=== PATIENT | male | born 1945 | race African-American/Black ===

== ENCOUNTER 2023-01-12 23:23 | Inpatient (IN) | payer MEDICARE, OTHER ==
[~2023-01-12] VITALS: Ht 170.2 cm; Wt 93.6 kg
[2023-01-13 01:31] LABS: Basophils # (auto) 0.1 10 ^3/uL (0-0.2); Basophils % (auto) 0.9 % (0.0-2.0); Eosinophils # (auto) 0.2 10 ^3/uL (0-0.8); Eosinophils % (auto) 2.3 % (0.0-7.0); Hematocrit 43.2 % (36.0-46.0); Hemoglobin 14.1 g/dL (12.2-16.2); Lymphocytes # (auto) 0.8 10 ^3/uL (0.4-5.4); Lymphocytes % (auto) 9.7 % (10.0-50.0); Mean Corpuscular Hemoglobin 27.8 pg (28.0-32.0); Mean Corpuscular Hgb Conc. 32.6 g/dL (32.0-36.0); Mean Corpuscular Volume 85.3 fL (80.0-100.0); Monocytes # (auto) 0.3 10 ^3/uL (0-1.3); Monocytes % (auto) 3.7 % (0.0-12.0); Neutrophils # (auto) 6.5 10 ^3/uL (1.6-8.6); Neutrophils % (auto) 83.4 % (37.0-80.0); Nucleated Red Blood Cells % 0.1 %; Red Blood Cells 5.07 10^6/uL (4.0-5.20); Red Cell Distribution Width 15.7 % (11.8-14.3); White Blood Cell 7.7 10^3/uL (4.4-10.8)
[2023-01-13 01:46] LABS: Albumin 3.3 g/dL (3.4-5.0); BUN/Creatinine Ratio 8.6 (10.0-20.0); Calcium 9.2 mg/dL (8.5-10.1); Potassium 5.4 mmol/L (3.5-5.1)
[2023-01-13 01:48] LABS: Bilirubin, Total 0.3 mg/dL (0.2-1.0); Total Protein 6.9 g/dL (6.4-8.2)
[2023-01-13] MEDS ORDERED: DOCUSATE SOD 100 MG CAP PO PRN (05:30)
[2023-01-13] MEDS ORDERED: SODIUM ZIRCONIUM CYCL 10 GM PAK PO ONE (05:30)
[2023-01-13] MEDS ORDERED: ACETAMINOPHEN 325 MG TAB PO PRN (05:30)
[2023-01-13] MEDS ORDERED: SODIUM CHLORIDE 0.9% 1,000 ML IV SCH (05:30)
[2023-01-13] MEDS ORDERED: ONDANSETRON HCL 4 MG/2 ML VIAL IV PRN (05:30)
[2023-01-13] MEDS: amLODIPine BESYLATE 5 MG TAB PO SCH ×2 (05:52→11:24)
[2023-01-13] MEDS: hydrALAZINE HCL 20 MG/ML VL IV PRN ×2 (05:52→12:49)
[2023-01-13] MEDS ORDERED: MORPHINE SULFATE INJ 2 MG/ml SYRG IV PRN (06:45)
[2023-01-13] MEDS ORDERED: NITROGLYCERIN 0.4 MG SL TAB SL PRN (06:45)
[2023-01-13 06:57] LABS: Basophils # (auto) 0.1 10 ^3/uL (0-0.2); Basophils % (auto) 1.1 % (0.0-2.0); Eosinophils # (auto) 0.2 10 ^3/uL (0-0.8); Eosinophils % (auto) 2.4 % (0.0-7.0); Hematocrit 42.4 % (41.0-53.0); Hemoglobin 13.9 g/dL (13.5-17.5); Lymphocytes # (auto) 1.3 10 ^3/uL (0.4-5.4); Lymphocytes % (auto) 18.6 % (10.0-50.0); Mean Corpuscular Hemoglobin 28.3 pg (28.0-32.0); Mean Corpuscular Hgb Conc. 32.8 g/dL (32.0-36.0); Mean Corpuscular Volume 86.2 fL (80.0-100.0); Monocytes # (auto) 0.3 10 ^3/uL (0-1.3); Monocytes % (auto) 4.9 % (0.0-12.0); Neutrophils # (auto) 5.2 10 ^3/uL (1.6-8.6); Nucleated Red Blood Cells % 0.1 %; Red Blood Cells 4.92 10^6/uL (4.5-5.90); Red Cell Distribution Width 16.1 % (11.8-14.3); White Blood Cell 7.1 10^3/uL (4.4-10.8)
[2023-01-13 07:20] LABS: Albumin 3.5 g/dL (3.4-5.0); Calcium 9.5 mg/dL (8.5-10.1); Potassium 4.7 mmol/L (3.5-5.1)
[2023-01-13 07:24] LABS: BUN/Creatinine Ratio 8.1 (10.0-20.0); Bilirubin, Total 0.4 mg/dL (0.2-1.0); Total Protein 7.5 g/dL (6.4-8.2)
[2023-01-13] MEDS: FAMOTIDINE (10MG/ML) 2ML VL IV SCH ×3 (11:25→22:21)
[2023-01-13] MEDS ORDERED: LIDOCAINE 2% JELLY 11ml (GLYDO) UR ONE (11:30)
[2023-01-13 13:11] LABS: Urine Bacteria NONE SEEN /hpf (None Seen); Urine Blood 2+ /uL (Negative); Urine Hyaline Cast FEW /lpf (0 - 2); Urine Specific Gravity 1.008 (1.001-1.035); Urine WBC 4 /hpf (0 - 3)
[2023-01-13] MEDS ORDERED: cefTRIAXone 1GM/50ML D5W 50 ML IV ONE (13:30)
[2023-01-13] MEDS: SODIUM CHLORIDE 0.9% 1,000 ML IV SCH ×2 (14:05→23:46)
[2023-01-13 15:46] LABS: Calcium 9.4 mg/dL (8.5-10.1)
[2023-01-13 15:49] LABS: BUN/Creatinine Ratio 9.5 (10.0-20.0); Bilirubin, Total 0.4 mg/dL (0.2-1.0); Total Protein 8.7 g/dL (6.4-8.2)
[2023-01-13 19:31] LABS: Basophils # (auto) 0.1 10 ^3/uL (0-0.2); Basophils % (auto) 1.2 % (0.0-2.0); Eosinophils # (auto) 0.1 10 ^3/uL (0-0.8); Eosinophils % (auto) 1.7 % (0.0-7.0); Hematocrit 43.9 % (41.0-53.0); Hemoglobin 14.4 g/dL (13.5-17.5); Lymphocytes % (auto) 12.7 % (10.0-50.0); Mean Corpuscular Hemoglobin 28.1 pg (28.0-32.0); Mean Corpuscular Hgb Conc. 32.8 g/dL (32.0-36.0); Mean Corpuscular Volume 85.6 fL (80.0-100.0); Monocytes # (auto) 0.5 10 ^3/uL (0-1.3); Monocytes % (auto) 6.2 % (0.0-12.0); Neutrophils # (auto) 6.3 10 ^3/uL (1.6-8.6); Neutrophils % (auto) 78.2 % (37.0-80.0); Nucleated Red Blood Cells % 0.1 %; Red Blood Cells 5.13 10^6/uL (4.5-5.90)
[2023-01-13] MEDS ORDERED: LORazepam 2MG/ML-1ML VIAL ONE (22:44)
[2023-01-13] MEDS ORDERED: LORazepam 2MG/ML-1ML VIAL IV ONE (23:00)
[2023-01-14] VITALS (7 sets, daily range): BP systolic 100–165; BP diastolic 62–88
[2023-01-14] MEDS ORDERED: TAMS-35 PO (04:50)
[2023-01-14] MEDS ORDERED: ATOR10TA PO (04:50)
[2023-01-14] MEDS ORDERED: METF-370 PO (04:50)
[2023-01-14] MEDS ORDERED: ATEN-60 PO (04:50)
[2023-01-14 09:06] LABS: Basophils # (auto) 0 10 ^3/uL (0-0.2); Basophils % (auto) 0.3 % (0.0-2.0); Eosinophils # (auto) 0 10 ^3/uL (0-0.8); Hematocrit 41.6 % (41.0-53.0); Hemoglobin 13.6 g/dL (13.5-17.5); Lymphocytes # (auto) 0.7 10 ^3/uL (0.4-5.4); Lymphocytes % (auto) 7.2 % (10.0-50.0); Mean Corpuscular Hemoglobin 27.8 pg (28.0-32.0); Mean Corpuscular Hgb Conc. 32.7 g/dL (32.0-36.0); Mean Corpuscular Volume 85.2 fL (80.0-100.0); Monocytes # (auto) 0.4 10 ^3/uL (0-1.3); Monocytes % (auto) 4.2 % (0.0-12.0); Neutrophils # (auto) 8.5 10 ^3/uL (1.6-8.6); Neutrophils % (auto) 88.3 % (37.0-80.0); Nucleated Red Blood Cells % 0.2 %; Red Blood Cells 4.89 10^6/uL (4.5-5.90); Red Cell Distribution Width 16.1 % (11.8-14.3); White Blood Cell 9.7 10^3/uL (4.4-10.8)
[2023-01-14 09:09] LABS: Calcium 9.3 mg/dL (8.5-10.1); Potassium 4.8 mmol/L (3.5-5.1)
[2023-01-14 09:15] LABS: Albumin 3.4 g/dL (3.4-5.0); BUN/Creatinine Ratio 14.7 (10.0-20.0); Bilirubin, Total 0.3 mg/dL (0.2-1.0); Total Protein 7.1 g/dL (6.4-8.2)
[2023-01-14] MEDS: cefTRIAXone 1GM/50ML D5W 50 ML IV SCH (10:27)
[2023-01-14] MEDS: amLODIPine BESYLATE 5 MG TAB PO SCH (10:27)
[2023-01-14] MEDS: SODIUM CHLORIDE 0.9% 1,000 ML IV SCH ×2 (10:31→19:45)
[2023-01-14] MEDS: FAMOTIDINE (10MG/ML) 2ML VL IV SCH ×2 (10:38→21:32)
[2023-01-14] MEDS: hydrALAZINE HCL 20 MG/ML VL IV PRN (21:31)
[2023-01-14] MEDS ORDERED: DOCUSATE SOD 100 MG CAP PO ONE (23:30)
[2023-01-14] MEDS ORDERED: hydrALAZINE HCL 20 MG/ML VL IV ONE (23:30)
[2023-01-14] MEDS: METOPROLOL TARTRATE 25 MG TAB PO SCH (23:53)
[2023-01-15] VITALS (7 sets, daily range): BP systolic 143–175; BP diastolic 79–91
[2023-01-15] MEDS: hydrALAZINE HCL 20 MG/ML VL IV PRN ×2 (05:11→13:04)
[2023-01-15] MEDS: SODIUM CHLORIDE 0.9% 1,000 ML IV SCH (05:45)
[2023-01-15] MEDS: METOPROLOL TARTRATE 25 MG TAB PO SCH (05:52)
[2023-01-15 05:57] LABS: Potassium 3.6 mmol/L (3.5-5.1)
[2023-01-15 06:00] LABS: Basophils # (auto) 0.1 10 ^3/uL (0-0.2); Basophils % (auto) 0.6 % (0.0-2.0); Eosinophils # (auto) 0.2 10 ^3/uL (0-0.8); Eosinophils % (auto) 2.6 % (0.0-7.0); Hematocrit 43.2 % (41.0-53.0); Hemoglobin 14.4 g/dL (13.5-17.5); Lymphocytes # (auto) 0.7 10 ^3/uL (0.4-5.4); Lymphocytes % (auto) 8.2 % (10.0-50.0); Mean Corpuscular Hemoglobin 28.3 pg (28.0-32.0); Mean Corpuscular Hgb Conc. 33.3 g/dL (32.0-36.0); Monocytes # (auto) 0.5 10 ^3/uL (0-1.3); Monocytes % (auto) 5.5 % (0.0-12.0); Neutrophils # (auto) 7.6 10 ^3/uL (1.6-8.6); Neutrophils % (auto) 83.1 % (37.0-80.0); Nucleated Red Blood Cells % 0.1 %; Red Blood Cells 5.08 10^6/uL (4.5-5.90); Red Cell Distribution Width 15.9 % (11.8-14.3); White Blood Cell 9.1 10^3/uL (4.4-10.8)
[2023-01-15 06:02] LABS: Calcium 9.6 mg/dL (8.5-10.1)
[2023-01-15] MEDS ORDERED: DOCUSATE SOD 100 MG CAP PO SCH (10:00)
[2023-01-15] MEDS: METOPROLOL TARTRATE 50 MG TAB PO SCH ×2 (10:16→21:07)
[2023-01-15] MEDS: SOD CHL 0.45% 1,000 ML IV SCH ×2 (10:17→22:05)
[2023-01-15] MEDS: amLODIPine BESYLATE 5 MG TAB PO SCH (10:17)
[2023-01-15] MEDS: cefTRIAXone 1GM/50ML D5W 50 ML IV SCH (10:17)
[2023-01-15] MEDS: FAMOTIDINE (10MG/ML) 2ML VL IV SCH ×2 (10:17→21:08)
[2023-01-16 05:00] VITALS: BP 145/79
[2023-01-16 06:43] LABS: Basophils # (auto) 0.1 10 ^3/uL (0-0.2); Basophils % (auto) 0.7 % (0.0-2.0); Eosinophils # (auto) 0.4 10 ^3/uL (0-0.8); Eosinophils % (auto) 3.7 % (0.0-7.0); Hematocrit 43.4 % (41.0-53.0); Hemoglobin 14.5 g/dL (13.5-17.5); Lymphocytes # (auto) 1.3 10 ^3/uL (0.4-5.4); Lymphocytes % (auto) 11.1 % (10.0-50.0); Mean Corpuscular Hemoglobin 28.2 pg (28.0-32.0); Mean Corpuscular Hgb Conc. 33.4 g/dL (32.0-36.0); Mean Corpuscular Volume 84.3 fL (80.0-100.0); Monocytes # (auto) 0.7 10 ^3/uL (0-1.3); Monocytes % (auto) 6.2 % (0.0-12.0); Neutrophils # (auto) 8.9 10 ^3/uL (1.6-8.6); Neutrophils % (auto) 78.3 % (37.0-80.0); Nucleated Red Blood Cells % 0.1 %; Red Blood Cells 5.15 10^6/uL (4.5-5.90); White Blood Cell 11.4 10^3/uL (4.4-10.8)
[2023-01-16] MEDS: FAMOTIDINE (10MG/ML) 2ML VL IV SCH (10:19)
[2023-01-16] MEDS: cefTRIAXone 1GM/50ML D5W 50 ML IV SCH (10:20)
[2023-01-16] MEDS: METOPROLOL TARTRATE 50 MG TAB PO SCH ×2 (10:20→22:19)
[2023-01-16] MEDS: amLODIPine BESYLATE 5 MG TAB PO SCH (10:21)
[2023-01-16] MEDS: SOD CHL 0.45% 1,000 ML IV SCH (13:12)
[2023-01-16 22:00] VITALS: BP 144/80
[2023-01-17 05:00] VITALS: BP 141/86
[2023-01-17 06:15] LABS: Basophils # (auto) 0.1 10 ^3/uL (0-0.2); Basophils % (auto) 0.7 % (0.0-2.0); Eosinophils # (auto) 0.6 10 ^3/uL (0-0.8); Eosinophils % (auto) 5.8 % (0.0-7.0); Hematocrit 41.5 % (41.0-53.0); Hemoglobin 13.7 g/dL (13.5-17.5); Lymphocytes # (auto) 1.3 10 ^3/uL (0.4-5.4); Lymphocytes % (auto) 12.5 % (10.0-50.0); Mean Corpuscular Hemoglobin 28.1 pg (28.0-32.0); Mean Corpuscular Volume 85.1 fL (80.0-100.0); Monocytes # (auto) 0.6 10 ^3/uL (0-1.3); Monocytes % (auto) 5.4 % (0.0-12.0); Neutrophils # (auto) 7.8 10 ^3/uL (1.6-8.6); Neutrophils % (auto) 75.6 % (37.0-80.0); Nucleated Red Blood Cells % 0.1 %; Red Blood Cells 4.88 10^6/uL (4.5-5.90); Red Cell Distribution Width 15.6 % (11.8-14.3); White Blood Cell 10.3 10^3/uL (4.4-10.8)
[2023-01-17] MEDS: SOD CHL 0.45% 1,000 ML IV SCH ×2 (06:52→17:50)
[2023-01-17] MEDS: cefTRIAXone 1GM/50ML D5W 50 ML IV SCH (09:26)
[2023-01-17] MEDS: METOPROLOL TARTRATE 50 MG TAB PO SCH ×2 (09:27→21:59)
[2023-01-17 22:00] VITALS: BP 155/82
[2023-01-18] MEDS: SOD CHL 0.45% 1,000 ML IV SCH ×2 (03:25→16:45)
[2023-01-18 05:00] VITALS: BP 151/80
[2023-01-18 05:56] LABS: Basophils # (auto) 0.1 10 ^3/uL (0-0.2); Basophils % (auto) 0.9 % (0.0-2.0); Eosinophils # (auto) 0.6 10 ^3/uL (0-0.8); Eosinophils % (auto) 7.3 % (0.0-7.0); Lymphocytes # (auto) 1.3 10 ^3/uL (0.4-5.4); Lymphocytes % (auto) 16.2 % (10.0-50.0); Mean Corpuscular Hemoglobin 28.2 pg (28.0-32.0); Mean Corpuscular Hgb Conc. 33.3 g/dL (32.0-36.0); Mean Corpuscular Volume 84.5 fL (80.0-100.0); Monocytes # (auto) 0.5 10 ^3/uL (0-1.3); Monocytes % (auto) 6.5 % (0.0-12.0); Neutrophils # (auto) 5.5 10 ^3/uL (1.6-8.6); Neutrophils % (auto) 69.1 % (37.0-80.0); Nucleated Red Blood Cells % 0.1 %; Red Blood Cells 4.62 10^6/uL (4.5-5.90); Red Cell Distribution Width 15.7 % (11.8-14.3); White Blood Cell 7.9 10^3/uL (4.4-10.8)
[2023-01-18 06:12] LABS: BUN/Creatinine Ratio 14.5 (10.0-20.0); Potassium 3.1 mmol/L (3.5-5.1)
[2023-01-18 08:00] VITALS: BP 139/86
[2023-01-18] MEDS: cefTRIAXone 1GM/50ML D5W 50 ML IV SCH (09:16)
[2023-01-18] MEDS: METOPROLOL TARTRATE 50 MG TAB PO SCH ×2 (09:17→21:43)
[2023-01-18] MEDS ORDERED: POTASSIUM CHL 20 Meq TABLET PO ONE (10:00)
[2023-01-18 12:00] VITALS: BP 142/88
[2023-01-18 16:00] VITALS: BP 137/77
[2023-01-18] MEDS: HYDROcodone-ACET 5/325MG TAB PO PRN (16:13)
[2023-01-18 22:00] VITALS: BP 156/90
[2023-01-18 23:07] VITALS: BP 140/68
[2023-01-19 05:07] VITALS: BP 170/95
[2023-01-19] MEDS: hydrALAZINE HCL 20 MG/ML VL IV PRN (05:09)
[2023-01-19 05:53] LABS: Basophils # (auto) 0.1 10 ^3/uL (0-0.2); Basophils % (auto) 1.3 % (0.0-2.0); Eosinophils # (auto) 0.5 10 ^3/uL (0-0.8); Eosinophils % (auto) 6.6 % (0.0-7.0); Hematocrit 40.3 % (41.0-53.0); Hemoglobin 13.2 g/dL (13.5-17.5); Lymphocytes # (auto) 1.4 10 ^3/uL (0.4-5.4); Mean Corpuscular Hemoglobin 28.1 pg (28.0-32.0); Mean Corpuscular Hgb Conc. 32.8 g/dL (32.0-36.0); Mean Corpuscular Volume 85.6 fL (80.0-100.0); Monocytes # (auto) 0.5 10 ^3/uL (0-1.3); Monocytes % (auto) 6.3 % (0.0-12.0); Neutrophils # (auto) 5.1 10 ^3/uL (1.6-8.6); Neutrophils % (auto) 66.8 % (37.0-80.0); Nucleated Red Blood Cells % 0.1 %; Red Cell Distribution Width 15.9 % (11.8-14.3); White Blood Cell 7.6 10^3/uL (4.4-10.8)
[2023-01-19 05:58] LABS: INR 1.06 (0.9-1.15); Partial Thromboplastin Time 26.8 SEC (24.5-34.5)
[2023-01-19 06:04] LABS: Calcium 9.2 mg/dL (8.5-10.1); Potassium 3.7 mmol/L (3.5-5.1)
[2023-01-19 06:11] LABS: BUN/Creatinine Ratio 11.2 (10.0-20.0); Bilirubin, Total 0.5 mg/dL (0.2-1.0); Total Protein 6.5 g/dL (6.4-8.2)
[2023-01-19 08:00] VITALS: BP 133/63
[2023-01-19 09:00] VITALS: BP 133/63
[2023-01-19] MEDS: cefTRIAXone 1GM/50ML D5W 50 ML IV SCH (09:19)
[2023-01-19] MEDS: METOPROLOL TARTRATE 50 MG TAB PO SCH ×2 (09:20→21:31)
[2023-01-19] MEDS: SOD CHL 0.45% 1,000 ML IV SCH ×2 (09:54→19:30)
[2023-01-19 11:20] VITALS: BP 140/77
[2023-01-19] MEDS ORDERED: fentaNYL CITRATE 100 MCG/2 ML VL ONE (12:43)
[2023-01-19] MEDS ORDERED: MIDAZOLAM HCL 2MG/2ML 2ml VIAL (1mg/ml) ONE (12:43)
[2023-01-19] MEDS ORDERED: ONDANSETRON HCL 4 MG/2 ML VIAL ONE (12:47)
[2023-01-19] MEDS ORDERED: LIDOCAINE 2% (LOCAL ANESTH.) PF 5ml SDV ONE (12:47)
[2023-01-19] MEDS ORDERED: HYDROmorphone HCL 2 MG/ML VL/or syr ONE (13:49)
[2023-01-19] MEDS ORDERED: LABETALOL HCL 5 MG/ML ML 20ML VIAL IV ONE (14:40)
[2023-01-19] MEDS ORDERED: ONDANSETRON HCL 4 MG/2 ML VIAL IV PRN (15:15)
[2023-01-19] MEDS ORDERED: LABETALOL HCL 5 MG/ML 4ML SYRINGE IV PRN (15:15)
[2023-01-19] MEDS ORDERED: HYDROmorphone HCL 2 MG/ML VL/or syr IV PRN (15:15)
[2023-01-19 16:59] VITALS: BP 143/76
[2023-01-19 22:00] VITALS: BP 167/77
[2023-01-20] MEDS: SOD CHL 0.45% 1,000 ML IV SCH ×2 (03:32→21:45)
[2023-01-20 05:00] VITALS: BP 167/84
[2023-01-20 09:00] VITALS: BP 151/94
[2023-01-20] MEDS: cefTRIAXone 1GM/50ML D5W 50 ML IV SCH (09:09)
[2023-01-20] MEDS: METOPROLOL TARTRATE 50 MG TAB PO SCH ×2 (10:07→21:43)
[2023-01-20 13:00] VITALS: BP 123/64
[2023-01-20 17:00] VITALS: BP 137/65
[2023-01-20 22:00] VITALS: BP 139/67
[2023-01-20] MEDS: HYDROcodone-ACET 5/325MG TAB PO PRN (22:45)
[2023-01-21 05:00] VITALS: BP 148/83
[2023-01-21 09:00] VITALS: BP 145/78
[2023-01-21] MEDS: cefTRIAXone 1GM/50ML D5W 50 ML IV SCH (09:06)
[2023-01-21] MEDS: SOD CHL 0.45% 1,000 ML IV SCH ×2 (09:06→23:27)
[2023-01-21] MEDS: METOPROLOL TARTRATE 50 MG TAB PO SCH ×2 (09:10→22:35)
[2023-01-21 13:18] VITALS: BP 161/86
[2023-01-21 22:00] VITALS: BP 157/80
[2023-01-22 04:00] VITALS: BP 158/79
[2023-01-22] MEDS: hydrALAZINE HCL 20 MG/ML VL IV PRN (05:09)
[2023-01-22 09:00] VITALS: BP 134/70
[2023-01-22] MEDS: METOPROLOL TARTRATE 50 MG TAB PO SCH ×2 (10:41→21:04)
[2023-01-22] MEDS: cefTRIAXone 1GM/50ML D5W 50 ML IV SCH (10:42)
[2023-01-22] MEDS: SOD CHL 0.45% 1,000 ML IV SCH ×2 (14:39→21:07)
[2023-01-22 16:03] VITALS: BP 112/73
[2023-01-23] MEDS: cefTRIAXone 1GM/50ML D5W 50 ML IV SCH (10:29)
[2023-01-23] MEDS: hydrALAZINE HCL 20 MG/ML VL IV PRN (10:30)
[2023-01-23 13:00] VITALS: BP 107/68
[2023-01-23 16:33] VITALS: BP 144/79
[2023-01-23] MEDS: SOD CHL 0.45% 1,000 ML IV SCH (16:45)
[2023-01-23 18:37] VITALS: BP 184/92
[2023-01-23] MEDS: METOPROLOL TARTRATE 50 MG TAB PO SCH (22:35)
[2023-01-24] MEDS: SOD CHL 0.45% 1,000 ML IV SCH (04:43)
[2023-01-24] MEDS: cefTRIAXone 1GM/50ML D5W 50 ML IV SCH (08:53)
[2023-01-24 09:00] VITALS: BP 142/74
== END 2023-01-24 11:30 | DRG 853 ==
LOC: ER 23:23 → EDSEX 23:23 → EDBD 23:23 → TELE 01-13 06:43 → TELE-EAST 01-14 03:35 → EAST 01-18 17:35
PROVIDERS: ADMIT Nurse Practitioner Family; ATTEND Family Medicine
PROC: BT101ZZ Fluoroscopy of Bladder using Low Osmolar Contrast (ICD-10-PCS; 2023-01-19)
PROC: 0TFB8ZZ Fragmentation in Bladder, Via Natural or Artificial Opening Endoscopic (ICD-10-PCS; 2023-01-19)
PROC: 0VB08ZZ Excision of Prostate, Via Natural or Artificial Opening Endoscopic (ICD-10-PCS; principal; 2023-01-19 12:38)
PROC: 05HD33Z Insertion of Infusion Device into Right Cephalic Vein, Percutaneous Approach (ICD-10-PCS; 2023-01-22)
PROC: B54MZZA Ultrasonography of Right Upper Extremity Veins, Guidance (ICD-10-PCS; 2023-01-22)
DX: A41.9 Sepsis, unspecified organism (principal); N18.6 End stage renal disease; E87.1 Hypo-osmolality and hyponatremia; N13.6 Pyonephrosis; N17.9 Acute kidney failure, unspecified; I12.0 Hypertensive chronic kidney disease with stage 5 chronic kidney disease or end stage renal disease; E78.00 Pure hypercholesterolemia, unspecified; E87.5 Hyperkalemia; I16.0 Hypertensive urgency; Z20.822 Contact with and (suspected) exposure to COVID-19; N21.0 Calculus in bladder; N40.1 Benign prostatic hyperplasia with lower urinary tract symptoms; R31.0 Gross hematuria; R33.8 Other retention of urine; R79.89 Other specified abnormal findings of blood chemistry; E11.22 Type 2 diabetes mellitus with diabetic chronic kidney disease
CPT/HCPCS: 36415; 70450; 71045; 72170; 74018; 74176; 76000; 76775; 80048; 80053; 81001; 82962; 83605; 83880; 84484; 85025; 85610; 85730; 87040; 87086; 87426; 93005; 97110; 97116; 97163; G0378; J0696; J2001; J2250; J2405; J3490

== ENCOUNTER 2024-06-21 13:45 | Inpatient (IN) | payer OTHER ==
[2024-06-21] VITALS (7 sets, daily range): BP systolic 101–104; BP diastolic 58–67; PULSE 82–89; RESP 16–20; TEMP 97.8–98.7; O2SAT 89–98
[~2024-06-21] VITALS: Ht 170.2 cm; Wt 98.7 kg
[~2024-06-21 13:45] MED LIST: ATEN-60 PO; ATOR10TA PO; METF-370 PO; TAMS-35 PO
--- NOTE | 2024-06-21 14:07 | ED.PDOC ---
History of Present Illness HPI Comments A 78 year old male brought in by EMS presents to the ED with a chief complaint of generalized weakness onset today. Per EMS, patient had an appointment today at the [facility], did not make it and family was called. Family members found patient on the ground, he denies LOC and states he felt tired. Neighbors state they saw the patient walking yesterday and seemed weak. No other symptoms or modifying factors present at this time. Time Seen by MD: 14:00 Reviewed Notes: Medications, Allergies Allergies: Coded Allergies: NO KNOWN ALLERGIES (Unverified , 01/12/23) Home Meds Reported Medications Atorvastatin Calcium (Lipitor) 10 Mg Tab, PO QPM, #90 TAB 1 Refill 01/14/23 Metformin Hydrochloride (Metformin Hcl) 500 Mg Tab, PO IBID for 30 Days, MG 01/14/23 Tamsulosin Hcl (Flomax) 0.4 Mg Cap, 1 CAP PO DAILY, #30 CAP 11 Refills 01/14/23 Atenolol (Atenolol) 25 Mg Tab, PO BID for 30 Days, MG 01/14/23 Information Source: Patient, Emergency Med Personnel Mode of Arrival: EMS Severity: Moderate Timing: Hours Duration: Since onset Prehospital treatment: None Past Medical History PAST MEDICAL HISTORY: DM, HTN Surgical History: Denies all surgeries Family History Family History: Unknown Social History Smoker: Non-Smoker Alcohol: Denies ETOH Use Drugs: Denies Drug Use Lives In: Home Constitutional: reports: weakness; denies: chills, diaphoresis, fatigue, fever, malaise, sweats, others EENTM: denies: blurred vision, double vision, ear bleeding, ear discharge, ear drainage, ear pain, ear ringing, eye pain, eye redness, hearing loss, mouth pain, mouth swelling, nasal discharge, nose bleeding, nose congestion, nose pain, photophobia, tearing, throat pain, throat swelling, voice changes, others Respiratory: denies: cough, hemoptysis, orthopnea, SOB at rest, shortness of breath, SOB with excertion, stridor, wheezing, others Cardiovascular: denies: chest pain, dizzy spells, diaphoresis, Dyspnea on exertion, edema, irregular heart beat, left arm pain, lightheadedness, palpitations, PND, syncope, others Gastrointestinal: reports: diarrhea; denies: abdomen distended, abdominal pain, blood streaked bowels, constipated, dysphagia, difficulty swallowing, hematemesis, melena, nausea, poor appetite, poor fluid intake, rectal bleeding, rectal pain, vomiting, others Genitourinary: denies: burning, dysuria, flank pain, frequency, hematuria, incontinence, penile discharge, penile sore, pain, testicle pain, testicle swelling, urgency, others Neurological: denies: dizziness, fainting, headache, left sided numbness, left sided weakness, numbness, paresthesia, pre-existing deficit, right sided numbness, right sided weakness, seizure, speech problems, tingling, tremors, weakness, others Musculoskeletal: denies: back pain, gout, joint pain, joint swelling, muscle pain, muscle stiffness, neck pain, others Integumetry: denies: bruises, change in color, change in hair/nails, dryness, laceration, lesions, lumps, rash, wounds, others Allergic/Immunocompromised: denies: Difficulty Healing, Frequent Infections, Hives, Itching, others Hematologic/Lymphatic: denies: anemia, blood clots, easy bleeding, easy bruising, swollen glands, others Endocrine: denies: excessive hunger, excessive sweating, excessive thirst, excessive urination, flushing, intolerance to cold, intolerance to heat, unexplained weight gain, unexplained weight loss, others Psychiatric: denies: anxiety, bipolar disorder, depression, hopeless, panic disorder, schizophrenia, sleepless, suicidal, others All Other Systems: Reviewed and Negative Physical Exam General Appearance: No Apparent Distress, Normal HEENT: Normal ENT Inspection, Pharynx Normal, TMs Normal Neck: Full Range of Motion, Non-Tender, Normal, Normal Inspection Respiratory: Chest Non-Tender, Lungs Clear, No Accessory Muscle Use, No Respiratory Distress, Normal Breath Sounds Cardiovascular: No Edema, No JVD, No Murmur, No Gallop, Normal Peripheral Pulses, Regular Rate/Rhythm Breast Exam: Deferred Gastrointestinal: No Organomegaly, Non Tender, No Pulsatile Mass, Normal Bowel Sounds, Soft Genitalia: Deferred Pelvic: Deferred Rectal: Deferred Extremities: No calf tenderness, Normal capillary refill, Normal inspection, Normal range of motion, Non-tender, No pedal edema Musculoskeletal : Apperance: Normal Neurologic: Alert, biological aide II-XII nml as 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 Was a procedure done?: No Differential Dx Considerations may include: ACS, CVA, electrolyte abnormality, infectious etiology X-Ray, Labs, Meds, VS Vital Signs Date Time Temp Pulse Resp B/P (MAP) Pulse Ox O2 Delivery O2 Flow Rate FiO2 06/21/24 15:47 86 06/21/24 15:00 82 18 88/55 (66) 99 06/21/24 14:10 87 18 85/52 (63) 89 06/21/24 14:10 82 18 89 Room Air* 0 21 06/21/24 14:05 98.7 88 18 75/50 (58) 95 06/21/24 13:56 85 Lab Test 06/21/24 16:53 06/21/24 16:08 06/21/24 14:53 Range/Units Lactic Acid Level Pending 8.2 *H 0.4-2.0 mmol/L Troponin I High Sensitivity 306 *H 307 *H </=54 ng/L White Blood Count 28.8 H 4.4-10.8 10^3/uL Red Blood Count 5.08 4.5-5.90 10^6/uL Hemoglobin 14.5 13.5-17.5 g/dL Hematocrit 45.0 41.0-53.0 % Mean Corpuscular Volume 88.4 80.0-100.0 fL Mean Corpuscular Hemoglobin 28.5 28.0-32.0 pg Mean Corpuscular Hemoglobin Concent 32.2 32.0-36.0 g/dL Red Cell Distribution Width 17.6 H 11.8-14.3 % Platelet Count 247 140-450 10^3/uL Mean Platelet Volume 7.8 6.9-10.8 fL Neutrophils (%) (Auto) 37.0-80.0 % Lymphocytes (%) (Auto) 10.0-50.0 % Monocytes (%) (Auto) 0.0-12.0 % Basophils (%) (Auto) 0.0-2.0 % Neutrophils # (Auto) 1.6-8.6 10 ^3/uL Lymphocytes # (Auto) 0.4-5.4 10 ^3/uL Monocytes # (Auto) 0-1.3 10 ^3/uL Differential Total Cells Counted 100.0 100 Neutrophils % (Manual) 83 H 37.0-80.0 Band Neutrophils % (Manual) 6 Lymphocytes % (Manual) 7 L 10.0-50.0 Monocytes % (Manual) 4 0-12 Eosinophils % (Manual) 0 0-7 Basophils % (Manual) 0 0.0-2.0 Metamyelocytes % (manual) 0 Myelocytes % (Manual) 0 Promyelocytes % (Manual) 0 Blast Cells % (Manual) 0 Reactive Lymphocytes 0 Platelet Estimate [place] Clumped Platelets Few Large Platelets Few Prothrombin Time 11.3 9.3-11.8 sec Prothrombin Time INR 1.07 0.9-1.15 Sodium Level 145 136-145 mmol/L Potassium Level 3.7 3.5-5.1 mmol/L Chloride Level 104 98-107 mmol/L Carbon Dioxide Level 21 20-31 mmol/L Anion Gap 20 H 5-15 Blood Urea Nitrogen 32 H 9-23 mg/dL Creatinine 3.91 H 0.700-1.30 mg/dL Glomerular Filtration Rate Calc 15 >90 mL/min BUN/Creatinine Ratio 8.2 L 10.0-20.0 Serum Glucose 138 H 74-106 mg/dL Calcium Level 10.7 H 8.7-10.4 mg/dL Total Bilirubin 0.4 0.2-1.0 mg/dL Aspartate Amino Transferase (AST) 208 H 13-40 U/L Alanine Aminotransferase (ALT) 55 H 7-40 U/L Alkaline Phosphatase 131 H 46-116 U/L B-Type Natriuretic Peptide 798.88 0-100 pg/mL Total Protein 7.7 5.7-8.2 g/dL Albumin 4.3 3.2-4.8 g/dL Current Medications Medications (Trade) Dose Ordered Sig/Jere Route Start Time Stop Time Status Last Admin Sodium Chloride 1,000 ml @ 1,000 mls/hr Q1H ONCE IV 06/21/24 14:30 06/21/24 15:29 DC 06/21/24 14:30 Sodium Chloride 1,000 ml @ 1,000 mls/hr Q1H ONCE IV 06/21/24 16:00 06/21/24 16:59 06/21/24 16:26 Cefepime HCl 50 ml @ 50 mls/hr ONCE ONCE IV 06/21/24 16:00 06/21/24 16:59 06/21/24 16:45 Sodium Chloride 1,000 ml @ 1,000 mls/hr Q1H ONCE IV 06/21/24 16:00 06/21/24 16:59 06/21/24 16:[address] [address] Ph: [phone] DIAGNOSTIC IMAGING Diagnostic Imaging Report : [id number] Signed PATIENT: COURTNEY BALDERRAMA ACCT: [id number] UNIT: [id number] : 1945 LOC: ER ROOM / BED: / AGE / SEX: 78 / M ADM STATUS: REG ER SERVICE 1417 ORDERING PHYSICIAN: LEIGHANN MA MD PROCEDURE(s): CXRP - CHEST PORTABLE REASON: syncope ORDER NUMBER(s): [id number], ACCESSION NUMBER(s): [id number] CLINICAL INFORMATION: 78 years old, Female; syncope. TECHNIQUE: Single AP portable chest radiograph was obtained. COMPARISON: XY CHEST PORTABLE on DOS: 01/13/23 FINDINGS: Lungs: Portions of the left costophrenic sulcus are excluded from the [id number]-dv-[id number] of the exam. Atelectasis in the lung bases. Can not exclude a small left pleural effusion. Cardiac: Heart size is within normal limits. Pulmonary vasculature: Unremarkable. Mediastinum/brendan: Unremarkable. Bones: No acute osseous abnormality identified. Other: No other significant findings. IMPRESSION: Atelectasis in the lung bases. Possible small left pleural effusion. ATED BY: ARI SMITH DO DICTATED DATE/TIME: 06/21/241446 SIGNED BY: ARI SMITH DO SIGNED DATE/TIME: 06/21/241446 CC: [address] [address] Ph: [phone] DIAGNOSTIC IMAGING Diagnostic Imaging Report : [id number] Signed PATIENT: COURTNEY BALDERRAMA ACCT: [id number] UNIT: [id number] : 1945 LOC: ER ROOM / BED: / AGE / SEX: 78 / M ADM STATUS: REG ER SERVICE 1417 ORDERING PHYSICIAN: LEIGHANN MA MD PROCEDURE(s): HWOCT - HEAD WITHOUT CONTRAST REASON: syncope ORDER NUMBER(s): [id number], ACCESSION NUMBER(s): [id number] EXAM: CT HEAD WITHOUT CONTRAST INDICATION: syncope TECHNIQUE: CT of the head without intravenous contrast. Radiation Dose Information: CT Dose: CTDI volume is 64.92 mGy. Dose-length product is 1040.13 mGy*cm The dose indicators for CT are the volume Computed Tomography (CT) Dose Index (CTDIvol) and the Dose Length Product (DLP), and are measured in units of mGy and mGy-cm, respectively. These indicators are not patient dose, but values generated from the CT scanner acquisition factors. The report includes radiation exposure data for exposures received during this examination. COMPARISON: CT HEAD WITHOUT CONTRAST on DOS: 01/13/23, CT HEAD WITHOUT CONTRAST on DOS: 01/12/23 FINDINGS: There is no evidence of acute intracranial hemorrhage, extra-axial collection, mass effect, midline shift, herniation or hydrocephalus. The ventricles, sulci and cisterns are age appropriate. The benton-white differentiation is intact. Patchy periventricular and subcortical white matter hypoattenuation is nonspecific but may be related to small vessel ischemic disease. The visualized paranasal sinuses and mastoid air cells are clear. The surrounding soft tissues and osseous structures are unremarkable. IMPRESSION: 1. No acute intracranial hemorrhage 2. No CT findings of territorial ischemia. ATED BY: LAKIA VICTOR Jr., DO DICTATED DATE/TIME: 06/21/241453 SIGNED BY: LAKIA VICTOR Jr., SIGNED DATE/TIME: 06/21/241453 CC: Time of 1ST Reevaluation: 14:30 Reevaluation 1ST: Unchanged Patient Education/Counseling: Diagnosis, Treatment, Prognosis Family Education/Counseling: No Family Present Additional Information HI DATA VOL/COMPLEXITY:>2 External Notes- Ordered Test- XY, LAB, PHA, EKG, CT Reviewed Results: BNP, CBC, UA, LA w/ reflex, TROP, TROP, TROP, CMP, type and screen Independent Hx- EMS Interpreted Results- XY/CT/EKG Discuss Tx/Results- medical personnel, patient Departure 1 Departure Time of Disposition: 16:58 (Patient presents critically ill. He has altered mental status, was found down, appears clinically dehydrated concern for sepsis. Evaluated the patient's CBC with an elevated white count. BNP with a an elevated creatinine. We will empirically cover patient with fluids and antibiotics and admit patient for further workup) Impression: Primary Impression: Metabolic encephalopathy Additional Impressions: Weakness Sepsis Qualified Codes: A41.9 - Sepsis, unspecified organism; R65.21 - Severe sepsis with septic shock; N17.9 - Acute kidney failure, unspecified Disposition: ADMITTED INPATIENT Admit to: [facility] Condition: Guarded Critical Care Note Critical Care Time?: Yes Critical care comment: Altered mental status, sepsis Authorized and Performed by: Leighann Ma MD Total critical care time: Approximately 38 minutes Due to a high probability of clinically significant, life threatening deterioration, the patient required my highest level of preparedness to intervene emergently and I personally spent this critical care time directly and personally managing the patient. This critical care time included obtaining a history; examining the patient; pulse oximetry; ordering and review of studies; arranging urgent treatment with development of a management plan; evaluation of patient's response to treatment; frequent reassessment; and, discussions with other providers. This critical care time was performed to assess and manage the high probability of imminent, life-threatening deterioration that could result in multi-organ failure. It was exclusive of separately billable procedures and treating other patients and teaching time. Please see my other sections and the rest of the note for further information on patient assessment and treatment. Stability Stability form required: No I personally scribed for LEIGHANN MA MD ([email or web address]) on 06/21/24 at 14:07. Electronically submitted by Amanda Valladares ([email or web address]). I personally scribed for LEIGHANN MA MD ([email or web address]) on 06/21/24 at 14:34. Electronically submitted by Amanda Valladares ([email or web address]). I personally scribed for LEIGHANN MA MD ([email or web address]) on 06/21/24 at 15:41. Electronically submitted by Amanda Valladares ([email or web address]). LEIGHANN MA MD Jun 21, 2024 14:07
[2024-06-21] MEDS: SODIUM CHLORIDE 0.9% 1,000 ML IV ONE ×3 (14:30→16:26)
[2024-06-21] MEDS: ONDANSETRON HCL 4 MG/2 ML VIAL IV ONE (14:30)
--- NOTE | 2024-06-21 14:49 | DVH ---
CLINICAL INFORMATION: 78 years old, Female; syncope. TECHNIQUE: Single AP portable chest radiograph was obtained. COMPARISON: XY CHEST PORTABLE on DOS: 01/13/23 FINDINGS: Lungs: Portions of the left costophrenic sulcus are excluded from the uvsbl-dw-neex of the exam. Atel ectasis in the lung bases. Can not exclude a small left pleural effusion. Cardiac: Heart size is within normal limits. Pulmonary vasculature: Unremarkable. Mediastinum/brendan: Unremarkable. Bones: No acute osseous abnormality identified. Other: No other significant findings. IMPRESSION: Atelectasis in the lung bases. Possible small left pleural effusion.
--- NOTE | 2024-06-21 14:57 | DVH ---
EXAM: CT HEAD WITHOUT CONTRAST INDICATION: syncope TECHNIQUE: CT of the head without intravenous contrast. Radiation Dose Information: CT Dose: CTDI volume is 64.92 mGy. Dose-length product is 1040.13 mGy*cm The dose indicators for CT are the volume Computed Tomography (CT) Dose Index (CTDIvol) and the Dose Length Product (DLP), and are measured in units of mGy and mGy-cm, respectively. These indicators are not patient dose, but values generated from the CT scanner acquisition factors. The report includes radiation exposure data for exposures received during this examination. COMPARISON: CT HEAD WITHOUT CONTRAST on DOS: 01/13/23, CT HEAD WITHOUT CONTRAST on DOS: 01/12/23 FINDINGS: There is no evidence of acute intracranial hemorrhage, extra-axial collection, mass effect, midline s hift, herniation or hydrocephalus. The ventricles, sulci and cisterns are age appropriate. The benton-white differentiation is intact. Patchy periventricular and subcortical white matter hypoattenuation is nonspecific but may be related to small vessel ischemic disease. The visualized paranasal sinuses and mastoid air cells are clear. The surrounding soft tissues and osseous structures are unremarkable. IMPRESSION: 1. No acute intracranial hemorrhage 2. No CT findings of territorial ischemia.
[2024-06-21 15:15] LABS: Hemoglobin 14.5 g/dL (13.5-17.5); Mean Corpuscular Hemoglobin 28.5 pg (28.0-32.0); Mean Corpuscular Hgb Conc. 32.2 g/dL (32.0-36.0)
[2024-06-21 15:23] LABS: Mean Corpuscular Volume 88.4 fL (80.0-100.0); Platelet Count (auto) 247 10^3/uL (140-450); Red Blood Cells 5.08 10^6/uL (4.5-5.90); Red Cell Distribution Width 17.6 % (11.8-14.3); White Blood Cell 28.8 10^3/uL (4.4-10.8)
[2024-06-21 15:28] LABS: Basophils % (manual) 0 (0.0-2.0); Blast Cells 0; Eosinophils % (manual) 0 (0-7); Metamyelocytes % 0; Myelocytes % 0; Promyelocytes % 0; Reactive Lymphocytes 0
[2024-06-21 15:29] LABS: INR 1.07 (0.9-1.15); Prothrombin Time 11.3 sec (9.3-11.8)
[2024-06-21 15:33] LABS: Albumin 4.3 g/dL (3.2-4.8); Anion Gap 20 (5-15); BUN/Creatinine Ratio 8.2 (10.0-20.0); Bilirubin, Total 0.4 mg/dL (0.2-1.0); Carbon Dioxide 21 mmol/L (20-31); Chloride 104 mmol/L (98-107); Potassium 3.7 mmol/L (3.5-5.1); Total Protein 7.7 g/dL (5.7-8.2)
[2024-06-21 15:39] LABS: Alanine Aminotransferase 55 U/L (7-40); Alkaline Phosphatase 131 U/L (46-116); Aspartate Aminotransferase 208 U/L (13-40); Blood Urea Nitrogen 32 mg/dL (9-23); Calcium 10.7 mg/dL (8.7-10.4); Glucose 138 mg/dL (74-106); Sodium 145 mmol/L (136-145)
[2024-06-21 15:41] LABS: Lactic Acid w/Reflex 8.2 mmol/L (0.4-2.0)
[2024-06-21 16:17] LABS: Band Neutrophils % (manual) 6; Large Platelets FEW; Lymphocytes % (manual) 7 (10.0-50.0); Monocytes % (manual) 4 (0-12); Platelet Estimate Adequa
[2024-06-21] MEDS: CEFEPIME 2GM/50ML NS 50 ML IV ONE (16:45)
[2024-06-21] MEDS: VANCOMYCIN 1GM/250ML KIT 200 ML IV ONE ×2 (17:11→23:00)
--- NOTE | 2024-06-21 17:55 | ECG ---
[facility] Test Date: 2024-06-21 Test Time: 15:47:10 Pat Name: COURTNEY BALDERRAMA Department: er Room: [address] [place] [address] Gender: M [employer] Machine: kar : 1945 Requested By: LEIGHANN MA Order Number: [id number] Reading MD: Benigno Manning Measurements Intervals [place] Rate: 86 P: 38 ND: 223 QRS: 40 QRSD: 98 T: 48 QT: 378 QTc: 452 Interpretive Statements Sinus rhythm Prolonged ND interval Borderline low voltage, extremity leads Electronically Signed On 06-26-2024 16:08:32 PST by Benigno Manning Please click the below link to view image of tracing.
--- NOTE | 2024-06-21 17:55 | ECG ---
[facility] Test Date: 2024-06-21 Test Time: 13:56:06 Pat Name: COURTNEY BALDERRAMA Department: er Room: [address] [place] [address] Gender: M [employer]: kar : 1945 Requested By: LEIGHANN MA Order Number: [id number] Reading MD: Benigno Manning Measurements Intervals [place] Rate: 85 P: 13 NC: 207 QRS: 43 QRSD: 90 T: 45 QT: 388 QTc: 462 Interpretive Statements Sinus rhythm Borderline ST elevation, lateral leads Baseline wander in lead(s) V5 Electronically Signed On 06-26-2024 16:08:25 PST by Benigno Manning Please click the below link to view image of tracing.
[2024-06-21] MEDS ORDERED: HYDROcodone-ACET 5/325MG TAB PO PRN (18:30)
[2024-06-21] MEDS ORDERED: MORPHINE SULFATE INJ 2 MG/ml SYRG IV PRN (18:30)
[2024-06-21] MEDS ORDERED: VANCOMYCIN PER PHARMACY 0 MG IV SCH (18:45)
--- NOTE | 2024-06-21 19:03 | DVHHP2 ---
History of Present Illness History of Present Illness A 78 year old male past medical history of renal stones (status post ESWL), BPH status post TURP, obstructive uropathy, hypertension brought in by EMS presents to the ED with a chief complaint of generalized weakness onset today. Per EMS, patient had an appointment today at the [place], did not make it and family was called. Family members found patient on the ground, he denies LOC and states he felt tired. Neighbors state they saw the patient walking yesterday and seemed weak. In endorses that he had some food that may have been bad in resulted in him having diarrhea, multiple episodes yesterday. When he was trying to go to sleep he was too weak and could not make it to the bed and sat down beside the bed. Denies nausea and vomiting, fevers chills, cough,. Does complain of some dysuria. Denies any trouble urinating. Denies any drugs, alcohol. Review of Systems Review of Systems As per HPI Allergies: Coded Allergies: NO KNOWN ALLERGIES (Unverified , 01/12/23) Medications Current Medications Medications Dose Ordered Sig/Jere Route Start Time Stop Time Status Last Admin Dose Admin Acetaminophen/ Hydrocodone Bitart 1 tab Q4HP PRN PO 06/21/24 18:30 UNV Enoxaparin Sodium 40 mg DAILY SC 06/22/24 10:00 UNV Morphine Sulfate 2 mg Q4HPRN PRN IV 06/21/24 18:30 UNV Vancomycin HCl 0 ml @ 0 mls/hr UD IV 06/21/24 18:45 UNV Cefepime HCl 50 ml @ 12.5 mls/hr Q12HR IV 06/21/24 22:00 UNV Exam Vital Signs Vital Signs Date Time Temp Pulse Resp B/P (MAP) Pulse Ox O2 Delivery O2 Flow Rate FiO2 06/21/24 18:00 88 14 104/67 (79) 98 06/21/24 14:10 Room Air* 0 21 06/21/24 14:05 98.7 Exam GEN: Healthy appearing, well-developed, mild to moderate distress, mild respiratory distress HEENT: dry mucous membranes CV: RRR, no m/r/g. LUNGS: Rales up to middle lobes bilaterally ABD: Soft, NT/ND, NBS, no masses or organomegaly. EXT: skin Warm, well perfused. no rashes. No clubbing, cyanosis, or edema. : Bowman inserted in urethra, Bowman and Bowman bag without any urine NEURO: Ambulating with no limitations. No focal deficits. Labs/Xrays Labs Test 06/21/24 17:51 06/21/24 16:53 06/21/24 14:53 Range/Units Troponin I High Sensitivity 293 *H </=54 ng/L Lactic Acid Level 6.6 *H 0.4-2.0 mmol/L White Blood Count 28.8 H 4.4-10.8 10^3/uL Red Blood Count 5.08 4.5-5.90 10^6/uL Hemoglobin 14.5 13.5-17.5 g/dL Hematocrit 45.0 41.0-53.0 % Mean Corpuscular Volume 88.4 80.0-100.0 fL Mean Corpuscular Hemoglobin 28.5 28.0-32.0 pg Mean Corpuscular Hemoglobin Concent 32.2 32.0-36.0 g/dL Red Cell Distribution Width 17.6 H 11.8-14.3 % Platelet Count 247 140-450 10^3/uL Mean Platelet Volume 7.8 6.9-10.8 fL Neutrophils (%) (Auto) 37.0-80.0 % Lymphocytes (%) (Auto) 10.0-50.0 % Monocytes (%) (Auto) 0.0-12.0 % Basophils (%) (Auto) 0.0-2.0 % Neutrophils # (Auto) 1.6-8.6 10 ^3/uL Lymphocytes # (Auto) 0.4-5.4 10 ^3/uL Monocytes # (Auto) 0-1.3 10 ^3/uL Differential Total Cells Counted 100.0 100 Neutrophils % (Manual) 83 H 37.0-80.0 Band Neutrophils % (Manual) 6 Lymphocytes % (Manual) 7 L 10.0-50.0 Monocytes % (Manual) 4 0-12 Eosinophils % (Manual) 0 0-7 Basophils % (Manual) 0 0.0-2.0 Metamyelocytes % (manual) 0 Myelocytes % (Manual) 0 Promyelocytes % (Manual) 0 Blast Cells % (Manual) 0 Reactive Lymphocytes 0 Platelet Estimate [place] Clumped Platelets Few Large Platelets Few Prothrombin Time 11.3 9.3-11.8 sec Prothrombin Time INR 1.07 0.9-1.15 Sodium Level 145 136-145 mmol/L Potassium Level 3.7 3.5-5.1 mmol/L Chloride Level 104 98-107 mmol/L Carbon Dioxide Level 21 20-31 mmol/L Anion Gap 20 H 5-15 Blood Urea Nitrogen 32 H 9-23 mg/dL Creatinine 3.91 H 0.700-1.30 mg/dL Glomerular Filtration Rate Calc 15 >90 mL/min BUN/Creatinine Ratio 8.2 L 10.0-20.0 Serum Glucose 138 H 74-106 mg/dL Calcium Level 10.7 H 8.7-10.4 mg/dL Total Bilirubin 0.4 0.2-1.0 mg/dL Aspartate Amino Transferase (AST) 208 H 13-40 U/L Alanine Aminotransferase (ALT) 55 H 7-40 U/L Alkaline Phosphatase 131 H 46-116 U/L B-Type Natriuretic Peptide 798.88 0-100 pg/mL Total Protein 7.7 5.7-8.2 g/dL Albumin 4.3 3.2-4.8 g/dL Assessment/Plan Assessment/Plan Septic shock Weakness Diarrhea Leukocytosis Neutrophilia Lactic acidosis AGMA gap metabolic acidosis --Patient found at home weak status post diarrhea episodes. -Labs concerning for septic shock (leukocytosis neutrophilia lactic acidosis) -CT head negative for acute process -patient has end-organ with lactic acid, ORTEGA, transaminitis, -in ed patient is hypotensive maps as low as 58. Responsive to fluids. Sign sources likely diarrhea from HPI. We will rule out urine, chest history not concerning for any acute infection and patient has no cough. -broad-spectrum antibiotics (vancomycin, cefepime) - s/p Generous IV fluids 30 cc/kg plain pending blood culture, pending UA and urine culture -trend lactic acid. Shortness of breath Acute hypoxic respiratory failure -patient requiring oxygen, has mild respiratory distress -physical exam with rales up to middle lobes, could be up to upper lobes as well patient using abdominal muscles to breathe -this could be secondary to 30 cc sepsis protocol fluids -BiPAP overnight and nightly until resolves -low threshold to trial Lasix push. LFTs/transaminitis ALP elevated -likely result of end-organ damage from sepsis We will monitor daily CMP ORTEGA Anuria -creatinine elevation from 0 point by 2.9 patient is not producing any urine CT pelvis to confirm Bowman placement -status post 30 cc/kg fluids, approximately 3 L -if no urine output made by a.m.-patient at risk of volume overload and will need a Nephrology consult and likely transient use of HD Diet NPO-concern for aspiration as patient was confused on presentation DVT prophylaxis Lovenox GI prophylaxis Protonix IV Med tele Plan discussed with: Patient My Orders Orders - DORIAN BATES MD Procedure Category Date Status Time Admit ADMIT 06/21/24 Transmitted 18:27 Code Status CODE 06/21/24 Transmitted 18:27 Hydrocodone-Acet PHA 06/21/24 Logged 5/325mg Tab ([place] 18:30 Enoxaparin Sodium PHA 06/22/24 Logged (Lovenox) 10:00 Complete Blood Count LAB 06/22/24 Verified 04:00 Comprehensive LAB 06/22/24 Verified Metabolic Panel 04:00 Maintain Bed Rest DAJA 06/21/24 In Process 18:27 Morphine Sulfate PHA 06/21/24 Logged Injection 18:[address] 06/21/24 Logged 18:27 BIPAP RT 06/21/24 Logged 18:27 Vancomycin Per DAJA 06/21/24 In Process Pharmacy Protoc 18:39 Vancomycin Per PHA 06/21/24 Logged Pharmacy 18:45 Cefepime 1gm/ 50ml PHA 06/21/24 Logged (Maxipime 1gm/50ml) 22:00 Urine Bacterial DANISHA 06/21/24 Logged Culture 18:42 Strict Aspiration DAJA 06/21/24 Transmitted Precautions 18:45 Npo Except For DAJA 06/21/24 Transmitted Medications 18:45 Date of Service: Jun 21, 2024 Billing Provider: DORIAN BATES MD Common Visit Codes: [id number] INP/OBS CARE (HIGH) DORIAN BATES MD Jun 21, 2024 19:03
--- NOTE | 2024-06-21 20:45 | DVH ---
Exam: CT PELVIS WO CONTRAST History: no urine. confirm crain placement. Comparison Study: None available at time of dictation. TECHNIQUE: Multidetector CT of the pelvis without contrast Axial, coronal and sagittal multiplanar re formats were obtained from the axial data set by the technologist. Radiation Dose Information: CT Dose: CTDI volume is 25.55 mGy. Dose-length product is 919.9 mGy*cm FINDINGS: Crain catheter is noted with the tip and bulb within the prosthetic urethra. The urinary bladder is d istended up to the level of L3-L4. Foci of air within the urinary bladder and within the wall of the urinary bladder with additional foci of air adjacent to the anterior urinary bladder and mild fat st randing adjacent to the urinary bladder. There is partially visualized mild bilateral hydro ureters. Prostate is enlarged measuring 5.5 x 6.4 x 6.9 cm with calcifications. Partially visualized moderate bilateral perinephric fat stranding. Partially visualized 6.3 cm left r enal cyst. Mild rectal wall thickening which is most likely from inadequate distension. Otherwise, the visualize d bowel loops unremarkable. Appendix is unremarkable. Moderate to heavy atherosclerotic calcification of the aorta and bilateral iliacs. 3.3 x 4.8 x 9.3 cm lipoma within the muscles of the right proximal thigh. Sclerotic focus over the left proximal femur which may represent a bone island. No destructive osseou s lesions noted. IMPRESSION: The Crain catheter tip and bulb are position within the prosthetic ureter. Recommend removal. Foci of air within the urinary bladder and within the wall of the urinary bladder with foci of air an terior to the urinary bladder and mild fat stranding adjacent to the urinary bladder. Correlate for emphysematous cystitis . No intrapelvic free fluid suggest urinary bladder perforation. Distended urinary bladder up to the level of L3-L4. Partially visualized mild bilateral hydro ureters . Partially visualized moderate bilateral perinephric fat stranding. Infectious process can not be excl uded. Partially visualized large left renal cyst. Enlarged prostate. Recommend correlation with PSA. Additional findings as above.
[2024-06-22] VITALS (12 sets, daily range): BP systolic 100–133; BP diastolic 60–84; PULSE 66–94; RESP 18–25; TEMP 97.8–99.2; O2SAT 94–99
[2024-06-22] MEDS: CEFEPIME 1GM/ 50ML 50 ML IV SCH (04:38)
[2024-06-22 05:23] LABS: Basophils # (auto) 0 10 ^3/uL (0-0.2); Basophils % (auto) 0.1 % (0.0-2.0); Eosinophils # (auto) 0.1 10 ^3/uL (0-0.8); Eosinophils % (auto) 0.3 % (0.0-7.0); Hematocrit 41.7 % (41.0-53.0); Hemoglobin 13.1 g/dL (13.5-17.5); Lymphocytes # (auto) 0.6 10 ^3/uL (0.4-5.4); Mean Corpuscular Hemoglobin 28.3 pg (28.0-32.0); Mean Corpuscular Hgb Conc. 31.4 g/dL (32.0-36.0); Mean Corpuscular Volume 90.2 fL (80.0-100.0); Monocytes # (auto) 0.8 10 ^3/uL (0-1.3); Monocytes % (auto) 3.7 % (0.0-12.0); Neutrophils # (auto) 19.9 10 ^3/uL (1.6-8.6); Neutrophils % (auto) 92.9 % (37.0-80.0); Platelet Count (auto) 182 10^3/uL (140-450); Red Blood Cells 4.62 10^6/uL (4.5-5.90); Red Cell Distribution Width 18.2 % (11.8-14.3); White Blood Cell 21.4 10^3/uL (4.4-10.8)
[2024-06-22 05:48] LABS: Alkaline Phosphatase 110 U/L (46-116); Anion Gap 18 (5-15); Potassium 5.1 mmol/L (3.5-5.1); Sodium 144 mmol/L (136-145)
[2024-06-22 05:49] LABS: Bilirubin, Total 0.4 mg/dL (0.2-1.0); Total Protein 6.7 g/dL (5.7-8.2)
[2024-06-22 05:57] LABS: Alanine Aminotransferase 75 U/L (7-40); Aspartate Aminotransferase 424 U/L (13-40); Blood Urea Nitrogen 41 mg/dL (9-23); Carbon Dioxide 17 mmol/L (20-31); Chloride 109 mmol/L (98-107); Glucose 115 mg/dL (74-106)
[2024-06-22] MEDS: TAMSULOSIN HYDROCHLORIDE 0.4 MG CAP PO SCH (11:12)
[2024-06-22] MEDS: ENOXAPARIN SOD 30 MG/0.3 ML SYRINGE SC SCH (11:13)
--- NOTE | 2024-06-22 14:32 | DVHPN2 ---
Reviewed: Care Plan, H&P, Labs, Medications, Previous Orders, Radiology Changes from previous H/P or p: No Changes Objective Vitals Vital Signs Date Time Temp Pulse Resp B/P (MAP) Pulse Ox O2 Delivery O2 Flow Rate FiO2 06/22/24 09:00 98.6 94 22 112/84 (93) 98 98.6 06/22/24 08:05 Nasal Cannula* 2 28 Intake/Output Intake and Output 06/22/24 07:00 Intake Total 200 ml Balance 200 ml Intake Oral 0 ml IV Total 200 ml Medications Current Medications Medications Dose Ordered Sig/Jere Route Start Time Stop Time Status Last Admin Dose Admin Acetaminophen/ Hydrocodone Bitart 1 tab Q4HP PRN PO 06/21/24 18:30 Enoxaparin Sodium 30 mg DAILY SC 06/22/24 10:00 06/22/24 11:13 30 MG Morphine Sulfate 2 mg Q4HPRN PRN IV 06/21/24 18:30 Vancomycin HCl 0 ml @ 0 mls/hr UD IV 06/21/24 18:45 Cefepime HCl 50 ml @ 12.5 mls/hr Q12H IV 06/22/24 05:00 06/22/24 04:38 12.5 MLS/HR Tamsulosin HCl 0.4 mg DAILY PO 06/22/24 10:00 06/22/24 11:12 0.4 MG Laboratory Results Laboratory Tests 06/22/24 04:17 Chemistry Test 06/21/24 14:53 06/22/24 04:17 Albumin 4.3 g/dL (3.2-4.8) 4.0 g/dL (3.2-4.8) Calcium Level 10.7 mg/dL (8.7-10.4) H 9.0 mg/dL (8.7-10.4) Total Protein 7.7 g/dL (5.7-8.2) 6.7 g/dL (5.7-8.2) Coagulation Test 06/21/24 14:53 Prothrombin Time 11.3 sec (9.3-11.8) Prothrombin Time INR 1.07 (0.9-1.15) Cardiac Markers Test 06/21/24 14:53 B-Type Natriuretic Peptide 798.88 pg/mL (0-100) LFT Test 06/21/24 14:53 06/22/24 04:17 Alanine Aminotransferase (ALT) 55 U/L (7-40) H 75 U/L (7-40) H Alkaline Phosphatase 131 U/L (46-116) H 110 U/L (46-116) Aspartate Amino Transferase (AST) 208 U/L (13-40) H 424 U/L (13-40) H Total Bilirubin 0.4 mg/dL (0.2-1.0) 0.4 mg/dL (0.2-1.0) Labs and/or images reviewed: Labs reviewed by me, Image(s) reviewed by me Assessment/Plan Assessment/Plan Septic shock with a WBC [id number] unknown etiology: Blood cultures urine cultures continue cefepime and vancomycin Acute generalized Weakness Acute Diarrhea Acute lactic acidosis lactic acid 8.2 Acute kidney injury BUN creatinine 32 and 3.91 possibly secondary to dehydration: IV fluids, Nephrology consult BPH history of TURP Obstructive Uropathy consult for the urologist Dr Zavala History of kidney stones status post ESWL Hypertension Acute metabolic acidosis Non ST-elevation [place] with a troponin of [address] Cee Acute hypoxic respiratory failure LFTs/transaminitis secondary to possible sepsis: Consult by GI Dr. Betty samaniego Chest x-ray negative CT head negative Time Spent 70 minutes Patient is full code Advanced care planning time 20 minutes Plan discussed with: Patient Date of Service: Jun 22, 2024 Billing Provider: TYLER GONZALEZ MD Common Visit Codes: [id number] CARE 30-74 MIN TYLER GONZALEZ MD Jun 22, 2024 14:32
--- NOTE | 2024-06-22 15:21 | DVHINCON2 ---
Date Seen: Jun 22, 2024 Referring Physician MD Walker Reason for Consultation NSTEMI History of Present Illness This is a 78-year-old male who presented to the emergency room via EMS with a chief complaint of generalized weakness. Per records, the patient was found on the floor by family members who called 911. Patient complains of progressive generalized weakness and increased fatigue. Denies chest pain, palpitations, diaphoresis, shortness of breath, or syncopal events. Upon arrival to the emergency room he was found with a systolic blood pressure in the 70s mmHg. He underwent multiple 12 lead electrocardiogram revealing a sinus rhythm with an associated first-degree AV block and without discernible ischemia. Troponin levels peaked at 3:07 ng/L prompting cardiology evaluation. Significant medical history includes hto-tbkkwrw-cxpxmzyux diabetes mellitus, hypertension, dyslipidemia, and benign prostatic hyperplasia with a history of urinary retention and left distal ureteral calculus status post laser cystolitholapaxy and TURP on 12/2023. Past Medical History Past medical history reviewed. No other significant than mentioned above. Past Surgical History Status post laser cystolitholapaxy and TURP on 12/2023 Family History: Patient reports no known family medical history. Family History Family history reviewed. Social History Denies the use of illicit drugs, alcohol, or tobacco use. Allergies: Coded Allergies: NO KNOWN ALLERGIES (Unverified , 01/12/23) Home Meds Reported Medications Atorvastatin Calcium (Lipitor) 10 Mg Tab, PO QPM, #90 TAB 1 Refill 01/14/23 Metformin Hydrochloride (Metformin Hcl) 500 Mg Tab, PO IBID for 30 Days, MG 01/14/23 Tamsulosin Hcl (Flomax) 0.4 Mg Cap, 1 CAP PO DAILY, #30 CAP 11 Refills 01/14/23 Atenolol (Atenolol) 25 Mg Tab, PO BID for 30 Days, MG 01/14/23 Home Meds Home medications reviewed. Current Medications Current Medications Medications (Trade) Dose Ordered Sig/Jere Route PRN Reason Start Time Stop Time Status Last Admin Acetaminophen/ Hydrocodone Bitart ([place] 5/325MG Tab) 1 tab Q4HP PRN PO MODERATE PAIN (4-6 PAIN SCALE) 06/21/24 18:30 Enoxaparin Sodium (Lovenox) 30 mg DAILY SC 06/22/24 10:00 06/22/24 11:13 Morphine Sulfate 2 mg Q4HPRN PRN IV SEVERE PAIN (7-10 PAIN SCALE) 06/21/24 18:30 Vancomycin HCl 0 ml @ 0 mls/hr UD IV 06/21/24 18:45 Cefepime HCl 50 ml @ 12.5 mls/hr Q12H IV 06/22/24 05:00 06/22/24 04:38 Tamsulosin HCl (Flomax) 0.4 mg DAILY PO 06/22/24 10:00 06/22/24 11:12 Review of Systems Constitutional: Generalized weakness Ears, Nose, & Throat: No symptom reported Eyes: No symptom reported Neurological: No symptoms reported Pulmonary/Respiratory: No symptom reported Cardiovascular: No symptom reported Gastrointestinal: No symptom reported Genitourinary: No symptom reported Musculoskeletal: No symptom reported Skin: No symptom reported Psychiatric: No symptom reported Endocrine: No symptom reported Hemotologic/Lymphatic: No symptom reported Vital Signs Vital Signs Date Time Temp Pulse Resp B/P (MAP) Pulse Ox O2 Delivery O2 Flow Rate FiO2 06/22/24 09:00 98.6 94 22 112/84 (93) 98 98.6 06/22/24 08:05 Nasal Cannula* 2 28 Physical Exam General Appearance: Cooperative. Lethargic. Obese. In no acute distress Head Exam: Normal inspection Neck Exam: Normal inspection. Non-tender. Normal alignment Pulmonary/Respiratory: Chest non-tender. Diminished bilateral breath sounds Cardiovascular/Chest: Regular rate and rhythm. S1, S2. Sinus rhythm with fir st-degree AV block. No murmurs. No JVD. Peripheral Pulses: 2+ Radial (R). 2+ Radial (L). 2+ Pedal (R). 2+ Pedal (L) Abdominal Exam: Normal bowel sounds. Soft. Nontender. No hepatospenomegaly. No masses Ankle Exam: Negative ankle edema Lower extremities: Negative lower extremity edema Neuro/Mental Status: A&O x3. Coherent Thoughts/Psych: Normal thought pattern. Appropriate mood and affect. Good judgement and insight Appearance: In no acute distress Skin Exam: Brushed abrasion to left facial cheek Labs/Diagnostic Data Labs Test 06/22/24 04:17 06/21/24 17:51 06/21/24 16:53 06/21/24 14:53 Range/Units White Blood Count 21.4 #H 4.4-10.8 10^3/uL Red Blood Count 4.62 4.5-5.90 10^6/uL Hemoglobin 13.1 L 13.5-17.5 g/dL Hematocrit 41.7 41.0-53.0 % Mean Corpuscular Volume 90.2 80.0-100.0 fL Mean Corpuscular Hemoglobin 28.3 28.0-32.0 pg Mean Corpuscular Hemoglobin Concent 31.4 L 32.0-36.0 g/dL Red Cell Distribution Width 18.2 H 11.8-14.3 % Platelet Count 182 140-450 10^3/uL Mean Platelet Volume 8.1 6.9-10.8 fL Neutrophils (%) (Auto) 92.9 H 37.0-80.0 % Lymphocytes (%) (Auto) 3.0 L 10.0-50.0 % Monocytes (%) (Auto) 3.7 0.0-12.0 % Eosinophils (%) (Auto) 0.3 0.0-7.0 % Basophils (%) (Auto) 0.1 0.0-2.0 % Neutrophils # (Auto) 19.9 H 1.6-8.6 10 ^3/uL Lymphocytes # (Auto) 0.6 0.4-5.4 10 ^3/uL Monocytes # (Auto) 0.8 0-1.3 10 ^3/uL Eosinophils # (Auto) 0.1 0-0.8 10 ^3/uL Basophils # (Auto) 0 0-0.2 10 ^3/uL Nucleated Red Blood Cells 0.0 % Sodium Level 144 136-145 mmol/L Potassium Level 5.1 3.5-5.1 mmol/L Chloride Level 109 H 98-107 mmol/L Carbon Dioxide Level 17 L 20-31 mmol/L Anion Gap 18 H 5-15 Blood Urea Nitrogen 41 H 9-23 mg/dL Creatinine 4.55 H 0.700-1.30 mg/dL Glomerular Filtration Rate Calc 12 >90 mL/min BUN/Creatinine Ratio 9.0 L 10.0-20.0 Serum Glucose 115 H 74-106 mg/dL Calcium Level 9.0 8.7-10.4 mg/dL Total Bilirubin 0.4 0.2-1.0 mg/dL Aspartate Amino Transferase (AST) 424 H 13-40 U/L Alanine Aminotransferase (ALT) 75 H 7-40 U/L Alkaline Phosphatase 110 46-116 U/L Total Protein 6.7 5.7-8.2 g/dL Albumin 4.0 3.2-4.8 g/dL Troponin I High Sensitivity 293 *H </=54 ng/L Lactic Acid Level 6.6 *H 0.4-2.0 mmol/L Differential Total Cells Counted 100.0 100 Neutrophils % (Manual) 83 H 37.0-80.0 Band Neutrophils % (Manual) 6 Lymphocytes % (Manual) 7 L 10.0-50.0 Monocytes % (Manual) 4 0-12 Eosinophils % (Manual) 0 0-7 Basophils % (Manual) 0 0.0-2.0 Metamyelocytes % (manual) 0 Myelocytes % (Manual) 0 Promyelocytes % (Manual) 0 Blast Cells % (Manual) 0 Reactive Lymphocytes 0 Platelet Estimate [place] Clumped Platelets Few Large Platelets Few Prothrombin Time 11.3 9.3-11.8 sec Prothrombin Time INR 1.07 0.9-1.15 B-Type Natriuretic Peptide 798.88 0-100 pg/mL Assessment Septic Shock rule out UTI Acute kidney injury with urinary retention NSTEMI likely secondary to above Benign prostatic hyperplasia HX of hypertension Dyslipidemia Zvy-qsncnhf-nbxtzaunr diabetes mellitus Obesity Plan/Recommendation (Dr. Sinha) NSTEMI type 2 secondary to septic shock secondary to possible UTI and acute kidney injury. The patient denies any cardiac symptoms. Continue Nephrology/Urology recommendations. There is no further cardiac workup indica katherine at this time. Thank you for allowing us to participate in this patient's care. Please call if you have any questions or concerns. This medical document was created using an electronic medical record system with voice recognition software and computerized dictation system. Although this document has been carefully reviewed, there might still be some phonetic and typographical errors. Occasional wrong-word or ``sound-alike substitutions may have occurred due to the inherent limitations of voice recognition software. These areas are purely typographical due to imperfections of the software programs and do not reflect any compromise in the patient's medical care. Please read the chart carefully and recognize, using context, where these substitutions have occurred. Plan discussed with: Patient, Other Date of Service: Jun 22, 2024 Billing Provider: LAKHANI,AFSHAN BRAZER CRAWLER TORCH Cardiology Common Codes: [id number] INP/OBS CARE (High) AFSHAN LAKHANI BRAZER CRAWLER TORCH Jun 22, 2024 15:21
--- NOTE | 2024-06-22 18:09 | DVHINCON2 ---
Date of service: Jun 22, [address] Cardoso Reason for Consultation Transaminitis History of Present Illness Patient is a 78-year-old morbidly obese male with a history of obstructive uropathy status post TURP history of kidney stones, history of hypertension, admitted with weakness fatigue, shortness of breath, found to have NSTEMI, leukocytosis likely sepsis, found to have elevation of liver enzymes. Patient denies prior history of liver disease, denie of ETOH abuse, denies history of hepatitis. Patient denies any abdominal pain. GI consultation was obtained for evaluation for his transaminitis. Past Medical History As above Past Surgical History As above Family History: Patient reports no known family medical history. Family History No family history of liver disease Social History No tobacco alcohol or recreational drug use Allergies: Coded Allergies: NO KNOWN ALLERGIES (Unverified , 01/12/23) Home Meds Reported Medications Atorvastatin Calcium (Lipitor) 10 Mg Tab, PO QPM, #90 TAB 1 Refill 01/14/23 Metformin Hydrochloride (Metformin Hcl) 500 Mg Tab, PO IBID for 30 Days, MG 01/14/23 Tamsulosin Hcl (Flomax) 0.4 Mg Cap, 1 CAP PO DAILY, #30 CAP 11 Refills 01/14/23 Atenolol (Atenolol) 25 Mg Tab, PO BID for 30 Days, MG 01/14/23 Current Medications Current Medications Medications (Trade) Dose Ordered Sig/Jere Route PRN Reason Start Time Stop Time Status Last Admin Acetaminophen/ Hydrocodone Bitart ([place] 5/325MG Tab) 1 tab Q4HP PRN PO MODERATE PAIN (4-6 PAIN SCALE) 06/21/24 18:30 Enoxaparin Sodium (Lovenox) 30 mg DAILY SC 06/22/24 10:00 06/22/24 11:13 Morphine Sulfate 2 mg Q4HPRN PRN IV SEVERE PAIN (7-10 PAIN SCALE) 06/21/24 18:30 Vancomycin HCl 0 ml @ 0 mls/hr UD IV 06/21/24 18:45 Cefepime HCl 50 ml @ 12.5 mls/hr Q12H IV 06/22/24 05:00 06/22/24 17:29 Tamsulosin HCl (Flomax) 0.4 mg DAILY PO 06/22/24 10:00 06/22/24 11:12 Review of Systems Constitutional: No recent weight changes, no history of night sweats fevers or chills Head and neck: No neck pain, no headaches or dizziness Cardiac: No history of chest pain, or palpitations Pulmonary: Shortness of breath, no cough or wheeze Endocrine: No history of diabetes or hypothyroidism : History of TURP, BPH, history of kidney stones GI see HPI: Psych: No depression anxiety or psychosis Skin: No rashes bruises or pruritus Heme: No anemia or history of malignancy Neuro: No stroke or seizure Vital Signs Vital Signs Date Time Temp Pulse Resp B/P (MAP) Pulse Ox O2 Delivery O2 Flow Rate FiO2 06/22/24 16:44 98.7 66 20 98.7 06/22/24 13:00 133/67 (89) 94 06/22/24 08:05 Nasal Cannula* 2 28 Physical Exam General: Alert and oriented x4 no distress HEENT: Poor dentition: Normocephalic atraumatic extraocular movements are intact, pupils equal round Reglan accommodating Heart: Regular rate and rhythm Abdomen: Soft nontender nondistended Extremity: No clubbing cyanosis edema Neuro: No asterixis, cranial nerves grossly intact moves all four extremity Labs/Diagnostic Data Labs Test 06/22/24 04:17 06/21/24 17:51 06/21/24 16:53 06/21/24 14:53 Range/Units White Blood Count 21.4 #H 4.4-10.8 10^3/uL Red Blood Count 4.62 4.5-5.90 10^6/uL Hemoglobin 13.1 L 13.5-17.5 g/dL Hematocrit 41.7 41.0-53.0 % Mean Corpuscular Volume 90.2 80.0-100.0 fL Mean Corpuscular Hemoglobin 28.3 28.0-32.0 pg Mean Corpuscular Hemoglobin Concent 31.4 L 32.0-36.0 g/dL Red Cell Distribution Width 18.2 H 11.8-14.3 % Platelet Count 182 140-450 10^3/uL Mean Platelet Volume 8.1 6.9-10.8 fL Neutrophils (%) (Auto) 92.9 H 37.0-80.0 % Lymphocytes (%) (Auto) 3.0 L 10.0-50.0 % Monocytes (%) (Auto) 3.7 0.0-12.0 % Eosinophils (%) (Auto) 0.3 0.0-7.0 % Basophils (%) (Auto) 0.1 0.0-2.0 % Neutrophils # (Auto) 19.9 H 1.6-8.6 10 ^3/uL Lymphocytes # (Auto) 0.6 0.4-5.4 10 ^3/uL Monocytes # (Auto) 0.8 0-1.3 10 ^3/uL Eosinophils # (Auto) 0.1 0-0.8 10 ^3/uL Basophils # (Auto) 0 0-0.2 10 ^3/uL Nucleated Red Blood Cells 0.0 % Sodium Level 144 136-145 mmol/L Potassium Level 5.1 3.5-5.1 mmol/L Chloride Level 109 H 98-107 mmol/L Carbon Dioxide Level 17 L 20-31 mmol/L Anion Gap 18 H 5-15 Blood Urea Nitrogen 41 H 9-23 mg/dL Creatinine 4.55 H 0.700-1.30 mg/dL Glomerular Filtration Rate Calc 12 >90 mL/min BUN/Creatinine Ratio 9.0 L 10.0-20.0 Serum Glucose 115 H 74-106 mg/dL Calcium Level 9.0 8.7-10.4 mg/dL Total Bilirubin 0.4 0.2-1.0 mg/dL Aspartate Amino Transferase (AST) 424 H 13-40 U/L Alanine Aminotransferase (ALT) 75 H 7-40 U/L Alkaline Phosphatase 110 46-116 U/L Total Protein 6.7 5.7-8.2 g/dL Albumin 4.0 3.2-4.8 g/dL Troponin I High Sensitivity 293 *H </=54 ng/L Lactic Acid Level 6.6 *H 0.4-2.0 mmol/L Differential Total Cells Counted 100.0 100 Neutrophils % (Manual) 83 H 37.0-80.0 Band Neutrophils % (Manual) 6 Lymphocytes % (Manual) 7 L 10.0-50.0 Monocytes % (Manual) 4 0-12 Eosinophils % (Manual) 0 0-7 Basophils % (Manual) 0 0.0-2.0 Metamyelocytes % (manual) 0 Myelocytes % (Manual) 0 Promyelocytes % (Manual) 0 Blast Cells % (Manual) 0 Reactive Lymphocytes 0 Platelet Estimate [place] Clumped Platelets Few Large Platelets Few Prothrombin Time 11.3 9.3-11.8 sec Prothrombin Time INR 1.07 0.9-1.15 B-Type Natriuretic Peptide 798.88 0-100 pg/mL Assessment NSTEMI Sepsis Leukocytosis ORTEGA Hypertension Transaminitis Transaminitis likely secondary to sepsis versus obstruction versus other. No history of underlying liver disease Problems(with codes): (1) Metabolic encephalopathy (2) Sepsis (3) Weakness (4) Hypertensive urgency (5) Generalized weakness (6) Acute renal failure (7) Hydroureteronephrosis (8) Hyperkalemia Plan/Recommendation 1. Follow-up with labs 2. Imaging of the abdomen with ultrasound 3. Continue antibiotics 4. Follow up with cardiac recommendations 5. Follow electrolytes and replace as needed 6. We will follow Plan discussed with: Patient VIJAYA COHEN MD Jun 22, 2024 18:09
[2024-06-22 18:29] LABS: Urine Bacteria MOD /hpf (None Seen); Urine Blood 3+ /uL (Negative); Urine Clarity Ex.Turbid (Clear); Urine Color Dark-Brown (Yellow); Urine Protein, UAD 2+ (Negative); Urine Specific Gravity 1.011 (1.001-1.035); Urine Squamous Epithelial Cell FEW /hpf (<5); Urine Urobilinogen Normal (Negative); Urine WBC 2731 /hpf (0 - 3); Urine WBC Clumps PRESENT /hpf (None Seen)
--- NOTE | 2024-06-22 18:36 | DVHOP2 ---
Operative Report - 2 Report Details Date: 06/22/24 Preop Diagnosis: urinary retention Postop Diagnosis: same Surgeon: Fantasma Zavala Anesthesiologist: no Anesthesia: Local Consent: The patient was informed of the risks and benefits of the procedure. These include but are not limited to complications of anesthesia, postoperative infection, incomplete relief of symptoms, recurrence of symptoms, damage to blood vessels, nerves and tendons, deep venous thrombosis, pulmonary embolism and possible need for repeat surgery in the future. Complications: no Estimated Blood Loss: none Fluids: no Findings: 16 ind[place]ian coude passed with difficulties Indications for Surgery: misplaced crain catheter Name of Procedure Performed complex cath Procedure Details Procedure Details: glans cleaned with betadine, 16 fr coude passed without problem ,clear urine obtained,balloon inflated Specimen: no Condition Good Disposition Still a Patient FANTASMA ZAVALA MD Jun 22, 2024 18:36
--- NOTE | 2024-06-22 21:33 | DVH ---
INDICATION: transaminitis TECHNIQUE: Multiple real-time sonographic images of the abdomen were obtained. COMPARISON: None FINDINGS: Liver is homogenous in echogenicity. The liver measures 13.4 cm. No intrahepatic biliary ductal dilatation is noted. The gallbladder wall measures 0.35 cm and is unremarkable. No gallstones or gallbladder sludge. N o pericholecystic fluid or edema. The common duct measures 0.3 cm and is unremarkable. The right kidney measures 11.9 cm. No hydronephrosis. The left kidney measures 13.1 cm. No hydronephr osis. Bilateral simple renal cysts are noted. The spleen measures 7.4 cm, within normal limits. The echogenicity is within normal limits. Aorta was not clearly visualized in this examination. The pancreas is not well visualized due to obscuration from bowel gas. The visualized portions of the IVC and aorta are grossly unremarkable. IMPRESSION: 1. Normal exam of the abdomen.
[2024-06-23] VITALS (60 sets, daily range): BP systolic 85–158; BP diastolic 50–80; PULSE 78–102; RESP 15–28; TEMP 97.7–98.6; O2SAT 88–100
[2024-06-23 06:06] LABS: Hematocrit 38.3 % (41.0-53.0); Hemoglobin 12.3 g/dL (13.5-17.5); Mean Corpuscular Hemoglobin 28.6 pg (28.0-32.0); Mean Corpuscular Volume 89.3 fL (80.0-100.0); Platelet Count (auto) 149 10^3/uL (140-450); Red Blood Cells 4.29 10^6/uL (4.5-5.90); Red Cell Distribution Width 18.7 % (11.8-14.3)
[2024-06-23 06:12] LABS: Basophils % (manual) 0 (0.0-2.0); Blast Cells 0; Eosinophils % (manual) 0 (0-7); Metamyelocytes % 0; Myelocytes % 0; Promyelocytes % 0; Reactive Lymphocytes 0
[2024-06-23 07:09] LABS: Base Excess -10.7 mmol/L (-2.0-3.0)
[2024-06-23] MEDS: IPRATROPIUM BROM 0.5 MG/2.5ML INH SOL ONE (07:14)
[2024-06-23] MEDS ORDERED: IPRATROPIUM BROM 0.5 MG/2.5ML INH SOL NEB PRN (07:15)
[2024-06-23] MEDS: ALBUTEROL SULF 2.5 MG/0.5ML(0.5%) NEB SOLN ONE (07:15)
[2024-06-23] MEDS ORDERED: ALBUTEROL SULF 2.5 MG/0.5ML(0.5%) NEB SOLN NEB PRN (07:15)
[2024-06-23 07:29] LABS: Albumin 3.7 g/dL (3.2-4.8); Anion Gap 17 (5-15); BUN/Creatinine Ratio 11.1 (10.0-20.0); Calcium 8.8 mg/dL (8.7-10.4); Glucose 100 mg/dL (74-106)
[2024-06-23 07:30] LABS: Bilirubin, Total 0.3 mg/dL (0.2-1.0); Total Protein 6.8 g/dL (5.7-8.2)
--- NOTE | 2024-06-23 07:42 | RESUS ---
CODE ASSIST ASSESSSMENT Initial Information Code Assist Date: Jun 23, 2024 Code Assist Time: 06:55 [facility] of Arrest: [facility] Provider Name ISREAL STEVENSON Time Notified: 06:55 Time PMD returned call: 06:55 Crash Cart Opened and Supplies: No Situation Staff concerned/worried, speci: Change LOC Situation comment: PT FOUND ALTERED ORIENTED X1 Background Background: PT WAS ADMITTED ON 06/21 FOR ALTERED MS, DEHYDRATION AND SEPSIS, PER PRIMARY RN PT WAS AAOX4 FOUND THIS MORNING ALTERED. Assessment Temperature (Fahrenheit): 97.7 Blood Pressure Systolic: 107 Blood Pressure Diastolic: 59 Respiratory Rate: 20 O2 Sat by Pulse Oximetry: 96 Assessment comment: PT AAOX1, VS BP 107/54, 90, 99%,20 criticaL care time 37 mins Recommendations/Interventions Procedures: Accu check (94) Outcome Outcome: Problem Resolved Follow up Report Follow up Report PT TO CT Team Members Team Members ISREAL STEVENSON, FAIZAN RN HS, STACEY RN, JUANCARLOS RN, TYLER RN PRIMARY. Date of Service: Jun 23, 2024 Billing Provider: RADHAMES DEAN Common Visit Codes: [id number] CARE 30-74 MIN FAIZAN POP Jun 23, 2024 07:42 JOSAFAT DEAN MD Jun 23, 2024 21:29
[2024-06-23 07:43] LABS: Sodium 143 mmol/L (136-145)
[2024-06-23 07:45] LABS: Alanine Aminotransferase 108 U/L (7-40); Alkaline Phosphatase 130 U/L (46-116); Aspartate Aminotransferase 599 U/L (13-40); Blood Urea Nitrogen 68 mg/dL (9-23); Carbon Dioxide 17 mmol/L (20-31); Chloride 109 mmol/L (98-107); Potassium 5.6 mmol/L (3.5-5.1)
[2024-06-23] MEDS: methylPREDNISolone SOD SUCC 40 MG/ML VL IV ONE (07:58)
[2024-06-23] MEDS: SODIUM BICARB 8.4% 50Meq/50ml SYR INJ IV ONE (08:12)
[2024-06-23] MEDS: SODIUM BICARB 8.4% 50Meq/50ml SYR INJ ONE (08:13)
[2024-06-23] MEDS: FUROSEMIDE 40 MG/4 ML VIAL IV ONE (08:16)
--- NOTE | 2024-06-23 08:19 | DVH ---
XY CHEST XRAY 1 VIEW, HISTORY: ALOC COMPARISON: XY CHEST PORTABLE on DOS: 06/21/24, XY CHEST PORTABLE on DOS: 01/13/23 XY CHEST PORTABLE on DOS: 06/21/24, XY CHEST PORTABLE on DOS: 01/13/23 TECHNICAL DATA: 1 view of the chest was obtained. FINDINGS: Lines and tubes: None Cardiomediastinal silhouette: normal Pulmonary vasculature: normal Lung expansion: low Lung airspace: normal Lung interstitium: normal Pleura: normal Pneumothorax: no Bones: Unremarkable Other: no IMPRESSION: No acute intrathoracic abnormality. Hypoexpanded lungs.
[2024-06-23] MEDS: DEXTROSE (50%) 50ML SYRG IV ONE (08:28)
[2024-06-23] MEDS: DEXTROSE 50% SYRINGE 50 ML IV ONE (08:28)
[2024-06-23] MEDS: InsuLIN REG 1unit/0.01ml Soln (100units/ml) IV ONE (08:31)
--- NOTE | 2024-06-23 08:33 | DVH ---
CLINICAL INFORMATION: 78 years old, Male; acute loss of consciousness. TECHNIQUE: Axial imaging was obtained through the brain without contrast. Coronal and sagittal refor matted images were obtained, reviewed, and stored. Images were reviewed in brain and bone windows. A ll CT scans at this medical facility are performed using dose modulation techniques as appropriate to a performed exam including the following: Automated exposure control was utilized; adjustment of the MA and/or KV according to patient size; and use of iterative reconstruction technique. CTDIvol = 70.49 mGy DLP = 1246.49 mGy-cm COMPARISON: CT PELVIS WO CONTRAST on DOS: 06/21/24, CT HEAD WITHOUT CONTRAST on DOS: 06/21/24, CT HEA D WITHOUT CONTRAST on DOS: 01/13/23 FINDINGS: There is no acute intracranial hemorrhage or extraaxial fluid collection. No mass effect o r midline shift. Scattered areas of hypoattenuation are seen in the periventricular and subcortical w rey matter, which are nonspecific but most likely sequelae of small vessel ischemic disease.The vent ricles and sulci are within normal limits in size for age. Basal cisterns are patent. The calvari um is unremarkable. Paranasal sinuses and mastoid air cells are clear. IMPRESSION: 1. No CT evidence of acute intracranial abnormality. 2. Nonacute findings as described above.
[2024-06-23] MEDS: CALCIUM GLUC 1,000mg/50ml-NS 50 ML IV ONE (08:34)
[2024-06-23] MEDS: InsuLIN REG 1unit/0.01ml Soln (100units/ml) ONE (08:35)
[2024-06-23 08:43] LABS: Band Neutrophils % (manual) 19; Lymphocytes % (manual) 3 (10.0-50.0); Monocytes % (manual) 4 (0-12)
[2024-06-23 08:45] LABS: Anisocytosis Slight; Ovalocytes FEW; Platelet Estimate Adequate
[2024-06-23] MEDS: ALBUTEROL SULF 2.5 MG/0.5ML(0.5%) NEB SOLN NEB ONE (08:45)
[2024-06-23 09:05] LABS: Base Excess -9.9 mmol/L (-2.0-3.0)
--- NOTE | 2024-06-23 10:58 | DVHPN2 ---
Reviewed: Care Plan, H&P, Labs, Medications, Previous Orders, Radiology Changes from previous H/P or p: No Changes Objective Vitals Vital Signs Date Time Temp Pulse Resp B/P (MAP) Pulse Ox O2 Delivery O2 Flow Rate FiO2 06/23/24 09:22 88 99 Facial BiPAP Mask 28 06/23/24 09:11 98.2 28 111/55 (73) 98.2 06/23/24 07:15 4.0 Intake/Output Intake and Output 06/23/24 07:00 Intake Total 50 ml Output Total 1025 ml Balance -975 ml Intake Oral 0 ml IV Total 50 ml Output Urine Total 1025 ml Medications Current Medications Medications Dose Ordered Sig/Jere Route Start Time Stop Time Status Last Admin Dose Admin Acetaminophen/ Hydrocodone Bitart 1 tab Q4HP PRN PO 06/21/24 18:30 Enoxaparin Sodium 30 mg DAILY SC 06/22/24 10:00 06/22/24 11:13 30 MG Morphine Sulfate 2 mg Q4HPRN PRN IV 06/21/24 18:30 Vancomycin HCl 0 ml @ 0 mls/hr UD IV 06/21/24 18:45 Cefepime HCl 50 ml @ 12.5 mls/hr Q12H IV 06/22/24 05:00 06/23/24 07:59 12.5 MLS/HR Tamsulosin HCl 0.4 mg DAILY PO 06/22/24 10:00 06/22/24 11:12 0.4 MG Albuterol 2.5 mg Q4HPRN PRN NEB 06/23/24 07:15 Ipratropium Allison 0.5 mg Q4HPRN PRN NEB 06/23/24 07:15 Laboratory Results Laboratory Tests 06/23/24 04:43 Chemistry Test 06/23/24 04:43 06/23/24 07:15 Albumin 3.7 g/dL (3.2-4.8) Calcium Level 8.8 mg/dL (8.7-10.4) Total Protein 6.8 g/dL (5.7-8.2) Magnesium Level 2.3 mg/dL (1.6-2.6) LFT Test 06/23/24 04:43 Alanine Aminotransferase (ALT) 108 U/L (7-40) H Alkaline Phosphatase 130 U/L (46-116) H Aspartate Amino Transferase (AST) 599 U/L (13-40) H Total Bilirubin 0.3 mg/dL (0.2-1.0) Urinalysis Test 06/22/24 17:12 Urine Color Dark-brown (Yellow) Urine Clarity Ex.turbid (Clear) Urine pH 6.0 (5.0-9.0) Urine Specific [place] 1.011 (1.001-1.035) Urine Protein 2+ (Negative) H Urine Ketones Negative (Negative) Urine Blood 3+ /uL (Negative) H Urine Nitrite Negative (Negative) Urine Bilirubin Negative (Negative) Urine Urobilinogen Normal mg/dL (Negative) Urine Leukocyte Esterase 3+ /uL (Negative) Urine RBC 561 /hpf (0 - 3) Urine WBC 2731 /hpf (0 - 3) Urine WBC Clumps Present /hpf (None Seen) Urine Squamous Epithelial Cells Few /hpf (<5) Urine Bacteria Mod /hpf (None Seen) H Urine Glucose 3+ mg/dL (Normal) H Blood Gas Results Test 06/23/24 07:04 06/23/24 08:57 Arterial Blood pH 7.215 (7.350-7.450) 7.223 (7.350-7.450) FiO2 % 36.0 35.0 Microbiology Microbiology Date/Time Source Procedure Growth Status 06/22/24 17:12 Urine - [place] Urine Culture - Preliminary Resulted 06/21/24 18:05 Blood Blood Culture - Preliminary NO GROWTH AFTER 24 HOURS OF INCUBATION. Resulted Labs and/or images reviewed: Labs reviewed by me, Image(s) reviewed by me Assessment/Plan Assessment/Plan Septic shock with WBC 56581 unknown etiology: Blood cultures negative urine cultures pending continue cefepime and vancomycin Acute Hypoxic respiratory failure: Patient on BiPAP stat ABG, transfer to [facility], pulmonary consult for Dr. Regalado Acute generalized Weakness Acute Diarrhea Acute hyperkalemia potassium 5.6 treatment per protocol Acute lactic acidosis lactic acid 8.2 Acute kidney injury BUN creatinine 32 and 3.91 possibly secondary to dehydration: IV fluids, Nephrology consult pending BPH history of TURP Obstructive Uropathy consult for the urologist Dr Lucas Bowman History of kidney stones status post ESWL Hypertension Acute metabolic acidosis Non ST-elevation LA with a troponin of [address] Cee LFTs/transaminitis secondary to possible sepsis: Consult by GI Dr. Betty samaniego Chest x-ray negative CT head negative Time Spent 90 minutes Patient is full code Advanced care planning time 20 minutes Condition serious, Patient had code assist this morning for acute hyperkalemia Patient transferred to [facility] Plan discussed with: Patient My Orders Orders - TYLER GONZALEZ MD Procedure Category Date Status Time Psa Total+% Free LAB 06/22/24 In Process 14:21 *Dr. [facility] CONS 06/22/24 Transmitted -[place] 14:22 * [facility] CONS 06/22/24 Transmitted 14:32 * Cardiology Consult CONS 06/22/24 Transmitted 14:32 * Urology Consult CONS 06/22/24 Transmitted 14:45 Date of Service: Jun 23, 2024 Billing Provider: TYLER GONZALEZ MD Common Visit Codes: [id number] CARE 30-74 MIN TYLER GONZALEZ MD Jun 23, 2024 10:58
[2024-06-23 11:13] LABS: Basophils # (auto) 0 10 ^3/uL (0-0.2); Basophils % (auto) 0.1 % (0.0-2.0); Eosinophils # (auto) 0.3 10 ^3/uL (0-0.8); Hematocrit 38.7 % (41.0-53.0); Hemoglobin 12.2 g/dL (13.5-17.5); Lymphocytes # (auto) 0.5 10 ^3/uL (0.4-5.4); Lymphocytes % (auto) 2.8 % (10.0-50.0); Mean Corpuscular Hemoglobin 28.2 pg (28.0-32.0); Mean Corpuscular Hgb Conc. 31.5 g/dL (32.0-36.0); Mean Corpuscular Volume 89.4 fL (80.0-100.0); Monocytes # (auto) 0.5 10 ^3/uL (0-1.3); Monocytes % (auto) 2.7 % (0.0-12.0); Neutrophils # (auto) 16.1 10 ^3/uL (1.6-8.6); Neutrophils % (auto) 92.4 % (37.0-80.0); Nucleated Red Blood Cells % 0.1 %; Platelet Count (auto) 163 10^3/uL (140-450); Red Blood Cells 4.34 10^6/uL (4.5-5.90); Red Cell Distribution Width 19.1 % (11.8-14.3); White Blood Cell 17.4 10^3/uL (4.4-10.8)
[2024-06-23 11:23] LABS: Base Excess -11.1 mmol/L (-2.0-3.0)
[2024-06-23] MEDS: ROCURONIUM 10MG/ML 10ML VIAL IV ONE ×2 (11:46→11:52)
[2024-06-23] MEDS: ETOMIDATE (2MG/ML) 20ML VIAL IV ONE ×3 (11:46→11:50)
[2024-06-23] MEDS: SUCCINYLCHOLINE CHLORIDE 20 MG/ML 10ML VIAL IV ONE (11:47)
[2024-06-23] MEDS: PROPOFOL 100 ML IV ONE (11:49)
[2024-06-23] MEDS: fentaNYL Drip 2500mCg/250mlNS 250 ML IV ONE (11:49)
[2024-06-23] MEDS: MIDAZOLAM DRIP 50 mg/50mL 50 ML IV ONE (11:50)
[2024-06-23] MEDS: NOREPINEPHRINE 8 MG/250ML KIT 250 ML IV ONE (12:00)
--- NOTE | 2024-06-23 12:10 | DVHINCON2 ---
Date of service: Jun 23, 2024 Referring Physician Reason for Consultation ORTEGA History of Present Illness 78 years old male with past medical history of diabetes, hypertension, dyslipidemia, BPH, history of urinary retention and nephrolithiasis, history of laser cystolitholapaxy , TURP, presented with chief complaints of generalized weakness after being found on the floor he was found to be hypotensive on arrival, on June [address] Zavala placed 16 [place] urinary catheter with difficulty, nephrology consulted for acute kidney injury On my evaluation today patient is currently being intubated for altered mental status patient has Bowman catheter, nonoliguric Past Medical History As per HPI Past Surgical History As per HPI Allergies: Coded Allergies: NO KNOWN ALLERGIES (Unverified , 01/12/23) Home Meds Reported Medications Atorvastatin Calcium (Lipitor) 10 Mg Tab, PO QPM, #90 TAB 1 Refill 01/14/23 Metformin Hydrochloride (Metformin Hcl) 500 Mg Tab, PO IBID for 30 Days, MG 01/14/23 Tamsulosin Hcl (Flomax) 0.4 Mg Cap, 1 CAP PO DAILY, #30 CAP 11 Refills 01/14/23 Atenolol (Atenolol) 25 Mg Tab, PO BID for 30 Days, MG 01/14/23 Current Medications Current Medications Medications (Trade) Dose Ordered Sig/Jere Route PRN Reason Start Time Stop Time Status Last Admin Albuterol (Ventolin Medneb) 2.5 mg Q4HPRN PRN NEB SHORTNESS OF BREATH 06/23/24 07:15 Ipratropium [place] (Atrovent Medneb) 0.5 mg Q4HPRN PRN NEB SHORTNESS OF BREATH 06/23/24 07:15 06/23/24 07:13 DC Albuterol (Ventolin Medneb) 2.5 mg Q4HPRN PRN NEB SHORTNESS OF BREATH 06/23/24 07:15 06/23/24 07:13 DC Ipratropium [place] (Atrovent Medneb) 0.5 mg Q4HPRN PRN NEB SHORTNESS OF BREATH 06/23/24 07:15 Propofol 100 ml @ 3.129 mls/ hr Q24H IV 06/23/24 14:15 06/23/24 12:17 Fentanyl Citrate 250 ml @ 2.5 mls/hr Q24H IV 06/23/24 14:15 06/23/24 16:22 Family History: Patient reports no known family medical history. Review of Systems Unable to obtain H&P Exam Vital Signs/I&O Vital Sign Date Time Temp Pulse Resp B/P (MAP) Pulse Ox O2 Delivery O2 Flow Rate FiO2 06/23/24 17:30 82 18 114/61 (78) 100 06/23/24 16:00 97.7 97.7 06/23/24 16:00 Mechanical Ventilator+ 40 40 06/23/24 07:45 2 Intake and Output 06/22/24 06/23/24 19:00 07:00 Intake Total 50 ml Output Total 700 ml 325 ml Balance -700 ml -275 ml Intake Oral 0 ml IV Total 50 ml Output Urine Total 700 ml 325 ml Physical Exam General-appears altered HEENT-normocephalic, Respiratory-fair air entry bilateral, no rhonchi, no wheeze [id number] heard, no murmurs appreciated Abdominal-soft, nontender, nondistended Musculoskeletal-no pedal edema, no calf tenderness Genitourinary-deferred Neuro-altered Labs/Diagnostic Data Labs/Diagnostic Data Laboratory Tests Test 06/23/24 13:45 06/23/24 11:16 06/23/24 08:57 06/23/24 08:53 Range/Units Blood Gas Specimen Type Arterial Arterial Arterial Blood Gas Sample Site Right radial Right radial Right radial Blood Gas Patient Temperature 37.0 37.0 37.0 Arterial Blood Date Drawn [id number] Arterial Blood pH 7.216 *L 7.228 *L 7.223 *L 7.350-7.450 Arterial Blood Partial Pressure CO2 39.2 38.6 43.0 35.0-48.0 mmHg Arterial Blood Partial Pressure O2 340.4 *H 81.6 L 141.2 H 83.0-108.0 mmHg Arterial Blood HCO3 15.5 L 15.7 L 17.3 L 21.0-28.0 mmol/L Arterial Blood Oxygen Saturation 99.4 H 95.1 98.4 H 94.0-98.0 % Arterial Blood Base Excess -11.5 L -11.1 L -9.9 L -2.0-3.0 mmol/L Arterial Blood Oxyhemoglobin 98.7 H 94.3 97.3 94.0-98.0 % Arterial Blood Carboxyhemoglobin 0.2 L 0.3 L 0.5 0.5-1.5 % Arterial Blood Methemoglobin 0.5 0.5 0.6 0.0-1.5 % Osvaldo Test Modified Yes Yes Blood Gas Total Hemoglobin 12.70 L 12.40 L 13.10 L 13.5-17.5 g/dL Blood Gas Set Respiration Rate 18.0 Blood Gas Modality Vent - ac Mask - bipap Mask - bipap Blood Gas Spontaneous Rate 18 FiO2 % 100.0 28.0 35.0 Blood Gas Tidal Volume 500.0 Blood Gas PEEP or CPAP 5.0 Blood Gas Critical Value Read Back Yes yes Yes Blood Gas Notified Whom Dr. corby pabon md Blood Gas Notified Time [id number] 0350 Blood Gas Notified By paresh doherty rrt Sodium Level 144 136-145 mmol/L Potassium Level 4.9 3.5-5.1 mmol/L Chloride Level 110 H 98-107 mmol/L Carbon Dioxide Level 18 L 20-31 mmol/L Anion Gap 16 H 5-15 Blood Urea Nitrogen 81 #*H 9-23 mg/dL Creatinine 6.65 H 0.700-1.30 mg/dL Glomerular Filtration Rate Calc 8 >90 mL/min BUN/Creatinine Ratio 12.2 10.0-20.0 Serum Glucose 171 H 74-106 mg/dL Calcium Level 8.5 L 8.7-10.4 mg/dL Total Bilirubin 0.4 0.2-1.0 mg/dL Aspartate Amino Transferase (AST) 523 H 13-40 U/L Alanine Aminotransferase (ALT) 102 H 7-40 U/L Alkaline Phosphatase 104 46-116 U/L Total Protein 6.4 5.7-8.2 g/dL Albumin 3.5 3.2-4.8 g/dL Blood Gas EPAP 5 6 Blood Gas IPAP 14 14 Lactic Acid Level 1.4 0.4-2.0 mmol/L Test 06/23/24 07:15 06/23/24 07:04 06/23/24 06:58 06/23/24 04:43 Range/Units White Blood Count 17.4 H 18.0 H 4.4-10.8 10^3/uL Red Blood Count 4.34 L 4.29 L 4.5-5.90 10^6/uL Hemoglobin 12.2 L 12.3 L 13.5-17.5 g/dL Hematocrit 38.7 L 38.3 L 41.0-53.0 % Mean Corpuscular Volume 89.4 89.3 80.0-100.0 fL Mean Corpuscular Hemoglobin 28.2 28.6 28.0-32.0 pg Mean Corpuscular Hemoglobin Concent 31.5 L 32.0 32.0-36.0 g/dL Red Cell Distribution Width 19.1 H 18.7 H 11.8-14.3 % Platelet Count 163 149 140-450 10^3/uL Mean Platelet Volume 8.6 8.4 6.9-10.8 fL Neutrophils (%) (Auto) 92.4 H 37.0-80.0 % Lymphocytes (%) (Auto) 2.8 L 10.0-50.0 % Monocytes (%) (Auto) 2.7 0.0-12.0 % Eosinophils (%) (Auto) 2.0 0.0-7.0 % Basophils (%) (Auto) 0.1 0.0-2.0 % Neutrophils # (Auto) 16.1 H 1.6-8.6 10 ^3/uL Lymphocytes # (Auto) 0.5 0.4-5.4 10 ^3/uL Monocytes # (Auto) 0.5 0-1.3 10 ^3/uL Eosinophils # (Auto) 0.3 0-0.8 10 ^3/uL Basophils # (Auto) 0 0-0.2 10 ^3/uL Nucleated Red Blood Cells 0.1 % Magnesium Level 2.3 1.6-2.6 mg/dL Ammonia < 10 L 11-32 umol/L Blood Gas Specimen Type Arterial Blood Gas Sample Site Right radial Blood Gas Patient Temperature 37.0 Arterial Blood Date Drawn Arterial Blood pH 7.215 *L 7.350-7.450 Arterial Blood Partial Pressure CO2 42.1 35.0-48.0 mmHg Arterial Blood Partial Pressure O2 107.4 83.0-108.0 mmHg Arterial Blood HCO3 16.7 L 21.0-28.0 mmol/L Arterial Blood Oxygen Saturation 97.5 94.0-98.0 % Arterial Blood Base Excess -10.7 L -2.0-3.0 mmol/L Arterial Blood Oxyhemoglobin 96.1 94.0-98.0 % Arterial Blood Carboxyhemoglobin 0.8 0.5-1.5 % Arterial Blood Methemoglobin 0.6 0.0-1.5 % Osvaldo Test Yes Blood Gas Total Hemoglobin 13.30 L 13.5-17.5 g/dL Blood Gas Liter Flow 4.00 Blood Gas Modality Nasal cannula FiO2 % 36.0 Blood Gas Critical Value Read Back Yes Blood Gas Notified Whom Dr indira pabon Blood Gas Notified Time [id number] Blood Gas Notified By Survey Associate david biggs POC Glucose 94 70-106 mg/dl Differential Total Cells Counted 100.0 100 Neutrophils % (Manual) 74 37.0-80.0 Band Neutrophils % (Manual) 19 Lymphocytes % (Manual) 3 L 10.0-50.0 Monocytes % (Manual) 4 0-12 Eosinophils % (Manual) 0 0-7 Basophils % (Manual) 0 0.0-2.0 Metamyelocytes % (manual) 0 Myelocytes % (Manual) 0 Promyelocytes % (Manual) 0 Blast Cells % (Manual) 0 Reactive Lymphocytes 0 Platelet Estimate Adequate Anisocytosis (manual) Slight Ovalocytes Few [place] Cells Few Sodium Level 143 136-145 mmol/L Potassium Level 5.6 *H 3.5-5.1 mmol/L Chloride Level 109 H 98-107 mmol/L Carbon Dioxide Level 17 L 20-31 mmol/L Anion Gap 17 H 5-15 Blood Urea Nitrogen 68 #H 9-23 mg/dL Creatinine 6.15 H 0.700-1.30 mg/dL Glomerular Filtration Rate Calc 9 >90 mL/min BUN/Creatinine Ratio 11.1 10.0-20.0 Serum Glucose 100 74-106 mg/dL Calcium Level 8.8 8.7-10.4 mg/dL Total Bilirubin 0.3 0.2-1.0 mg/dL Aspartate Amino Transferase (AST) 599 H 13-40 U/L Alanine Aminotransferase (ALT) 108 H 7-40 U/L Alkaline Phosphatase 130 H 46-116 U/L Total Protein 6.8 5.7-8.2 g/dL Albumin 3.7 3.2-4.8 g/dL Random Vancomycin Level 22.4 H 5-10 ug/mL Test 06/22/24 17:12 06/22/24 04:17 06/21/24 17:51 06/21/24 16:53 Range/Units Urine Color Dark-brown Yellow Urine Clarity Ex.turbid Clear Urine pH 6.0 5.0-9.0 Urine Specific [place] 1.011 1.001-1.035 Urine Protein 2+ H Negative Urine Ketones Negative Negative Urine Blood 3+ H Negative /uL Urine Nitrite Negative Negative Urine Bilirubin Negative Negative Urine Urobilinogen Normal Negative mg/dL Urine Leukocyte Esterase 3+ Negative /uL Urine RBC 561 0 - 3 /hpf Urine WBC 2731 0 - 3 /hpf Urine WBC Clumps Present None Seen /hpf Urine Squamous Epithelial Cells Few <5 /hpf Urine Bacteria Mod H None Seen /hpf Urine Glucose 3+ H Normal mg/dL White Blood Count 21.4 #H 4.4-10.8 10^3/uL Red Blood Count 4.62 4.5-5.90 10^6/uL Hemoglobin 13.1 L 13.5-17.5 g/dL Hematocrit 41.7 41.0-53.0 % Mean Corpuscular Volume 90.2 80.0-100.0 fL Mean Corpuscular Hemoglobin 28.3 28.0-32.0 pg Mean Corpuscular Hemoglobin Concent 31.4 L 32.0-36.0 g/dL Red Cell Distribution Width 18.2 H 11.8-14.3 % Platelet Count 182 140-450 10^3/uL Mean Platelet Volume 8.1 6.9-10.8 fL Neutrophils (%) (Auto) 92.9 H 37.0-80.0 % Lymphocytes (%) (Auto) 3.0 L 10.0-50.0 % Monocytes (%) (Auto) 3.7 0.0-12.0 % Eosinophils (%) (Auto) 0.3 0.0-7.0 % Basophils (%) (Auto) 0.1 0.0-2.0 % Neutrophils # (Auto) 19.9 H 1.6-8.6 10 ^3/uL Lymphocytes # (Auto) 0.6 0.4-5.4 10 ^3/uL Monocytes # (Auto) 0.8 0-1.3 10 ^3/uL Eosinophils # (Auto) 0.1 0-0.8 10 ^3/uL Basophils # (Auto) 0 0-0.2 10 ^3/uL Nucleated Red Blood Cells 0.0 % Sodium Level 144 136-145 mmol/L Potassium Level 5.1 3.5-5.1 mmol/L Chloride Level 109 H 98-107 mmol/L Carbon Dioxide Level 17 L 20-31 mmol/L Anion Gap 18 H 5-15 Blood Urea Nitrogen 41 H 9-23 mg/dL Creatinine 4.55 H 0.700-1.30 mg/dL Glomerular Filtration Rate Calc 12 >90 mL/min BUN/Creatinine Ratio 9.0 L 10.0-20.0 Serum Glucose 115 H 74-106 mg/dL Calcium Level 9.0 8.7-10.4 mg/dL Total Bilirubin 0.4 0.2-1.0 mg/dL Aspartate Amino Transferase (AST) 424 H 13-40 U/L Alanine Aminotransferase (ALT) 75 H 7-40 U/L Alkaline Phosphatase 110 46-116 U/L Total Protein 6.7 5.7-8.2 g/dL Albumin 4.0 3.2-4.8 g/dL Troponin I High Sensitivity 293 *H </=54 ng/L Lactic Acid Level 6.6 *H 0.4-2.0 mmol/L Test 06/21/24 16:08 06/21/24 14:53 Range/Units Troponin I High Sensitivity 306 *H 307 *H </=54 ng/L White Blood Count 28.8 H 4.4-10.8 10^3/uL Red Blood Count 5.08 4.5-5.90 10^6/uL Hemoglobin 14.5 13.5-17.5 g/dL Hematocrit 45.0 41.0-53.0 % Mean Corpuscular Volume 88.4 80.0-100.0 fL Mean Corpuscular Hemoglobin 28.5 28.0-32.0 pg Mean Corpuscular Hemoglobin Concent 32.2 32.0-36.0 g/dL Red Cell Distribution Width 17.6 H 11.8-14.3 % Platelet Count 247 140-450 10^3/uL Mean Platelet Volume 7.8 6.9-10.8 fL Neutrophils (%) (Auto) 37.0-80.0 % Lymphocytes (%) (Auto) 10.0-50.0 % Monocytes (%) (Auto) 0.0-12.0 % Basophils (%) (Auto) 0.0-2.0 % Neutrophils # (Auto) 1.6-8.6 10 ^3/uL Lymphocytes # (Auto) 0.4-5.4 10 ^3/uL Monocytes # (Auto) 0-1.3 10 ^3/uL Differential Total Cells Counted 100.0 100 Neutrophils % (Manual) 83 H 37.0-80.0 Band Neutrophils % (Manual) 6 Lymphocytes % (Manual) 7 L 10.0-50.0 Monocytes % (Manual) 4 0-12 Eosinophils % (Manual) 0 0-7 Basophils % (Manual) 0 0.0-2.0 Metamyelocytes % (manual) 0 Myelocytes % (Manual) 0 Promyelocytes % (Manual) 0 Blast Cells % (Manual) 0 Reactive Lymphocytes 0 Platelet Estimate [place] Clumped Platelets Few Large Platelets Few Prothrombin Time 11.3 9.3-11.8 sec Prothrombin Time INR 1.07 0.9-1.15 Sodium Level 145 136-145 mmol/L Potassium Level 3.7 3.5-5.1 mmol/L Chloride Level 104 98-107 mmol/L Carbon Dioxide Level 21 20-31 mmol/L Anion Gap 20 H 5-15 Blood Urea Nitrogen 32 H 9-23 mg/dL Creatinine 3.91 H 0.700-1.30 mg/dL Glomerular Filtration Rate Calc 15 >90 mL/min BUN/Creatinine Ratio 8.2 L 10.0-20.0 Serum Glucose 138 H 74-106 mg/dL Lactic Acid Level 8.2 *H 0.4-2.0 mmol/L Calcium Level 10.7 H 8.7-10.4 mg/dL Total Bilirubin 0.4 0.2-1.0 mg/dL Aspartate Amino Transferase (AST) 208 H 13-40 U/L Alanine Aminotransferase (ALT) 55 H 7-40 U/L Alkaline Phosphatase 131 H 46-116 U/L B-Type Natriuretic Peptide 798.88 0-100 pg/mL Total Protein 7.7 5.7-8.2 g/dL Albumin 4.3 3.2-4.8 g/dL Assessment Acute kidney injury likely acute tubular necrosis sec to hypotension + obstructive etiology Encephalopathy Ventilator-dependent hypoxic respiratory failure Distended bladder distended hydroureter on CT scan Enlarged prostate Hyperkalemia secondary to Acute kidney injury Recommendations NS ivf bolus *2 liters bicarb drip after that as ordered Strict Is&Os charting Currently being intubated bedside by ER attending 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 Thank you for allowing me to participate in the care of your patient. Plan discussed with: Other ZACKERY DAS MD Jun 23, 2024 12:10
[2024-06-23] MEDS: PROPOFOL 100 ML IV SCH (12:17)
--- NOTE | 2024-06-23 12:43 | ED.PDOC ---
Was a procedure done? 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) Indication: Hypotension, Volume resuscitation Room prepared for procedure: Yes [place] Inspector performed hand hygien: Yes Maximal sterile barrier precau: Mask/Eye shield, Sterlie gloves, Large sterlie drape Skin Preparation: Chlorhexidine gluconate Skin preparation completely dr: Yes Insertion site: Right, Femoral, Line secured Central line catheter type: [id number] dialysis Number of lumens: 3 Central line exchanged over a: Yes Antiseptic ointment applied to: Yes Post Assessment: Proper placement Informed consent obtained: No Risks/benefits/alt described: No Intubation Indication: Altered Mental Status, Airway Protection Pretreated with: Other (Etomidate) Medicated with: Other (Rocuronium) Intubation Approach: Orotracheal Intubation size: cm (8) Informed consent obtained: No Risks/benefits/alt described: No Notes I was emergently called to the floor for an altered patient who was not protecting his airway. Patient was intubated emergently and central line placed for multiple medications and volume resuscitation. Patient tolerated procedure well without issue. LEIGHANN ERICKSON MD Jun 23, 2024 12:43
[2024-06-23 13:52] LABS: Base Excess -11.5 mmol/L (-2.0-3.0)
--- NOTE | 2024-06-23 14:05 | DVH ---
CLINICAL INFORMATION: 78 years old, Male; INTUBATION. TECHNIQUE: Single AP portable chest radiograph was obtained. COMPARISON: XY CHEST XRAY 1 VIEW on DOS: 06/23/24, XY CHEST PORTABLE on DOS: 06/21/24, XY CHEST PORTAB LE on DOS: 01/13/23 FINDINGS: Distal tip of the endotracheal tube is approximately 5 cm above the level of the dominique. Enteric tub e reaches the stomach and descends below the [id number]-lk-omdp of the exam. Bibasilar atelectasis. No foc al consolidation visualized. Oohd-sd-pxepbfjj elevation of the right hemidiaphragm. No pneumothorax. No other significant findings are seen. IMPRESSION: 1. Satisfactory positioning of the endotracheal tube and enteric tube. 2. Bibasilar atelectasis. No focal consolidation, pneumothorax, or pleural effusion visualized.
[2024-06-23] MEDS: SODIUM BICARB 8.4% 50Meq/50ml SYR Vial IV ONE (14:11)
[2024-06-23] MEDS: SODIUM CHLORIDE 0.9% 2,000 ML IV ONE (14:11)
[2024-06-23 14:15] LABS: Alkaline Phosphatase 104 U/L (46-116); Anion Gap 16 (5-15); BUN/Creatinine Ratio 12.2 (10.0-20.0); Potassium 4.9 mmol/L (3.5-5.1); Sodium 144 mmol/L (136-145)
[2024-06-23 14:16] LABS: Albumin 3.5 g/dL (3.2-4.8); Bilirubin, Total 0.4 mg/dL (0.2-1.0); Total Protein 6.4 g/dL (5.7-8.2)
[2024-06-23] MEDS: BUMETANIDE 2.5mg/10ml (0.25 mg/ml) INJ IV ONE (14:16)
[2024-06-23 14:23] LABS: Carbon Dioxide 18 mmol/L (20-31); Chloride 110 mmol/L (98-107); Glucose 171 mg/dL (74-106)
[2024-06-23 14:32] LABS: Blood Urea Nitrogen 81 mg/dL (9-23)
[2024-06-23 14:33] LABS: Alanine Aminotransferase 102 U/L (7-40); Aspartate Aminotransferase 523 U/L (13-40); Calcium 8.5 mg/dL (8.7-10.4)
--- NOTE | 2024-06-23 14:38 | ECG ---
[facility] Test Date: 2024-06-23 Test Time: 08:04:57 Pat Name: COURTNEY BALDERRAMA Department: Room: Cath ICU 9 Gender: M Supervisor Nut Processing: SUDHIR : 1945 Requested By: DIONTE BACH Order Number: [id number] Reading MD: Regina López Measurements Intervals [place] Rate: 88 P: 38 CA: 150 QRS: 22 QRSD: 89 T: 48 QT: 379 QTc: 459 Interpretive Statements Sinus rhythm Borderline low voltage, extremity leads Baseline wander in lead(s) V3 Electronically Signed On 06-24-2024 9:08:55 PST by Regina López Please click the below link to view image of tracing.
[2024-06-23] MEDS: SODIUM BICARB 50mEq/50ml Vial 150 ML in D5W 5% 1,000 ML IV ONE (16:13)
[2024-06-23] MEDS: fentaNYL Drip 2500mCg/250mlNS 250 ML IV SCH (16:22)
[2024-06-23] MEDS: IPRATROPIUM BROM 0.5 MG/2.5ML INH SOL NEB PRN (18:09)
[2024-06-23] MEDS: ALBUTEROL SULF 2.5 MG/0.5ML(0.5%) NEB SOLN NEB PRN (18:09)
[2024-06-23 18:56] LABS: Protein, Urine 71.4 mg/dL (1-14)
[2024-06-23 18:59] LABS: Creatinine, Urine 21.25 mg/dL (30.0-125.0)
[2024-06-23] MEDS: NOREPINEPHRINE 8 MG/250ML KIT 250 ML IV SCH (19:05)
[2024-06-23] MEDS: SODIUM BICARB 50mEq/50ml Vial 150 ML in D5W 5% 1,000 ML IV SCH (19:10)
[2024-06-23 22:02] LABS: Base Excess -5.9 mmol/L (-2.0-3.0)
--- NOTE | 2024-06-23 23:07 | DVHPN2 ---
Progress Note - Dictate Date Seen: Jun 23, 2024 Medical Necessity Reason Pt with a Central, PICC or Fol: No Subjective Pt coded and transferred to ICU vital signs Vital Sign Date Time Temp Pulse Resp B/P (MAP) Pulse Ox O2 Delivery O2 Flow Rate FiO2 06/23/24 21:48 85 18 95/60 (72) 100 30 06/23/24 20:00 Mechanical Ventilator+ 06/23/24 20:00 97.8 97.8 06/23/24 07:45 2 Total Intake and Output 06/22/24 06/22/24 06/23/24 15:00 23:00 07:00 Intake Total 50 ml 0 ml Output Total 700 ml 325 ml Balance -650 ml -325 ml medications Current Medications Medications Dose Ordered Sig/Jere Route Start Time Stop Time Status Last Admin Dose Admin Acetaminophen/ Hydrocodone Bitart 1 tab Q4HP PRN PO 06/21/24 18:30 Enoxaparin Sodium 30 mg DAILY SC 06/22/24 10:00 06/22/24 11:13 30 MG Morphine Sulfate 2 mg Q4HPRN PRN IV 06/21/24 18:30 Vancomycin HCl 0 ml @ 0 mls/hr UD IV 06/21/24 18:45 Cefepime HCl 50 ml @ 12.5 mls/hr Q12H IV 06/22/24 05:00 06/23/24 16:47 12.5 MLS/HR Tamsulosin HCl 0.4 mg DAILY PO 06/22/24 10:00 06/22/24 11:12 0.4 MG Albuterol 2.5 mg Q4HPRN PRN NEB 06/23/24 07:15 06/23/24 18:09 2.5 MG Ipratropium [place] 0.5 mg Q4HPRN PRN NEB 06/23/24 07:15 06/23/24 18:09 0.5 MG Propofol 100 ml @ 3.129 mls/ hr Q24H IV 06/23/24 14:15 06/23/24 18:25 21.903 MLS/HR Fentanyl Citrate 250 ml @ 2.5 mls/hr Q24H IV 06/23/24 14:15 06/23/24 16:22 2.5 MLS/HR Sodium Bicarbonate 150 ml/Dextrose 1,150 ml @ 100 mls/hr [id number] IV 06/23/24 18:15 Norepinephrine Bitartrate 250 ml @ 3.75 mls/hr Q24H IV 06/23/24 19:45 objective Intubated and sedated CVS: S1S2+ Lungs clear Abdomen; soft, distended, BS+ laboratory and microbiology Laboratory Tests 06/23/24 13:45 06/23/24 07:15 Test 06/23/24 13:45 Range/Units Serum Glucose 171 H 74-106 mg/dL Assessment/Plan #Elevated liver enzymes #Acute resp failure #Shock Monitor liver enzymes. Check acute hep panel Avoid hypotension Reviewed imaging studies, normal liver and GB Further mgmt plan per ICU team Thank you for allowing me to participate in the care of this patient Plan discussed with: Other DAYANARA KAISER MD Jun 23, 2024 23:07
--- NOTE | 2024-06-23 23:12 | DVHINCON2 ---
Date of service: Jun 23, 2024 Referring Physician Gisele Deal MD Reason for Consultation Acute respiratory distress requiring mechanical ventilator. History of Present Illness A 78-year-old man with past medical history of renal stones (status post ESWL), BPH status post TURP, obstructive uropathy, and hypertension brought in by EMS to ED on 06/21/24 with c/o generalized weakness, onset day of presentation. Per EMS, patient had an appointment [facility] on [facility] , did not make it and family was called. Family members found patient on the ground. Pt denied LOC and stated he felt tired. Pt had multiple episodes of diarrhea on , apparently d/t consuming some bad food. States when he was trying to go to sleep he was too weak and could not make it to the bed and sat down beside the bed. P t also reported dysuria, no trouble urinating. Denied other associated sx including nausea, vomiting, fevers, chills or cough. Patient was admitted for further care and pulmonary consultation is requested for evaluation and management d/t acute respiratory distress requiring mechanical ventilator. Review of Systems: 14-point review of systems negative unless otherwise noted above. Past Medical History: Renal stones (status post ESWL), BPH status post TURP, obstructive uropathy, hypertension Past Surgical History: Laser cystolitholapaxy and TURP in 12/2023. Medications: Reviewed. Allergies: No known drug allergies. Family History: No family history of premature CAD. No family history of lung disorders. Social History: Nonsmoker. No alcohol or illicit drug use. Family History: Patient reports no known family medical history. Allergies: Coded Allergies: NO KNOWN ALLERGIES (Unverified , 01/12/23) Home Meds Reported Medications Atorvastatin Calcium (Lipitor) 10 Mg Tab, PO QPM, #90 TAB 1 Refill 01/14/23 Metformin Hydrochloride (Metformin Hcl) 500 Mg Tab, PO IBID for 30 Days, MG 01/14/23 Tamsulosin Hcl (Flomax) 0.4 Mg Cap, 1 CAP PO DAILY, #30 CAP 11 Refills 01/14/23 Atenolol (Atenolol) 25 Mg Tab, PO BID for 30 Days, MG 01/14/23 Current Medications Current Medications Medications (Trade) Dose Ordered Sig/Jere Route PRN Reason Start Time Stop Time Status Last Admin Albuterol (Ventolin Medneb) 2.5 mg Q4HPRN PRN NEB SHORTNESS OF BREATH 06/23/24 07:15 06/23/24 18:09 Ipratropium [place] (Atrovent Medneb) 0.5 mg Q4HPRN PRN NEB SHORTNESS OF BREATH 06/23/24 07:15 06/23/24 07:13 DC Albuterol (Ventolin Medneb) 2.5 mg Q4HPRN PRN NEB SHORTNESS OF BREATH 06/23/24 07:15 06/23/24 07:13 DC Ipratropium [place] (Atrovent Medneb) 0.5 mg Q4HPRN PRN NEB SHORTNESS OF BREATH 06/23/24 07:15 06/23/24 18:09 Propofol 100 ml @ 3.129 mls/ hr Q24H IV 06/23/24 14:15 06/23/24 18:25 Fentanyl Citrate 250 ml @ 2.5 mls/hr Q24H IV 06/23/24 14:15 06/23/24 16:22 Sodium Bicarbonate 150 ml/Dextrose 1,150 ml @ 100 mls/hr [id number] IV 06/23/24 18:15 Norepinephrine Bitartrate 250 ml @ 3.75 mls/hr Q24H IV 06/23/24 19:45 Vital Signs Vital Signs Date Time Temp Pulse Resp B/P (MAP) Pulse Ox O2 Delivery O2 Flow Rate FiO2 06/23/24 21:48 85 18 95/60 (72) 100 30 06/23/24 20:00 Mechanical Ventilator+ 06/23/24 20:00 97.8 97.8 06/23/24 07:45 2 Physical Exam Gen.: Patient lying in bed in medical ICU. Sedated, intubated on mechanical ventilator. Head: Normocephalic, atraumatic. Eyes: PERRLA. Ears: Normal external anatomy. Throat: Endotracheal tube and orogastric tube in place. Neck: Supple, trachea midline. Chest: Transmitted breath sounds bilaterally. Decreased air entry bilaterally. No wheezing. Bibasilar crackles. Cardiovascular: Positive S1, positive S2. Regular rate and rhythm. Abdomen: Positive bowel sounds in all 4 quadrants. Soft, nontender, non distended. : Bowman in place. Normal external genitalia. Rectal: Deferred. Skin: Warm, dry. Intact. Extremities: 2+ radial pulses bilaterally. No lower extremity edema. Neuro: Sedated. Labs/Diagnostic Data Labs Test 06/23/24 21:57 06/23/24 18:27 06/23/24 13:45 06/23/24 11:16 Range/Units Blood Gas Specimen Type Arterial Blood Gas Sample Site Left radial Blood Gas Patient Temperature 37.0 Arterial Blood Date Drawn [id number] Arterial Blood pH 7.336 L 7.350-7.450 Arterial Blood Partial Pressure CO2 36.9 35.0-48.0 mmHg Arterial Blood Partial Pressure O2 95.9 83.0-108.0 mmHg Arterial Blood HCO3 19.3 L 21.0-28.0 mmol/L Arterial Blood Oxygen Saturation 97.1 94.0-98.0 % Arterial Blood Base Excess -5.9 L -2.0-3.0 mmol/L Arterial Blood Oxyhemoglobin 96.6 94.0-98.0 % Arterial Blood Carboxyhemoglobin 0.3 L 0.5-1.5 % Arterial Blood Methemoglobin 0.2 0.0-1.5 % Osvaldo Test Modified Blood Gas Total Hemoglobin 11.10 L 13.5-17.5 g/dL Blood Gas Set Respiration Rate 18.0 Blood Gas Modality Vent - ac FiO2 % 30.0 Blood Gas Tidal Volume 500.0 Blood Gas PEEP or CPAP 5.0 Urine Creatinine 21.25 L 30.0-125.0 mg/dL Urine Sodium 135 40-220 mmol/L Urine Total Protein 71.4 H 1-14 mg/dL Blood Gas Spontaneous Rate 18 Blood Gas Critical Value Read Back Yes Blood Gas Notified Whom Dr. tavarez Blood Gas Notified Time [id number] Blood Gas Notified By Sodium Level 144 136-145 mmol/L Potassium Level 4.9 3.5-5.1 mmol/L Chloride Level 110 H 98-107 mmol/L Carbon Dioxide Level 18 L 20-31 mmol/L Anion Gap 16 H 5-15 Blood Urea Nitrogen 81 #*H 9-23 mg/dL Creatinine 6.65 H 0.700-1.30 mg/dL Glomerular Filtration Rate Calc 8 >90 mL/min BUN/Creatinine Ratio 12.2 10.0-20.0 Serum Glucose 171 H 74-106 mg/dL Calcium Level 8.5 L 8.7-10.4 mg/dL Total Bilirubin 0.4 0.2-1.0 mg/dL Aspartate Amino Transferase (AST) 523 H 13-40 U/L Alanine Aminotransferase (ALT) 102 H 7-40 U/L Alkaline Phosphatase 104 46-116 U/L Total Protein 6.4 5.7-8.2 g/dL Albumin 3.5 3.2-4.8 g/dL Blood Gas EPAP 5 Blood Gas IPAP 14 Test 06/23/24 08:53 06/23/24 07:15 06/23/24 07:04 06/23/24 06:58 Range/Units Lactic Acid Level 1.4 0.4-2.0 mmol/L White Blood Count 17.4 H 4.4-10.8 10^3/uL Red Blood Count 4.34 L 4.5-5.90 10^6/uL Hemoglobin 12.2 L 13.5-17.5 g/dL Hematocrit 38.7 L 41.0-53.0 % Mean Corpuscular Volume 89.4 80.0-100.0 fL Mean Corpuscular Hemoglobin 28.2 28.0-32.0 pg Mean Corpuscular Hemoglobin Concent 31.5 L 32.0-36.0 g/dL Red Cell Distribution Width 19.1 H 11.8-14.3 % Platelet Count 163 140-450 10^3/uL Mean Platelet Volume 8.6 6.9-10.8 fL Neutrophils (%) (Auto) 92.4 H 37.0-80.0 % Lymphocytes (%) (Auto) 2.8 L 10.0-50.0 % Monocytes (%) (Auto) 2.7 0.0-12.0 % Eosinophils (%) (Auto) 2.0 0.0-7.0 % Basophils (%) (Auto) 0.1 0.0-2.0 % Neutrophils # (Auto) 16.1 H 1.6-8.6 10 ^3/uL Lymphocytes # (Auto) 0.5 0.4-5.4 10 ^3/uL Monocytes # (Auto) 0.5 0-1.3 10 ^3/uL Eosinophils # (Auto) 0.3 0-0.8 10 ^3/uL Basophils # (Auto) 0 0-0.2 10 ^3/uL Nucleated Red Blood Cells 0.1 % Magnesium Level 2.3 1.6-2.6 mg/dL Ammonia < 10 L 11-32 umol/L Blood Gas Liter Flow 4.00 POC Glucose 94 70-106 mg/dl Test 06/23/24 04:43 06/22/24 17:12 06/22/24 04:17 06/21/24 17:51 Range/Units Differential Total Cells Counted 100.0 100 Neutrophils % (Manual) 74 37.0-80.0 Band Neutrophils % (Manual) 19 Lymphocytes % (Manual) 3 L 10.0-50.0 Monocytes % (Manual) 4 0-12 Eosinophils % (Manual) 0 0-7 Basophils % (Manual) 0 0.0-2.0 Metamyelocytes % (manual) 0 Myelocytes % (Manual) 0 Promyelocytes % (Manual) 0 Blast Cells % (Manual) 0 Reactive Lymphocytes 0 Platelet Estimate Adequate Anisocytosis (manual) Slight Ovalocytes Few Yanet Cells Few Random Vancomycin Level 22.4 H 5-10 ug/mL Urine Color Dark-brown Yellow Urine Clarity Ex.turbid Clear Urine pH 6.0 5.0-9.0 Urine Specific [place] 1.011 1.001-1.035 Urine Protein 2+ H Negative Urine Ketones Negative Negative Urine Blood 3+ H Negative /uL Urine Nitrite Negative Negative Urine Bilirubin Negative Negative Urine Urobilinogen Normal Negative mg/dL Urine Leukocyte Esterase 3+ Negative /uL Urine RBC 561 0 - 3 /hpf Urine WBC 2731 0 - 3 /hpf Urine WBC Clumps Present None Seen /hpf Urine Squamous Epithelial Cells Few <5 /hpf Urine Bacteria Mod H None Seen /hpf Urine Glucose 3+ H Normal mg/dL Troponin I High Sensitivity 293 *H </=54 ng/L Test 06/21/24 14:53 Range/Units Clumped Platelets Few Large Platelets Few Prothrombin Time 11.3 9.3-11.8 sec Prothrombin Time INR 1.07 0.9-1.15 B-Type Natriuretic Peptide 798.88 0-100 pg/mL Microbiology Date/Time Source Procedure Growth Status 06/22/24 17:12 Urine - [place] Urine Culture - Preliminary Resulted 06/21/24 18:05 Blood Blood Culture - Preliminary NO GROWTH AFTER 48 HOURS OF INCUBATION. Resulted Assessment Impression: Acute respiratory distress. On mechanical ventilator Acute metabolic encephalopathy Metabolic acidosis Lactic acidosis Septic shock Hyperkalemia Acute kidney injury Plan: s/p intubation on mechanical ventilator. CXR image and report reviewed. Devices in place. Bibasilar atelectasis. No fo lisa consolidation, pneumothorax, or pleural effusion. ABG reviewed, notable for acidemia On AC mode; RR 18, VT 500, PEEP 5, FiO2 30% Titrate FIO2 to keep O2 saturation above 90%. VAP bundle. Daily ABG and CXR while intubated Sedate for ventilator synchrony - On Propofol, Fentanyl CT head showed no evidence of ICH or stroke. Obtain ABG now for interval changes. D5W + 3 amps bicarb drip at 100 ml/hr. Broad spectrum antibiotics. Follow up cultures. Continue bronchodilators. Steroids On pressors for hemodynamic support Levophed 2 mcg/min Titrate to keep mean arterial pressure greater than 65 mmHg. Monitor renal function Monitor electrolytes. Supplement as necessary. Monitor ins and outs. Maintain euvolemia. GI prophylaxis. DVT prophylaxis. Prognosis: Poor given patient's multiple co-morbidities. Condition: Critical Rest of plan per hospitalist and other consultants. A total of 36 minutes of critical care time was spent reviewing the patient record, examining the patient, making a diagnostic and therapeutic plan, discussing this plan with the medical personnel, following up on diagnostic studies and following the patient for clinical stability excluding any and all procedures. At least 50% of this time was spent in direct, [id number] contact. Thank you Dr. Carlos Cardoso MD, for allowing me to participate in this patient's care. Further recommendations will depend on the patient's clinical course. Please do not hesitate to contact me if you have any questions or concerns. This medical document was created using an electronic medical record system with [employer] dictation system. Although these documentations are being carefully reviewed, there may still be some phonetic and typographical changes. The errors are purely typographical, due to imperfection on the software program, and do not reflect any compromise in the patient's medical care. Plan discussed with: Other (SHAQUILEL Larry, MD Deal) JASS HERNANDEZ MD Jun 23, 2024 23:12
[2024-06-24] VITALS (102 sets, daily range): BP systolic 87–159; BP diastolic 53–95; PULSE 70–108; RESP 14–26; TEMP 98.8–99; O2SAT 94–100
[2024-06-24 03:31] LABS: Basophils # (auto) 0 10 ^3/uL (0-0.2); Basophils % (auto) 0.2 % (0.0-2.0); Eosinophils # (auto) 0 10 ^3/uL (0-0.8); Eosinophils % (auto) 0.2 % (0.0-7.0); Hematocrit 31.9 % (41.0-53.0); Hemoglobin 10.5 g/dL (13.5-17.5); Lymphocytes # (auto) 0.4 10 ^3/uL (0.4-5.4); Mean Corpuscular Hemoglobin 28.3 pg (28.0-32.0); Mean Corpuscular Volume 85.9 fL (80.0-100.0); Monocytes # (auto) 0.6 10 ^3/uL (0-1.3); Neutrophils # (auto) 18.3 10 ^3/uL (1.6-8.6); Neutrophils % (auto) 94.6 % (37.0-80.0); Nucleated Red Blood Cells % 0.2 %; Platelet Count (auto) 145 10^3/uL (140-450); Red Blood Cells 3.72 10^6/uL (4.5-5.90); Red Cell Distribution Width 18.3 % (11.8-14.3); White Blood Cell 19.3 10^3/uL (4.4-10.8)
[2024-06-24 03:49] LABS: Albumin 3.3 g/dL (3.2-4.8); Alkaline Phosphatase 92 U/L (46-116); Anion Gap 16 (5-15); BUN/Creatinine Ratio 12.9 (10.0-20.0); Carbon Dioxide 22 mmol/L (20-31); Chloride 107 mmol/L (98-107); Potassium 4.5 mmol/L (3.5-5.1); Sodium 145 mmol/L (136-145)
[2024-06-24 03:50] LABS: Total Protein 5.9 g/dL (5.7-8.2)
[2024-06-24 04:34] LABS: Alanine Aminotransferase 84 U/L (7-40); Aspartate Aminotransferase 416 U/L (13-40); Bilirubin, Total 0.2 mg/dL (0.2-1.0); Blood Urea Nitrogen 83 mg/dL (9-23); Calcium 8.2 mg/dL (8.7-10.4); Glucose 205 mg/dL (74-106)
[2024-06-24 07:33] LABS: Base Excess -1.8 mmol/L (-2.0-3.0)
--- NOTE | 2024-06-24 08:00 | DVHSR ---
APPROVED REPORT EXAM: Two-dimensional and M-mode echocardiogram with Doppler and color Doppler. Blood Pressure: 111/55 mmHg INDICATION SOB RISK FACTORS Obesity: Height: 5'7", Weight: 229 DIMENSIONS LVDd4.1 (3.8-5.7cm)LA (2D)3.8 (1.9-4.0cm)Aortic Root4.3 (2.0-3.7cm) LVDs2.7 (2.5-4.0cm)LA (MM) (1.9-4.0cm)Aortic Cusp Exc1.2 (1.5-2.0cm) EF (%) 65.0 (55-70%)Rt. Atrium3.8 (1.9-4.0cm)Asc. Aorta cm IVSd1.3 (0.7-1.1cm)RV (D) (1.8-2.4cm) PWd1.1 (0.7-1.1cm) Mitral Valve MitralMitral Stenosis E wave1.23m/sMV Mean GR.mmHg A wave1.49m/sMV Peak GR.mmHg E/A ratio0.82D MVAcm2 DECEL [id number] 1/2 [place] Aortic Valve Aortic ValveAortic Stenosis V11.07m/Andrew Mean GR.8mmHg V21.87m/Andrew Peak GR.14mmHg LVOT Diameter2.0 (1.8-2.4cm)Doppler AVA1.80cm2 Pulmonic Valve V20.81m/s Other Information Technically limited study due to body habitus, patient position and on vent. Conclusion lvef 70% by visual estimate moderate to sever LVH normal rv function trivial pericaridal effusion noted thickened aortic valve, no sig stenosis however
[2024-06-24] MEDS: BUMETANIDE 2.5mg/10ml (0.25 mg/ml) INJ IV ONE (10:55)
[2024-06-24] MEDS: LABETALOL HCL 20 MG/4 ML VL IV PRN (12:06)
[2024-06-24] MEDS: VANCOMYCIN 1GM/250ML KIT 200 ML IV ONE (13:30)
--- NOTE | 2024-06-24 13:47 | DVHPN2 ---
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 ICU patient Intubated Sedation removed for attempt on weaning Not following instructions vital signs Vital Sign Date Time Temp Pulse Resp B/P (MAP) Pulse Ox O2 Delivery O2 Flow Rate FiO2 06/24/24 13:06 78 135/76 06/24/24 12:30 18 98 06/24/24 12:00 98.8 98.8 06/24/24 12:00 Mechanical Ventilator+ 30 30 06/23/24 07:45 2 Total Intake and Output 06/23/24 06/23/24 06/24/24 15:00 23:00 07:00 Intake Total 1025.032 ml 1986.309 ml 799.874 ml Output Total 550 ml 700 ml Balance 1025.032 ml 1436.309 ml 99.874 ml medications Current Medications Medications Dose Ordered Sig/Jere Route Start Time Stop Time Status Last Admin Dose Admin Acetaminophen/ Hydrocodone Bitart 1 tab Q4HP PRN PO 06/21/24 18:30 Enoxaparin Sodium 30 mg DAILY SC 06/22/24 10:00 06/24/24 10:50 30 MG Morphine Sulfate 2 mg Q4HPRN PRN IV 06/21/24 18:30 Vancomycin HCl 0 ml @ 0 mls/hr UD IV 06/21/24 18:45 Cefepime HCl 50 ml @ 12.5 mls/hr Q12H IV 06/22/24 05:00 06/24/24 05:42 12.5 MLS/HR Tamsulosin HCl 0.4 mg DAILY PO 06/22/24 10:00 06/22/24 11:12 0.4 MG Albuterol 2.5 mg Q4HPRN PRN NEB 06/23/24 07:15 06/24/24 06:32 2.5 MG Ipratropium [place] 0.5 mg Q4HPRN PRN NEB 06/23/24 07:15 06/24/24 06:32 0.5 MG Propofol 100 ml @ 3.129 mls/ hr Q24H IV 06/23/24 14:15 06/24/24 06:16 21.903 MLS/HR Fentanyl Citrate 250 ml @ 2.5 mls/hr Q24H IV 06/23/24 14:15 06/23/24 16:22 2.5 MLS/HR Sodium Bicarbonate 150 ml/Dextrose 1,150 ml @ 100 mls/hr [id number] IV 06/23/24 18:15 06/24/24 04:09 100 MLS/HR Norepinephrine Bitartrate 250 ml @ 3.75 mls/hr Q24H IV 06/23/24 19:45 06/23/24 19:05 3.75 MLS/HR Labetalol HCl 10 mg Q4HPRN PRN IV 06/24/24 11:45 06/24/24 12:06 10 MG objective Morbidly obese male Intubated Opens eyes but is not responsive Large abdomen Trace edema Bowman catheter laboratory and microbiology Laboratory Tests 06/24/24 03:00 Test 06/24/24 03:00 Range/Units Serum Glucose 205 H 74-106 mg/dL Assessment/Plan Acute kidney injury likely acute tubular necrosis sec to hypotension + obstructive etiology Encephalopathy Ventilator-dependent hypoxic respiratory failure Distended bladder distended hydroureter on CT scan Enlarged prostate Hyperkalemia secondary to Acute kidney injury bicarb drip IV diuretic today Urine output responded Previous CT scan showed possible bladder perforation urology consult ordered recommend follow-up. Currently patient is urinating but I advised continued monitoring of patient's abdomen Strict Is&Os charting Low threshold to initiate dialysis Plan discussed with: Other KAREN MARTINEZ MD Jun 24, 2024 13:47
--- NOTE | 2024-06-24 16:01 | DVHPN2 ---
Progress Note Date Seen: Jun 24, 2024 Has the PT tested + for MRSA If YES, has PT been informed?: No Medical Necessity Reason Pt with a Central, PICC or Fol: Yes The following are medically ne: Central Line, Bowman Catheter Subjective Patient reports: No new complaints Review of Systems: HEENT:Normal, CVS:Normal, RESPIRATORY:Normal, GI:Normal, :Normal, MSK:Normal, NEURO:Normal Objective vital signs Vital Sign Date Time Temp Pulse Resp B/P (MAP) Pulse Ox O2 Delivery O2 Flow Rate FiO2 06/24/24 14:30 84 16 151/84 (106) 98 06/24/24 14:00 30 06/24/24 14:00 Mechanical Ventilator+ 06/24/24 12:00 98.8 98.8 06/23/24 07:45 2 Total Intake and Output 06/23/24 06/23/24 06/24/24 15:00 23:00 07:00 Intake Total 1025.032 ml 1986.309 ml 799.874 ml Output Total 550 ml 700 ml Balance 1025.032 ml 1436.309 ml 99.874 ml medications Current Medications Medications Dose Ordered Sig/Jere Route Start Time Stop Time Status Last Admin Dose Admin Acetaminophen/ Hydrocodone Bitart 1 tab Q4HP PRN PO 06/21/24 18:30 Enoxaparin Sodium 30 mg DAILY SC 06/22/24 10:00 06/24/24 10:50 30 MG Morphine Sulfate 2 mg Q4HPRN PRN IV 06/21/24 18:30 Vancomycin HCl 0 ml @ 0 mls/hr UD IV 06/21/24 18:45 Cefepime HCl 50 ml @ 12.5 mls/hr Q12H IV 06/22/24 05:00 06/24/24 05:42 12.5 MLS/HR Tamsulosin HCl 0.4 mg DAILY PO 06/22/24 10:00 06/22/24 11:12 0.4 MG Albuterol 2.5 mg Q4HPRN PRN NEB 06/23/24 07:15 06/24/24 06:32 2.5 MG Ipratropium [place] 0.5 mg Q4HPRN PRN NEB 06/23/24 07:15 06/24/24 06:32 0.5 MG Propofol 100 ml @ 3.129 mls/ hr Q24H IV 06/23/24 14:15 06/24/24 06:16 21.903 MLS/HR Fentanyl Citrate 250 ml @ 2.5 mls/hr Q24H IV 06/23/24 14:15 06/23/24 16:22 2.5 MLS/HR Sodium Bicarbonate 150 ml/Dextrose 1,150 ml @ 100 mls/hr [id number] IV 06/23/24 18:15 06/24/24 15:45 100 MLS/HR Norepinephrine Bitartrate 250 ml @ 3.75 mls/hr Q24H IV 06/23/24 19:45 06/23/24 19:05 3.75 MLS/HR Labetalol HCl 10 mg Q4HPRN PRN IV 06/24/24 11:45 06/24/24 12:06 10 MG Examination: GENERAL:Normal, HEENT:Normal, NECK:Normal, LUNGS:Normal, LUNGS:Abnormal (intubtated), CVS:Normal, ABDOMEN:Normal, MSK:Normal, SKIN:Normal, NEURO:Normal, NEURO:Abnormal (sedated), :Normal laboratory and microbiology Laboratory Tests 06/24/24 03:00 Test 06/24/24 03:00 Range/Units Serum Glucose 205 H 74-106 mg/dL Microbiology Date/Time Source Procedure Growth Status 06/23/24 16:43 Nose MRSA Screen - Final Complete 06/23/24 13:32 Sputum Endotracheal Wash Gram Stain Pending Resulted 06/23/24 13:32 Sputum Endotracheal Wash Respiratory Culture - Preliminary Resulted 06/22/24 17:12 Urine - [place] Urine Culture - Final Complete 06/21/24 18:05 Blood Blood Culture - Preliminary NO GROWTH AFTER 48 HOURS OF INCUBATION. Resulted Problem List/Assessment/Plan Problem List/Assessment/Plan #1 acute resp failure: cont acv #2 sepsis with uti ?esbl: iv meropenem, vanc #3 acute renal failure/atn: ivf #4 obesity #5 bph #6 h/o renal stones #7 transaminitis #8 acute diastolic heart failure #9 hyperkalemia: improved Plan discussed with: Other (rn) My Orders My Orders Orders - ALONA BEAN MD Procedure Category Date Status Time Labetalol Hcl PHA 06/24/24 In Process (Labetalol Hcl) 11:45 Critical Care Time (mins): 81 (critical care time 81 mins) Date of Service: Jun 24, 2024 Billing Provider: ALONA BEAN MD Common Visit Codes: [id number] CARE 30-74 MIN, [id number] CARE-EACH +30MIN ALONA BEAN MD Jun 24, 2024 16:01
[2024-06-24] MEDS ORDERED: MEROPENEM 500MG IVPB 50 ML IV ONE (16:30)
[2024-06-24] MEDS: MEROPENEM 500MG PREMIX 50 ML IV ONE (17:38)
[2024-06-24] MEDS: MEROPENEM 500MG PREMIX 50 ML IV SCH (21:31)
[2024-06-25] VITALS (105 sets, daily range): BP systolic 96–163; BP diastolic 57–89; PULSE 66–91; RESP 14–22; TEMP 97.8–99; O2SAT 30–100
[2024-06-25] MEDS: NOREPINEPHRINE 8 MG/250ML KIT 250 ML IV SCH (00:30)
--- NOTE | 2024-06-25 04:34 | DVH ---
CHEST RADIOGRAPH Indication: RESP FAILURE Technique: Single frontal view of the chest was obtained COMPARISON: XY CHEST XRAY 1 VIEW on DOS: 06/23/24, XY CHEST XRAY 1 VIEW on DOS: 06/23/24, XY CHEST PORT ABLE on DOS: 06/21/24 FINDINGS: Lines and Tubes: Endotracheal tube and enteric catheter in satisfactory position. Lungs: Patchy bilateral airspace disease. Pleura: No effusion. No pneumothorax. Cardiomediastinal contours: Unremarkable Bones: Unremarkable IMPRESSION: Lines and tubes in satisfactory position. No significant interval change.
[2024-06-25 06:31] LABS: Basophils # (auto) 0 10 ^3/uL (0-0.2); Basophils % (auto) 0.2 % (0.0-2.0); Eosinophils # (auto) 0 10 ^3/uL (0-0.8); Eosinophils % (auto) 0.4 % (0.0-7.0); Hematocrit 32.7 % (41.0-53.0); Hemoglobin 10.7 g/dL (13.5-17.5); Lymphocytes # (auto) 0.4 10 ^3/uL (0.4-5.4); Lymphocytes % (auto) 3.2 % (10.0-50.0); Mean Corpuscular Hemoglobin 28.2 pg (28.0-32.0); Mean Corpuscular Hgb Conc. 32.7 g/dL (32.0-36.0); Mean Corpuscular Volume 86.4 fL (80.0-100.0); Monocytes # (auto) 0.5 10 ^3/uL (0-1.3); Monocytes % (auto) 3.5 % (0.0-12.0); Neutrophils # (auto) 12.6 10 ^3/uL (1.6-8.6); Neutrophils % (auto) 92.7 % (37.0-80.0); Nucleated Red Blood Cells % 0.3 %; Platelet Count (auto) 142 10^3/uL (140-450); Red Blood Cells 3.78 10^6/uL (4.5-5.90); White Blood Cell 13.6 10^3/uL (4.4-10.8)
[2024-06-25 06:33] LABS: Alanine Aminotransferase 76 U/L (7-40); Albumin 3.2 g/dL (3.2-4.8); Alkaline Phosphatase 89 U/L (46-116); Anion Gap 14 (5-15); Aspartate Aminotransferase 331 U/L (13-40); BUN/Creatinine Ratio 13.4 (10.0-20.0); Calcium 8.3 mg/dL (8.7-10.4); Carbon Dioxide 30 mmol/L (20-31); Chloride 101 mmol/L (98-107); Glucose 165 mg/dL (74-106); Potassium 3.7 mmol/L (3.5-5.1); Sodium 145 mmol/L (136-145)
[2024-06-25 06:34] LABS: Bilirubin, Total 0.3 mg/dL (0.2-1.0); Total Protein 5.8 g/dL (5.7-8.2)
[2024-06-25 06:38] LABS: Blood Urea Nitrogen 91 mg/dL (9-23)
[2024-06-25 07:30] LABS: Base Excess 4.2 mmol/L (-2.0-3.0)
--- NOTE | 2024-06-25 10:50 | DVHPN2 ---
Progress Note Date Seen: Jun 25, 2024 Has the PT tested + for MRSA If YES, has PT been informed?: No Medical Necessity Reason Pt with a Central, PICC or Fol: Yes The following are medically ne: Central Line, Bowman Catheter Subjective Patient reports: No new complaints Review of Systems: HEENT:Normal, CVS:Normal, RESPIRATORY:Normal, GI:Normal, :Normal, MSK:Normal, NEURO:Normal Objective vital signs Vital Sign Date Time Temp Pulse Resp B/P (MAP) Pulse Ox O2 Delivery O2 Flow Rate FiO2 06/25/24 09:31 73 18 134/69 (90) 96 30 06/25/24 08:00 Mechanical Ventilator+ 06/25/24 05:00 98.1 98.1 06/23/24 07:45 2 Total Intake and Output 06/24/24 06/24/24 06/25/24 15:00 23:00 07:00 Intake Total 1056.274 ml 963.997 ml 1149.471 ml Output Total 850 ml 350 ml 850 ml Balance 206.274 ml 613.997 ml 299.471 ml medications Current Medications Medications Dose Ordered Sig/Jere Route Start Time Stop Time Status Last Admin Dose Admin Acetaminophen/ Hydrocodone Bitart 1 tab Q4HP PRN PO 06/21/24 18:30 Enoxaparin Sodium 30 mg DAILY SC 06/22/24 10:00 06/24/24 10:50 30 MG Morphine Sulfate 2 mg Q4HPRN PRN IV 06/21/24 18:30 Vancomycin HCl 0 ml @ 0 mls/hr UD IV 06/21/24 18:45 Tamsulosin HCl 0.4 mg DAILY PO 06/22/24 10:00 06/22/24 11:12 0.4 MG Albuterol 2.5 mg Q4HPRN PRN NEB 06/23/24 07:15 06/24/24 06:32 2.5 MG Ipratropium [place] 0.5 mg Q4HPRN PRN NEB 06/23/24 07:15 06/24/24 06:32 0.5 MG Propofol 100 ml @ 3.129 mls/ hr Q24H IV 06/23/24 14:15 06/25/24 03:25 9.387 MLS/HR Fentanyl Citrate 250 ml @ 2.5 mls/hr Q24H IV 06/23/24 14:15 06/23/24 16:22 2.5 MLS/HR Sodium Bicarbonate 150 ml/Dextrose 1,150 ml @ 100 mls/hr [id number] IV 06/23/24 18:15 06/25/24 02:49 100 MLS/HR Labetalol HCl 10 mg Q4HPRN PRN IV 06/24/24 11:45 06/24/24 12:06 10 MG Meropenem 50 ml @ 17 mls/hr Q12HR IV 06/24/24 22:00 UNV 06/24/24 21:31 17 MLS/HR Enteral Nutritional Formula 1,000 ml 30ML/HR GT 06/24/24 16:00 Norepinephrine Bitartrate 250 ml @ 1.875 mls/ hr Q24H IV 06/25/24 00:30 Examination: GENERAL:Normal, HEENT:Normal, NECK:Normal, LUNGS:Normal, LUNGS:Abnormal (intubated), CVS:Normal, ABDOMEN:Normal, MSK:Normal, SKIN:Normal, NEURO:Normal, :Normal laboratory and microbiology Laboratory Tests 06/25/24 05:30 Test 06/25/24 05:30 Range/Units Serum Glucose 165 H 74-106 mg/dL Microbiology Date/Time Source Procedure Growth Status 06/23/24 16:43 Nose MRSA Screen - Final Complete 06/23/24 13:32 Sputum Endotracheal Wash Gram Stain - Final Resulted 06/23/24 13:32 Sputum Endotracheal Wash Respiratory Culture - Preliminary Resulted 06/22/24 17:12 Urine - [place] Urine Culture - Final Complete 06/21/24 18:05 Blood Blood Culture - Preliminary NO GROWTH AFTER 72 HOURS OF INCUBATION. Resulted Problem List/Assessment/Plan Problem List/Assessment/Plan #1 acute resp failure: cont acv #2 septic shock with uti ?esbl: iv meropenem, vanc #3 acute renal failure/atn: ivf #4 obesity #5 bph #6 h/o renal stones #7 transaminitis #8 acute diastolic heart failure #9 hyperkalemia: improved Plan discussed with: Other (rn) My Orders My Orders Orders - ALONA BEAN MD Procedure Category Date Status Time Labetalol Hcl PHA 06/24/24 In Process (Labetalol Hcl) 11:45 Meropenem 500mg PHA 06/24/24 In Process Premix (Merrem 22:00 Nutritional PHA 06/24/24 In Process Supplements (Nepro 16:00 Chest Portable XY 06/25/24 Resulted 06:00 Abg W/ Co-Ox RT 06/25/24 Logged 06:00 Pantoprazole PHA 06/25/24 Verified (Protonix) 11:00 Pantoprazole PHA 06/26/24 Verified (Protonix) 10:00 Basic Metabolic Panel LAB 06/26/24 Verified 06:00 Complete Blood Count LAB 06/26/24 Verified 06:00 Chest Portable XY 06/26/24 Verified 06:00 Abg W/ Co-Ox RT 06/26/24 Verified 06:00 Critical Care Time (mins): 41 (critical care time 41 mins) Date of Service: Jun 25, 2024 Billing Provider: ALONA BEAN MD Common Visit Codes: [id number] CARE 30-74 MIN ALONA BEAN MD Jun 25, 2024 10:50
[2024-06-25] MEDS: PANTOPRAZOLE 40 MG/10 ML VIAL INJ IV ONE (11:05)
[2024-06-25] MEDS: SODIUM CHLORIDE 0.9% 1,000 ML IV SCH (12:30)
[2024-06-25] MEDS: POTASSIUM CHL 20MEQ/100ML 100 ML IV ONE (13:35)
[2024-06-25] MEDS: FUROSEMIDE 100 MG/10ML VIAL IV SCH (13:36)
--- NOTE | 2024-06-25 13:41 | DVHPN2 ---
Progress Note - Dictate Date Seen: Jun 25, 2024 Has the PT tested + for MRSA If YES, has PT been informed?: No Medical Necessity Reason Pt with a Central, PICC or Fol: Yes The following are medically ne: Central Line, Crain Catheter Subjective remains intubated in ICU opens eyes labs and ABG reviewed with nurse vital signs Vital Sign Date Time Temp Pulse Resp B/P (MAP) Pulse Ox O2 Delivery O2 Flow Rate FiO2 06/25/24 13:36 124/63 06/25/24 13:15 76 18 95 06/25/24 12:00 99.0 99.0 06/25/24 12:00 Mechanical Ventilator+ 30 30 06/23/24 07:45 2 Total Intake and Output 06/24/24 06/24/24 06/25/24 15:00 23:00 07:00 Intake Total 1056.274 ml 963.997 ml 1149.471 ml Output Total 850 ml 350 ml 850 ml Balance 206.274 ml 613.997 ml 299.471 ml medications Current Medications Medications Dose Ordered Sig/Jere Route Start Time Stop Time Status Last Admin Dose Admin Enoxaparin Sodium 30 mg DAILY SC 06/22/24 10:00 06/25/24 11:05 30 MG Morphine Sulfate 2 mg Q4HPRN PRN IV 06/21/24 18:30 Vancomycin HCl 0 ml @ 0 mls/hr UD IV 06/21/24 18:45 Albuterol 2.5 mg Q4HPRN PRN NEB 06/23/24 07:15 06/24/24 06:32 2.5 MG Ipratropium [place] 0.5 mg Q4HPRN PRN NEB 06/23/24 07:15 06/24/24 06:32 0.5 MG Propofol 100 ml @ 3.129 mls/ hr Q24H IV 06/23/24 14:15 06/25/24 13:12 9.387 MLS/HR Fentanyl Citrate 250 ml @ 2.5 mls/hr Q24H IV 06/23/24 14:15 06/23/24 16:22 2.5 MLS/HR Labetalol HCl 10 mg Q4HPRN PRN IV 06/24/24 11:45 06/24/24 12:06 10 MG Meropenem 50 ml @ 17 mls/hr Q12HR IV 06/24/24 22:00 UNV 06/25/24 11:04 17 MLS/HR Enteral Nutritional Formula 1,000 ml 30ML/HR GT 06/24/24 16:00 Norepinephrine Bitartrate 250 ml @ 1.875 mls/ hr Q24H IV 06/25/24 00:30 Pantoprazole Sodium 40 mg DAILY IV 06/26/24 10:00 Furosemide 80 mg DAILY IV 06/25/24 12:30 06/25/24 13:36 80 MG Sodium Chloride 1,000 ml @ 60 mls/hr [id number] IV 06/25/24 12:30 06/25/24 12:30 60 MLS/HR objective Morbidly obese male Intubated Opens eyes but is not responsive Large abdomen Trace edema Crain catheter laboratory and microbiology Laboratory Tests 06/25/24 05:30 Test 06/25/24 05:30 Range/Units Serum Glucose 165 H 74-106 mg/dL Assessment/Plan Acute kidney injury likely acute tubular necrosis sec to hypotension + obstructive etiology Encephalopathy Ventilator-dependent hypoxic respiratory failure Distended bladder distended hydroureter on CT scan s/p new crain placed by Urology Enlarged prostate Hyperkalemia secondary to Acute kidney injury resolved now potassium is low bicarb drip Dc IV diuretic today Urine output responded Strict Is&Os charting Low threshold to initiate dialysis but emergently does not require. Will eval daily for clinical improvement Dietary Evaluation Review Comments: Cautious and follow up with Pt 's kidney function, monitor nutrition support to meet at [place] 75% of his needs Expected Outcomes/Goals: Advance to PO diet when medically feasible: CCHO-60 g alone with renal [id number] if pt's uremic syndrome continues. Plan discussed with: Other Critical Care Time(min): 34 AKREN MARTINEZ MD Jun 25, 2024 13:41
--- NOTE | 2024-06-25 17:23 | DVHPN2 ---
Progress Note - Dictate Date Seen: Jun 25, 2024 Has the PT tested + for MRSA If YES, has PT been informed?: No Medical Necessity Reason Pt with a Central, PICC or Fol: No The following are medically ne: Central Line, Bowman Catheter Subjective On vent and pressors vital signs Vital Sign Date Time Temp Pulse Resp B/P (MAP) Pulse Ox O2 Delivery O2 Flow Rate FiO2 06/25/24 16:45 76 18 125/62 (83) 96 06/25/24 16:00 30 06/25/24 16:00 98.2 98.2 06/25/24 16:00 Mechanical Ventilator+ 06/23/24 07:45 2 Total Intake and Output 06/24/24 06/24/24 06/25/24 15:00 23:00 07:00 Intake Total 1056.274 ml 963.997 ml 1149.471 ml Output Total 850 ml 350 ml 850 ml Balance 206.274 ml 613.997 ml 299.471 ml medications Current Medications Medications Dose Ordered Sig/Jere Route Start Time Stop Time Status Last Admin Dose Admin Enoxaparin Sodium 30 mg DAILY SC 06/22/24 10:00 06/25/24 11:05 30 MG Morphine Sulfate 2 mg Q4HPRN PRN IV 06/21/24 18:30 Vancomycin HCl 0 ml @ 0 mls/hr UD IV 06/21/24 18:45 Albuterol 2.5 mg Q4HPRN PRN NEB 06/23/24 07:15 06/24/24 06:32 2.5 MG Ipratropium [place] 0.5 mg Q4HPRN PRN NEB 06/23/24 07:15 06/24/24 06:32 0.5 MG Propofol 100 ml @ 3.129 mls/ hr Q24H IV 06/23/24 14:15 06/25/24 13:12 9.387 MLS/HR Fentanyl Citrate 250 ml @ 2.5 mls/hr Q24H IV 06/23/24 14:15 06/23/24 16:22 2.5 MLS/HR Labetalol HCl 10 mg Q4HPRN PRN IV 06/24/24 11:45 06/24/24 12:06 10 MG Meropenem 50 ml @ 17 mls/hr Q12HR IV 06/24/24 22:00 UNV 12/3/24 11:04 17 MLS/HR Enteral Nutritional Formula 1,000 ml 30ML/HR GT 06/24/24 16:00 Norepinephrine Bitartrate 250 ml @ 1.875 mls/ hr Q24H IV 06/25/24 00:30 Pantoprazole Sodium 40 mg DAILY IV 06/26/24 10:00 Furosemide 80 mg DAILY IV 06/25/24 12:30 06/25/24 13:36 80 MG Sodium Chloride 1,000 ml @ 60 mls/hr [id number] IV 06/25/24 12:30 06/25/24 12:30 60 MLS/HR objective Intubated and sedated CVS: S1S2+ Lungs clear Abdomen; soft, distended, BS+ laboratory and microbiology Laboratory Tests 06/25/24 05:30 Test 06/25/24 05:30 Range/Units Serum Glucose 165 H 74-106 mg/dL Assessment/Plan #Elevated liver enzymes #Acute resp failure #Septic shock Monitor liver enzymes. Check acute hep panel Avoid hypotension Reviewed imaging studies, normal liver and GB Further mgmt plan per ICU team Thank you for allowing me to participate in the care of this patient Dietary Evaluation Review Comments: Cautious and follow up with Pt 's kidney function, monitor nutrition support to meet at [place] 75% of his needs Expected Outcomes/Goals: Advance to PO diet when medically feasible: CCHO-60 g alone with renal [id number] if pt's uremic syndrome continues. Plan discussed with: Other DAYANARA KAISER MD Jun 25, 2024 17:23
[2024-06-25] MEDS: Nepro With Carb Steady 1 Liter Bottle GT SCH (22:35)
[2024-06-26] VITALS (104 sets, daily range): BP systolic 90–167; BP diastolic 46–81; PULSE 65–90; RESP 13–19; TEMP 97.9–99.4; O2SAT 92–100
[2024-06-26 03:58] LABS: Hematocrit 33.8 % (41.0-53.0); Hemoglobin 11.1 g/dL (13.5-17.5); Mean Corpuscular Hemoglobin 28.1 pg (28.0-32.0); Mean Corpuscular Hgb Conc. 32.9 g/dL (32.0-36.0); Mean Corpuscular Volume 85.5 fL (80.0-100.0); Platelet Count (auto) 145 10^3/uL (140-450); Red Blood Cells 3.96 10^6/uL (4.5-5.90); Red Cell Distribution Width 17.7 % (11.8-14.3); White Blood Cell 9.9 10^3/uL (4.4-10.8)
[2024-06-26 04:02] LABS: Albumin 3.4 g/dL (3.2-4.8); Alkaline Phosphatase 92 U/L (46-116); Anion Gap 14 (5-15); BUN/Creatinine Ratio 14.9 (10.0-20.0); Bilirubin, Total 0.4 mg/dL (0.2-1.0); Chloride 102 mmol/L (98-107); Total Protein 5.9 g/dL (5.7-8.2)
[2024-06-26 04:05] LABS: Basophils % (manual) 0 (0.0-2.0); Blast Cells 0; Metamyelocytes % 0; Myelocytes % 0; Promyelocytes % 0; Reactive Lymphocytes 0
[2024-06-26 04:10] LABS: Alanine Aminotransferase 79 U/L (7-40); Aspartate Aminotransferase 299 U/L (13-40); Blood Urea Nitrogen 92 mg/dL (9-23); Calcium 8.5 mg/dL (8.7-10.4); Carbon Dioxide 31 mmol/L (20-31); Glucose 129 mg/dL (74-106); Potassium 3.3 mmol/L (3.5-5.1); Sodium 147 mmol/L (136-145)
--- NOTE | 2024-06-26 04:27 | DVH ---
CHEST RADIOGRAPH Indication: RESP FAILURE Technique: Single frontal view of the chest was obtained COMPARISON: XY CHEST PORTABLE on DOS: 06/25/24, XY CHEST XRAY 1 VIEW on DOS: 06/23/24, XY CHEST XRAY 1 VIEW on DOS: 06/23/24, XY CHEST PORTABLE on DOS: 06/25/24 FINDINGS: Lines and Tubes: Endotracheal tube and enteric catheter in satisfactory position. Lungs: Patchy bilateral airspace disease. Pleura: No effusion. No pneumothorax. Cardiomediastinal contours: Unremarkable Bones: Unremarkable IMPRESSION: Lines and tubes in satisfactory position. No significant interval change.
[2024-06-26 05:48] LABS: Band Neutrophils % (manual) 2; Eosinophils % (manual) 3 (0-7); Lymphocytes % (manual) 13 (10.0-50.0)
[2024-06-26 05:49] LABS: Anisocytosis Slight; Large Platelets FEW; Monocytes % (manual) 5 (0-12); Platelet Estimate Adequate
[2024-06-26 07:06] LABS: Base Excess 6.1 mmol/L (-2.0-3.0)
[2024-06-26] MEDS: PANTOPRAZOLE 40 MG/10 ML VIAL INJ IV SCH (09:23)
[2024-06-26] MEDS: POTASSIUM CHL 20MEQ/100ML 100 ML IV SCH (10:24)
[2024-06-26 13:07] LABS: PSA Free >50.00 ng/mL
--- NOTE | 2024-06-26 15:03 | DVHPN2 ---
Progress Note - Dictate Date Seen: Jun 26, 2024 Has the PT tested + for MRSA If YES, has PT been informed?: No Medical Necessity Reason Pt with a Central, PICC or Fol: No The following are medically ne: Central Line, Crain Catheter Subjective remains intubated in ICU UOP noted and reviewed with ICU nurse vital signs Vital Sign Date Time Temp Pulse Resp B/P (MAP) Pulse Ox O2 Delivery O2 Flow Rate FiO2 06/26/24 13:32 72 18 103/54 (70 95 30 06/26/24 08:00 Mechanical Ventilator+ 06/26/24 04:00 99.4 99.4 Total Intake and Output 06/25/24 06/25/24 06/26/24 15:00 23:00 07:00 Intake Total 789.096 ml 1186.096 ml 833.322 ml Output Total 1700 ml Balance 789.096 ml 1186.096 ml -866.678 ml medications Current Medications Medications Dose Ordered Sig/Jere Route Start Time Stop Time Status Last Admin Dose Admin Enoxaparin Sodium 30 mg DAILY SC 06/22/24 10:00 06/26/24 09:24 30 MG Morphine Sulfate 2 mg Q4HPRN PRN IV 06/21/24 18:30 Vancomycin HCl 0 ml @ 0 mls/hr UD IV 06/21/24 18:45 Albuterol 2.5 mg Q4HPRN PRN NEB 06/23/24 07:15 06/26/24 02:38 2.5 MG Ipratropium [place] 0.5 mg Q4HPRN PRN NEB 06/23/24 07:15 06/26/24 02:38 0.5 MG Propofol 100 ml @ 3.129 mls/ hr Q24H IV 06/23/24 14:15 06/26/24 13:04 21.903 MLS/HR Fentanyl Citrate 250 ml @ 2.5 mls/hr Q24H IV 06/23/24 14:15 06/26/24 03:23 2.5 MLS/HR Labetalol HCl 10 mg Q4HPRN PRN IV 06/24/24 11:45 06/24/24 12:06 10 MG Meropenem 50 ml @ 17 mls/hr Q12HR IV 06/24/24 22:00 UNV 06/26/24 09:30 17 MLS/HR Enteral Nutritional Formula 1,000 ml 30ML/HR GT 06/24/24 16:00 06/25/24 22:35 1,000 ML Norepinephrine Bitartrate 250 ml @ 1.875 mls/ hr Q24H IV 06/25/24 00:30 Pantoprazole Sodium 40 mg DAILY IV 06/26/24 10:00 06/26/24 09:23 40 MG Furosemide 80 mg DAILY IV 06/25/24 12:30 06/26/24 13:05 80 MG Sodium Chloride 1,000 ml @ 60 mls/hr [id number] IV 06/25/24 12:30 06/26/24 05:12 60 MLS/HR objective Morbidly obese male Intubated Opens eyes but is not responsive Large abdomen Trace edema Crain catheter laboratory and microbiology Laboratory Tests 06/26/24 03:30 Test 06/26/24 03:30 Range/Units Serum Glucose 129 H 74-106 mg/dL Assessment/Plan Acute kidney injury likely acute tubular necrosis sec to hypotension + obstructive etiology Encephalopathy Ventilator-dependent hypoxic respiratory failure Distended bladder distended hydroureter on CT scan s/p new crain placed by Urology Enlarged prostate Hyperkalemia secondary to Acute kidney injury resolved now potassium is low BUN and creatinine trended appears to have reached a plateau indicating the possibility of renal improvement We will hold off on dialysis treatments at this time unless concerning complication arises. Therefore for now we will use IV fluid and diuretic to increase urinary excretion and monitor for renal recovery. Although patient does not require dialysis today he will still require daily assessment for possibility given that his renal function is tenuous. Avoid contrast studies at this time and ensure that medications are renally dose to prevent nephrotoxicity IV diuretic daily Urine output responded Strict Is&Os charting Dietary Evaluation Review Comments: Cautious and follow up with Pt 's kidney function, monitor nutrition support to meet at [place] 75% of his needs Expected Outcomes/Goals: Advance to PO diet when medically feasible: CCHO-60 g alone with renal [id number] if pt's uremic syndrome continues. Plan discussed with: Other Critical Care Time(min): 35 KAREN MARTINEZ MD Jun 26, 2024 15:03
[2024-06-26] MEDS ORDERED: DEXTROSE (50%) 50ML SYRG IV PRN (15:15)
--- NOTE | 2024-06-26 16:31 | DVHPN2 ---
Progress Note Date Seen: Jun 26, 2024 Has the PT tested + for MRSA If YES, has PT been informed?: No Medical Necessity Reason Pt with a Central, PICC or Fol: No The following are medically ne: Central Line, Bowman Catheter Subjective Patient reports: No new complaints Review of Systems: HEENT:Normal, CVS:Normal, RESPIRATORY:Normal, GI:Normal, :Normal, MSK:Normal, NEURO:Normal Objective vital signs Vital Sign Date Time Temp Pulse Resp B/P (MAP) Pulse Ox O2 Delivery O2 Flow Rate FiO2 06/26/24 16:18 69 18 103/54 (70) 94 30 06/26/24 08:00 Mechanical Ventilator+ 06/26/24 04:00 99.4 99.4 Total Intake and Output 06/25/24 06/25/24 06/26/24 15:00 23:00 07:00 Intake Total 789.096 ml 1186.096 ml 833.322 ml Output Total 1700 ml Balance 789.096 ml 1186.096 ml -866.678 ml medications Current Medications Medications Dose Ordered Sig/Jere Route Start Time Stop Time Status Last Admin Dose Admin Enoxaparin Sodium 30 mg DAILY SC 06/22/24 10:00 06/26/24 09:24 30 MG Morphine Sulfate 2 mg Q4HPRN PRN IV 06/21/24 18:30 Vancomycin HCl 0 ml @ 0 mls/hr UD IV 06/21/24 18:45 Albuterol 2.5 mg Q4HPRN PRN NEB 06/23/24 07:15 06/26/24 02:38 2.5 MG Ipratropium [place] 0.5 mg Q4HPRN PRN NEB 06/23/24 07:15 06/26/24 02:38 0.5 MG Propofol 100 ml @ 3.129 mls/ hr Q24H IV 06/23/24 14:15 06/26/24 16:03 21.903 MLS/HR Fentanyl Citrate 250 ml @ 2.5 mls/hr Q24H IV 06/23/24 14:15 06/26/24 03:23 2.5 MLS/HR Labetalol HCl 10 mg Q4HPRN PRN IV 06/24/24 11:45 06/24/24 12:06 10 MG Meropenem 50 ml @ 17 mls/hr Q12HR IV 06/24/24 22:00 UNV 06/26/24 09:30 17 MLS/HR Enteral Nutritional Formula 1,000 ml 30ML/HR GT 06/24/24 16:00 06/25/24 22:35 1,000 ML Norepinephrine Bitartrate 250 ml @ 1.875 mls/ hr Q24H IV 06/25/24 00:30 Pantoprazole Sodium 40 mg DAILY IV 06/26/24 10:00 06/26/24 09:23 40 MG Furosemide 80 mg DAILY IV 06/25/24 12:30 06/26/24 13:05 80 MG Sodium Chloride 1,000 ml @ 60 mls/hr [id number] IV 06/25/24 12:30 06/26/24 05:12 60 MLS/HR Diagnostic Test (Pha) 1 strip Q6HR 06/26/24 18:00 Insulin Human Regular Q6HR SC 06/26/24 18:00 Dextrose 50 ml UD PRN IV 06/26/24 15:15 Examination: GENERAL:Normal, HEENT:Normal, NECK:Normal, LUNGS:Normal, LUNGS:Abnormal (intubated), CVS:Normal, ABDOMEN:Normal, MSK:Normal, SKIN:Normal, NEURO:Normal, :Normal laboratory and microbiology Laboratory Tests 06/26/24 03:30 Test 06/26/24 03:30 Range/Units Serum Glucose 129 H 74-106 mg/dL Microbiology Date/Time Source Procedure Growth Status 06/23/24 16:43 Nose MRSA Screen - Final Complete 06/23/24 13:32 Sputum Endotracheal Wash Gram Stain - Final Complete 06/23/24 13:32 Sputum Endotracheal Wash Respiratory Culture - Final Complete 06/22/24 17:12 Urine - [place] Urine Culture - Final Complete 06/21/24 18:05 Blood Blood Culture - Preliminary NO GROWTH AFTER 72 HOURS OF INCUBATION. Resulted Problem List/Assessment/Plan Problem List/Assessment/Plan #1 acute resp failure: cont acv #2 septic shock with uti ?esbl: iv meropenem, vanc #3 acute renal failure/atn: dc ivf #4 obesity #5 bph #6 h/o renal stones #7 transaminitis #8 acute diastolic heart failure: lasix iv #9 hyperkalemia: improved Plan discussed with: Other (rn) My Orders My Orders Orders - ALONA BEAN MD Procedure Category Date Status Time Glucose Blood PHA 06/26/24 In Process (Accu-Chek Comfort 18:00 Insulin R (Human) PHA 06/26/24 In Process (Insulin R) 18:00 Dextrose 50% Syringe PHA 06/26/24 In Process 15:15 Free Water PHA 06/26/24 Verified 18:00 Complete Blood Count LAB 06/27/24 Verified 06:00 Comprehensive LAB 06/27/24 Verified Metabolic Panel 06:00 Chest Portable XY 06/27/24 Verified 06:00 Abg W/ Co-Ox RT 06/27/24 Verified 06:00 Dietary Evaluation Review Comments: Cautious and follow up with Pt 's kidney function, monitor nutrition support to meet at [place] 75% of his needs Expected Outcomes/Goals: Advance to PO diet when medically feasible: CCHO-60 g alone with renal [id number] if pt's uremic syndrome continues. Critical Care Time (mins): 41 (critical care time 41 mins) Date of Service: Jun 26, 2024 Billing Provider: ALONA BEAN MD Common Visit Codes: [id number] CARE 30-74 MIN ALONA BEAN MD Jun 26, 2024 16:31
[2024-06-26] MEDS: InsuLIN REG 1unit/0.01ml Soln (100units/ml) SC SCH (18:00)
[2024-06-26] MEDS: FREE WATER GT SCH (18:22)
[2024-06-26] MEDS: ACCU-CHEK COMFORT CURVE STRIP VI SCH (18:22)
[2024-06-27] VITALS (108 sets, daily range): BP systolic 101–157; BP diastolic 51–81; PULSE 66–84; RESP 16–17; TEMP 97.9–99.7; O2SAT 90–100
[2024-06-27 03:54] LABS: Hematocrit 32.5 % (41.0-53.0); Mean Corpuscular Hemoglobin 29.1 pg (28.0-32.0); Mean Corpuscular Hgb Conc. 33.8 g/dL (32.0-36.0); Mean Corpuscular Volume 86.2 fL (80.0-100.0); Platelet Count (auto) 179 10^3/uL (140-450); Red Blood Cells 3.77 10^6/uL (4.5-5.90); Red Cell Distribution Width 18.2 % (11.8-14.3); White Blood Cell 9.4 10^3/uL (4.4-10.8)
[2024-06-27 03:58] LABS: Basophils % (manual) 0 (0.0-2.0); Blast Cells 0; Metamyelocytes % 0; Promyelocytes % 0; Reactive Lymphocytes 0
[2024-06-27 04:10] LABS: Albumin 3.2 g/dL (3.2-4.8); Alkaline Phosphatase 93 U/L (46-116); Anion Gap 13 (5-15); BUN/Creatinine Ratio 15.6 (10.0-20.0); Calcium 8.8 mg/dL (8.7-10.4); Chloride 102 mmol/L (98-107); Potassium 3.7 mmol/L (3.5-5.1); Total Protein 5.9 g/dL (5.7-8.2)
--- NOTE | 2024-06-27 04:10 | DVH ---
CHEST RADIOGRAPH Indication: RESP FAILURE Technique: Single frontal view of the chest was obtained Comparison: XY CHEST PORTABLE on DOS: 06/26/24, XY CHEST PORTABLE on DOS: 06/25/24, XY CHEST XRAY 1 VIE W on DOS: 06/23/24, XY CHEST XRAY 1 VIEW on DOS: 06/23/24, XY CHEST PORTABLE on DOS: 06/21/24, XY CHEST PORTABLE on DOS: 06/26/24 FINDINGS: Lines and Tubes: Endotracheal tube and enteric catheter in satisfactory position. Lungs: Patchy bilateral airspace disease. Pleura: No effusion. No pneumothorax. Cardiomediastinal contours: Unremarkable Bones: Unremarkable IMPRESSION: 1. Lines and tubes in satisfactory position. No significant interval change.
[2024-06-27 04:11] LABS: Bilirubin, Total 0.2 mg/dL (0.2-1.0)
[2024-06-27 04:15] LABS: Alanine Aminotransferase 82 U/L (7-40); Aspartate Aminotransferase 285 U/L (13-40); Blood Urea Nitrogen 98 mg/dL (9-23); Carbon Dioxide 31 mmol/L (20-31); Glucose 142 mg/dL (74-106); Sodium 146 mmol/L (136-145)
[2024-06-27 06:49] LABS: Anisocytosis Slight; Band Neutrophils % (manual) 5; Eosinophils % (manual) 3 (0-7); Large Platelets FEW; Lymphocytes % (manual) 18 (10.0-50.0); Monocytes % (manual) 6 (0-12); Myelocytes % 1; Platelet Estimate Adequate
[2024-06-27 08:19] LABS: Base Excess 3.9 mmol/L (-2.0-3.0)
--- NOTE | 2024-06-27 09:58 | MEDREC ---
FORMERLY [facility] ASP Intervention Section I FORMERLY [facility] ASP Intervention: Deescalate AB based on CS (PATIENT IS BEING TREATED FOR SEPTIC SHOCK WITH UTI, CURRENTLY ON MEROPENEM (06/24 - ) AND VANCOMYCN (06/21 - ). MRSA SCREEN, SPUTUM, AND BLOOD CULTURES ARE NEGATIVE. THE URINE CULTURE MAY BE CONTAMINATED. PLEASE CONSIDERING D/C VANCOMYCIN (DAY 7) IF CLINICALLY APPROPRIATE) STEPHANIE APODACA [facility] Jun 27, 2024 09:58
[2024-06-27] MEDS ORDERED: FUROSEMIDE 20 MG/2 ML VIAL IV ONE (11:30)
--- NOTE | 2024-06-27 15:43 | DVHPN2 ---
Progress Note - Dictate Date Seen: Jun 27, 2024 Has the PT tested + for MRSA If YES, has PT been informed?: No Medical Necessity Reason Pt with a Central, PICC or Fol: No The following are medically ne: Central Line, Crain Catheter Subjective remains intubated in ICU UOP noted and reviewed with ICU nurse vital signs Vital Sign Date Time Temp Pulse Resp B/P (MAP) Pulse Ox O2 Delivery O2 Flow Rate FiO2 06/27/24 15:00 71 16 115/57 (76) 96 06/27/24 14:11 30 06/27/24 14:00 Mechanical Ventilator+ 06/27/24 12:15 98.0 98.0 Total Intake and Output 06/26/24 06/26/24 06/27/24 15:00 23:00 07:00 Intake Total 939.6 ml 743.3 ml 858.115 ml Output Total 1300 ml 950 ml Balance 939.6 ml -556.7 ml -91.885 ml medications Current Medications Medications Dose Ordered Sig/Jere Route Start Time Stop Time Status Last Admin Dose Admin Enoxaparin Sodium 30 mg DAILY SC 06/22/24 10:00 06/27/24 09:26 30 MG Vancomycin HCl 0 ml @ 0 mls/hr UD IV 06/21/24 18:45 Albuterol 2.5 mg Q4HPRN PRN NEB 06/23/24 07:15 06/26/24 02:38 2.5 MG Ipratropium [place] 0.5 mg Q4HPRN PRN NEB 06/23/24 07:15 06/26/24 02:38 0.5 MG Propofol 100 ml @ 3.129 mls/ hr Q24H IV 06/23/24 14:15 06/27/24 13:45 21.903 MLS/HR Fentanyl Citrate 250 ml @ 2.5 mls/hr Q24H IV 06/23/24 14:15 06/27/24 04:36 7.5 MLS/HR Labetalol HCl 10 mg Q4HPRN PRN IV 06/24/24 11:45 06/24/24 12:06 10 MG Meropenem 50 ml @ 17 mls/hr Q12HR IV 06/24/24 22:00 UNV 06/27/24 09:33 17 MLS/HR Enteral Nutritional Formula 1,000 ml 30ML/HR GT 06/24/24 16:00 06/27/24 03:09 1,000 ML Norepinephrine Bitartrate 250 ml @ 1.875 mls/ hr Q24H IV 06/25/24 00:30 Pantoprazole Sodium 40 mg DAILY IV 06/26/24 10:00 06/27/24 09:28 40 MG Furosemide 80 mg DAILY IV 06/25/24 12:30 06/27/24 09:47 80 MG Diagnostic Test (Pha) 1 strip Q6HR 06/26/24 18:00 06/27/24 12:23 1 STRIP Insulin Human Regular Q6HR SC 06/26/24 18:00 Dextrose 50 ml UD PRN IV 06/26/24 15:15 Purified Water 150 ml Q6HR GT 06/26/24 18:00 06/27/24 12:36 150 ML objective Morbidly obese male Intubated Opens eyes but is not responsive Large abdomen Trace edema Crain catheter laboratory and microbiology Laboratory Tests 06/27/24 03:20 Test 06/27/24 03:20 Range/Units Serum Glucose 142 H 74-106 mg/dL Assessment/Plan Acute kidney injury likely acute tubular necrosis sec to hypotension + obstructive etiology Encephalopathy Ventilator-dependent hypoxic respiratory failure Distended bladder distended hydroureter on CT scan s/p new crain placed by Urology Enlarged prostate Hyperkalemia secondary to Acute kidney injury resolved now potassium is low BUN and creatinine trended appears to have reached a plateau indicating the possibility of renal improvement We will hold off on dialysis treatments at this time unless concerning complication arises. Therefore for now we will use IV fluid and diuretic to increase urinary excretion and monitor for renal recovery. Although patient does not require dialysis today he will still require daily assessment for possibility given that his renal function is tenuous. Avoid contrast studies at this time and ensure that medications are renally dose to prevent nephrotoxicity IV diuretic daily Urine output responded Strict Is&Os charting 06/27/24 addition IV lasix given today IVF stopped monitor Na level Dietary Evaluation Review Comments: Cautious and follow up with Pt 's kidney function, monitor nutrition support to meet at [place] 75% of his needs Expected Outcomes/Goals: Advance to PO diet when medically feasible: CCHO-60 g alone with renal [id number] if pt's uremic syndrome continues. Plan discussed with: Other Critical Care Time(min): 33 KAREN MARTINEZ MD Jun 27, 2024 15:43
--- NOTE | 2024-06-27 16:20 | DVHPN2 ---
Progress Note Date Seen: Jun 27, 2024 Has the PT tested + for MRSA If YES, has PT been informed?: No Medical Necessity Reason Pt with a Central, PICC or Fol: No The following are medically ne: Central Line, Bowman Catheter Subjective Patient reports: No new complaints Review of Systems: HEENT:Normal, CVS:Normal, RESPIRATORY:Normal, GI:Normal, :Normal, MSK:Normal, NEURO:Normal Objective vital signs Vital Sign Date Time Temp Pulse Resp B/P (MAP) Pulse Ox O2 Delivery O2 Flow Rate FiO2 06/27/24 15:58 72 16 115/62 (79) 96 30 06/27/24 14:00 Mechanical Ventilator+ 06/27/24 12:15 98.0 98.0 Total Intake and Output 06/26/24 06/26/24 06/27/24 15:00 23:00 07:00 Intake Total 939.6 ml 743.3 ml 858.115 ml Output Total 1300 ml 950 ml Balance 939.6 ml -556.7 ml -91.885 ml medications Current Medications Medications Dose Ordered Sig/Jere Route Start Time Stop Time Status Last Admin Dose Admin Enoxaparin Sodium 30 mg DAILY SC 06/22/24 10:00 06/27/24 09:26 30 MG Vancomycin HCl 0 ml @ 0 mls/hr UD IV 06/21/24 18:45 Albuterol 2.5 mg Q4HPRN PRN NEB 06/23/24 07:15 06/26/24 02:38 2.5 MG Ipratropium [place] 0.5 mg Q4HPRN PRN NEB 06/23/24 07:15 06/26/24 02:38 0.5 MG Propofol 100 ml @ 3.129 mls/ hr Q24H IV 06/23/24 14:15 06/27/24 13:45 21.903 MLS/HR Fentanyl Citrate 250 ml @ 2.5 mls/hr Q24H IV 06/23/24 14:15 06/27/24 04:36 7.5 MLS/HR Labetalol HCl 10 mg Q4HPRN PRN IV 06/24/24 11:45 06/24/24 12:06 10 MG Meropenem 50 ml @ 17 mls/hr Q12HR IV 06/24/24 22:00 UNV 06/27/24 09:33 17 MLS/HR Enteral Nutritional Formula 1,000 ml 30ML/HR GT 06/24/24 16:00 06/27/24 03:09 1,000 ML Norepinephrine Bitartrate 250 ml @ 1.875 mls/ hr Q24H IV 06/25/24 00:30 Pantoprazole Sodium 40 mg DAILY IV 06/26/24 10:00 06/27/24 09:28 40 MG Furosemide 80 mg DAILY IV 06/25/24 12:30 06/27/24 09:47 80 MG Diagnostic Test (Pha) 1 strip Q6HR 06/26/24 18:00 06/27/24 12:23 1 STRIP Insulin Human Regular Q6HR SC 06/26/24 18:00 Dextrose 50 ml UD PRN IV 06/26/24 15:15 Purified Water 150 ml Q6HR GT 06/26/24 18:00 06/27/24 12:36 150 ML Examination: GENERAL:Normal, HEENT:Normal, NECK:Normal, LUNGS:Normal, LUNGS:Abnormal (intubated), CVS:Normal, ABDOMEN:Normal, MSK:Normal, SKIN:Normal, NEURO:Normal, :Normal laboratory and microbiology Laboratory Tests 06/27/24 03:20 Test 06/27/24 03:20 Range/Units Serum Glucose 142 H 74-106 mg/dL Microbiology Date/Time Source Procedure Growth Status 06/23/24 16:43 Nose MRSA Screen - Final Complete 06/23/24 13:32 Sputum Endotracheal Wash Gram Stain - Final Complete 06/23/24 13:32 Sputum Endotracheal Wash Respiratory Culture - Final Complete 06/22/24 17:12 Urine - [place] Urine Culture - Final Complete 06/21/24 18:05 Blood Blood Culture - Final NO GROWTH AFTER 5 DAYS OF INCUBATION. Complete Problem List/Assessment/Plan Problem List/Assessment/Plan #1 acute resp failure: cont acv #2 septic shock with uti ?esbl: iv meropenem, vanc #3 acute renal failure/atn: dc ivf #4 obesity #5 bph #6 h/o renal stones #7 transaminitis #8 acute diastolic heart failure: lasix iv #9 hyperkalemia: improved long discussion with jose luis Greenberg- updated regards plan of care Plan discussed with: Son, Other (rn) My Orders My Orders Orders - ALONA BEAN MD Procedure Category Date Status Time Free Water PHA 06/26/24 In Process 18:00 Chest Portable XY 06/27/24 Resulted 06:00 Abg W/ Co-Ox RT 06/27/24 Logged 06:00 Ventilator Orders RT 06/26/24 Transmitted 16:41 Urine Bacterial DANISHA 06/27/24 Verified Culture 16:10 Complete Blood Count LAB 06/28/24 Verified 06:00 Comprehensive LAB 06/28/24 Verified Metabolic Panel 06:00 Chest Portable XY 06/28/24 Verified 06:00 Abg W/ Co-Ox RT 06/28/24 Verified 06:00 Dietary Evaluation Review Comments: Cautious and follow up with Pt 's kidney function, monitor nutrition support to meet at [place] 75% of his needs Expected Outcomes/Goals: Advance to PO diet when medically feasible: CCHO-60 g alone with renal [id number] if pt's uremic syndrome continues. Critical Care Time (mins): 51 (critical care time 51 mins) Date of Service: Jun 27, 2024 Billing Provider: ALONA BEAN MD Common Visit Codes: [id number] CARE 30-74 MIN ALONA BEAN MD Jun 27, 2024 16:20
[2024-06-27 17:57] LABS: INR 1.03 (0.9-1.15); Partial Thromboplastin Time 23.4 SEC (24.5-34.5); Prothrombin Time 10.9 sec (9.3-11.8)
[2024-06-27] MEDS: BUMETANIDE 2.5mg/10ml (0.25 mg/ml) INJ IV ONE (19:34)
[2024-06-28] VITALS (107 sets, daily range): BP systolic 87–181; BP diastolic 44–86; PULSE 64–95; RESP 16–18; TEMP 97.5–98.5; O2SAT 93–100
[2024-06-28 04:05] LABS: Hematocrit 32.2 % (41.0-53.0); Hemoglobin 11.1 g/dL (13.5-17.5); Mean Corpuscular Hemoglobin 29.6 pg (28.0-32.0); Mean Corpuscular Hgb Conc. 34.6 g/dL (32.0-36.0); Mean Corpuscular Volume 85.5 fL (80.0-100.0); Platelet Count (auto) 195 10^3/uL (140-450); Red Blood Cells 3.77 10^6/uL (4.5-5.90); Red Cell Distribution Width 17.7 % (11.8-14.3); White Blood Cell 10.1 10^3/uL (4.4-10.8)
[2024-06-28 04:11] LABS: Albumin 3.4 g/dL (3.2-4.8); Alkaline Phosphatase 102 U/L (46-116); Anion Gap 15 (5-15); Calcium 9.1 mg/dL (8.7-10.4); Carbon Dioxide 29 mmol/L (20-31); Chloride 101 mmol/L (98-107); Sodium 145 mmol/L (136-145)
[2024-06-28 04:15] LABS: Basophils % (manual) 0 (0.0-2.0); Blast Cells 0; Metamyelocytes % 0; Myelocytes % 0; Promyelocytes % 0; Reactive Lymphocytes 0
[2024-06-28 04:45] LABS: Glucose 109 mg/dL (74-106); Potassium 3.3 mmol/L (3.5-5.1)
[2024-06-28 04:46] LABS: Alanine Aminotransferase 74 U/L (7-40); Aspartate Aminotransferase 259 U/L (13-40); Bilirubin, Total 0.3 mg/dL (0.2-1.0); Blood Urea Nitrogen 89 mg/dL (9-23)
--- NOTE | 2024-06-28 05:45 | DVH ---
CHEST RADIOGRAPH Indication: resp failure Technique: Single frontal view of the chest was obtained COMPARISON: XY CHEST PORTABLE on DOS: 06/27/24, XY CHEST PORTABLE on DOS: 06/26/24, XY CHEST PORTABLE o n DOS: 06/25/24, XY CHEST PORTABLE on DOS: 06/27/24 FINDINGS: Lines and Tubes: Endotracheal tube and enteric catheter in satisfactory position. Lungs: Patchy bilateral airspace disease. Pleura: No effusion. No pneumothorax. Cardiomediastinal contours: Unremarkable Bones: Unremarkable IMPRESSION: 1. Lines and tubes in satisfactory position. No significant interval change.
[2024-06-28 06:44] LABS: Band Neutrophils % (manual) 1; Eosinophils % (manual) 6 (0-7); Lymphocytes % (manual) 12 (10.0-50.0); Monocytes % (manual) 4 (0-12)
[2024-06-28 06:45] LABS: Large Platelets FEW; Platelet Estimate Adequa
[2024-06-28] MEDS: LIDOCAINE 1% (LOCAL ANESTH.) PF 5ml SDV ID ONE (08:15)
[2024-06-28] MEDS: SODIUM CHLOR 0.9% PF (SALINE LOCK) 10ML VIAL/SYR IV SCH (08:21)
[2024-06-28] MEDS: POTASSIUM CHL 20MEQ/100ML 100 ML IV ONE (12:28)
--- NOTE | 2024-06-28 15:21 | DVHPN2 ---
Progress Note Date Seen: Jun 28, 2024 Has the PT tested + for MRSA If YES, has PT been informed?: No Medical Necessity Reason Pt with a Central, PICC or Fol: Yes The following are medically ne: Central Line, PICC Line, Bowman Catheter Subjective Patient reports: Other (Patient intubated) Review of Systems: HEENT:Abnormal (cannot be obtained) Objective vital signs Vital Sign Date Time Temp Pulse Resp B/P (MAP) Pulse Ox O2 Delivery O2 Flow Rate FiO2 06/28/24 14:30 70 16 98/57 (71) 96 06/28/24 14:17 30 06/28/24 14:00 Mechanical Ventilator+ 06/28/24 12:00 97.6 97.6 Total Intake and Output 06/27/24 06/27/24 06/28/24 15:00 23:00 07:00 Intake Total 258.0 ml 869.2 ml 895.399 ml Output Total 350 ml 1400 ml 1650 ml Balance -92.0 ml -530.8 ml -754.601 ml medications Current Medications Medications Dose Ordered Sig/Jere Route Start Time Stop Time Status Last Admin Dose Admin Enoxaparin Sodium 30 mg DAILY SC 06/22/24 10:00 06/28/24 08:20 30 MG Vancomycin HCl 0 ml @ 0 mls/hr UD IV 06/21/24 18:45 Albuterol 2.5 mg Q4HPRN PRN NEB 06/23/24 07:15 06/26/24 02:38 2.5 MG Ipratropium [place] 0.5 mg Q4HPRN PRN NEB 06/23/24 07:15 06/26/24 02:38 0.5 MG Propofol 100 ml @ 3.129 mls/ hr Q24H IV 06/23/24 14:15 06/28/24 11:55 15.645 MLS/HR Fentanyl Citrate 250 ml @ 2.5 mls/hr Q24H IV 06/23/24 14:15 06/28/24 07:36 15 MLS/HR Labetalol HCl 10 mg Q4HPRN PRN IV 06/24/24 11:45 06/24/24 12:06 10 MG Meropenem 50 ml @ 17 mls/hr Q12HR IV 06/24/24 22:00 UNV 06/28/24 08:21 17 MLS/HR Enteral Nutritional Formula 1,000 ml 30ML/HR GT 06/24/24 16:00 06/28/24 04:07 1,000 ML Norepinephrine Bitartrate 250 ml @ 1.875 mls/ hr Q24H IV 06/25/24 00:30 06/28/24 09:26 1.875 MLS/HR Pantoprazole Sodium 40 mg DAILY IV 06/26/24 10:00 06/28/24 08:20 40 MG Furosemide 80 mg DAILY IV 06/25/24 12:30 06/28/24 08:21 80 MG Diagnostic Test (Pha) 1 strip Q6HR 06/26/24 18:00 06/28/24 10:41 1 STRIP Insulin Human Regular Q6HR SC 06/26/24 18:00 Dextrose 50 ml UD PRN IV 06/26/24 15:15 Purified Water 150 ml Q6HR GT 06/26/24 18:00 06/28/24 10:47 150 ML Sodium Chloride 10 ml QSHIFT@10,22 IV 06/28/24 10:00 06/28/24 08:21 10 ML Examination: GENERAL:Abnormal, LUNGS:Abnormal, CVS:Normal, SKIN:Normal, NEURO:Abnormal laboratory and microbiology Laboratory Tests 06/28/24 03:18 Test 06/28/24 03:18 Range/Units Serum Glucose 109 H 74-106 mg/dL Microbiology Date/Time Source Procedure Growth Status 06/23/24 16:43 Nose MRSA Screen - Final Complete 06/23/24 13:32 Sputum Endotracheal Wash Gram Stain - Final Complete 06/23/24 13:32 Sputum Endotracheal Wash Respiratory Culture - Final Complete 06/22/24 17:12 Urine - [place] Urine Culture - Final Complete 06/21/24 18:05 Blood Blood Culture - Final NO GROWTH AFTER 5 DAYS OF INCUBATION. Complete Problem List/Assessment/Plan Problem List/Assessment/Plan 1 acute resp failure: Xray reviewed. ABG reviewed. CPAP trial #2 septic shock with uti ?esbl: iv meropenem, DC vancomycin. #3 acute renal failure/atn: dc ivf. Nephrology consult. Improving #4 obesity #5 bph #6 h/o renal stones #7 transaminitis #8 acute diastolic heart failure: lasix iv #9 hyperkalemia: improved long discussion with jose luis Greenberg- updated regards plan of care CPAP when awake Critical care time > 42 min excluding procedures. Plan discussed with: Other My Orders My Orders Orders - BUCK LEE MD Procedure Category Date Status Time Respiratory Misc. RT 06/28/24 Transmitted Order 12:08 Dietary Evaluation Review Comments: Cautious and follow up with Pt 's kidney function, monitor nutrition support to meet at [place] 75% of his needs Expected Outcomes/Goals: Advance to PO diet when medically feasible: CCHO-60 g alone with renal [id number] if pt's uremic syndrome continues. Date of Service: Jun 28, 2024 Billing Provider: BUCK LEE MD Common Visit Codes: [id number] CARE 30-74 MIN BUCK LEE MD Jun 28, 2024 15:21
--- NOTE | 2024-06-28 16:19 | DVHPN2 ---
Progress Note - Dictate Date Seen: Jun 28, 2024 Has the PT tested + for MRSA If YES, has PT been informed?: No Medical Necessity Reason Pt with a Central, PICC or Fol: Yes The following are medically ne: Central Line, PICC Line, Crain Catheter Subjective Adequate urine volumes vital signs Vital Sign Date Time Temp Pulse Resp B/P (MAP) Pulse Ox O2 Delivery O2 Flow Rate FiO2 06/28/24 16:13 71 16 109/60 (76) 98 30 06/28/24 16:00 Mechanical Ventilator+ 06/28/24 16:00 97.7 97.7 Total Intake and Output 06/27/24 06/27/24 06/28/24 15:00 23:00 07:00 Intake Total 258.0 ml 869.2 ml 895.399 ml Output Total 350 ml 1400 ml 1650 ml Balance -92.0 ml -530.8 ml -754.601 ml medications Current Medications Medications Dose Ordered Sig/Jere Route Start Time Stop Time Status Last Admin Dose Admin Enoxaparin Sodium 30 mg DAILY SC 06/22/24 10:00 06/28/24 08:20 30 MG Albuterol 2.5 mg Q4HPRN PRN NEB 06/23/24 07:15 06/26/24 02:38 2.5 MG Ipratropium [place] 0.5 mg Q4HPRN PRN NEB 06/23/24 07:15 06/26/24 02:38 0.5 MG Propofol 100 ml @ 3.129 mls/ hr Q24H IV 06/23/24 14:15 06/28/24 15:39 15.645 MLS/HR Fentanyl Citrate 250 ml @ 2.5 mls/hr Q24H IV 06/23/24 14:15 06/28/24 07:36 15 MLS/HR Labetalol HCl 10 mg Q4HPRN PRN IV 06/24/24 11:45 06/24/24 12:06 10 MG Meropenem 50 ml @ 17 mls/hr Q12HR IV 06/24/24 22:00 UNV 06/28/24 08:21 17 MLS/HR Enteral Nutritional Formula 1,000 ml 30ML/HR GT 06/24/24 16:00 06/28/24 04:07 1,000 ML Norepinephrine Bitartrate 250 ml @ 1.875 mls/ hr Q24H IV 06/25/24 00:30 06/28/24 09:26 1.875 MLS/HR Pantoprazole Sodium 40 mg DAILY IV 06/26/24 10:00 06/28/24 08:20 40 MG Furosemide 80 mg DAILY IV 06/25/24 12:30 06/28/24 08:21 80 MG Diagnostic Test (Pha) 1 strip Q6HR 06/26/24 18:00 06/28/24 10:41 1 STRIP Insulin Human Regular Q6HR SC 06/26/24 18:00 Dextrose 50 ml UD PRN IV 06/26/24 15:15 Purified Water 150 ml Q6HR GT 06/26/24 18:00 06/28/24 10:47 150 ML Sodium Chloride 10 ml QSHIFT@10,22 IV 06/28/24 10:00 06/28/24 08:21 10 ML objective Gen: nad, elderly male heent: nc/at, mmm lungs: cta anteriorly cvs: no rub abd: soft, bowel sounds audible ext: no edema laboratory and microbiology Laboratory Tests 06/28/24 03:18 Test 06/28/24 03:18 Range/Units Serum Glucose 109 H 74-106 mg/dL Assessment/Plan Acute kidney injury likely acute tubular necrosis sec to hypotension + obstructive etiology Encephalopathy Ventilator-dependent hypoxic respiratory failure Distended bladder distended hydroureter on CT scan s/p new crain placed by Urology Enlarged prostate Hyperkalemia secondary to Acute kidney injury resolved now potassium is low - we will continue to monitor during ORTEGA recovery - even fluid balance Dietary Evaluation Review Comments: Cautious and follow up with Pt 's kidney function, monitor nutrition support to meet at [place] 75% of his needs Expected Outcomes/Goals: Advance to PO diet when medically feasible: CCHO-60 g alone with renal [id number] if pt's uremic syndrome continues. Plan discussed with: DK Escalona MD Jun 28, 2024 16:19
[2024-06-29] VITALS (96 sets, daily range): BP systolic 122–190; BP diastolic 60–96; PULSE 77–108; RESP 10–24; TEMP 98–98.5; O2SAT 88–100
[2024-06-29 03:54] LABS: Mean Corpuscular Hemoglobin 28.6 pg (28.0-32.0); Mean Corpuscular Hgb Conc. 33.2 g/dL (32.0-36.0); Mean Corpuscular Volume 86.2 fL (80.0-100.0); Platelet Count (auto) 236 10^3/uL (140-450); Red Blood Cells 3.83 10^6/uL (4.5-5.90); Red Cell Distribution Width 17.5 % (11.8-14.3); White Blood Cell 11.9 10^3/uL (4.4-10.8)
[2024-06-29 04:02] LABS: Albumin 3.5 g/dL (3.2-4.8); Alkaline Phosphatase 116 U/L (46-116); Anion Gap 13 (5-15); BUN/Creatinine Ratio 18.5 (10.0-20.0); Bilirubin, Total 0.4 mg/dL (0.2-1.0); Calcium 9.4 mg/dL (8.7-10.4); Chloride 101 mmol/L (98-107); Potassium 3.5 mmol/L (3.5-5.1)
[2024-06-29 04:03] LABS: Total Protein 6.6 g/dL (5.7-8.2)
--- NOTE | 2024-06-29 04:11 | DVH ---
CHEST RADIOGRAPH Indication: Vented patient Technique: Single frontal view of the chest was obtained Comparison: XY CHEST PORTABLE on DOS: 06/28/24, XY CHEST PORTABLE on DOS: 06/27/24, XY CHEST PORTABLE o n DOS: 06/26/24 IMPRESSION: There are low lung volumes with small bilateral pleural effusions, left greater than right. The heart is prominent size. Support lines and tubes appear unchanged in satisfactory position. No discrete p neumothorax. No significant interval change.
[2024-06-29 04:13] LABS: Band Neutrophils % (manual) 0; Basophils % (manual) 0 (0.0-2.0); Blast Cells 0; Metamyelocytes % 0; Myelocytes % 0; Promyelocytes % 0; Reactive Lymphocytes 0
[2024-06-29 04:47] LABS: Alanine Aminotransferase 75 U/L (7-40); Aspartate Aminotransferase 244 U/L (13-40); Carbon Dioxide 32 mmol/L (20-31); Glucose 113 mg/dL (74-106); Sodium 146 mmol/L (136-145)
[2024-06-29 04:48] LABS: Blood Urea Nitrogen 104 mg/dL (9-23)
[2024-06-29 05:21] LABS: Eosinophils % (manual) 7 (0-7); Lymphocytes % (manual) 12 (10.0-50.0); Monocytes % (manual) 7 (0-12)
[2024-06-29 05:22] LABS: Large Platelets FEW; Platelet Estimate Adequa; Stomatocytes Few
[2024-06-29 08:28] LABS: Base Excess 6.4 mmol/L (-2.0-3.0)
--- NOTE | 2024-06-29 13:10 | DVHPN2 ---
Progress Note - Dictate Date Seen: Jun 29, 2024 Has the PT tested + for MRSA If YES, has PT been informed?: No Medical Necessity Reason Pt with a Central, PICC or Fol: Yes The following are medically ne: Central Line, PICC Line, Crain Catheter Subjective proximally 2.9 L of urine output yesterday vital signs Vital Sign Date Time Temp Pulse Resp B/P (MAP) Pulse Ox O2 Delivery O2 Flow Rate FiO2 06/29/24 12:47 95 06/29/24 12:45 14 06/29/24 12:43 10.0 06/29/24 12:00 Mechanical Ventilator+ 30 30 06/29/24 12:00 93 06/29/24 11:43 154/75 (101) 06/29/24 08:00 98.4 98.4 Total Intake and Output 06/28/24 06/28/24 06/29/24 15:00 23:00 07:00 Intake Total 412.660 ml 1039.112 ml 568.5 ml Output Total 1950 ml 970 ml Balance 412.660 ml -910.888 ml -401.5 ml medications Current Medications Medications Dose Ordered Sig/Jere Route Start Time Stop Time Status Last Admin Dose Admin Enoxaparin Sodium 30 mg DAILY SC 06/22/24 10:00 06/29/24 08:09 30 MG Albuterol 2.5 mg Q4HPRN PRN NEB 06/23/24 07:15 06/29/24 09:32 2.5 MG Ipratropium [place] 0.5 mg Q4HPRN PRN NEB 06/23/24 07:15 06/29/24 09:32 0.5 MG Propofol 100 ml @ 3.129 mls/ hr Q24H IV 06/23/24 14:15 06/28/24 15:39 15.645 MLS/HR Fentanyl Citrate 250 ml @ 2.5 mls/hr Q24H IV 06/23/24 14:15 06/28/24 20:58 17.5 MLS/HR Labetalol HCl 10 mg Q4HPRN PRN IV 06/24/24 11:45 06/24/24 12:06 10 MG Meropenem 50 ml @ 17 mls/hr Q12HR IV 06/24/24 22:00 UNV 06/29/24 08:35 17 MLS/HR Enteral Nutritional Formula 1,000 ml 30ML/HR GT 06/24/24 16:00 06/28/24 04:07 1,000 ML Norepinephrine Bitartrate 250 ml @ 1.875 mls/ hr Q24H IV 06/25/24 00:30 06/28/24 09:26 1.875 MLS/HR Pantoprazole Sodium 40 mg DAILY IV 06/26/24 10:00 06/29/24 08:06 40 MG Furosemide 80 mg DAILY IV 06/25/24 12:30 06/29/24 08:36 80 MG Diagnostic Test (Pha) 1 strip Q6HR 06/26/24 18:00 06/29/24 11:15 1 STRIP Insulin Human Regular Q6HR SC 06/26/24 18:00 Dextrose 50 ml UD PRN IV 06/26/24 15:15 Purified Water 150 ml Q6HR GT 06/26/24 18:00 06/29/24 11:15 150 ML Sodium Chloride 10 ml QSHIFT@10,22 IV 06/28/24 10:00 06/29/24 08:07 10 ML objective Gen: nad, elderly male heent: nc/at, mmm lungs: cta anteriorly cvs: no rub abd: soft, bowel sounds audible ext: no edema laboratory and microbiology Laboratory Tests 06/29/24 03:31 Test 06/29/24 03:31 Range/Units Serum Glucose 113 H 74-106 mg/dL Assessment/Plan Acute kidney injury likely acute tubular necrosis sec to hypotension + obstructive etiology Encephalopathy Ventilator-dependent hypoxic respiratory failure Distended bladder distended hydroureter on CT scan s/p new crain placed by Urology Enlarged prostate Hyperkalemia secondary to Acute kidney injury resolved now potassium is low - serum creatinine downtrending, anticipate continued improvement in kidney function. - Recommendation to continue efforts to extubate if weaning trial data encouraging - Daily evaluation for kidney replacement therapy Dietary Evaluation Review Comments: Cautious and follow up with Pt 's kidney function, monitor nutrition support to meet at [place] 75% of his needs Expected Outcomes/Goals: Advance to PO diet when medically feasible: CCHO-60 g alone with renal [id number] if pt's uremic syndrome continues. Plan discussed with: Other DK GAMBOA MD Jun 29, 2024 13:10
--- NOTE | 2024-06-29 16:26 | DVHPN2 ---
Subjective intubated Reviewed: Care Plan, H&P, Labs, Medications, Previous Orders, Radiology Changes from previous H/P or p: No Changes Objective Vitals Vital Signs Date Time Temp Pulse Resp B/P (MAP) Pulse Ox O2 Delivery O2 Flow Rate FiO2 06/29/24 16:00 12 95 Simple Mask* 10 99 06/29/24 16:00 97 06/29/24 14:30 156/80 (105) 06/29/24 12:00 98.5 98.5 Intake/Output Intake and Output 06/29/24 05:00 Intake Total 2223.562 ml Output Total 3600 ml Balance -1376.438 ml Intake Oral 600 ml IV Total 961.562 ml Tube Feeding 662 ml Output Urine Total 3600 ml Medications Current Medications Medications Dose Ordered Sig/Jere Route Start Time Stop Time Status Last Admin Dose Admin Enoxaparin Sodium 30 mg DAILY SC 06/22/24 10:00 06/29/24 08:09 30 MG Albuterol 2.5 mg Q4HPRN PRN NEB 06/23/24 07:15 06/29/24 14:23 2.5 MG Ipratropium [place] 0.5 mg Q4HPRN PRN NEB 06/23/24 07:15 06/29/24 14:23 0.5 MG Propofol 100 ml @ 3.129 mls/ hr Q24H IV 06/23/24 14:15 06/28/24 15:39 15.645 MLS/HR Fentanyl Citrate 250 ml @ 2.5 mls/hr Q24H IV 06/23/24 14:15 06/28/24 20:58 17.5 MLS/HR Labetalol HCl 10 mg Q4HPRN PRN IV 06/24/24 11:45 06/29/24 13:29 10 MG Meropenem 50 ml @ 17 mls/hr Q12HR IV 06/24/24 22:00 UNV 06/29/24 08:35 17 MLS/HR Enteral Nutritional Formula 1,000 ml 30ML/HR GT 06/24/24 16:00 06/28/24 04:07 1,000 ML Norepinephrine Bitartrate 250 ml @ 1.875 mls/ hr Q24H IV 06/25/24 00:30 06/28/24 09:26 1.875 MLS/HR Pantoprazole Sodium 40 mg DAILY IV 06/26/24 10:00 06/29/24 08:06 40 MG Furosemide 80 mg DAILY IV 06/25/24 12:30 06/29/24 08:36 80 MG Diagnostic Test (Pha) 1 strip Q6HR 06/26/24 18:00 06/29/24 11:15 1 STRIP Insulin Human Regular Q6HR SC 06/26/24 18:00 Dextrose 50 ml UD PRN IV 06/26/24 15:15 Purified Water 150 ml Q6HR GT 06/26/24 18:00 06/29/24 11:15 150 ML Sodium Chloride 10 ml QSHIFT@10,22 IV 06/28/24 10:00 06/29/24 08:07 10 ML Laboratory Results Laboratory Tests 06/29/24 03:31 Chemistry Test 06/29/24 03:31 Albumin 3.5 g/dL (3.2-4.8) Calcium Level 9.4 mg/dL (8.7-10.4) Total Protein 6.6 g/dL (5.7-8.2) LFT Test 06/29/24 03:31 Alanine Aminotransferase (ALT) 75 U/L (7-40) H Alkaline Phosphatase 116 U/L (46-116) Aspartate Amino Transferase (AST) 244 U/L (13-40) H Total Bilirubin 0.4 mg/dL (0.2-1.0) Urinalysis Test 06/22/24 17:12 06/23/24 18:27 Urine Color Dark-brown (Yellow) Urine Clarity Ex.turbid (Clear) Urine pH 6.0 (5.0-9.0) Urine Specific [place] 1.011 (1.001-1.035) Urine Protein 2+ (Negative) H Urine Ketones Negative (Negative) Urine Blood 3+ /uL (Negative) H Urine Nitrite Negative (Negative) Urine Bilirubin Negative (Negative) Urine Urobilinogen Normal mg/dL (Negative) Urine Leukocyte Esterase 3+ /uL (Negative) Urine RBC 561 /hpf (0 - 3) Urine WBC 2731 /hpf (0 - 3) Urine WBC Clumps Present /hpf (None Seen) Urine Squamous Epithelial Cells Few /hpf (<5) Urine Bacteria Mod /hpf (None Seen) H Urine Glucose 3+ mg/dL (Normal) H Urine Creatinine 21.25 mg/dL (30.0-125.0) L Urine Sodium 135 mmol/L (40-220) Urine Total Protein 71.4 mg/dL (1-14) H Blood Gas Results Test 06/29/24 11:37 Arterial Blood pH 7.401 (7.350-7.450) FiO2 % 30.0 Microbiology Microbiology Date/Time Source Procedure Growth Status 06/28/24 04:00 Urine - [place] Urine Culture - Preliminary Resulted 06/23/24 16:43 Nose MRSA Screen - Final Complete 06/23/24 13:32 Sputum Endotracheal Wash Gram Stain - Final Complete 06/23/24 13:32 Sputum Endotracheal Wash Respiratory Culture - Final Complete 06/21/24 18:05 Blood Blood Culture - Final NO GROWTH AFTER 5 DAYS OF INCUBATION. Complete Assessment/Plan Assessment/Plan 1 acute resp failure: Xray reviewed. ABG reviewed. CPAP trial #2 septic shock with uti ?esbl: iv meropenem, DC vancomycin. #3 acute renal failure/atn: dc ivf. Nephrology consult. Improving #4 obesity #5 bph #6 h/o renal stones #7 transaminitis #8 acute diastolic heart failure: lasix iv #9 hyperkalemia: improved long discussion with jose luis Greenberg- updated regards plan of care CPAP when awake Critical care time > 42 min excluding procedures. Plan discussed with: Other (nurse) Date of Service: Jun 29, 2024 Billing Provider: SARAH OSMAN MD Common Visit Codes: [id number] CARE 30-74 MIN SARAH OSMAN MD Jun 29, 2024 16:26
--- NOTE | 2024-06-29 22:42 | DVHPN2 ---
Progress Note - Dictate Date Seen: Jun 29, 2024 Has the PT tested + for MRSA If YES, has PT been informed?: No Medical Necessity Reason Pt with a Central, PICC or Fol: Yes The following are medically ne: Central Line, PICC Line, Crain Catheter Reason for crain catheter: Strict I&O Subjective Patient seen and examined at bedside. Intubated on mechanical ventilator. Overnight events reviewed. vital signs Vital Sign Date Time Temp Pulse Resp B/P (MAP) Pulse Ox O2 Delivery O2 Flow Rate FiO2 06/29/24 20:30 97 14 144/84 (104) 96 06/29/24 20:00 98.4 98.4 06/29/24 20:00 Nasal Cannula* 2 28 Total Intake and Output 06/28/24 06/28/24 06/29/24 15:00 23:00 07:00 Intake Total 412.660 ml 1039.112 ml 568.5 ml Output Total 1950 ml 970 ml Balance 412.660 ml -910.888 ml -401.5 ml medications Current Medications Medications Dose Ordered Sig/Jere Route Start Time Stop Time Status Last Admin Dose Admin Enoxaparin Sodium 30 mg DAILY SC 06/22/24 10:00 06/29/24 08:09 30 MG Albuterol 2.5 mg Q4HPRN PRN NEB 06/23/24 07:15 06/29/24 14:23 2.5 MG Ipratropium [place] 0.5 mg Q4HPRN PRN NEB 06/23/24 07:15 06/29/24 14:23 0.5 MG Labetalol HCl 10 mg Q4HPRN PRN IV 06/24/24 11:45 06/29/24 13:29 10 MG Meropenem 50 ml @ 17 mls/hr Q12HR IV 06/24/24 22:00 UNV 06/29/24 22:36 17 MLS/HR Enteral Nutritional Formula 1,000 ml 30ML/HR GT 06/24/24 16:00 06/28/24 04:07 1,000 ML Pantoprazole Sodium 40 mg DAILY IV 06/26/24 10:00 06/29/24 08:06 40 MG Furosemide 80 mg DAILY IV 06/25/24 12:30 06/29/24 08:36 80 MG Diagnostic Test (Pha) 1 strip Q6HR 06/26/24 18:00 06/29/24 17:09 1 STRIP Insulin Human Regular Q6HR SC 06/26/24 18:00 Dextrose 50 ml UD PRN IV 06/26/24 15:15 Purified Water 150 ml Q6HR GT 06/26/24 18:00 06/29/24 17:10 150 ML Sodium Chloride 10 ml QSHIFT@10,22 IV 06/28/24 10:00 06/29/24 22:00 10 ML objective Gen.: Patient lying in bed in medical ICU. Intubated on mechanical ventilator. Head: Normocephalic, atraumatic. Eyes: PERRLA. Ears: Normal external anatomy. Throat: Endotracheal tube and orogastric tube in place. Neck: Supple, trachea midline. Chest: Transmitted breath sounds bilaterally. Decreased air entry bilaterally. No wheezing. Bibasilar crackles. Cardiovascular: Positive S1, positive S2. Regular rate and rhythm. Abdomen: Positive bowel sounds in all 4 quadrants. Soft, nontender, nondistended. : Crain in place. Normal external genitalia. Rectal: Deferred. Skin: Warm, dry. Intact. Extremities: 2+ radial pulses bilaterally. No lower extremity edema. Neuro: Off sedation laboratory and microbiology Laboratory Tests 06/29/24 03:31 Test 06/29/24 03:31 Range/Units Serum Glucose 113 H 74-106 mg/dL Assessment/Plan Impression: Acute respiratory distress. On mechanical ventilator Acute metabolic encephalopathy Metabolic acidosis Lactic acidosis Septic shock Hyperkalemia Acute kidney injury Events: On CPAP trial ABG reviewed, shows alkalemia. CXR demonstrates hypoinflation. Small bilateral pleural effusions, left greater than right. Devices in place. No pneumothorax. Vent settings; AC mode with RR 16, VT 500, PEEP 5, FiO2 30% Off sedation Off pressors, hemodynamically stable. Continue antibiotics WBC of 11.9 K. Diurese w/ IV Lasix 80 mg QD Monitor electrolytes. Supplement as necessary. Monitor ins and outs. Potassium supplementation Awaiting CPAP ABG + weaning parameters to consider extubation Labs and imaging reviewed. Rest of plan as noted below. Plan: s/p intubation on mechanical ventilator. CXR image and report reviewed. Devices in place. Bibasilar atelectasis. No focal consolidation, pneumothorax, or pleural effusion. ABG reviewed, notable for acidemia Vent settings; AC mode with RR 16, VT 500, PEEP 5, FiO2 30% Titrate FIO2 to keep O2 saturation above 90%. VAP bundle. Daily ABG and CXR while intubated Off sedation CT head showed no evidence of ICH or stroke. Obtain ABG now for interval changes. D5W + 3 amps bicarb drip at 100 ml/hr. Broad spectrum antibiotics. Follow up cultures. Continue bronchodilators. Steroids Off pressors, hemodynamically stable. Monitor renal function Monitor electrolytes. Supplement as necessary. Monitor ins and outs. Maintain euvolemia. GI prophylaxis. DVT prophylaxis. Prognosis: Poor given patient's multiple co-morbidities. Condition: Critical Rest of plan per hospitalist and other consultants. A total of 35 minutes of critical care time was spent reviewing the patient record, examining the patient, making a diagnostic and therapeutic plan, discussing this plan with the medical personnel, following up on diagnostic studies and following the patient for clinical stability excluding any and all procedures. At least 50% of this time was spent in direct, [id number] contact. Thank you Dr. Carlos Cardoso MD, for allowing me to participate in this patient's care. Further recommendations will depend on the patient's clinical course. Please do not hesitate to contact me if you have any questions or concerns. This medical document was created using an electronic medical record system with [employer] dictation system. Although these documentations are being carefully reviewed, there may still be some phonetic and typographical changes. The errors are purely typographical, due to imperfection on the software program, and do not reflect any compromise in the patient's medical care. Dietary Evaluation Review Comments: Cautious and follow up with Pt 's kidney function, monitor nutrition support to meet at [place] 75% of his needs Expected Outcomes/Goals: Advance to PO diet when medically feasible: CCHO-60 g alone with renal [id number] if pt's uremic syndrome continues. Plan discussed with: Other (SHAQUILLE Briscoe) Critical Care Time(min): 35 JASS HERNANDEZ MD Jun 29, 2024 22:42
[2024-06-30] VITALS (15 sets, daily range): BP systolic 121–154; BP diastolic 73–84; PULSE 90–112; RESP 17–18; TEMP 97.4–99; O2SAT 94–98
[2024-06-30 11:07] LABS: Albumin 3.9 g/dL (3.2-4.8); Anion Gap 16 (5-15); BUN/Creatinine Ratio 17.9 (10.0-20.0); Bilirubin, Total 0.6 mg/dL (0.2-1.0); Calcium 9.5 mg/dL (8.7-10.4); Carbon Dioxide 30 mmol/L (20-31); Chloride 103 mmol/L (98-107); Glucose 102 mg/dL (74-106); Potassium 3.9 mmol/L (3.5-5.1); Total Protein 7.6 g/dL (5.7-8.2)
[2024-06-30 11:12] LABS: Alanine Aminotransferase 69 U/L (7-40); Alkaline Phosphatase 127 U/L (46-116); Aspartate Aminotransferase 232 U/L (13-40); Sodium 149 mmol/L (136-145)
[2024-06-30 11:14] LABS: Blood Urea Nitrogen 98 mg/dL (9-23)
[2024-06-30] MEDS: SODIUM CHL 0.9% 1000 ML BAG XX ONE (12:15)
--- NOTE | 2024-06-30 17:11 | DVHPN2 ---
Progress Note - Dictate Date Seen: Jun 30, 2024 Has the PT tested + for MRSA If YES, has PT been informed?: No Medical Necessity Reason Pt with a Central, PICC or Fol: Yes The following are medically ne: Central Line, PICC Line, Crain Catheter Reason for crain catheter: Strict I&O Subjective Urine output remains nonoliguric. Patient's family seen at bedside. vital signs Vital Sign Date Time Temp Pulse Resp B/P (MAP) Pulse Ox O2 Delivery O2 Flow Rate FiO2 06/30/24 15:31 95 Nasal Cannula 2.0 06/30/24 15:31 28 06/30/24 13:00 98.0 104 17 121/73 (89) 98.0 Total Intake and Output 06/29/24 06/29/24 06/30/24 15:00 23:00 07:00 Intake Total 65.0 ml 350 ml Output Total 2400 ml Balance 65.0 ml -2050 ml medications Current Medications Medications Dose Ordered Sig/Jere Route Start Time Stop Time Status Last Admin Dose Admin Enoxaparin Sodium 30 mg DAILY SC 06/22/24 10:00 06/30/24 09:37 30 MG Albuterol 2.5 mg Q4HPRN PRN NEB 06/23/24 07:15 06/29/24 14:23 2.5 MG Ipratropium [place] 0.5 mg Q4HPRN PRN NEB 06/23/24 07:15 06/29/24 14:23 0.5 MG Labetalol HCl 10 mg Q4HPRN PRN IV 06/24/24 11:45 06/29/24 13:29 10 MG Meropenem 50 ml @ 17 mls/hr Q12HR IV 06/24/24 22:00 UNV 06/30/24 10:18 17 MLS/HR Enteral Nutritional Formula 1,000 ml 30ML/HR GT 06/24/24 16:00 06/28/24 04:07 1,000 ML Pantoprazole Sodium 40 mg DAILY IV 06/26/24 10:00 06/30/24 09:36 40 MG Furosemide 80 mg DAILY IV 06/25/24 12:30 06/30/24 09:36 80 MG Diagnostic Test (Pha) 1 strip Q6HR 06/26/24 18:00 06/30/24 11:19 1 STRIP Insulin Human Regular Q6HR SC 06/26/24 18:00 Dextrose 50 ml UD PRN IV 06/26/24 15:15 Purified Water 150 ml Q6HR GT 06/26/24 18:00 06/30/24 11:19 150 ML Sodium Chloride 10 ml QSHIFT@10,22 IV 06/28/24 10:00 06/30/24 09:36 10 ML objective Gen: nad, elderly male heent: nc/at, mmm lungs: cta anteriorly cvs: no rub abd: soft, bowel sounds audible ext: no edema laboratory and microbiology Laboratory Tests 06/30/24 10:00 06/29/24 03:31 Test 06/30/24 10:00 Range/Units Serum Glucose 102 74-106 mg/dL Assessment/Plan Acute kidney injury likely acute tubular necrosis sec to hypotension + obstructive etiology Encephalopathy Ventilator-dependent hypoxic respiratory failure Distended bladder distended hydroureter on CT scan s/p new crain placed by Urology Enlarged prostate Hyperkalemia secondary to Acute kidney injury resolved now potassium is low - we will increase enteral free water flushes - D5W X 1 Liter - repeat bmp in AM - Noted serum creatinine continues to downtrend will hold off on initiation of dialysis Dietary Evaluation Review Comments: Cautious and follow up with Pt 's kidney function, monitor nutrition support to meet at [place] 75% of his needs Expected Outcomes/Goals: Advance to PO diet when medically feasible: CCHO-60 g alone with renal [id number] if pt's uremic syndrome continues. Plan discussed with: Other DK GAMBOA MD Jun 30, 2024 17:11
[2024-06-30] MEDS: FREE WATER GT SCH (18:00)
[2024-06-30] MEDS: D5W 5% 1,000 ML IV ONE (18:13)
--- NOTE | 2024-06-30 20:34 | DVHPN2 ---
Progress Note - Dictate Date Seen: Jun 30, 2024 Has the PT tested + for MRSA If YES, has PT been informed?: No Medical Necessity Reason Pt with a Central, PICC or Fol: Yes The following are medically ne: Central Line, PICC Line, Crain Catheter Reason for crain catheter: Strict I&O Subjective Patient seen and examined at bedside. S/p extubation, on supplemental oxygen Overnight events reviewed vital signs Vital Sign Date Time Temp Pulse Resp B/P (MAP) Pulse Ox O2 Delivery O2 Flow Rate FiO2 06/30/24 19:59 96 Nasal Cannula 2.0 06/30/24 19:59 28 06/30/24 17:00 98.0 110 18 136/79 (98) 98.0 Total Intake and Output 06/29/24 06/29/24 06/30/24 15:00 23:00 07:00 Intake Total 65.0 ml 350 ml Output Total 2400 ml Balance 65.0 ml -2050 ml medications Current Medications Medications Dose Ordered Sig/Jere Route Start Time Stop Time Status Last Admin Dose Admin Enoxaparin Sodium 30 mg DAILY SC 06/22/24 10:00 06/30/24 09:37 30 MG Albuterol 2.5 mg Q4HPRN PRN NEB 06/23/24 07:15 06/29/24 14:23 2.5 MG Ipratropium [place] 0.5 mg Q4HPRN PRN NEB 06/23/24 07:15 06/29/24 14:23 0.5 MG Labetalol HCl 10 mg Q4HPRN PRN IV 06/24/24 11:45 06/29/24 13:29 10 MG Meropenem 50 ml @ 17 mls/hr Q12HR IV 06/24/24 22:00 UNV 06/30/24 10:18 17 MLS/HR Enteral Nutritional Formula 1,000 ml 30ML/HR GT 06/24/24 16:00 06/28/24 04:07 1,000 ML Pantoprazole Sodium 40 mg DAILY IV 06/26/24 10:00 06/30/24 09:36 40 MG Furosemide 80 mg DAILY IV 06/25/24 12:30 06/30/24 09:36 80 MG Diagnostic Test (Pha) 1 strip Q6HR 06/26/24 18:00 06/30/24 17:13 1 STRIP Insulin Human Regular Q6HR SC 06/26/24 18:00 06/30/24 17:57 2 UNITS Dextrose 50 ml UD PRN IV 06/26/24 15:15 Sodium Chloride 10 ml QSHIFT@10,22 IV 06/28/24 10:00 06/30/24 09:36 10 ML Purified Water 300 ml Q6HR GT 06/30/24 17:15 06/30/24 18:13 300 ML objective Gen.: Patient lying in bed in no apparent distress. On supplemental oxygen. Head: Normocephalic, atraumatic. Eyes: EOMI/PERRLA. Ears: Normal hearing. Normal anatomy. Neck/trachea: Trachea midline, supple. Nose: Normal external anatomy. Mouth: Moist mucous membranes. Chest: Decreased air entry bilaterally. No wheezing or rhonchi. Cardiovascular: Positive S1, positive S2. Regular rate and rhythm. Abdomen: Positive bowel sounds in all 4 quadrants. Soft, non-tender, non- distended. : Deferred. Rectal: Deferred. Skin: Warm, dry. Intact. Extremities: 2+ radial pulses bilaterally. No lower extremity edema. Neuro: Awake, alert, oriented x3. No gross motor or sensory deficits. Cranial nerves II through XII intact. Gait not assessed. laboratory and microbiology Laboratory Tests 06/30/24 10:00 06/29/24 03:31 Test 06/30/24 10:00 Range/Units Serum Glucose 102 74-106 mg/dL Assessment/Plan Impression: Acute respiratory distress. On mechanical ventilator Acute metabolic encephalopathy Metabolic acidosis Lactic acidosis Septic shock Hyperkalemia Acute kidney injury Events: S/p extubation On supplemental oxygen, 2 LPM NC Taper O2 as tolerated Head of bed elevation Aspiration precautions Continue antibiotics Hemodialysis per Nephrology Monitor renal function Monitor electrolytes. Supplement as necessary. Labs and imaging reviewed. Rest of plan as noted below. Plan: S/p extubation on 06/29/24 On supplemental oxygen, 2 LPM NC Titrate to keep O2 sats above 92%. Off sedation Off pressors, hemodynamically stable. CT head showed no evidence of ICH or stroke. Obtain ABG now for interval changes. D5W + 3 amps bicarb drip at 100 ml/hr. Broad spectrum antibiotics. Follow up cultures. Continue bronchodilators. Steroids Off pressors, hemodynamically stable. Monitor renal function Monitor electrolytes. Supplement as necessary. Monitor ins and outs. Maintain euvolemia. GI prophylaxis. DVT prophylaxis. Prognosis: Poor given patient's multiple co-morbidities. Rest of plan per hospitalist and other consultants. Thank you Dr. Carlos Cardoso MD, for allowing me to participate in this patient's care. Further recommendations will depend on the patient's clinical course. Please do not hesitate to contact me if you have any questions or concerns. This medical document was created using an electronic medical record system with [employer] dictation system. Although these documentations are being carefully reviewed, there may still be some phonetic and typographical changes. The errors are purely typographical, due to imperfection on the software program, and do not reflect any compromise in the patient's medical care. Dietary Evaluation Review Comments: Cautious and follow up with Pt 's kidney function, monitor nutrition support to meet at [place] 75% of his needs Expected Outcomes/Goals: Advance to PO diet when medically feasible: CCHO-60 g alone with renal [id number] if pt's uremic syndrome continues. Plan discussed with: Patient, Other (RN) JASS HERNANDEZ MD Jun 30, 2024 20:34
--- NOTE | 2024-06-30 21:02 | DVHPN2 ---
Subjective intubated Reviewed: Care Plan, H&P, Labs, Medications, Previous Orders, Radiology Changes from previous H/P or p: No Changes Objective Vitals Vital Signs Date Time Temp Pulse Resp B/P (MAP) Pulse Ox O2 Delivery O2 Flow Rate FiO2 06/30/24 19:59 96 Nasal Cannula 2.0 06/30/24 19:59 28 06/30/24 17:00 98.0 110 18 136/79 (98) 98.0 Intake/Output Intake and Output 06/30/24 05:00 Intake Total 907.5 ml Output Total 3370 ml Balance -2462.5 ml Intake Oral 650 ml IV Total 77.5 ml Tube Feeding 180 ml Output Urine Total 3370 ml Medications Current Medications Medications Dose Ordered Sig/Jere Route Start Time Stop Time Status Last Admin Dose Admin Enoxaparin Sodium 30 mg DAILY SC 06/22/24 10:00 06/30/24 09:37 30 MG Albuterol 2.5 mg Q4HPRN PRN NEB 06/23/24 07:15 06/29/24 14:23 2.5 MG Ipratropium [place] 0.5 mg Q4HPRN PRN NEB 06/23/24 07:15 06/29/24 14:23 0.5 MG Labetalol HCl 10 mg Q4HPRN PRN IV 06/24/24 11:45 06/29/24 13:29 10 MG Meropenem 50 ml @ 17 mls/hr Q12HR IV 06/24/24 22:00 UNV 06/30/24 10:18 17 MLS/HR Enteral Nutritional Formula 1,000 ml 30ML/HR GT 06/24/24 16:00 06/28/24 04:07 1,000 ML Pantoprazole Sodium 40 mg DAILY IV 06/26/24 10:00 06/30/24 09:36 40 MG Furosemide 80 mg DAILY IV 06/25/24 12:30 06/30/24 09:36 80 MG Diagnostic Test (Pha) 1 strip Q6HR 06/26/24 18:00 06/30/24 17:13 1 STRIP Insulin Human Regular Q6HR SC 06/26/24 18:00 06/30/24 17:57 2 UNITS Dextrose 50 ml UD PRN IV 06/26/24 15:15 Sodium Chloride 10 ml QSHIFT@10,22 IV 06/28/24 10:00 06/30/24 09:36 10 ML Purified Water 300 ml Q6HR GT 06/30/24 17:15 06/30/24 18:13 300 ML Laboratory Results Laboratory Tests 06/29/24 03:31 06/30/24 10:00 Chemistry Test 06/30/24 10:00 Albumin 3.9 g/dL (3.2-4.8) Calcium Level 9.5 mg/dL (8.7-10.4) Total Protein 7.6 g/dL (5.7-8.2) LFT Test 06/30/24 10:00 Alanine Aminotransferase (ALT) 69 U/L (7-40) H Alkaline Phosphatase 127 U/L (46-116) H Aspartate Amino Transferase (AST) 232 U/L (13-40) H Total Bilirubin 0.6 mg/dL (0.2-1.0) Urinalysis Test 06/22/24 17:12 06/23/24 18:27 Urine Color Dark-brown (Yellow) Urine Clarity Ex.turbid (Clear) Urine pH 6.0 (5.0-9.0) Urine Specific [place] 1.011 (1.001-1.035) Urine Protein 2+ (Negative) H Urine Ketones Negative (Negative) Urine Blood 3+ /uL (Negative) H Urine Nitrite Negative (Negative) Urine Bilirubin Negative (Negative) Urine Urobilinogen Normal mg/dL (Negative) Urine Leukocyte Esterase 3+ /uL (Negative) Urine RBC 561 /hpf (0 - 3) Urine WBC 2731 /hpf (0 - 3) Urine WBC Clumps Present /hpf (None Seen) Urine Squamous Epithelial Cells Few /hpf (<5) Urine Bacteria Mod /hpf (None Seen) H Urine Glucose 3+ mg/dL (Normal) H Urine Creatinine 21.25 mg/dL (30.0-125.0) L Urine Sodium 135 mmol/L (40-220) Urine Total Protein 71.4 mg/dL (1-14) H Microbiology Microbiology Date/Time Source Procedure Growth Status 06/28/24 04:00 Urine - [place] Urine Culture - Final Complete 06/23/24 16:43 Nose MRSA Screen - Final Complete 06/23/24 13:32 Sputum Endotracheal Wash Gram Stain - Final Complete 06/23/24 13:32 Sputum Endotracheal Wash Respiratory Culture - Final Complete 06/21/24 18:05 Blood Blood Culture - Final NO GROWTH AFTER 5 DAYS OF INCUBATION. Complete Assessment/Plan Assessment/Plan 1 acute resp failure: Xray reviewed. ABG reviewed. CPAP trial #2 septic shock with uti ?esbl: iv meropenem, DC vancomycin. #3 acute renal failure/atn: dc ivf. Nephrology consult. Improving #4 obesity #5 bph #6 h/o renal stones #7 transaminitis #8 acute diastolic heart failure: lasix iv #9 hyperkalemia: improved long discussion with son Dionicio- updated regards plan of care CPAP when awake Critical care time > 42 min excluding procedures. Plan discussed with: Other (nurse) Date of Service: Jun 30, 2024 Billing Provider: SARAH OSMAN MD Common Visit Codes: [id number] INP/OBS CARE(HIGH), [id number] CARE 30-74 MIN SARAH OSMAN MD Jun 30, 2024 21:02
[2024-07-01] VITALS (11 sets, daily range): BP systolic 132–154; BP diastolic 65–88; PULSE 88–117; RESP 16–20; TEMP 98.1–98.6; O2SAT 95–98
[2024-07-01 07:34] LABS: Albumin 3.9 g/dL (3.2-4.8); Anion Gap 11 (5-15); BUN/Creatinine Ratio 19.2 (10.0-20.0); Calcium 9.5 mg/dL (8.7-10.4); Chloride 104 mmol/L (98-107)
[2024-07-01 07:35] LABS: Bilirubin, Total 0.4 mg/dL (0.2-1.0); Total Protein 7.6 g/dL (5.7-8.2)
[2024-07-01 07:49] LABS: Alanine Aminotransferase 75 U/L (7-40); Alkaline Phosphatase 132 U/L (46-116); Aspartate Aminotransferase 230 U/L (13-40); Carbon Dioxide 35 mmol/L (20-31); Glucose 148 mg/dL (74-106); Potassium 3.4 mmol/L (3.5-5.1); Sodium 150 mmol/L (136-145)
[2024-07-01 07:52] LABS: Blood Urea Nitrogen 106 mg/dL (9-23)
--- NOTE | 2024-07-01 10:14 | DVHPN2 ---
Progress Note Date Seen: Jul 01, 2024 Has the PT tested + for MRSA If YES, has PT been informed?: No Medical Necessity Reason Pt with a Central, PICC or Fol: Yes The following are medically ne: PICC Line, Crain Catheter Reason for crain catheter: Strict I&O Subjective Patient reports: No new complaints Review of Systems: HEENT:Normal, CVS:Normal, RESPIRATORY:Normal, GI:Normal, :Normal, MSK:Normal, NEURO:Normal Objective vital signs Vital Sign Date Time Temp Pulse Resp B/P (MAP) Pulse Ox O2 Delivery O2 Flow Rate FiO2 07/01/24 09:20 98.6 100 20 154/79 (104) 98 98.6 07/01/24 08:20 Nasal Cannula 2.0 07/01/24 08:20 28 medications Current Medications Medications Dose Ordered Sig/Jere Route Start Time Stop Time Status Last Admin Dose Admin Enoxaparin Sodium 30 mg DAILY SC 06/22/24 10:00 06/30/24 09:37 30 MG Albuterol 2.5 mg Q4HPRN PRN NEB 06/23/24 07:15 06/29/24 14:23 2.5 MG Ipratropium [place] 0.5 mg Q4HPRN PRN NEB 06/23/24 07:15 06/29/24 14:23 0.5 MG Labetalol HCl 10 mg Q4HPRN PRN IV 06/24/24 11:45 06/29/24 13:29 10 MG Meropenem 50 ml @ 17 mls/hr Q12HR IV 06/24/24 22:00 UNV 06/30/24 21:40 17 MLS/HR Enteral Nutritional Formula 1,000 ml 30ML/HR GT 06/24/24 16:00 06/28/24 04:07 1,000 ML Pantoprazole Sodium 40 mg DAILY IV 06/26/24 10:00 06/30/24 09:36 40 MG Furosemide 80 mg DAILY IV 06/25/24 12:30 06/30/24 09:36 80 MG Diagnostic Test (Pha) 1 strip Q6HR 06/26/24 18:00 07/01/24 06:19 1 STRIP Insulin Human Regular Q6HR SC 06/26/24 18:00 07/01/24 06:28 2 UNITS Dextrose 50 ml UD PRN IV 06/26/24 15:15 Sodium Chloride 10 ml QSHIFT@10,22 IV 06/28/24 10:00 06/30/24 21:43 10 ML Purified Water 300 ml Q6HR GT 06/30/24 17:15 07/01/24 06:29 300 ML Examination: GENERAL:Normal, HEENT:Normal, NECK:Normal, LUNGS:Normal, LUNGS:Abnormal (ON OXYGEN), CVS:Normal, ABDOMEN:Normal, ABDOMEN:Abnormal (ng tube), MSK:Normal, SKIN:Normal, NEURO:Normal, :Normal laboratory and microbiology Laboratory Tests 07/01/24 06:13 06/29/24 03:31 Test 07/01/24 06:13 Range/Units Serum Glucose 148 H 74-106 mg/dL Microbiology Date/Time Source Procedure Growth Status 06/28/24 04:00 Urine - [place] Port Urine Culture - Final Complete 06/23/24 16:43 Nose MRSA Screen - Final Complete 06/23/24 13:32 Sputum Endotracheal Wash Gram Stain - Final Complete 06/23/24 13:32 Sputum Endotracheal Wash Respiratory Culture - Final Complete 06/21/24 18:05 Blood Blood Culture - Final NO GROWTH AFTER 5 DAYS OF INCUBATION. Complete Problem List/Assessment/Plan Problem List/Assessment/Plan #1 acute resp failure: cont acv, extubated #2 septic shock with uti ?esbl: iv meropenem #3 acute renal failure/atn: free water #4 obesity #5 bph #6 h/o renal stones #7 transaminitis #8 acute diastolic heart failure:dc lasix #9 hyperkalemia: improved #10 hypernatremia: free water #11 tube feedings long discussion with jose luis Dionicio- updated regards plan of care advance care planning- full code- time spent 19 mins Plan discussed with: Patient Dietary Evaluation Review Comments: Cautious and follow up with Pt 's kidney function, monitor nutrition support to meet at [place] 75% of his needs Expected Outcomes/Goals: Advance to PO diet when medically feasible: CCHO-60 g alone with renal [id number]-11-65 if pt's uremic syndrome continues. Date of Service: Jul 01, 2024 Billing Provider: ALONA BEAN MD Common Visit Codes: [id number] INP/OBS CARE(HIGH) Secondary Visit Codes: [id number] CARE PLAN 30 MINUTES ALONA BEAN MD Jul 01, 2024 10:14
[2024-07-01] MEDS: ATENOLOL 25 MG TAB PO ONE (10:15)
--- NOTE | 2024-07-01 21:20 | DVHPN2 ---
Progress Note Date Seen: Jul 01, 2024 Has the PT tested + for MRSA If YES, has PT been informed?: No Medical Necessity Reason Pt with a Central, PICC or Fol: Yes The following are medically ne: PICC Line, Crain Catheter Reason for crain catheter: Strict I&O Subjective Patient reports: No new complaints Review of Systems: Deferred Objective vital signs Vital Sign Date Time Temp Pulse Resp B/P (MAP) Pulse Ox O2 Delivery O2 Flow Rate FiO2 07/01/24 17:04 98.4 101 20 133/65 (87) 96 98.4 07/01/24 10:00 Nasal Cannula* 2 28 medications Current Medications Medications Dose Ordered Sig/Jere Route Start Time Stop Time Status Last Admin Dose Admin Enoxaparin Sodium 30 mg DAILY SC 06/22/24 10:00 07/01/24 10:27 30 MG Labetalol HCl 10 mg Q4HPRN PRN IV 06/24/24 11:45 06/29/24 13:29 10 MG Meropenem 50 ml @ 17 mls/hr Q12HR IV 06/24/24 22:00 UNV 07/01/24 10:27 17 MLS/HR Enteral Nutritional Formula 1,000 ml 30ML/HR GT 06/24/24 16:00 06/28/24 04:07 1,000 ML Pantoprazole Sodium 40 mg DAILY IV 06/26/24 10:00 07/01/24 10:26 40 MG Diagnostic Test (Pha) 1 strip Q6HR 06/26/24 18:00 07/01/24 16:38 1 STRIP Insulin Human Regular Q6HR SC 06/26/24 18:00 07/01/24 18:23 3 UNITS Dextrose 50 ml UD PRN IV 06/26/24 15:15 Sodium Chloride 10 ml QSHIFT@10,22 IV 06/28/24 10:00 07/01/24 10:27 10 ML Purified Water 300 ml Q6HR GT 06/30/24 17:15 07/01/24 16:41 300 ML Atenolol 25 mg BID GT 07/01/24 22:00 Dextrose 1,000 ml @ 100 mls/hr Q10H IV 07/01/24 21:15 UNV Examination: GENERAL:Abnormal, MSK:Normal, NEURO:Normal laboratory and microbiology Laboratory Tests 07/01/24 06:13 06/29/24 03:31 Test 07/01/24 06:13 Range/Units Serum Glucose 148 H 74-106 mg/dL Microbiology Date/Time Source Procedure Growth Status 06/28/24 04:00 Urine - [place] Port Urine Culture - Final Complete 06/23/24 16:43 Nose MRSA Screen - Final Complete 06/23/24 13:32 Sputum Endotracheal Wash Gram Stain - Final Complete 06/23/24 13:32 Sputum Endotracheal Wash Respiratory Culture - Final Complete 06/21/24 18:05 Blood Blood Culture - Final NO GROWTH AFTER 5 DAYS OF INCUBATION. Complete Problem List/Assessment/Plan Problem List/Assessment/Plan Acute kidney injury likely acute tubular necrosis sec to hypotension + obstructive etiology Encephalopathy--improving Ventilator-dependent hypoxic respiratory failure--extubated Distended bladder distended hydroureter on CT scan s/p new crain placed by Urology Enlarged prostate Hypernatremia Hypokalemia Recommendations D5W IV Remains nonoliguric urine output Greater than 2 L Lasix on hold Plan discussed with: Patient, Other My Orders My Orders Orders - ZACKERY DAS MD Procedure Category Date Status Time D5w 5% (Dextrose 5%) PHA 07/01/24 Logged 21:15 Dietary Evaluation Review Comments: Cautious and follow up with Pt 's kidney function, monitor nutrition support to meet at [place] 75% of his needs Expected Outcomes/Goals: Advance to PO diet when medically feasible: CCHO-60 g alone with renal [id number] if pt's uremic syndrome continues. ZACKERY DAS MD Jul 01, 2024 21:20
[2024-07-01] MEDS: ATENOLOL 25 MG TAB GT SCH (22:06)
[2024-07-01] MEDS: D5W 5% 1,000 ML IV SCH (23:36)
[2024-07-02] VITALS (9 sets, daily range): BP systolic 145–165; BP diastolic 74–87; PULSE 72–98; RESP 16–23; TEMP 98.1–98.8; O2SAT 95–98
--- NOTE | 2024-07-02 06:36 | DVH ---
CHEST RADIOGRAPH Indication: RESP FAILURE Technique: Single frontal view of the chest was obtained Comparison: XY CHEST PORTABLE on DOS: 06/29/24, XY CHEST PORTABLE on DOS: 06/28/24, XY CHEST PORTABLE o n DOS: 06/27/24, XY CHEST PORTABLE on DOS: 06/26/24, XY CHEST PORTABLE on DOS: 06/25/24, XY CHEST PORTAB LE on DOS: 06/29/24 FINDINGS: There are low lung volumes with small bilateral pleural effusions, left greater than right. The heart is prominent size. Support lines and tubes appear unchanged in satisfactory position. No discrete p neumothorax. No significant interval change. IMPRESSION: No significant interval change.
[2024-07-02 07:21] LABS: Basophils # (auto) 0 10 ^3/uL (0-0.2); Basophils % (auto) 0.3 % (0.0-2.0); Eosinophils # (auto) 0.1 10 ^3/uL (0-0.8); Eosinophils % (auto) 0.5 % (0.0-7.0); Hematocrit 35.8 % (41.0-53.0); Lymphocytes # (auto) 1.1 10 ^3/uL (0.4-5.4); Lymphocytes % (auto) 7.7 % (10.0-50.0); Mean Corpuscular Hemoglobin 29.2 pg (28.0-32.0); Mean Corpuscular Hgb Conc. 33.4 g/dL (32.0-36.0); Mean Corpuscular Volume 87.3 fL (80.0-100.0); Monocytes # (auto) 0.8 10 ^3/uL (0-1.3); Monocytes % (auto) 5.5 % (0.0-12.0); Neutrophils # (auto) 12.8 10 ^3/uL (1.6-8.6); Nucleated Red Blood Cells % 0.1 %; Platelet Count (auto) 358 10^3/uL (140-450); Red Cell Distribution Width 17.1 % (11.8-14.3); White Blood Cell 14.8 10^3/uL (4.4-10.8)
[2024-07-02 07:39] LABS: Albumin 3.6 g/dL (3.2-4.8); Anion Gap 13 (5-15); BUN/Creatinine Ratio 23.5 (10.0-20.0); Calcium 9.5 mg/dL (8.7-10.4); Chloride 105 mmol/L (98-107); Potassium 3.5 mmol/L (3.5-5.1)
[2024-07-02 07:40] LABS: Bilirubin, Total 0.5 mg/dL (0.2-1.0)
[2024-07-02 07:47] LABS: Alanine Aminotransferase 79 U/L (7-40); Alkaline Phosphatase 133 U/L (46-116); Aspartate Aminotransferase 231 U/L (13-40); Carbon Dioxide 34 mmol/L (20-31); Glucose 201 mg/dL (74-106); Sodium 152 mmol/L (136-145)
[2024-07-02 07:48] LABS: Blood Urea Nitrogen 121 mg/dL (9-23)
--- NOTE | 2024-07-02 10:12 | DVHDS2 ---
Discharge Summary Date of Admission Jun 21, 2024 at 18:27 Date of Discharge: Jul 02, 2024 Labs/Diagnostic Data: Laboratory Results Test 07/02/24 06:26 07/02/24 05:12 06/30/24 10:00 06/29/24 11:37 White Blood Count 14.8 10^3/uL (4.4-10.8) Red Blood Count 4.10 10^6/uL (4.5-5.90) Hemoglobin 12.0 g/dL (13.5-17.5) Hematocrit 35.8 % (41.0-53.0) Mean Corpuscular Volume 87.3 fL (80.0-100.0) Mean Corpuscular Hemoglobin 29.2 pg (28.0-32.0) Mean Corpuscular Hemoglobin Concent 33.4 g/dL (32.0-36.0) Red Cell Distribution Width 17.1 % (11.8-14.3) Platelet Count 358 10^3/uL (140-450) Mean Platelet Volume 7.4 fL (6.9-10.8) Neutrophils (%) (Auto) 86.0 % (37.0-80.0) Lymphocytes (%) (Auto) 7.7 % (10.0-50.0) Monocytes (%) (Auto) 5.5 % (0.0-12.0) Eosinophils (%) (Auto) 0.5 % (0.0-7.0) Basophils (%) (Auto) 0.3 % (0.0-2.0) Neutrophils # (Auto) 12.8 10 ^3/uL (1.6-8.6) Lymphocytes # (Auto) 1.1 10 ^3/uL (0.4-5.4) Monocytes # (Auto) 0.8 10 ^3/uL (0-1.3) Eosinophils # (Auto) 0.1 10 ^3/uL (0-0.8) Basophils # (Auto) 0 10 ^3/uL (0-0.2) Nucleated Red Blood Cells 0.1 % Sodium Level 152 mmol/L (136-145) Potassium Level 3.5 mmol/L (3.5-5.1) Chloride Level 105 mmol/L (98-107) Carbon Dioxide Level 34 mmol/L (20-31) Anion Gap 13 (5-15) Blood Urea Nitrogen 121 mg/dL (9-23) Creatinine 5.14 mg/dL (0.700-1.30) Glomerular Filtration Rate Calc 11 mL/min (>90) BUN/Creatinine Ratio 23.5 (10.0-20.0) Serum Glucose 201 mg/dL (74-106) Calcium Level 9.5 mg/dL (8.7-10.4) Total Bilirubin 0.5 mg/dL (0.2-1.0) Aspartate Amino Transferase (AST) 231 U/L (13-40) Alanine Aminotransferase (ALT) 79 U/L (7-40) Alkaline Phosphatase 133 U/L (46-116) Total Protein 7.0 g/dL (5.7-8.2) Albumin 3.6 g/dL (3.2-4.8) POC Glucose 206 mg/dl (70-106) Hepatitis B Surface Antigen Negative (Negative) Blood Gas Specimen Type Arterial Blood Gas Sample Site Right radial Blood Gas Patient Temperature 37.0 Arterial Blood Date Drawn [id number] Arterial Blood pH 7.401 (7.350-7.450) Arterial Blood Partial Pressure CO2 51.0 mmHg (35.0-48.0) Arterial Blood Partial Pressure O2 73.0 mmHg (83.0-108.0) Arterial Blood HCO3 31.0 mmol/L (21.0-28.0) Arterial Blood Oxygen Saturation 94.1 % (94.0-98.0) Arterial Blood Base Excess 5.0 mmol/L (-2.0-3.0) Arterial Blood Oxyhemoglobin 93.1 % (94.0-98.0) Arterial Blood Carboxyhemoglobin 0.9 % (0.5-1.5) Arterial Blood Methemoglobin 0.2 % (0.0-1.5) Osvaldo Test Modified Blood Gas Total Hemoglobin 13.30 g/dL (13.5-17.5) Blood Gas Modality Vent - cpap Blood Gas Spontaneous Rate 14 FiO2 % 30.0 Blood Gas Inspiratory Pressure 15.0 Blood Gas PEEP or CPAP 5.0 Bl Gas Inspiratory/Expiratory Ratio 1:1.6 Specimen Drawn By edison rt Test 06/29/24 03:31 06/28/24 07:00 06/28/24 03:18 06/27/24 17:20 Differential Total Cells Counted 100.0 (100) Neutrophils % (Manual) 74 (37.0-80.0) Band Neutrophils % (Manual) 0 Lymphocytes % (Manual) 12 (10.0-50.0) Monocytes % (Manual) 7 (0-12) Eosinophils % (Manual) 7 (0-7) Basophils % (Manual) 0 (0.0-2.0) Metamyelocytes % (manual) 0 Myelocytes % (Manual) 0 Promyelocytes % (Manual) 0 Blast Cells % (Manual) 0 Reactive Lymphocytes 0 Platelet Estimate [place] Large Platelets Few Stomatocytes Few Blood Gas Set Respiration Rate 16.0 Blood Gas Tidal Volume 500.0 Random Vancomycin Level 19.4 ug/mL (5-10) Prothrombin Time 10.9 sec (9.3-11.8) Prothrombin Time INR 1.03 (0.9-1.15) Activated Partial Thromboplast Time 23.4 SEC (24.5-34.5) Test 06/27/24 03:20 06/23/24 18:27 06/23/24 13:45 06/23/24 11:16 Anisocytosis (manual) Slight Magnesium Level 2.3 mg/dL (1.6-2.6) Urine Creatinine 21.25 mg/dL (30.0-125.0) Urine Sodium 135 mmol/L (40-220) Urine Total Protein 71.4 mg/dL (1-14) Blood Gas Critical Value Read Back Yes Blood Gas Notified Whom Dr. tavarez Blood Gas Notified Time [id number] Blood Gas Notified By Blood Gas EPAP 5 Blood Gas IPAP 14 Test 06/23/24 08:53 06/23/24 07:15 06/23/24 07:04 06/23/24 04:43 Lactic Acid Level 1.4 mmol/L (0.4-2.0) Ammonia < 10 umol/L (11-32) Blood Gas Liter Flow 4.00 Ovalocytes Few [place] Cells Few Test 06/22/24 17:12 06/22/24 04:17 06/21/24 17:51 06/21/24 14:53 Urine Color Dark-brown (Yellow) Urine Clarity Ex.turbid (Clear) Urine pH 6.0 (5.0-9.0) Urine Specific [place] 1.011 (1.001-1.035) Urine Protein 2+ (Negative) Urine Ketones Negative (Negative) Urine Blood 3+ /uL (Negative) Urine Nitrite Negative (Negative) Urine Bilirubin Negative (Negative) Urine Urobilinogen Normal mg/dL (Negative) Urine Leukocyte Esterase 3+ /uL (Negative) Urine RBC 561 /hpf (0 - 3) Urine WBC 2731 /hpf (0 - 3) Urine WBC Clumps Present /hpf (None Seen) Urine Squamous Epithelial Cells Few /hpf (<5) Urine Bacteria Mod /hpf (None Seen) Urine Glucose 3+ mg/dL (Normal) Free Prostate Specific Antigen >50.00 ng/mL (N/A) Percent Free Prostate Specific Ag >20.5 % (.) Prostate Specific Antigen Total 244.0 ng/mL (0.0-4.0) Troponin I High Sensitivity 293 ng/L (</=54) Clumped Platelets Few B-Type Natriuretic Peptide 798.88 pg/mL (0-100) Other Laboratory Tests 07/02/24 06:26 Brief Hx & Hospital Course: see dictated note Condition at Discharge: Fair Final Diagnosis/Problems List sepsis Discharge Disposition: Acute Care Facility Discharge Instruct/Medications Diet: See Comment Diet comment: tube feedings Activity: No Restrictions, As Tolerated Follow Up/Referral: fu with pcp Medications: per sep Discharge Statement: "Patient was advised to return to the ER or call 911 if any headaches, dizziness, shortness of breath, chest pain, abdominal pain, bleeding, fevers, or worsening of medical condition. Patient was counseled about treatment plan, medications, possible side effects, patientverbalized understanding. All questions were answered to the best of my ability. This discharge took greater then 30 minutes in planning, reviewing documentation, counseling the patient, and discussing with other team members." ASSESSMENT ASSESSMENT Assessment sepsis Date of Service: Jul 02, 2024 Billing Provider: ALONA BEAN MD Common Visit Codes: [id number] DISCH DAY >30min ALONA BEAN MD Jul 02, 2024 10:12
--- NOTE | 2024-07-02 11:26 | DVHDS ---
DATE OF DISCHARGE: 07/02/2024 DATE OF TRANSFER: 07/02/2024 HISTORY OF PRESENT ILLNESS: The patient is a 78-year-old gentleman who was admitted after he was found down on the ground with altered level of consciousness. The patient has history of TURP, BPH, renal stones, and hypertension. HOSPITAL COURSE: The patient was intubated and mechanically ventilated. The patient was noted to be in septic shock. The patient had evidence of urinary tract infection. He was placed on broad-spectrum antibiotics. The patient was noted to be in kidney failure and was seen in Nephrology consult by Dr. Arias. The patient was also hyponatremic. He had a CT of the head that showed no acute intracranial abnormalities. The patient had a pelvic CT that showed evidence of foci of air within the urinary bladder, suggestive of emphysematous cystitis. The patient has since been successfully extubated. The patient remains hyponatremic and on tube feedings along with kidney failure. He will be transferred to the NH as per his insurance. FINAL DIAGNOSES: Therefore: * Acute respiratory failure, status post mechanical ventilation. * Urinary tract infection with septic shock, questionable ESBL. * Acute renal failure/acute tubular necrosis. * Obesity. * Benign prostatic hypertrophy. * History of renal stones. * Transaminitis. * Acute diastolic heart failure. * Hyponatremia. * Hyperkalemia that improved. Time spent in discharge planning and review of plan with the patient and nursing and paperwork and social media content manager was 41 minutes. Also, state that the patient had an echocardiogram that showed ejection fraction of 70%. He was seen in Urology consult by Dr. Zavala for urinary retention and placement of Bowman catheter. MD LYNN Zuniga/BART/KYLER TID: [id number] RECEIPT: [id number]
--- NOTE | 2024-07-02 17:16 | DVHPN2 ---
Progress Note Date Seen: Jul 02, 2024 Has the PT tested + for MRSA If YES, has PT been informed?: No Medical Necessity Reason Pt with a Central, PICC or Fol: Yes The following are medically ne: Crain Catheter Reason for crain catheter: Strict I&O Subjective Patient reports: Other (very weak ) Review of Systems: Deferred Objective vital signs Vital Sign Date Time Temp Pulse Resp B/P (MAP) Pulse Ox O2 Delivery O2 Flow Rate FiO2 07/02/24 12:51 98.4 81 18 145/74 (97) 95 98.4 07/02/24 09:30 Nasal Cannula* 2 28 medications Current Medications Medications Dose Ordered Sig/Jeer Route Start Time Stop Time Status Last Admin Dose Admin Enoxaparin Sodium 30 mg DAILY SC 06/22/24 10:00 07/02/24 09:35 30 MG Labetalol HCl 10 mg Q4HPRN PRN IV 06/24/24 11:45 07/02/24 01:16 10 MG Meropenem 50 ml @ 17 mls/hr Q12HR IV 06/24/24 22:00 UNV 07/02/24 09:35 17 MLS/HR Enteral Nutritional Formula 1,000 ml 30ML/HR GT 06/24/24 16:00 06/28/24 04:07 1,000 ML Pantoprazole Sodium 40 mg DAILY IV 06/26/24 10:00 07/02/24 09:35 40 MG Diagnostic Test (Pha) 1 strip Q6HR 06/26/24 18:00 07/02/24 12:28 1 STRIP Insulin Human Regular Q6HR SC 06/26/24 18:00 07/02/24 12:30 3 UNITS Dextrose 50 ml UD PRN IV 06/26/24 15:15 Sodium Chloride 10 ml QSHIFT@10,22 IV 06/28/24 10:00 07/02/24 09:35 10 ML Purified Water 300 ml Q6HR GT 06/30/24 17:15 07/02/24 12:28 300 ML Atenolol 25 mg BID GT 07/01/24 22:00 07/02/24 09:35 25 MG Dextrose 1,000 ml @ 125 mls/hr Q8H IV 07/02/24 14:00 Examination: GENERAL:Abnormal, HEENT:Abnormal, MSK:Abnormal, NEURO:Normal laboratory and microbiology Laboratory Tests 07/02/24 06:26 Test 07/02/24 06:26 Range/Units Serum Glucose 201 H 74-106 mg/dL Microbiology Date/Time Source Procedure Growth Status 06/28/24 04:00 Urine - Crain Port Urine Culture - Final Complete 06/23/24 16:43 Nose MRSA Screen - Final Complete 06/23/24 13:32 Sputum Endotracheal Wash Gram Stain - Final Complete 06/23/24 13:32 Sputum Endotracheal Wash Respiratory Culture - Final Complete 06/21/24 18:05 Blood Blood Culture - Final NO GROWTH AFTER 5 DAYS OF INCUBATION. Complete Problem List/Assessment/Plan Problem List/Assessment/Plan Acute kidney injury likely acute tubular necrosis sec to hypotension + obstructive etiology Encephalopathy--improving Ventilator-dependent hypoxic respiratory failure--extubated Distended bladder distended hydroureter on CT scan s/p new crain placed by Urology Enlarged prostate Hypernatremia Hypokalemia Recommendations D5W IV--increase rate,on freewater Remains nonoliguric Lasix hold Plan discussed with: Patient My Orders My Orders Orders - ZACKERY DAS MD Procedure Category Date Status Time D5w 5% (Dextrose 5%) PHA 07/02/24 In Process 14:00 Dietary Evaluation Review Comments: Cautious and follow up with Pt 's kidney function, monitor nutrition support to meet at [place] 75% of his needs Expected Outcomes/Goals: Advance to PO diet when medically feasible: CCHO-60 g alone with renal [id number] if pt's uremic syndrome continues. ZACKERY DAS MD Jul 02, 2024 17:16
[2024-07-02] MEDS: D5W 5% 1,000 ML IV SCH (17:30)
[2024-07-03] VITALS (9 sets, daily range): BP systolic 128–152; BP diastolic 72–85; PULSE 70–75; RESP 16–23; TEMP 97.3–98.2; O2SAT 95–100
[2024-07-03 07:00] LABS: Basophils # (auto) 0.1 10 ^3/uL (0-0.2); Basophils % (auto) 0.6 % (0.0-2.0); Eosinophils # (auto) 0.4 10 ^3/uL (0-0.8); Eosinophils % (auto) 3.3 % (0.0-7.0); Hematocrit 34.9 % (41.0-53.0); Hemoglobin 11.3 g/dL (13.5-17.5); Lymphocytes # (auto) 1.2 10 ^3/uL (0.4-5.4); Lymphocytes % (auto) 9.5 % (10.0-50.0); Mean Corpuscular Hemoglobin 28.1 pg (28.0-32.0); Mean Corpuscular Hgb Conc. 32.3 g/dL (32.0-36.0); Mean Corpuscular Volume 87.2 fL (80.0-100.0); Monocytes # (auto) 0.6 10 ^3/uL (0-1.3); Monocytes % (auto) 4.4 % (0.0-12.0); Neutrophils # (auto) 10.3 10 ^3/uL (1.6-8.6); Neutrophils % (auto) 82.2 % (37.0-80.0); Nucleated Red Blood Cells % 0.1 %; Platelet Count (auto) 319 10^3/uL (140-450); Red Cell Distribution Width 16.5 % (11.8-14.3); White Blood Cell 12.6 10^3/uL (4.4-10.8)
[2024-07-03 07:33] LABS: Albumin 3.7 g/dL (3.2-4.8); Alkaline Phosphatase 113 U/L (46-116); Anion Gap 8 (5-15); BUN/Creatinine Ratio 25.2 (10.0-20.0); Bilirubin, Total 0.5 mg/dL (0.2-1.0); Calcium 9.7 mg/dL (8.7-10.4); Chloride 100 mmol/L (98-107); Sodium 143 mmol/L (136-145); Total Protein 7.4 g/dL (5.7-8.2)
[2024-07-03 07:38] LABS: Alanine Aminotransferase 93 U/L (7-40); Aspartate Aminotransferase 227 U/L (13-40); Carbon Dioxide 35 mmol/L (20-31); Glucose 165 mg/dL (74-106); Potassium 3.1 mmol/L (3.5-5.1)
[2024-07-03 07:41] LABS: Blood Urea Nitrogen 102 mg/dL (9-23)
--- NOTE | 2024-07-03 09:48 | DVHPN2 ---
Progress Note Date Seen: Jul 03, 2024 Has the PT tested + for MRSA If YES, has PT been informed?: No Medical Necessity Reason Pt with a Central, PICC or Fol: Yes The following are medically ne: Crain Catheter Reason for crain catheter: Strict I&O Subjective Patient reports: No new complaints Review of Systems: HEENT:Normal, CVS:Normal, RESPIRATORY:Normal, GI:Normal, :Normal, MSK:Normal, NEURO:Normal Objective vital signs Vital Sign Date Time Temp Pulse Resp B/P (MAP) Pulse Ox O2 Delivery O2 Flow Rate FiO2 07/03/24 09:00 97.6 71 20 138/72 (94) 100 97.6 07/02/24 20:00 Nasal Cannula* 2 28 Total Intake and Output 07/02/24 07/02/24 07/03/24 15:00 23:00 07:00 Intake Total 50 ml 1250 ml 1000 ml Output Total 1700 ml Balance 50 ml 1250 ml -700 ml medications Current Medications Medications Dose Ordered Sig/Jere Route Start Time Stop Time Status Last Admin Dose Admin Enoxaparin Sodium 30 mg DAILY SC 06/22/24 10:00 07/02/24 09:35 30 MG Labetalol HCl 10 mg Q4HPRN PRN IV 06/24/24 11:45 07/03/24 05:59 10 MG Meropenem 50 ml @ 17 mls/hr Q12HR IV 06/24/24 22:00 UNV 07/02/24 21:12 17 MLS/HR Enteral Nutritional Formula 1,000 ml 30ML/HR GT 06/24/24 16:00 06/28/24 04:07 1,000 ML Pantoprazole Sodium 40 mg DAILY IV 06/26/24 10:00 07/02/24 09:35 40 MG Diagnostic Test (Pha) 1 strip Q6HR 06/26/24 18:00 07/03/24 05:53 1 STRIP Insulin Human Regular Q6HR SC 06/26/24 18:00 07/03/24 05:54 3 UNITS Dextrose 50 ml UD PRN IV 06/26/24 15:15 Sodium Chloride 10 ml QSHIFT@10,22 IV 06/28/24 10:00 07/03/24 00:08 10 ML Purified Water 300 ml Q6HR GT 06/30/24 17:15 07/03/24 06:07 300 ML Atenolol 25 mg BID GT 07/01/24 22:00 07/02/24 21:09 25 MG Dextrose 1,000 ml @ 125 mls/hr Q8H IV 07/02/24 14:00 07/03/24 01:11 125 MLS/HR Potassium Chloride 100 ml @ 50 mls/hr Q2H IV 07/03/24 08:45 07/03/24 12:44 Examination: GENERAL:Normal, HEENT:Normal, NECK:Normal, LUNGS:Normal, LUNGS:Abnormal (ng tube), CVS:Normal, ABDOMEN:Normal, MSK:Normal, SKIN:Normal, NEURO:Normal, :Normal laboratory and microbiology Laboratory Tests 07/03/24 06:07 Test 07/03/24 06:07 Range/Units Serum Glucose 165 H 74-106 mg/dL Microbiology Date/Time Source Procedure Growth Status 06/28/24 04:00 Urine - Crain Port Urine Culture - Final Complete 06/23/24 16:43 Nose MRSA Screen - Final Complete 06/23/24 13:32 Sputum Endotracheal Wash Gram Stain - Final Complete 06/23/24 13:32 Sputum Endotracheal Wash Respiratory Culture - Final Complete 06/21/24 18:05 Blood Blood Culture - Final NO GROWTH AFTER 5 DAYS OF INCUBATION. Complete Problem List/Assessment/Plan Problem List/Assessment/Plan #1 acute resp failure: cont acv, extubated #2 septic shock with uti ?esbl: iv meropenem #3 acute renal failure/atn: free water #4 obesity #5 bph #6 h/o renal stones #7 transaminitis #8 acute diastolic heart failure:dc lasix #9 hyperkalemia: improved #10 hypernatremia: free water #11 tube feedings long discussion with jose luis Greenberg- updated regards plan of care advance care planning- full code- time spent 19 mins Plan discussed with: Patient, Son My Orders My Orders Orders - ALONA BEAN MD Procedure Category Date Status Time Discharge DISCHARGE 07/02/24 Transmitted 10:06 * Down Filler CONS 07/02/24 Transmitted Consult 10:15 Dietary Evaluation Review Comments: Cautious and follow up with Pt 's kidney function, monitor nutrition support to meet at [place] 75% of his needs Expected Outcomes/Goals: Advance to PO diet when medically feasible: CCHO-60 g alone with renal [id number] if pt's uremic syndrome continues. Date of Service: Jul 03, 2024 Billing Provider: ALONA BEAN MD Common Visit Codes: [id number] INP/OBS CARE(HIGH) ALONA BEAN MD Jul 03, 2024 09:48
[2024-07-03] MEDS: POTASSIUM CHL 20MEQ/100ML 100 ML IV SCH (10:00)
[2024-07-03] MEDS: D5W 5% 1,000 ML IV SCH (11:30)
[2024-07-03] MEDS: FREE WATER GT SCH (12:00)
--- NOTE | 2024-07-03 13:22 | DVH ---
CHEST RADIOGRAPH Indication: Assess NG Tube Technique: Single frontal view of the chest was obtained Comparison: XY CHEST PORTABLE on DOS: 07/02/24, XY CHEST PORTABLE on DOS: 06/29/24, XY CHEST PORTABLE on DOS: 06/28/24 FINDINGS: Lines and Tubes: Right upper extremity PICC terminating over the mid SVC. Enteric tube is noted with the side port above the GE junction. Lungs: No focal consolidation. Elevated right hemidiaphragm. Linear density of the right lower lung zone. Pleura: No effusion. No pneumothorax. Cardiomediastinal contours: Unremarkable Bones: No acute osseous abnormality. IMPRESSION: Enteric tube is noted with the side port above the GE junction. Recommend advancing about 10 cm for more optimal positioning. Right upper extremity PICC terminating over the mid SVC. Elevated right hemidiaphragm with right lower lung zone linear atelectasis.
--- NOTE | 2024-07-03 14:59 | DVH ---
CHEST RADIOGRAPH Indication: NG Tube insertion Technique: Single frontal view of the chest was obtained COMPARISON: XY CHEST PORTABLE on DOS: 07/03/24, XY CHEST PORTABLE on DOS: 07/02/24, XY CHEST PORTABLE on DOS: 06/29/24 FINDINGS: Lines and Tubes: Right PICC in satisfactory position. Enteric catheter side port at the GE junction. Patchy bilateral airspace disease. Lungs: Clear Pleura: No effusion. No pneumothorax. Cardiomediastinal contours: Unremarkable Bones: Unremarkable IMPRESSION: Recommend advancement of enteric catheter by 3 cm.
--- NOTE | 2024-07-03 15:55 | DVH ---
EXAMINATION: AP portable chest radiograph CLINICAL HISTORY: NG Tube evaluation COMPARISON: XY CHEST PORTABLE on DOS: 07/03/24, XY CHEST PORTABLE on DOS: 07/03/24, XY CHEST PORTABLE on DOS: 07/02/24 TECHNIQUE: SINGLE VIEW OF THE CHEST AP PORTABLE FINDINGS: PICC line from right arm in place in the superior vena cava above the right atrium. Enteric tube below the left diaphragm in the stomach. Bibasilar areas of linear atelectasis. IMPRESSION: 1. Enteric tube below the left diaphragm in the stomach 2. PICC line from right arm in place in the superior vena cava above the right atrium. 3. Findings suggest linear atelectasis both bases
--- NOTE | 2024-07-03 17:05 | DVHPN2 ---
Progress Note Date Seen: Jul 03, 2024 Has the PT tested + for MRSA If YES, has PT been informed?: No Medical Necessity Reason Pt with a Central, PICC or Fol: Yes The following are medically ne: Crain Catheter Reason for crain catheter: Strict I&O Subjective Patient reports: No new complaints Review of Systems: HEENT:Normal, CVS:Normal, RESPIRATORY:Normal, GI:Normal, :Normal, MSK:Normal, NEURO:Normal Objective vital signs Vital Sign Date Time Temp Pulse Resp B/P (MAP) Pulse Ox O2 Delivery O2 Flow Rate FiO2 07/03/24 13:00 97.3 74 19 143/74 (97) 97 97.3 07/03/24 10:00 Nasal Cannula* 2 28 Total Intake and Output 07/02/24 07/02/24 07/03/24 15:00 23:00 07:00 Intake Total 50 ml 1250 ml 1000 ml Output Total 1700 ml Balance 50 ml 1250 ml -700 ml medications Current Medications Medications Dose Ordered Sig/Jere Route Start Time Stop Time Status Last Admin Dose Admin Labetalol HCl 10 mg Q4HPRN PRN IV 06/24/24 11:45 07/03/24 05:59 10 MG Meropenem 50 ml @ 17 mls/hr Q12HR IV 06/24/24 22:00 UNV 07/03/24 10:06 17 MLS/HR Enteral Nutritional Formula 1,000 ml 30ML/HR GT 06/24/24 16:00 06/28/24 04:07 1,000 ML Pantoprazole Sodium 40 mg DAILY IV 06/26/24 10:00 07/03/24 10:06 40 MG Diagnostic Test (Pha) 1 strip Q6HR 06/26/24 18:00 07/03/24 12:15 1 STRIP Insulin Human Regular Q6HR SC 06/26/24 18:00 07/03/24 12:17 2 UNITS Dextrose 50 ml UD PRN IV 06/26/24 15:15 Sodium Chloride 10 ml QSHIFT@,22 IV 06/28/24 10:00 07/03/24 10:06 10 ML Atenolol 25 mg BID GT 07/01/24 22:00 07/03/24 10:06 25 MG Dextrose 1,000 ml @ 75 mls/hr [id number] IV 07/03/24 09:45 07/03/24 11:30 75 MLS/HR Purified Water 200 ml Q6HR GT 07/03/24 12:00 Examination: GENERAL:Abnormal, HEENT:Abnormal, MSK:Abnormal, NEURO:Normal laboratory and microbiology Laboratory Tests 07/03/24 06:07 Test 07/03/24 06:07 Range/Units Serum Glucose 165 H 74-106 mg/dL Microbiology Date/Time Source Procedure Growth Status 06/28/24 04:00 Urine - Crain Port Urine Culture - Final Complete 06/23/24 16:43 Nose MRSA Screen - Final Complete 06/23/24 13:32 Sputum Endotracheal Wash Gram Stain - Final Complete 06/23/24 13:32 Sputum Endotracheal Wash Respiratory Culture - Final Complete 06/21/24 18:05 Blood Blood Culture - Final NO GROWTH AFTER 5 DAYS OF INCUBATION. Complete Problem List/Assessment/Plan Problem List/Assessment/Plan Acute kidney injury likely acute tubular necrosis sec to hypotension + obstructive etiology Encephalopathy--improving Ventilator-dependent hypoxic respiratory failure--extubated Distended bladder distended hydroureter on CT scan s/p new crain placed by Urology Enlarged prostate Hypernatremia Hypokalemia Recommendations D5W IV--,on freewater Remains nonoliguric Lasix hold better renal function and uop Plan discussed with: Patient, Other My Orders My Orders Orders - ZACKERY DAS MD Procedure Category Date Status Time Strict I & O DAJA 07/02/24 In Process 20:01 Dietary Evaluation Review Comments: Cautious and follow up with Pt 's kidney function, monitor nutrition support to meet at [place] 75% of his needs Expected Outcomes/Goals: Advance to PO diet when medically feasible: CCHO-60 g alone with renal [id number] if pt's uremic syndrome continues. ZACKERY DAS MD Jul 03, 2024 17:05
[2024-07-04] VITALS (8 sets, daily range): BP systolic 139–160; BP diastolic 66–87; PULSE 74–80; RESP 16–20; TEMP 97.8–98.5; O2SAT 96–98
[2024-07-04 04:59] LABS: Basophils # (auto) 0 10 ^3/uL (0-0.2); Basophils % (auto) 0.3 % (0.0-2.0); Eosinophils # (auto) 0.5 10 ^3/uL (0-0.8); Eosinophils % (auto) 4.2 % (0.0-7.0); Hematocrit 34.8 % (41.0-53.0); Hemoglobin 11.2 g/dL (13.5-17.5); Lymphocytes # (auto) 1.5 10 ^3/uL (0.4-5.4); Lymphocytes % (auto) 12.6 % (10.0-50.0); Mean Corpuscular Hgb Conc. 32.2 g/dL (32.0-36.0); Mean Corpuscular Volume 87.1 fL (80.0-100.0); Monocytes # (auto) 0.6 10 ^3/uL (0-1.3); Monocytes % (auto) 5.3 % (0.0-12.0); Neutrophils # (auto) 9.3 10 ^3/uL (1.6-8.6); Neutrophils % (auto) 77.6 % (37.0-80.0); Platelet Count (auto) 338 10^3/uL (140-450); Red Cell Distribution Width 16.1 % (11.8-14.3)
[2024-07-04 05:12] LABS: Chloride 99 mmol/L (98-107); Sodium 141 mmol/L (136-145)
[2024-07-04 05:13] LABS: Anion Gap 8 (5-15); Calcium 9.7 mg/dL (8.7-10.4)
[2024-07-04 05:18] LABS: BUN/Creatinine Ratio 25.8 (10.0-20.0)
[2024-07-04 06:37] LABS: Potassium 3.1 mmol/L (3.5-5.1)
[2024-07-04 06:38] LABS: Carbon Dioxide 34 mmol/L (20-31); Glucose 158 mg/dL (74-106)
[2024-07-04 06:39] LABS: Blood Urea Nitrogen 89 mg/dL (9-23)
--- NOTE | 2024-07-04 09:46 | DVHPN2 ---
Progress Note Date Seen: Jul 04, 2024 Has the PT tested + for MRSA If YES, has PT been informed?: No Medical Necessity Reason Pt with a Central, PICC or Fol: Yes The following are medically ne: Crain Catheter Reason for crain catheter: Strict I&O Subjective Patient reports: No new complaints Review of Systems: HEENT:Normal, CVS:Normal, RESPIRATORY:Normal, GI:Normal, :Normal, MSK:Normal, NEURO:Normal Objective vital signs Vital Sign Date Time Temp Pulse Resp B/P (MAP) Pulse Ox O2 Delivery O2 Flow Rate FiO2 07/04/24 09:04 74 142/81 07/04/24 08:00 16 96 Nasal Cannula* 2 28 07/04/24 05:00 98.3 98.3 Total Intake and Output 07/03/24 07/03/24 07/04/24 14:59 22:59 06:59 Intake Total 1250 ml 1525 ml Output Total 850 ml Balance 1250 ml 675 ml medications Current Medications Medications Dose Ordered Sig/Jere Route Start Time Stop Time Status Last Admin Dose Admin Labetalol HCl 10 mg Q4HPRN PRN IV 06/24/24 11:45 07/03/24 05:59 10 MG Meropenem 50 ml @ 17 mls/hr Q12HR IV 06/24/24 22:00 UNV 07/04/24 09:03 17 MLS/HR Enteral Nutritional Formula 1,000 ml 30ML/HR GT 06/24/24 16:00 06/28/24 04:07 1,000 ML Pantoprazole Sodium 40 mg DAILY IV 06/26/24 10:00 07/04/24 09:03 40 MG Diagnostic Test (Pha) 1 strip Q6HR 06/26/24 18:00 07/04/24 05:15 1 STRIP Insulin Human Regular Q6HR SC 06/26/24 18:00 07/04/24 05:16 3 UNITS Dextrose 50 ml UD PRN IV 06/26/24 15:15 Sodium Chloride 10 ml QSHIFT@,22 IV 06/28/24 10:00 07/04/24 09:03 10 ML Atenolol 25 mg BID GT 07/01/24 22:00 07/04/24 09:04 25 MG Dextrose 1,000 ml @ 75 mls/hr [id number] IV 07/03/24 09:45 07/03/24 21:41 75 MLS/HR Purified Water 200 ml Q6HR GT 07/03/24 12:00 07/04/24 05:43 200 ML Examination: GENERAL:Normal, HEENT:Normal, NECK:Normal, LUNGS:Normal, CVS:Normal, ABDOMEN:Normal, ABDOMEN:Abnormal (NG TUBE), MSK:Normal, SKIN:Normal, NEURO:Normal, :Normal laboratory and microbiology Laboratory Tests 07/04/24 04:35 Test 07/04/24 04:35 Range/Units Serum Glucose 158 H 74-106 mg/dL Microbiology Date/Time Source Procedure Growth Status 06/28/24 04:00 Urine - Crain Port Urine Culture - Final Complete 06/23/24 16:43 Nose MRSA Screen - Final Complete 06/23/24 13:32 Sputum Endotracheal Wash Gram Stain - Final Complete 06/23/24 13:32 Sputum Endotracheal Wash Respiratory Culture - Final Complete 06/21/24 18:05 Blood Blood Culture - Final NO GROWTH AFTER 5 DAYS OF INCUBATION. Complete Problem List/Assessment/Plan Problem List/Assessment/Plan #1 acute resp failure: cont acv, extubated #2 septic shock with uti ?esbl: iv meropenem #3 acute renal failure/atn: free water #4 obesity #5 bph #6 h/o renal stones #7 transaminitis #8 acute diastolic heart failure:dc lasix #9 hyperkalemia: improved #10 hypernatremia: free water #11 tube feedings long discussion with jose luis Greenberg- updated regards plan of care advance care planning- full code- time spent 19 mins Plan discussed with: Patient, Son My Orders My Orders Orders - ALONA BEAN MD Procedure Category Date Status Time D5w 5% (Dextrose 5%) PHA 07/03/24 In Process 09:45 Free Water PHA 07/03/24 In Process 12:00 Chest Portable XY 07/03/24 Resulted 11:37 Chest Portable XY 07/03/24 Resulted 14:22 Chest Portable XY 07/03/24 Resulted 15:13 Potassium Effervesent PHA 07/04/24 Verified Tab (Klor-Con/Ef) 09:45 Basic Metabolic Panel LAB 07/05/24 Verified 06:00 Complete Blood Count LAB 07/05/24 Verified 06:00 Dietary Evaluation Review Comments: Cautious and follow up with Pt 's kidney function, monitor nutrition support to meet at [place] 75% of his needs Expected Outcomes/Goals: Advance to PO diet when medically feasible: CCHO-60 g alone with renal [id number] if pt's uremic syndrome continues. Date of Service: Jul 04, 2024 Billing Provider: ALONA BEAN MD Common Visit Codes: [id number] INP/OBS CARE(HIGH) ALONA BEAN MD Jul 04, 2024 09:46
[2024-07-04] MEDS: POTASSIUM EFFERVESENT TAB 25 MEQ GT ONE (12:39)
--- NOTE | 2024-07-04 16:20 | DVHPN2 ---
Progress Note Date Seen: Jul 04, 2024 Has the PT tested + for MRSA If YES, has PT been informed?: No Medical Necessity Reason Pt with a Central, PICC or Fol: Yes The following are medically ne: Crain Catheter Reason for crain catheter: Strict I&O Subjective Patient reports: No new complaints (Patient's son is bedside,, I have explained in detail about patient's current renal function) Review of Systems: Deferred Objective vital signs Vital Sign Date Time Temp Pulse Resp B/P (MAP) Pulse Ox O2 Delivery O2 Flow Rate FiO2 07/04/24 13:00 98.5 78 18 139/66 (90) 98 98.5 07/04/24 10:00 Nasal Cannula 2.0 07/04/24 10:00 28 Total Intake and Output 07/03/24 07/03/24 07/04/24 15:00 23:00 07:00 Intake Total 1250 ml 1525 ml Output Total 850 ml Balance 1250 ml 675 ml medications Current Medications Medications Dose Ordered Sig/Jere Route Start Time Stop Time Status Last Admin Dose Admin Labetalol HCl 10 mg Q4HPRN PRN IV 06/24/24 11:45 07/03/24 05:59 10 MG Meropenem 50 ml @ 17 mls/hr Q12HR IV 06/24/24 22:00 UNV 07/04/24 09:03 17 MLS/HR Enteral Nutritional Formula 1,000 ml 30ML/HR GT 06/24/24 16:00 06/28/24 04:07 1,000 ML Pantoprazole Sodium 40 mg DAILY IV 06/26/24 10:00 07/04/24 09:03 40 MG Diagnostic Test (Pha) 1 strip Q6HR 06/26/24 18:00 07/04/24 12:38 1 STRIP Insulin Human Regular Q6HR SC 06/26/24 18:00 07/04/24 12:39 2 UNITS Dextrose 50 ml UD PRN IV 06/26/24 15:15 Sodium Chloride 10 ml QSHIFT@10,22 IV 06/28/24 10:00 07/04/24 09:03 10 ML Atenolol 25 mg BID GT 07/01/24 22:00 07/04/24 09:04 25 MG Dextrose 1,000 ml @ 75 mls/hr [id number] IV 07/03/24 09:45 07/04/24 12:39 75 MLS/HR Purified Water 200 ml Q6HR GT 07/03/24 12:00 07/04/24 12:08 200 ML Examination: GENERAL:Abnormal, HEENT:Abnormal, NECK:Normal, LUNGS:Normal, CVS:Normal, ABDOMEN:Normal, MSK:Normal, SKIN:Normal, NEURO:Normal, :Normal laboratory and microbiology Laboratory Tests 07/04/24 04:35 Test 07/04/24 04:35 Range/Units Serum Glucose 158 H 74-106 mg/dL Microbiology Date/Time Source Procedure Growth Status 06/28/24 04:00 Urine - Crain Port Urine Culture - Final Complete 06/23/24 16:43 Nose MRSA Screen - Final Complete 06/23/24 13:32 Sputum Endotracheal Wash Gram Stain - Final Complete 06/23/24 13:32 Sputum Endotracheal Wash Respiratory Culture - Final Complete 06/21/24 18:05 Blood Blood Culture - Final NO GROWTH AFTER 5 DAYS OF INCUBATION. Complete Problem List/Assessment/Plan Problem List/Assessment/Plan Acute kidney injury likely acute tubular necrosis sec to hypotension + obstructive etiology Encephalopathy--improving Ventilator-dependent hypoxic respiratory failure--extubated Distended bladder distended hydroureter on CT scan s/p new crain placed by Urology Enlarged prostate Hypernatremia Hypokalemia Recommendations D5W IV--,on freewater Remains nonoliguric Lasix hold better renal function and uop Plan discussed with: Patient, Son Dietary Evaluation Review Comments: Cautious and follow up with Pt 's kidney function, monitor nutrition support to meet at [place] 75% of his needs Expected Outcomes/Goals: Advance to PO diet when medically feasible: CCHO-60 g alone with renal [id number] if pt's uremic syndrome continues. ZACKERY DAS MD Jul 04, 2024 16:20
[2024-07-04 17:42] LABS: COVID19 ANTIGEN SOFIA FIA NEGATIVE (NEGATIVE)
[2024-07-05] VITALS (9 sets, daily range): BP systolic 100–178; BP diastolic 60–106; PULSE 70–76; RESP 15–19; TEMP 97.4–98.2; O2SAT 93–100
[2024-07-05 06:17] LABS: Basophils # (auto) 0.1 10 ^3/uL (0-0.2); Basophils % (auto) 0.5 % (0.0-2.0); Eosinophils # (auto) 0.4 10 ^3/uL (0-0.8); Eosinophils % (auto) 4.1 % (0.0-7.0); Hematocrit 34.1 % (41.0-53.0); Hemoglobin 11.3 g/dL (13.5-17.5); Lymphocytes # (auto) 1.4 10 ^3/uL (0.4-5.4); Mean Corpuscular Hgb Conc. 33.3 g/dL (32.0-36.0); Mean Corpuscular Volume 87.2 fL (80.0-100.0); Monocytes # (auto) 0.4 10 ^3/uL (0-1.3); Monocytes % (auto) 4.2 % (0.0-12.0); Neutrophils # (auto) 8.3 10 ^3/uL (1.6-8.6); Neutrophils % (auto) 78.2 % (37.0-80.0); Nucleated Red Blood Cells % 0.1 %; Platelet Count (auto) 358 10^3/uL (140-450); Red Blood Cells 3.91 10^6/uL (4.5-5.90); Red Cell Distribution Width 16.2 % (11.8-14.3); White Blood Cell 10.6 10^3/uL (4.4-10.8)
[2024-07-05 06:28] LABS: Chloride 103 mmol/L (98-107)
[2024-07-05 06:29] LABS: Anion Gap 9 (5-15)
[2024-07-05 06:34] LABS: BUN/Creatinine Ratio 28.7 (10.0-20.0)
[2024-07-05 06:36] LABS: Blood Urea Nitrogen 77 mg/dL (9-23); Carbon Dioxide 34 mmol/L (20-31); Glucose 133 mg/dL (74-106); Potassium 3.4 mmol/L (3.5-5.1); Sodium 146 mmol/L (136-145)
[2024-07-05] MEDS: POTASSIUM EFFERVESENT TAB 25 MEQ GT ONE (09:45)
[2024-07-05] MEDS: amLODIPine BESYLATE 5 MG TAB PO SCH (09:47)
--- NOTE | 2024-07-05 11:04 | DVHPN2 ---
Progress Note - Dictate Date Seen: Jul 05, 2024 Has the PT tested + for MRSA If YES, has PT been informed?: No Medical Necessity Reason Pt with a Central, PICC or Fol: Yes The following are medically ne: Crain Catheter Reason for crain catheter: Strict I&O Subjective nad vital signs Vital Sign Date Time Temp Pulse Resp B/P (MAP) Pulse Ox O2 Delivery O2 Flow Rate FiO2 07/05/24 10:00 97 Nasal Cannula* 2 28 07/05/24 09:47 178/73 07/05/24 09:45 74 07/05/24 09:11 98.2 19 98.2 Total Intake and Output 07/04/24 07/04/24 07/05/24 15:00 23:00 07:00 Intake Total 50 ml 1780 ml 600 ml Output Total 1100 ml 1050 ml Balance 50 ml 680 ml -450 ml medications Current Medications Medications Dose Ordered Sig/Jere Route Start Time Stop Time Status Last Admin Dose Admin Labetalol HCl 10 mg Q4HPRN PRN IV 06/24/24 11:45 07/03/24 05:59 10 MG Meropenem 50 ml @ 17 mls/hr Q12HR IV 06/24/24 22:00 UNV 07/05/24 09:46 17 MLS/HR Enteral Nutritional Formula 1,000 ml 30ML/HR GT 06/24/24 16:00 06/28/24 04:07 1,000 ML Pantoprazole Sodium 40 mg DAILY IV 06/26/24 10:00 07/05/24 09:45 40 MG Diagnostic Test (Pha) 1 strip Q6HR 06/26/24 18:00 07/05/24 05:46 1 STRIP Insulin Human Regular Q6HR SC 06/26/24 18:00 07/05/24 05:46 2 UNITS Dextrose 50 ml UD PRN IV 06/26/24 15:15 Sodium Chloride 10 ml QSHIFT@, IV 06/28/24 10:00 07/05/24 09:46 10 ML Atenolol 25 mg BID GT 07/01/24 22:00 07/05/24 09:45 25 MG Dextrose 1,000 ml @ 75 mls/hr [id number] IV 07/03/24 09:45 07/05/24 03:17 75 MLS/HR Purified Water 200 ml Q6HR GT 07/03/24 12:00 07/05/24 05:38 200 ML Amlodipine Besylate 2.5 mg DAILY PO 07/05/24 10:00 07/05/24 09:47 2.5 MG objective Morbidly obese male nad CTAB Large abdomen Crain catheter laboratory and microbiology Laboratory Tests 07/05/24 04:53 Test 07/05/24 04:53 Range/Units Serum Glucose 133 H 74-106 mg/dL Assessment/Plan Acute kidney injury likely acute tubular necrosis sec to hypotension + obstructive etiology Encephalopathy Ventilator-dependent hypoxic respiratory failure resolved Distended bladder distended hydroureter on CT scan s/p new crain placed by Urology Enlarged prostate potassium imbalances renal function continues to improve potassium replacement today check phos level continue free water avoid hypotension replace electrolytes Dietary Evaluation Review Comments: Cautious and follow up with Pt 's kidney function, monitor nutrition support to meet at [place] 75% of his needs Expected Outcomes/Goals: Advance to PO diet when medically feasible: CCHO-60 g alone with renal [id number] if pt's uremic syndrome continues. Plan discussed with: Patient KAREN MARTINEZ MD Jul 05, 2024 11:04
--- NOTE | 2024-07-05 11:09 | DVHPN2 ---
Subjective The patient is seen and examined at bedside. Lethargic Reviewed: Care Plan, H&P, Labs, Medications, Previous Orders, Radiology Changes from previous H/P or p: No Changes Objective Vitals Vital Signs Date Time Temp Pulse Resp B/P (MAP) Pulse Ox O2 Delivery O2 Flow Rate FiO2 07/05/24 10:00 97 Nasal Cannula* 2 28 07/05/24 09:47 178/73 07/05/24 09:45 74 07/05/24 09:11 98.2 19 98.2 Intake/Output Intake and Output 07/05/24 07:00 Intake Total 2430 ml Output Total 2150 ml Balance 280 ml Intake Oral 400 ml IV Total 1150 ml Tube Feeding 880 ml Output Urine Total 2150 ml # Bowel Movements 1 General Appearance: Other (Lethargic) HEENT: Atraumatic Neck: Supple Cardiovascular: Regular rate, Normal S1, Normal S2, No murmurs, Gallops, Rubs Abdomen: Normal bowel sounds, Soft, No tenderness Neuro: Cranial nerves 3-12 NL Psych/Mental Status: Mental status NL Medications Current Medications Medications Dose Ordered Sig/Jere Route Start Time Stop Time Status Last Admin Dose Admin Labetalol HCl 10 mg Q4HPRN PRN IV 06/24/24 11:45 07/03/24 05:59 10 MG Meropenem 50 ml @ 17 mls/hr Q12HR IV 06/24/24 22:00 UNV 07/05/24 09:46 17 MLS/HR Enteral Nutritional Formula 1,000 ml 30ML/HR GT 06/24/24 16:00 06/28/24 04:07 1,000 ML Pantoprazole Sodium 40 mg DAILY IV 06/26/24 10:00 07/05/24 09:45 40 MG Diagnostic Test (Pha) 1 strip Q6HR 06/26/24 18:00 07/05/24 05:46 1 STRIP Insulin Human Regular Q6HR SC 06/26/24 18:00 07/05/24 05:46 2 UNITS Dextrose 50 ml UD PRN IV 06/26/24 15:15 Sodium Chloride 10 ml QSHIFT@10,22 IV 06/28/24 10:00 07/05/24 09:46 10 ML Atenolol 25 mg BID GT 07/01/24 22:00 07/05/24 09:45 25 MG Dextrose 1,000 ml @ 75 mls/hr [id number] IV 07/03/24 09:45 07/05/24 03:17 75 MLS/HR Purified Water 200 ml Q6HR GT 07/03/24 12:00 07/05/24 05:38 200 ML Amlodipine Besylate 2.5 mg DAILY PO 07/05/24 10:00 07/05/24 09:47 2.5 MG Laboratory Results Laboratory Tests 07/05/24 04:53 Chemistry Test 07/05/24 04:53 Calcium Level 10.0 mg/dL (8.7-10.4) Urinalysis Test 06/22/24 17:12 06/23/24 18:27 Urine Color Dark-brown (Yellow) Urine Clarity Ex.turbid (Clear) Urine pH 6.0 (5.0-9.0) Urine Specific [place] 1.011 (1.001-1.035) Urine Protein 2+ (Negative) H Urine Ketones Negative (Negative) Urine Blood 3+ /uL (Negative) H Urine Nitrite Negative (Negative) Urine Bilirubin Negative (Negative) Urine Urobilinogen Normal mg/dL (Negative) Urine Leukocyte Esterase 3+ /uL (Negative) Urine RBC 561 /hpf (0 - 3) Urine WBC 2731 /hpf (0 - 3) Urine WBC Clumps Present /hpf (None Seen) Urine Squamous Epithelial Cells Few /hpf (<5) Urine Bacteria Mod /hpf (None Seen) H Urine Glucose 3+ mg/dL (Normal) H Urine Creatinine 21.25 mg/dL (30.0-125.0) L Urine Sodium 135 mmol/L (40-220) Urine Total Protein 71.4 mg/dL (1-14) H Microbiology Microbiology Date/Time Source Procedure Growth Status 06/28/24 04:00 Urine - [place] Urine Culture - Final Complete 06/23/24 16:43 Nose MRSA Screen - Final Complete 06/23/24 13:32 Sputum Endotracheal Wash Gram Stain - Final Complete 06/23/24 13:32 Sputum Endotracheal Wash Respiratory Culture - Final Complete 06/21/24 18:05 Blood Blood Culture - Final NO GROWTH AFTER 5 DAYS OF INCUBATION. Complete Labs and/or images reviewed: Labs reviewed by me Assessment/Plan Assessment/Plan #1 acute resp failure: extubated status post #2 septic shock with uti ?esbl: Continuing IV antibiotic meropenem #3 acute renal failure/atn: free water #4 obesity #5 bph continuing #6 h/o renal stones #7 transaminitis #8 acute diastolic heart failure:dc lasix #9 hyperkalemia: improved #10 hypernatremia: free water #11 Continuing tube feedings Continuing current management. [facility] We will discuss with family. This medical document was created using an electronic medical record system with [employer] direct computerized dictation system. Although this document has been carefully reviewed, there may still be some phonetic and typographical errors. These areas are purely typographical due to imperfections of the software programs, and do not reflect any compromise in the patient's medical care. Plan discussed with: Other (RN) Date of Service: Jul 05, 2024 Billing Provider: ARIES NAVARRO MD Common Visit Codes: [id number] INP/OBS CARE(HIGH) ARIES NAVARRO MD Jul 05, 2024 11:09
--- NOTE | 2024-07-05 16:15 | DVHPN2 ---
Progress Note - Dictate Date Seen: Jul 05, 2024 Has the PT tested + for MRSA If YES, has PT been informed?: No Medical Necessity Reason Pt with a Central, PICC or Fol: Yes The following are medically ne: Crain Catheter Reason for crain catheter: Strict I&O Subjective Patient seen and examined at bedside. Remains on supplemental oxygen Overnight events reviewed vital signs Vital Sign Date Time Temp Pulse Resp B/P (MAP) Pulse Ox O2 Delivery O2 Flow Rate FiO2 07/05/24 13:00 97.5 70 15 154/106 (122) 100 97.5 07/05/24 10:00 Nasal Cannula* 2 28 Total Intake and Output 07/04/24 07/04/24 07/05/24 15:00 23:00 07:00 Intake Total 50 ml 1780 ml 600 ml Output Total 1100 ml 1050 ml Balance 50 ml 680 ml -450 ml medications Current Medications Medications Dose Ordered Sig/Jere Route Start Time Stop Time Status Last Admin Dose Admin Labetalol HCl 10 mg Q4HPRN PRN IV 06/24/24 11:45 07/05/24 12:42 10 MG Meropenem 50 ml @ 17 mls/hr Q12HR IV 06/24/24 22:00 UNV 07/05/24 09:46 17 MLS/HR Enteral Nutritional Formula 1,000 ml 30ML/HR GT 06/24/24 16:00 06/28/24 04:07 1,000 ML Pantoprazole Sodium 40 mg DAILY IV 06/26/24 10:00 07/05/24 09:45 40 MG Diagnostic Test (Pha) 1 strip Q6HR 06/26/24 18:00 07/05/24 12:21 1 STRIP Insulin Human Regular Q6HR SC 06/26/24 18:00 07/05/24 12:22 2 UNITS Dextrose 50 ml UD PRN IV 06/26/24 15:15 Sodium Chloride 10 ml QSHIFT@,22 IV 06/28/24 10:00 07/05/24 09:46 10 ML Atenolol 25 mg BID GT 07/01/24 22:00 07/05/24 09:45 25 MG Dextrose 1,000 ml @ 75 mls/hr [id number] IV 07/03/24 09:45 07/05/24 03:17 75 MLS/HR Purified Water 200 ml Q6HR GT 07/03/24 12:00 07/05/24 12:22 200 ML Amlodipine Besylate 2.5 mg DAILY PO 07/05/24 10:00 07/05/24 09:47 2.5 MG objective Gen.: Patient lying in bed in no apparent distress. On supplemental oxygen. Head: Normocephalic, atraumatic. Eyes: EOMI/PERRLA. Ears: Normal hearing. Normal anatomy. Neck/trachea: Trachea midline, supple. Nose: Normal external anatomy. Mouth: Moist mucous membranes. Chest: Decreased air entry bilaterally. No wheezing or rhonchi. Cardiovascular: Positive S1, positive S2. Regular rate and rhythm. Abdomen: Positive bowel sounds in all 4 quadrants. Soft, non-tender, non- distended. : Deferred. Rectal: Deferred. Skin: Warm, dry. Intact. Extremities: 2+ radial pulses bilaterally. No lower extremity edema. Neuro: Awake, alert, oriented x3. No gross motor or sensory deficits. Cranial nerves II through XII intact. Gait not assessed. laboratory and microbiology Laboratory Tests 07/05/24 04:53 Test 07/05/24 04:53 Range/Units Serum Glucose 133 H 74-106 mg/dL Assessment/Plan Impression: Acute respiratory distress. Acute metabolic encephalopathy Metabolic acidosis Lactic acidosis Septic shock Hyperkalemia Acute kidney injury Events: Remains on supplemental oxygen, 2 LPM NC Taper O2 as tolerated Head of bed elevation Aspiration precautions Continue antibiotics Incentive spirometry Tube feeds for nutritional support Hemodialysis per Nephrology Monitor renal function Monitor electrolytes. Supplement as necessary. Labs and imaging reviewed. Rest of plan as noted below. Plan: S/p extubation on 06/29/24 On supplemental oxygen, 2 LPM NC Titrate to keep O2 sats above 92%. Off sedation Off pressors, hemodynamically stable. CT head showed no evidence of ICH or stroke. D5W + 3 amps bicarb drip at 100 ml/hr. Broad spectrum antibiotics. Follow up cultures. Continue bronchodilators. Steroids Off pressors, hemodynamically stable. Monitor renal function Monitor electrolytes. Supplement as necessary. Monitor ins and outs. Maintain euvolemia. GI prophylaxis. DVT prophylaxis. Prognosis: Poor given patient's multiple co-morbidities. Rest of plan per hospitalist and other consultants. Thank you Dr. Carlos Cardoso MD, for allowing me to participate in this patient's care. Further recommendations will depend on the patient's clinical course. Please do not hesitate to contact me if you have any questions or concerns. This medical document was created using an electronic medical record system with [employer] dictation system. Although these documentations are being carefully reviewed, there may still be some phonetic and typographical changes. The errors are purely typographical, due to imperfection on the software program, and do not reflect any compromise in the patient's medical care. Dietary Evaluation Review Comments: Cautious and follow up with Pt 's kidney function, monitor nutrition support to meet at leaset 75% of his needs Expected Outcomes/Goals: Advance to PO diet when medically feasible: CCHO-60 g alone with renal [id number] if pt's uremic syndrome continues. Plan discussed with: Patient, Other (SHAQUILLE Medina) JASS HERNANDEZ MD Jul 05, 2024 16:15
[2024-07-06] VITALS (10 sets, daily range): BP systolic 139–169; BP diastolic 72–91; PULSE 72–75; RESP 16–20; TEMP 97.6–98.6; O2SAT 98–100
[2024-07-06 07:35] LABS: Alkaline Phosphatase 98 U/L (46-116); Anion Gap 9 (5-15); Calcium 9.8 mg/dL (8.7-10.4); Chloride 103 mmol/L (98-107); Potassium 3.7 mmol/L (3.5-5.1)
[2024-07-06 07:36] LABS: BUN/Creatinine Ratio 29.2 (10.0-20.0)
[2024-07-06 07:38] LABS: Albumin 3.5 g/dL (3.2-4.8); Total Protein 7.1 g/dL (5.7-8.2)
[2024-07-06 07:43] LABS: Alanine Aminotransferase 59 U/L (7-40); Aspartate Aminotransferase 132 U/L (13-40); Bilirubin, Total 0.3 mg/dL (0.2-1.0); Blood Urea Nitrogen 71 mg/dL (9-23); Carbon Dioxide 34 mmol/L (20-31); Glucose 150 mg/dL (74-106); Sodium 146 mmol/L (136-145)
--- NOTE | 2024-07-06 08:19 | DVHPN2 ---
Subjective The patient is seen and examined at bedside. Lethargic Reviewed: Care Plan, H&P, Labs, Medications, Previous Orders, Radiology Changes from previous H/P or p: No Changes Objective Vitals Vital Signs Date Time Temp Pulse Resp B/P (MAP) Pulse Ox O2 Delivery O2 Flow Rate FiO2 07/06/24 06:44 75 162/72 07/06/24 05:00 98.0 19 99 98.0 07/05/24 20:00 Nasal Cannula* 2 28 Intake/Output Intake and Output 07/06/24 07:00 Intake Total 2880 ml Balance 2880 ml IV Total 2000 ml Tube Feeding 880 ml General Appearance: Other (Lethargic) HEENT: Atraumatic Neck: Supple Cardiovascular: Regular rate, Normal S1, Normal S2, No murmurs, Gallops, Rubs Abdomen: Normal bowel sounds, Soft, No tenderness Neuro: Cranial nerves 3-12 NL Psych/Mental Status: Mental status NL Medications Current Medications Medications Dose Ordered Sig/Jere Route Start Time Stop Time Status Last Admin Dose Admin Labetalol HCl 10 mg Q4HPRN PRN IV 06/24/24 11:45 07/06/24 06:44 10 MG Meropenem 50 ml @ 17 mls/hr Q12HR IV 06/24/24 22:00 UNV 07/05/24 21:57 17 MLS/HR Enteral Nutritional Formula 1,000 ml 30ML/HR GT 06/24/24 16:00 06/28/24 04:07 1,000 ML Pantoprazole Sodium 40 mg DAILY IV 06/26/24 10:00 07/05/24 09:45 40 MG Diagnostic Test (Pha) 1 strip Q6HR 06/26/24 18:00 07/06/24 05:20 1 STRIP Insulin Human Regular Q6HR SC 06/26/24 18:00 07/06/24 05:20 3 UNITS Dextrose 50 ml UD PRN IV 06/26/24 15:15 Sodium Chloride 10 ml QSHIFT@10,22 IV 06/28/24 10:00 07/05/24 22:15 10 ML Atenolol 25 mg BID GT 07/01/24 22:00 07/05/24 21:57 25 MG Dextrose 1,000 ml @ 75 mls/hr [id number] IV 07/03/24 09:45 07/06/24 06:47 75 MLS/HR Purified Water 200 ml Q6HR GT 07/03/24 12:00 07/06/24 06:00 200 ML Amlodipine Besylate 2.5 mg DAILY PO 07/05/24 10:00 07/05/24 09:47 2.5 MG Laboratory Results Laboratory Tests 07/05/24 04:53 07/06/24 06:05 Chemistry Test 07/06/24 06:05 Albumin 3.5 g/dL (3.2-4.8) Calcium Level 9.8 mg/dL (8.7-10.4) Total Protein 7.1 g/dL (5.7-8.2) LFT Test 07/06/24 06:05 Alanine Aminotransferase (ALT) 59 U/L (7-40) H Alkaline Phosphatase 98 U/L (46-116) Aspartate Amino Transferase (AST) 132 U/L (13-40) H Total Bilirubin 0.3 mg/dL (0.2-1.0) Urinalysis Test 06/22/24 17:12 06/23/24 18:27 Urine Color Dark-brown (Yellow) Urine Clarity Ex.turbid (Clear) Urine pH 6.0 (5.0-9.0) Urine Specific [place] 1.011 (1.001-1.035) Urine Protein 2+ (Negative) H Urine Ketones Negative (Negative) Urine Blood 3+ /uL (Negative) H Urine Nitrite Negative (Negative) Urine Bilirubin Negative (Negative) Urine Urobilinogen Normal mg/dL (Negative) Urine Leukocyte Esterase 3+ /uL (Negative) Urine RBC 561 /hpf (0 - 3) Urine WBC 2731 /hpf (0 - 3) Urine WBC Clumps Present /hpf (None Seen) Urine Squamous Epithelial Cells Few /hpf (<5) Urine Bacteria Mod /hpf (None Seen) H Urine Glucose 3+ mg/dL (Normal) H Urine Creatinine 21.25 mg/dL (30.0-125.0) L Urine Sodium 135 mmol/L (40-220) Urine Total Protein 71.4 mg/dL (1-14) H Microbiology Microbiology Date/Time Source Procedure Growth Status 06/28/24 04:00 Urine - [place] Urine Culture - Final Complete 06/23/24 16:43 Nose MRSA Screen - Final Complete 06/23/24 13:32 Sputum Endotracheal Wash Gram Stain - Final Complete 06/23/24 13:32 Sputum Endotracheal Wash Respiratory Culture - Final Complete 06/21/24 18:05 Blood Blood Culture - Final NO GROWTH AFTER 5 DAYS OF INCUBATION. Complete Labs and/or images reviewed: Labs reviewed by me Assessment/Plan Assessment/Plan #1 acute resp failure: extubated status post #2 septic shock with uti ?esbl: Continuing IV antibiotic meropenem #3 acute renal failure/atn: free water #4 obesity #5 bph continuing #6 h/o renal stones #7 transaminitis #8 acute diastolic heart failure:dc lasix #9 hyperkalemia: improved #10 hypernatremia: free water #11 Continuing tube feedings Continuing current management. [facility] We will discuss with family. This medical document was created using an electronic medical record system with [employer] direct computerized dictation system. Although this document has been carefully reviewed, there may still be some phonetic and typographical errors. These areas are purely typographical due to imperfections of the software programs, and do not reflect any compromise in the patient's medical care. Plan discussed with: Patient Date of Service: Jul 06, 2024 Billing Provider: ARIES NAVARRO MD Common Visit Codes: [id number] INP/OBS CARE(HIGH) ARIES NAVARRO MD Jul 06, 2024 08:19
--- NOTE | 2024-07-06 15:51 | DVHPN2 ---
Progress Note Date Seen: Jul 06, 2024 Has the PT tested + for MRSA If YES, has PT been informed?: No Medical Necessity Reason Pt with a Central, PICC or Fol: Yes The following are medically ne: Crain Catheter Reason for crain catheter: Strict I&O Subjective Patient reports: Feels better Review of Systems: CVS:Normal Objective vital signs Vital Sign Date Time Temp Pulse Resp B/P (MAP) Pulse Ox O2 Delivery O2 Flow Rate FiO2 07/06/24 14:50 74 149/80 (103) 07/06/24 13:03 97.9 16 100 97.9 07/06/24 10:00 Nasal Cannula 2.0 07/06/24 10:00 28 Total Intake and Output 07/05/24 07/05/24 07/06/24 15:00 23:00 07:00 Intake Total 50 ml 1780 ml 1050 ml Balance 50 ml 1780 ml 1050 ml medications Current Medications Medications Dose Ordered Sig/Jere Route Start Time Stop Time Status Last Admin Dose Admin Labetalol HCl 10 mg Q4HPRN PRN IV 06/24/24 11:45 07/06/24 06:44 10 MG Meropenem 50 ml @ 17 mls/hr Q12HR IV 06/24/24 22:00 UNV 07/06/24 09:57 17 MLS/HR Enteral Nutritional Formula 1,000 ml 30ML/HR GT 06/24/24 16:00 06/28/24 04:07 1,000 ML Pantoprazole Sodium 40 mg DAILY IV 06/26/24 10:00 07/06/24 09:58 40 MG Diagnostic Test (Pha) 1 strip Q6HR 06/26/24 18:00 07/06/24 12:15 1 STRIP Insulin Human Regular Q6HR SC 06/26/24 18:00 07/06/24 12:16 3 UNITS Dextrose 50 ml UD PRN IV 06/26/24 15:15 Sodium Chloride 10 ml QSHIFT@ IV 06/28/24 10:00 07/06/24 09:58 10 ML Atenolol 25 mg BID GT 07/01/24 22:00 07/06/24 09:57 25 MG Dextrose 1,000 ml @ 75 mls/hr [id number] IV 07/03/24 09:45 07/06/24 06:47 75 MLS/HR Purified Water 200 ml Q6HR GT 07/03/24 12:00 07/06/24 12:15 200 ML Amlodipine Besylate 2.5 mg DAILY PO 07/05/24 10:00 07/06/24 09:58 2.5 MG Examination: GENERAL:Normal, CVS:Normal laboratory and microbiology Laboratory Tests 07/06/24 06:05 07/05/24 04:53 Test 07/06/24 06:05 Range/Units Serum Glucose 150 H 74-106 mg/dL Microbiology Date/Time Source Procedure Growth Status 06/28/24 04:00 Urine - [place] Urine Culture - Final Complete 06/23/24 16:43 Nose MRSA Screen - Final Complete 06/23/24 13:32 Sputum Endotracheal Wash Gram Stain - Final Complete 06/23/24 13:32 Sputum Endotracheal Wash Respiratory Culture - Final Complete 06/21/24 18:05 Blood Blood Culture - Final NO GROWTH AFTER 5 DAYS OF INCUBATION. Complete Problem List/Assessment/Plan Problem List/Assessment/Plan Acute kidney injury likely acute tubular necrosis sec to hypotension + obstructive etiology Encephalopathy Ventilator-dependent hypoxic respiratory failure resolved Distended bladder distended hydroureter on CT scan s/p new crain placed by Urology Enlarged prostate potassium imbalances renal function continues to improve continue free water avoid hypotension replace electrolytes check phos level Plan discussed with: Patient Dietary Evaluation Review Comments: Cautious and follow up with Pt 's kidney function, monitor nutrition support to meet at [place] 75% of his needs Expected Outcomes/Goals: Advance to PO diet when medically feasible: CCHO-60 g alone with renal [id number] if pt's uremic syndrome continues. KAREN MARTINEZ MD Jul 06, 2024 15:51
[2024-07-07] VITALS (11 sets, daily range): BP systolic 138–184; BP diastolic 86–91; PULSE 72–91; RESP 18; TEMP 97.7–98.9; O2SAT 92–100
[2024-07-07 06:51] LABS: Anion Gap 8 (5-15); Chloride 102 mmol/L (98-107); Potassium 3.6 mmol/L (3.5-5.1); Sodium 143 mmol/L (136-145)
[2024-07-07 06:52] LABS: Calcium 9.7 mg/dL (8.7-10.4); Carbon Dioxide 33 mmol/L (20-31)
[2024-07-07 06:57] LABS: BUN/Creatinine Ratio 28.9 (10.0-20.0)
[2024-07-07 06:59] LABS: Phosphorus 3.9 mg/dL (2.4-5.1)
[2024-07-07 07:14] LABS: Blood Urea Nitrogen 61 mg/dL (9-23); Glucose 131 mg/dL (74-106)
[2024-07-07] MEDS: FREE WATER NG SCH (11:38)
[2024-07-07] MEDS: hydrALAZINE HCL 20 MG/ML VL IV PRN (12:14)
--- NOTE | 2024-07-07 12:56 | DVHPN2 ---
Subjective The patient is seen and examined at bedside. More alert awake today. Reviewed: Care Plan, H&P, Labs, Medications, Previous Orders, Radiology Changes from previous H/P or p: No Changes Objective Vitals Vital Signs Date Time Temp Pulse Resp B/P (MAP) Pulse Ox O2 Delivery O2 Flow Rate FiO2 07/07/24 12:14 164/92 07/07/24 09:51 77 07/07/24 07:42 Nasal Cannula* 2 28 07/07/24 05:00 98.8 18 92 98.8 Intake/Output Intake and Output 07/07/24 07:00 Intake Total 1538 ml Output Total 1450 ml Balance 88 ml Intake Oral 700 ml IV Total 638 ml Tube Feeding 200 ml Output Urine Total 1450 ml # Bowel Movements 1 General Appearance: Alert, Other HEENT: Atraumatic Neck: Supple Cardiovascular: Regular rate, Normal S1, Normal S2, No murmurs, Gallops, Rubs Abdomen: Normal bowel sounds, Soft, No tenderness Neuro: Cranial nerves 3-12 NL Psych/Mental Status: Mental status NL Medications Current Medications Medications Dose Ordered Sig/Jere Route Start Time Stop Time Status Last Admin Dose Admin Labetalol HCl 10 mg Q4HPRN PRN IV 06/24/24 11:45 07/07/24 08:17 10 MG Enteral Nutritional Formula 1,000 ml 30ML/HR GT 06/24/24 16:00 07/07/24 05:40 1,000 ML Pantoprazole Sodium 40 mg DAILY IV 06/26/24 10:00 07/07/24 09:52 40 MG Diagnostic Test (Pha) 1 strip Q6HR 06/26/24 18:00 07/07/24 05:40 1 STRIP Insulin Human Regular Q6HR SC 06/26/24 18:00 07/07/24 05:40 2 UNITS Dextrose 50 ml UD PRN IV 06/26/24 15:15 Sodium Chloride 10 ml QSHIFT@10, IV 06/28/24 10:00 07/07/24 09:52 10 ML Amlodipine Besylate 2.5 mg DAILY NG 07/08/24 10:00 Atenolol 25 mg BID NG 07/07/24 22:00 Purified Water 200 ml Q6HR NG 07/07/24 12:00 07/07/24 11:38 200 ML Meropenem 50 ml @ 17 mls/hr Q12HR IV 07/07/24 22:00 Hydralazine HCl 10 mg Q6HP PRN IV 07/07/24 11:30 07/07/24 12:14 10 MG Laboratory Results Laboratory Tests 07/05/24 04:53 07/07/24 05:57 Chemistry Test 07/07/24 05:57 Calcium Level 9.7 mg/dL (8.7-10.4) Phosphorus Level 3.9 mg/dL (2.4-5.1) Urinalysis Test 06/22/24 17:12 06/23/24 18:27 Urine Color Dark-brown (Yellow) Urine Clarity Ex.turbid (Clear) Urine pH 6.0 (5.0-9.0) Urine Specific [place] 1.011 (1.001-1.035) Urine Protein 2+ (Negative) H Urine Ketones Negative (Negative) Urine Blood 3+ /uL (Negative) H Urine Nitrite Negative (Negative) Urine Bilirubin Negative (Negative) Urine Urobilinogen Normal mg/dL (Negative) Urine Leukocyte Esterase 3+ /uL (Negative) Urine RBC 561 /hpf (0 - 3) Urine WBC 2731 /hpf (0 - 3) Urine WBC Clumps Present /hpf (None Seen) Urine Squamous Epithelial Cells Few /hpf (<5) Urine Bacteria Mod /hpf (None Seen) H Urine Glucose 3+ mg/dL (Normal) H Urine Creatinine 21.25 mg/dL (30.0-125.0) L Urine Sodium 135 mmol/L (40-220) Urine Total Protein 71.4 mg/dL (1-14) H Microbiology Microbiology Date/Time Source Procedure Growth Status 06/28/24 04:00 Urine - [place] Urine Culture - Final Complete 06/23/24 16:43 Nose MRSA Screen - Final Complete 06/23/24 13:32 Sputum Endotracheal Wash Gram Stain - Final Complete 06/23/24 13:32 Sputum Endotracheal Wash Respiratory Culture - Final Complete 06/21/24 18:05 Blood Blood Culture - Final NO GROWTH AFTER 5 DAYS OF INCUBATION. Complete Labs and/or images reviewed: Labs reviewed by me Assessment/Plan Assessment/Plan #1 acute resp failure: Status post extubated #2 septic shock with uti ?esbl: Continuing IV antibiotic meropenem #3 acute renal failure/atn: free water #4 obesity #5 bph continuing #6 h/o renal stones #7 transaminitis #8 acute diastolic heart failure:dc lasix #9 hyperkalemia: improved #10 hypernatremia: Continuing free water #11 Continuing tube feedings #12 Hypertension: I will add Norvasc 2.5 mg p.o. daily, atenolol 25 mg bid, hydralazine 10 mg IV q.6 hours p.r.n. for systolic greater than 160 Continuing current management. [facility] This medical document was created using an electronic medical record system with [employer] computerized dictation system. Although this document has been carefully reviewed, there may still be some phonetic and typographical errors. These areas are purely typographical due to imperfections of the software programs, and do not reflect any compromise in the patient's medical care. Plan discussed with: Other (RN) My Orders Orders - ARIES NAVARRO MD Procedure Category Date Status Time Amlodipine Tablet PHA 07/08/24 In Process (Norvasc Tablet) 10:00 Atenolol Tablet PHA 07/07/24 In Process (Tenormin Tablet) 22:00 Free Water PHA 07/07/24 In Process 12:00 Hydralazine Injection PHA 07/07/24 In Process (Apresoline Inject 11:30 Date of Service: Jul 07, 2024 Billing Provider: ARIES NAVARRO MD Common Visit Codes: [id number] INP/OBS CARE(HIGH) ARIES NAVARRO MD Jul 07, 2024 12:56
--- NOTE | 2024-07-07 14:03 | DVHPN2 ---
Progress Note Date Seen: Jul 07, 2024 Has the PT tested + for MRSA If YES, has PT been informed?: No Medical Necessity Reason Pt with a Central, PICC or Fol: Yes The following are medically ne: Crain Catheter Reason for crain catheter: Strict I&O Subjective Patient reports: Feels better Review of Systems: GI:Normal, :Abnormal Objective vital signs Vital Sign Date Time Temp Pulse Resp B/P (MAP) Pulse Ox O2 Delivery O2 Flow Rate FiO2 07/07/24 13:12 83 138/87 (104) 07/07/24 10:30 98 Room Air* 0 21 07/07/24 05:00 98.8 18 98.8 Total Intake and Output 07/06/24 07/06/24 07/07/24 15:00 23:00 07:00 Intake Total 1538 ml Output Total 1450 ml Balance 88 ml medications Current Medications Medications Dose Ordered Sig/Jere Route Start Time Stop Time Status Last Admin Dose Admin Labetalol HCl 10 mg Q4HPRN PRN IV 06/24/24 11:45 07/07/24 08:17 10 MG Enteral Nutritional Formula 1,000 ml 30ML/HR GT 06/24/24 16:00 07/07/24 05:40 1,000 ML Pantoprazole Sodium 40 mg DAILY IV 06/26/24 10:00 07/07/24 09:52 40 MG Diagnostic Test (Pha) 1 strip Q6HR 06/26/24 18:00 07/07/24 05:40 1 STRIP Insulin Human Regular Q6HR SC 06/26/24 18:00 07/07/24 05:40 2 UNITS Dextrose 50 ml UD PRN IV 06/26/24 15:15 Sodium Chloride 10 ml QSHIFT@10,22 IV 06/28/24 10:00 07/07/24 09:52 10 ML Amlodipine Besylate 2.5 mg DAILY NG 07/08/24 10:00 Atenolol 25 mg BID NG 07/07/24 22:00 Purified Water 200 ml Q6HR NG 07/07/24 12:00 07/07/24 11:38 200 ML Meropenem 50 ml @ 17 mls/hr Q12HR IV 07/07/24 22:00 Hydralazine HCl 10 mg Q6HP PRN IV 07/07/24 11:30 07/07/24 12:14 10 MG Examination: LUNGS:Normal, CVS:Normal, SKIN:Normal laboratory and microbiology Laboratory Tests 07/07/24 05:57 07/05/24 04:53 Test 07/07/24 05:57 Range/Units Serum Glucose 131 H 74-106 mg/dL Microbiology Date/Time Source Procedure Growth Status 06/28/24 04:00 Urine - Crain Port Urine Culture - Final Complete 06/23/24 16:43 Nose MRSA Screen - Final Complete 06/23/24 13:32 Sputum Endotracheal Wash Gram Stain - Final Complete 06/23/24 13:32 Sputum Endotracheal Wash Respiratory Culture - Final Complete 06/21/24 18:05 Blood Blood Culture - Final NO GROWTH AFTER 5 DAYS OF INCUBATION. Complete Problem List/Assessment/Plan Problem List/Assessment/Plan Acute kidney injury likely acute tubular necrosis sec to hypotension + obstructive etiology Encephalopathy Ventilator-dependent hypoxic respiratory failure resolved Distended bladder distended hydroureter on CT scan s/p new crain placed by Urology Enlarged prostate potassium imbalances renal function continues to improve continue free water avoid hypotension replace electrolytes phos level wnl, current on tube feeds Plan discussed with: Patient Dietary Evaluation Review Comments: Cautious and follow up with Pt 's kidney function, monitor nutrition support to meet at [place] 75% of his needs Expected Outcomes/Goals: Advance to PO diet when medically feasible: CCHO-60 g alone with renal [id number] if pt's uremic syndrome continues. KAREN MARTINEZ MD Jul 07, 2024 14:03
[2024-07-07] MEDS: MEROPENEM 1GM IVPB 50 ML IV SCH (22:33)
[2024-07-07] MEDS: ATENOLOL 25 MG TAB NG SCH (22:33)
[2024-07-08] VITALS (10 sets, daily range): BP systolic 91–179; BP diastolic 61–99; PULSE 74–96; RESP 14–19; TEMP 98–99.3; O2SAT 95–99
[2024-07-08 06:01] LABS: Chloride 106 mmol/L (98-107); Sodium 144 mmol/L (136-145)
[2024-07-08 06:02] LABS: Calcium 10.3 mg/dL (8.7-10.4)
[2024-07-08 06:07] LABS: BUN/Creatinine Ratio 24.1 (10.0-20.0)
[2024-07-08 06:34] LABS: Blood Urea Nitrogen 45 mg/dL (9-23); Glucose 143 mg/dL (74-106)
[2024-07-08 06:38] LABS: Potassium 3.3 mmol/L (3.5-5.1)
[2024-07-08 07:08] LABS: Anion Gap 9 (5-15); Carbon Dioxide 29 mmol/L (20-31)
[2024-07-08] MEDS: amLODIPine BESYLATE 5 MG TAB NG SCH (09:43)
--- NOTE | 2024-07-08 10:13 | DVHPN2 ---
Progress Note Date Seen: Jul 08, 2024 Has the PT tested + for MRSA If YES, has PT been informed?: No Medical Necessity Reason Pt with a Central, PICC or Fol: Yes The following are medically ne: Crain Catheter Reason for crain catheter: Strict I&O Subjective Patient reports: No new complaints Review of Systems: HEENT:Normal, CVS:Normal, RESPIRATORY:Normal, GI:Normal, :Normal, MSK:Normal, NEURO:Normal Objective vital signs Vital Sign Date Time Temp Pulse Resp B/P (MAP) Pulse Ox O2 Delivery O2 Flow Rate FiO2 07/08/24 09:43 145/70 07/08/24 09:40 85 07/08/24 09:19 98.4 14 99 98.4 07/08/24 08:00 Room Air* 0 21 Total Intake and Output 07/07/24 07/07/24 07/08/24 15:00 23:00 07:00 Intake Total 350 ml 1424 ml 850 ml Output Total 1125 ml 1000 ml Balance 350 ml 299 ml -150 ml medications Current Medications Medications Dose Ordered Sig/Jere Route Start Time Stop Time Status Last Admin Dose Admin Labetalol HCl 10 mg Q4HPRN PRN IV 06/24/24 11:45 07/08/24 05:34 10 MG Enteral Nutritional Formula 1,000 ml 30ML/HR GT 06/24/24 16:00 07/07/24 21:02 1,000 ML Pantoprazole Sodium 40 mg DAILY IV 06/26/24 10:00 07/08/24 09:44 40 MG Diagnostic Test (Pha) 1 strip Q6HR 06/26/24 18:00 07/08/24 05:25 1 STRIP Insulin Human Regular Q6HR SC 06/26/24 18:00 07/08/24 05:34 2 UNITS Dextrose 50 ml UD PRN IV 06/26/24 15:15 Sodium Chloride 10 ml QSHIFT@10,22 IV 06/28/24 10:00 07/08/24 09:39 10 ML Amlodipine Besylate 2.5 mg DAILY NG 07/08/24 10:00 07/08/24 09:43 2.5 MG Atenolol 25 mg BID NG 07/07/24 22:00 07/08/24 09:40 25 MG Purified Water 200 ml Q6HR NG 07/07/24 12:00 07/08/24 05:35 200 ML Meropenem 50 ml @ 17 mls/hr Q12HR IV 07/07/24 22:00 07/08/24 09:39 17 MLS/HR Hydralazine HCl 10 mg Q6HP PRN IV 07/07/24 11:30 07/08/24 02:00 10 MG Examination: GENERAL:Normal, HEENT:Normal, NECK:Normal, LUNGS:Normal, CVS:Normal, ABDOMEN:Abnormal (ng tube), SKIN:Normal, NEURO:Normal, :Normal laboratory and microbiology Laboratory Tests 07/08/24 05:00 07/05/24 04:53 Test 07/08/24 05:00 Range/Units Serum Glucose 143 H 74-106 mg/dL Microbiology Date/Time Source Procedure Growth Status 06/28/24 04:00 Urine - Crain Port Urine Culture - Final Complete 06/23/24 16:43 Nose MRSA Screen - Final Complete 06/23/24 13:32 Sputum Endotracheal Wash Gram Stain - Final Complete 06/23/24 13:32 Sputum Endotracheal Wash Respiratory Culture - Final Complete 06/21/24 18:05 Blood Blood Culture - Final NO GROWTH AFTER 5 DAYS OF INCUBATION. Complete Problem List/Assessment/Plan Problem List/Assessment/Plan #1 acute resp failure: cont acv, extubated #2 septic shock with uti ?esbl: dc iv meropenem #3 acute renal failure/atn: free water #4 obesity #5 bph #6 h/o renal stones #7 transaminitis #8 acute diastolic heart failure:dc lasix #9 hyperkalemia: improved #10 hypernatremia: free water #11 tube feedings: swallow eval long discussion with jose luis Greenberg- updated regards plan of care advance care planning- full code- time spent 19 mins Plan discussed with: Patient My Orders My Orders Orders - ALONA BEAN MD Procedure Category Date Status Time Meropenem 1gm Ivpb PHA 07/07/24 In Process (Merrem 1gm/ Ns) 22:00 Potassium Effervesent PHA 07/08/24 Transmitted Tab (Klor-Con/Ef) 10:15 * Swallow Request ST 07/08/24 Transmitted 10:08 Complete Blood Count LAB 07/09/24 Verified 06:00 Comprehensive LAB 07/09/24 Verified Metabolic Panel 06:00 Chest Portable XY 07/09/24 Transmitted 06:00 Dietary Evaluation Review Comments: Cautious and follow up with Pt 's kidney function, monitor nutrition support to meet at [place] 75% of his needs Expected Outcomes/Goals: Advance to PO diet when medically feasible: CCHO-60 g alone with renal [id number] if pt's uremic syndrome continues. Date of Service: Jul 08, 2024 Billing Provider: ALONA BAEN MD Common Visit Codes: [id number] INP/OBS CARE(HIGH) ALONA BEAN MD Jul 08, 2024 10:13
[2024-07-08] MEDS: POTASSIUM EFFERVESENT TAB 25 MEQ GT ONE (11:03)
--- NOTE | 2024-07-08 12:28 | DVHPN2 ---
Progress Note Date Seen: Jul 08, 2024 Has the PT tested + for MRSA If YES, has PT been informed?: No Medical Necessity Reason Pt with a Central, PICC or Fol: Yes The following are medically ne: Crain Catheter Reason for crain catheter: Strict I&O Subjective Patient reports: No new complaints Other Systems: Patient seen and examined by myself today in follow-up Objective vital signs Vital Sign Date Time Temp Pulse Resp B/P (MAP) Pulse Ox O2 Delivery O2 Flow Rate FiO2 07/08/24 10:00 99 Room Air 0.0 07/08/24 10:00 21 07/08/24 09:43 145/70 07/08/24 09:40 85 07/08/24 09:19 98.4 14 98.4 Total Intake and Output 07/07/24 07/07/24 07/08/24 15:00 23:00 07:00 Intake Total 350 ml 1424 ml 850 ml Output Total 1125 ml 1000 ml Balance 350 ml 299 ml -150 ml medications Current Medications Medications Dose Ordered Sig/Jere Route Start Time Stop Time Status Last Admin Dose Admin Labetalol HCl 10 mg Q4HPRN PRN IV 06/24/24 11:45 07/08/24 05:34 10 MG Enteral Nutritional Formula 1,000 ml 30ML/HR GT 06/24/24 16:00 07/07/24 21:02 1,000 ML Pantoprazole Sodium 40 mg DAILY IV 06/26/24 10:00 07/08/24 09:44 40 MG Diagnostic Test (Pha) 1 strip Q6HR 06/26/24 18:00 07/08/24 11:04 1 STRIP Insulin Human Regular Q6HR SC 06/26/24 18:00 07/08/24 11:23 2 UNITS Dextrose 50 ml UD PRN IV 06/26/24 15:15 Sodium Chloride 10 ml QSHIFT@10,22 IV 06/28/24 10:00 07/08/24 09:39 10 ML Amlodipine Besylate 2.5 mg DAILY NG 07/08/24 10:00 07/08/24 09:43 2.5 MG Atenolol 25 mg BID NG 07/07/24 22:00 07/08/24 09:40 25 MG Purified Water 200 ml Q6HR NG 07/07/24 12:00 07/08/24 11:04 200 ML Hydralazine HCl 10 mg Q6HP PRN IV 07/07/24 11:30 07/08/24 02:00 10 MG Examination: LUNGS:Normal, CVS:Normal, MSK:Normal laboratory and microbiology Laboratory Tests 07/08/24 05:00 07/05/24 04:53 Test 07/08/24 05:00 Range/Units Serum Glucose 143 H 74-106 mg/dL Microbiology Date/Time Source Procedure Growth Status 06/28/24 04:00 Urine - Crain Port Urine Culture - Final Complete 06/23/24 16:43 Nose MRSA Screen - Final Complete 06/23/24 13:32 Sputum Endotracheal Wash Gram Stain - Final Complete 06/23/24 13:32 Sputum Endotracheal Wash Respiratory Culture - Final Complete 06/21/24 18:05 Blood Blood Culture - Final NO GROWTH AFTER 5 DAYS OF INCUBATION. Complete Problem List/Assessment/Plan Problem List/Assessment/Plan Acute kidney injury likely acute tubular necrosis sec to hypotension + obstructive etiology Encephalopathy Ventilator-dependent hypoxic respiratory failure resolved Distended bladder distended hydroureter on CT scan s/p new crain placed by Urology Enlarged prostate Hypokalemia Recommendations renal function continues to improve Increased urine output Strict I&Os IVF half NS at 100 cc/hour We will continue to follow up Plan discussed with: Patient Dietary Evaluation Review Comments: Cautious and follow up with Pt 's kidney function, monitor nutrition support to meet at [place] 75% of his needs Expected Outcomes/Goals: Advance to PO diet when medically feasible: CCHO-60 g alone with renal [id number] if pt's uremic syndrome continues. ROMIE MITCHELL MD Jul 08, 2024 12:28
[2024-07-08] MEDS: SOD CHL 0.45% 1,000 ML IV SCH (14:19)
[2024-07-09] VITALS (11 sets, daily range): BP systolic 140–180; BP diastolic 72–91; PULSE 78–94; RESP 16–20; TEMP 97.6–98.2; O2SAT 95–99
--- NOTE | 2024-07-09 06:43 | DVH ---
CHEST RADIOGRAPH Indication: PNEUMONIA Technique: Single frontal view of the chest was obtained Comparison: XY CHEST PORTABLE on DOS: 07/03/24 FINDINGS: Lines and Tubes: Right PICC terminates in the superior vena cava. The enteric tube terminates in the stomach. Lungs: Bibasilar atelectasis. No focal consolidation. Pleura: No effusion. No pneumothorax. Cardiomediastinal contours: Stable cardiovascular silhouette. Bones: No acute osseous abnormality. IMPRESSION: 1. Pulmonary vascular congestion. No focal pulmonary consolidation.
[2024-07-09 07:28] LABS: Basophils # (auto) 0.1 10 ^3/uL (0-0.2); Basophils % (auto) 0.9 % (0.0-2.0); Eosinophils # (auto) 0.2 10 ^3/uL (0-0.8); Eosinophils % (auto) 1.6 % (0.0-7.0); Hematocrit 36.1 % (41.0-53.0); Hemoglobin 12.1 g/dL (13.5-17.5); Lymphocytes # (auto) 1.3 10 ^3/uL (0.4-5.4); Lymphocytes % (auto) 13.4 % (10.0-50.0); Mean Corpuscular Hemoglobin 29.1 pg (28.0-32.0); Mean Corpuscular Hgb Conc. 33.4 g/dL (32.0-36.0); Mean Corpuscular Volume 87.1 fL (80.0-100.0); Monocytes # (auto) 0.6 10 ^3/uL (0-1.3); Monocytes % (auto) 6.5 % (0.0-12.0); Neutrophils # (auto) 7.5 10 ^3/uL (1.6-8.6); Neutrophils % (auto) 77.6 % (37.0-80.0); Platelet Count (auto) 413 10^3/uL (140-450); Red Blood Cells 4.15 10^6/uL (4.5-5.90); Red Cell Distribution Width 16.1 % (11.8-14.3); White Blood Cell 9.7 10^3/uL (4.4-10.8)
[2024-07-09 07:46] LABS: Albumin 3.8 g/dL (3.2-4.8); Alkaline Phosphatase 111 U/L (46-116); Anion Gap 10 (5-15); BUN/Creatinine Ratio 22.5 (10.0-20.0); Bilirubin, Total 0.5 mg/dL (0.2-1.0); Calcium 10.4 mg/dL (8.7-10.4); Carbon Dioxide 29 mmol/L (20-31)
[2024-07-09 07:48] LABS: Alanine Aminotransferase 51 U/L (7-40); Aspartate Aminotransferase 120 U/L (13-40); Blood Urea Nitrogen 45 mg/dL (9-23); Chloride 107 mmol/L (98-107); Glucose 126 mg/dL (74-106); Potassium 3.5 mmol/L (3.5-5.1); Sodium 146 mmol/L (136-145)
--- NOTE | 2024-07-09 09:52 | DVHPN2 ---
Progress Note Date Seen: Jul 09, 2024 Has the PT tested + for MRSA If YES, has PT been informed?: No Medical Necessity Reason Pt with a Central, PICC or Fol: Yes The following are medically ne: Crain Catheter Reason for crain catheter: Strict I&O Subjective Patient reports: No new complaints Review of Systems: HEENT:Normal, CVS:Normal, RESPIRATORY:Normal, GI:Normal, :Normal, MSK:Normal, NEURO:Normal Objective vital signs Vital Sign Date Time Temp Pulse Resp B/P (MAP) Pulse Ox O2 Delivery O2 Flow Rate FiO2 07/09/24 08:43 97.7 78 18 180/88 (118) 95 97.7 07/09/24 08:00 Room Air* 0 21 Total Intake and Output 07/08/24 07/08/24 07/09/24 15:00 23:00 07:00 Intake Total 0 ml 625 ml 1450 ml Output Total 3000 ml 1800 ml Balance 0 ml -2375 ml -350 ml medications Current Medications Medications Dose Ordered Sig/Jere Route Start Time Stop Time Status Last Admin Dose Admin Labetalol HCl 10 mg Q4HPRN PRN IV 06/24/24 11:45 07/08/24 05:34 10 MG Enteral Nutritional Formula 1,000 ml 30ML/HR GT 06/24/24 16:00 07/07/24 21:02 1,000 ML Pantoprazole Sodium 40 mg DAILY IV 06/26/24 10:00 07/09/24 08:36 40 MG Diagnostic Test (Pha) 1 strip Q6HR 06/26/24 18:00 07/09/24 05:29 1 STRIP Insulin Human Regular Q6HR SC 06/26/24 18:00 07/08/24 11:23 2 UNITS Dextrose 50 ml UD PRN IV 06/26/24 15:15 Sodium Chloride 10 ml QSHIFT@10,22 IV 06/28/24 10:00 07/09/24 08:36 10 ML Amlodipine Besylate 2.5 mg DAILY NG 07/08/24 10:00 07/09/24 08:35 2.5 MG Atenolol 25 mg BID NG 07/07/24 22:00 07/09/24 08:33 25 MG Purified Water 200 ml Q6HR NG 07/07/24 12:00 07/09/24 05:32 200 ML Hydralazine HCl 10 mg Q6HP PRN IV 07/07/24 11:30 07/09/24 04:18 10 MG Sodium Chloride 1,000 ml @ 100 mls/hr Q10H IV 07/08/24 12:30 07/09/24 08:32 100 MLS/HR Examination: GENERAL:Normal, HEENT:Normal, NECK:Normal, LUNGS:Normal, CVS:Normal, ABDOMEN:Normal, MSK:Normal, SKIN:Normal, NEURO:Normal, :Normal laboratory and microbiology Laboratory Tests 07/09/24 07:00 Test 07/09/24 07:00 Range/Units Serum Glucose 126 H 74-106 mg/dL Microbiology Date/Time Source Procedure Growth Status 06/28/24 04:00 Urine - Crain Port Urine Culture - Final Complete 06/23/24 16:43 Nose MRSA Screen - Final Complete 06/23/24 13:32 Sputum Endotracheal Wash Gram Stain - Final Complete 06/23/24 13:32 Sputum Endotracheal Wash Respiratory Culture - Final Complete 06/21/24 18:05 Blood Blood Culture - Final NO GROWTH AFTER 5 DAYS OF INCUBATION. Complete Problem List/Assessment/Plan Problem List/Assessment/Plan #1 acute resp failure: cont acv, extubated #2 septic shock with uti ?esbl: dc iv meropenem #3 acute renal failure/atn: free water #4 obesity #5 bph #6 h/o renal stones #7 transaminitis #8 acute diastolic heart failure:dc lasix #9 hyperkalemia: improved #10 hypernatremia: free water #11 tube feedings: swallow eval, DC ng long discussion with jose luis Greenberg- updated regards plan of care advance care planning- full code- time spent 19 mins Plan discussed with: Patient, Son My Orders My Orders Orders - ALONA BEAN MD Procedure Category Date Status Time * Swallow Request ST 07/08/24 Transmitted 10:08 Chest Portable XY 07/09/24 Resulted 06:00 Pureed DIET 07/08/24 Transmitted Dinner 1/2 Ns PHA 07/09/24 Verified 10:00 Discontinue Ng ORDERS 07/09/24 Verified 09:49 * Advisor To Command In [employer] CONS 07/09/24 Verified Consult Basic Metabolic Panel LAB 07/10/24 Verified 06:00 Dietary Evaluation Review Comments: Cautious and follow up with Pt 's kidney function, monitor nutrition support to meet at [place] 75% of his needs Expected Outcomes/Goals: Advance to PO diet when medically feasible: CCHO-60 g alone with renal [id number] if pt's uremic syndrome continues. Date of Service: Jul 09, 2024 Billing Provider: ALONA BEAN MD Common Visit Codes: [id number] INP/OBS CARE(HIGH) ALONA BEAN MD Jul 09, 2024 09:52
[2024-07-09] MEDS: SOD CHL 0.45% 1,000 ML IV SCH (10:00)
--- NOTE | 2024-07-09 10:32 | DVHPN2 ---
Progress Note Date Seen: Jul 09, 2024 Has the PT tested + for MRSA If YES, has PT been informed?: No Medical Necessity Reason Pt with a Central, PICC or Fol: Yes The following are medically ne: Crain Catheter Reason for crain catheter: Strict I&O Subjective Patient reports: No new complaints Other Systems: Patient seen and examined by myself today in follow-up Objective vital signs Vital Sign Date Time Temp Pulse Resp B/P (MAP) Pulse Ox O2 Delivery O2 Flow Rate FiO2 07/09/24 08:43 97.7 78 18 180/88 (118) 95 97.7 07/09/24 08:00 Room Air* 0 21 Total Intake and Output 07/08/24 07/08/24 07/09/24 15:00 23:00 07:00 Intake Total 0 ml 625 ml 1450 ml Output Total 3000 ml 1800 ml Balance 0 ml -2375 ml -350 ml medications Current Medications Medications Dose Ordered Sig/Jere Route Start Time Stop Time Status Last Admin Dose Admin Labetalol HCl 10 mg Q4HPRN PRN IV 06/24/24 11:45 07/08/24 05:34 10 MG Pantoprazole Sodium 40 mg DAILY IV 06/26/24 10:00 07/09/24 08:36 40 MG Diagnostic Test (Pha) 1 strip Q6HR 06/26/24 18:00 07/09/24 05:29 1 STRIP Insulin Human Regular Q6HR SC 06/26/24 18:00 07/08/24 11:23 2 UNITS Dextrose 50 ml UD PRN IV 06/26/24 15:15 Sodium Chloride 10 ml QSHIFT@10,22 IV 06/28/24 10:00 07/09/24 08:36 10 ML Amlodipine Besylate 2.5 mg DAILY NG 07/08/24 10:00 07/09/24 08:35 2.5 MG Atenolol 25 mg BID NG 07/07/24 22:00 07/09/24 08:33 25 MG Hydralazine HCl 10 mg Q6HP PRN IV 07/07/24 11:30 07/09/24 04:18 10 MG Sodium Chloride 1,000 ml @ 75 mls/hr [id number] IV 07/09/24 10:00 Examination: LUNGS:Normal, CVS:Normal, MSK:Normal laboratory and microbiology Laboratory Tests 07/09/24 07:00 Test 07/09/24 07:00 Range/Units Serum Glucose 126 H 74-106 mg/dL Microbiology Date/Time Source Procedure Growth Status 06/28/24 04:00 Urine - Crain Port Urine Culture - Final Complete 06/23/24 16:43 Nose MRSA Screen - Final Complete 06/23/24 13:32 Sputum Endotracheal Wash Gram Stain - Final Complete 06/23/24 13:32 Sputum Endotracheal Wash Respiratory Culture - Final Complete 06/21/24 18:05 Blood Blood Culture - Final NO GROWTH AFTER 5 DAYS OF INCUBATION. Complete Problem List/Assessment/Plan Problem List/Assessment/Plan Acute kidney injury likely acute tubular necrosis, FeNa >2% Encephalopathy Acute respiratory failure, extubated Urinary retention status post Crain Enlarged prostate Hypernatremia due to insensible water loss Recommendations renal function stabilize stage IIIB Increased urine output Strict I&Os IVF half NS at 70 cc/hour Encourage p.o. water intake We will continue to follow up Plan discussed with: Patient Dietary Evaluation Review Comments: Cautious and follow up with Pt 's kidney function, monitor nutrition support to meet at [place] 75% of his needs Expected Outcomes/Goals: Advance to PO diet when medically feasible: CCHO-60 g alone with renal [id number] if pt's uremic syndrome continues. ROMIE MITCHELL MD Jul 09, 2024 10:32
[2024-07-10] VITALS (10 sets, daily range): BP systolic 149–175; BP diastolic 62–88; PULSE 83–96; RESP 14–20; TEMP 97.4–98.7; O2SAT 95–98
[2024-07-10 05:47] LABS: Anion Gap 9 (5-15); Carbon Dioxide 31 mmol/L (20-31)
[2024-07-10 05:53] LABS: BUN/Creatinine Ratio 22.7 (10.0-20.0)
[2024-07-10 06:02] LABS: Blood Urea Nitrogen 44 mg/dL (9-23); Calcium 10.7 mg/dL (8.7-10.4); Chloride 110 mmol/L (98-107); Glucose 106 mg/dL (74-106); Potassium 3.1 mmol/L (3.5-5.1); Sodium 150 mmol/L (136-145)
--- NOTE | 2024-07-10 09:45 | DVHPN2 ---
Progress Note Date Seen: Jul 10, 2024 Has the PT tested + for MRSA If YES, has PT been informed?: No Medical Necessity Reason Pt with a Central, PICC or Fol: Yes The following are medically ne: Crain Catheter Reason for crain catheter: Strict I&O Subjective Patient reports: No new complaints Review of Systems: HEENT:Normal, CVS:Normal, RESPIRATORY:Normal, GI:Normal, :Normal, MSK:Normal, NEURO:Normal Objective vital signs Vital Sign Date Time Temp Pulse Resp B/P (MAP) Pulse Ox O2 Delivery O2 Flow Rate FiO2 07/10/24 08:38 98.7 95 17 149/62 (91) 96 98.7 07/09/24 20:00 Room Air* 0 21 Total Intake and Output 07/09/24 07/09/24 07/10/24 15:00 23:00 07:00 Intake Total 400 ml 492 ml Output Total 900 ml 750 ml Balance -500 ml -258 ml medications Current Medications Medications Dose Ordered Sig/Jere Route Start Time Stop Time Status Last Admin Dose Admin Labetalol HCl 10 mg Q4HPRN PRN IV 06/24/24 11:45 07/09/24 17:57 10 MG Pantoprazole Sodium 40 mg DAILY IV 06/26/24 10:00 07/10/24 09:41 40 MG Diagnostic Test (Pha) 1 strip Q6HR 06/26/24 18:00 07/10/24 05:15 1 STRIP Insulin Human Regular Q6HR SC 06/26/24 18:00 07/09/24 11:48 2 UNITS Dextrose 50 ml UD PRN IV 06/26/24 15:15 Sodium Chloride 10 ml QSHIFT@10,22 IV 06/28/24 10:00 07/09/24 21:01 10 ML Hydralazine HCl 10 mg Q6HP PRN IV 07/07/24 11:30 07/09/24 21:09 10 MG Sodium Chloride 1,000 ml @ 75 mls/hr [id number] IV 07/09/24 10:00 07/09/24 23:20 75 MLS/HR Amlodipine Besylate 2.5 mg DAILY PO 07/10/24 10:00 UNV Atenolol 25 mg BID PO 07/10/24 10:00 UNV Examination: GENERAL:Normal, HEENT:Normal, NECK:Normal, LUNGS:Normal, CVS:Normal, ABDOMEN:Normal, MSK:Normal, SKIN:Normal, NEURO:Normal, :Normal laboratory and microbiology Laboratory Tests 07/10/24 04:30 07/09/24 07:00 Test 07/10/24 04:30 Range/Units Serum Glucose 106 74-106 mg/dL Microbiology Date/Time Source Procedure Growth Status 06/28/24 04:00 Urine - Crain Port Urine Culture - Final Complete 06/23/24 16:43 Nose MRSA Screen - Final Complete 06/23/24 13:32 Sputum Endotracheal Wash Gram Stain - Final Complete 06/23/24 13:32 Sputum Endotracheal Wash Respiratory Culture - Final Complete 06/21/24 18:05 Blood Blood Culture - Final NO GROWTH AFTER 5 DAYS OF INCUBATION. Complete Problem List/Assessment/Plan Problem List/Assessment/Plan #1 acute resp failure: cont acv, extubated #2 septic shock with uti ?esbl: dc iv meropenem #3 acute renal failure/atn: free water #4 obesity #5 bph #6 h/o renal stones #7 transaminitis #8 acute diastolic heart failure:dc lasix #9 hyperkalemia: improved #10 hypernatremia: free water #11 tube feedings: poor oral intake, re insert ng long discussion with jose luis Greenberg- updated regards plan of care advance care planning- full code- time spent 19 mins Plan discussed with: Patient My Orders My Orders Orders - ALONA BEAN MD Procedure Category Date Status Time Sod Chl 0.45% (Sodium PHA 07/09/24 In Process Chloride 0.45% Via 10:00 Discontinue Ng ORDERS 07/09/24 Transmitted 09:49 * Dental Technician CONS 07/09/24 Transmitted Consult Amlodipine Tablet PHA 07/10/24 Logged (Norvasc Tablet) 10:00 Atenolol Tablet PHA 07/10/24 Logged (Tenormin Tablet) 10:00 Place Ng ORDERS 07/10/24 Verified 09:41 Free Water PHA 07/10/24 Verified 12:00 D5w 5% PHA 07/10/24 Verified 09:45 Nutritional PHA 07/10/24 Verified Supplements (Jevity 09:45 Potassium Chl Geovani PHA 07/10/24 Verified KCL 09:45 Complete Blood Count LAB 07/11/24 Verified 06:00 Comprehensive LAB 07/11/24 Verified Metabolic Panel 06:00 Chest Portable XY 07/11/24 Verified 06:00 Dietary Evaluation Review Comments: Cautious and follow up with Pt 's kidney function, monitor nutrition support to meet at [place] 75% of his needs Expected Outcomes/Goals: Advance to PO diet when medically feasible: CCHO-60 g alone with renal [id number] if pt's uremic syndrome continues. Date of Service: Jul 10, 2024 Billing Provider: ALONA BEAN MD Common Visit Codes: [id number] INP/OBS CARE(HIGH) ALONA BEAN MD Jul 10, 2024 09:45
[2024-07-10] MEDS: amLODIPine BESYLATE 5 MG TAB PO SCH (10:00)
[2024-07-10] MEDS: ATENOLOL 25 MG TAB PO SCH (10:00)
[2024-07-10] MEDS: POTASSIUM CHL 20MEQ/100ML 100 ML IV ONE (11:36)
[2024-07-10] MEDS: D5W 5% 1,000 ML IV SCH ×2 (11:37→13:24)
[2024-07-10] MEDS: FREE WATER GT SCH (11:56)
--- NOTE | 2024-07-10 12:02 | DVHPN2 ---
Progress Note Date Seen: Jul 10, 2024 Has the PT tested + for MRSA If YES, has PT been informed?: No Medical Necessity Reason Pt with a Central, PICC or Fol: Yes The following are medically ne: Crain Catheter Reason for crain catheter: Strict I&O Subjective Patient reports: No new complaints Other Systems: Patient seen and examined by myself today in follow-up Objective vital signs Vital Sign Date Time Temp Pulse Resp B/P (MAP) Pulse Ox O2 Delivery O2 Flow Rate FiO2 07/10/24 08:38 98.7 95 17 149/62 (91) 96 98.7 07/09/24 20:00 Room Air* 0 21 Total Intake and Output 07/09/24 07/09/24 07/10/24 15:00 23:00 07:00 Intake Total 400 ml 492 ml Output Total 900 ml 750 ml Balance -500 ml -258 ml medications Current Medications Medications Dose Ordered Sig/Jere Route Start Time Stop Time Status Last Admin Dose Admin Labetalol HCl 10 mg Q4HPRN PRN IV 06/24/24 11:45 07/09/24 17:57 10 MG Pantoprazole Sodium 40 mg DAILY IV 06/26/24 10:00 07/10/24 09:41 40 MG Diagnostic Test (Pha) 1 strip Q6HR 06/26/24 18:00 07/10/24 11:54 1 STRIP Insulin Human Regular Q6HR SC 06/26/24 18:00 07/09/24 11:48 2 UNITS Dextrose 50 ml UD PRN IV 06/26/24 15:15 Sodium Chloride 10 ml QSHIFT@10,22 IV 06/28/24 10:00 07/10/24 11:37 10 ML Hydralazine HCl 10 mg Q6HP PRN IV 07/07/24 11:30 07/09/24 21:09 10 MG Amlodipine Besylate 2.5 mg DAILY PO 07/10/24 10:00 Atenolol 25 mg BID PO 07/10/24 10:00 Purified Water 200 ml Q6HR GT 07/10/24 12:00 Dextrose 1,000 ml @ 75 mls/hr [id number] IV 07/10/24 09:45 07/10/24 11:37 75 MLS/HR Enteral Nutritional Formula 1,000 ml 40ML/HR GT 07/10/24 09:45 Examination: LUNGS:Normal, CVS:Normal, MSK:Normal laboratory and microbiology Laboratory Tests 07/10/24 04:30 07/09/24 07:00 Test 07/10/24 04:30 Range/Units Serum Glucose 106 74-106 mg/dL Microbiology Date/Time Source Procedure Growth Status 06/28/24 04:00 Urine - Crain Port Urine Culture - Final Complete 06/23/24 16:43 Nose MRSA Screen - Final Complete 06/23/24 13:32 Sputum Endotracheal Wash Gram Stain - Final Complete 06/23/24 13:32 Sputum Endotracheal Wash Respiratory Culture - Final Complete 06/21/24 18:05 Blood Blood Culture - Final NO GROWTH AFTER 5 DAYS OF INCUBATION. Complete Problem List/Assessment/Plan Problem List/Assessment/Plan Acute kidney injury likely acute tubular necrosis, FeNa >2% Encephalopathy Acute respiratory failure, extubated Urinary retention status post Crain Enlarged prostate Hypernatremia due to insensible water loss Recommendations renal function stabilize stage IIIB Increased urine output Strict I&Os IVF D5W that 100 cc/hour cc/hour Encourage p.o. water intake We will continue to follow up Plan discussed with: Patient Dietary Evaluation Review Comments: Cautious and follow up with Pt 's kidney function, monitor nutrition support to meet at [place] 75% of his needs Expected Outcomes/Goals: Advance to PO diet when medically feasible: CCHO-60 g alone with renal [id number] if pt's uremic syndrome continues. ORMIE MITCHELL MD Jul 10, 2024 12:02
[2024-07-10] MEDS ORDERED: CLINIMIX PER PHARMACY 0 ML IV SCH (15:00)
[2024-07-10] MEDS: AMINO ACID INFUSION IN D10W 1,000 ML IV SCH (22:31)
[2024-07-11] VITALS (10 sets, daily range): BP systolic 151–160; BP diastolic 70–90; PULSE 69–90; RESP 14–18; TEMP 97.7–98.7; O2SAT 95–99
[2024-07-11 06:56] LABS: Albumin 3.8 g/dL (3.2-4.8); Calcium 10.4 mg/dL (8.7-10.4); Triglycerides 113 mg/dL (< 150)
[2024-07-11 06:57] LABS: Anion Gap 8 (5-15); BUN/Creatinine Ratio 20.7 (10.0-20.0); Bilirubin, Total 0.6 mg/dL (0.2-1.0); Carbon Dioxide 29 mmol/L (20-31); Magnesium 1.8 mg/dL (1.6-2.6); Phosphorus 3.5 mg/dL (2.4-5.1); Sodium 145 mmol/L (136-145); Total Protein 7.9 g/dL (5.7-8.2)
[2024-07-11 06:58] LABS: Alanine Aminotransferase 78 U/L (7-40); Alkaline Phosphatase 119 U/L (46-116); Aspartate Aminotransferase 160 U/L (13-40); Blood Urea Nitrogen 37 mg/dL (9-23); Chloride 108 mmol/L (98-107); Glucose 150 mg/dL (74-106)
[2024-07-11 07:03] LABS: Basophils # (auto) 0.1 10 ^3/uL (0-0.2); Eosinophils # (auto) 0.3 10 ^3/uL (0-0.8); Eosinophils % (auto) 3.4 % (0.0-7.0); Hematocrit 34.4 % (41.0-53.0); Hemoglobin 11.3 g/dL (13.5-17.5); Lymphocytes # (auto) 1.6 10 ^3/uL (0.4-5.4); Lymphocytes % (auto) 16.2 % (10.0-50.0); Mean Corpuscular Hemoglobin 29.3 pg (28.0-32.0); Mean Corpuscular Volume 88.8 fL (80.0-100.0); Monocytes # (auto) 0.7 10 ^3/uL (0-1.3); Neutrophils # (auto) 7.1 10 ^3/uL (1.6-8.6); Neutrophils % (auto) 72.4 % (37.0-80.0); Platelet Count (auto) 414 10^3/uL (140-450); Red Blood Cells 3.87 10^6/uL (4.5-5.90); White Blood Cell 9.8 10^3/uL (4.4-10.8)
--- NOTE | 2024-07-11 09:50 | DVHPN2 ---
Progress Note Date Seen: Jul 11, 2024 Has the PT tested + for MRSA If YES, has PT been informed?: No Medical Necessity Reason Pt with a Central, PICC or Fol: Yes The following are medically ne: Crain Catheter Reason for crain catheter: Strict I&O Subjective Patient reports: No new complaints Review of Systems: HEENT:Normal, CVS:Normal, RESPIRATORY:Normal, GI:Normal, :Normal, MSK:Normal, NEURO:Normal Objective vital signs Vital Sign Date Time Temp Pulse Resp B/P (MAP) Pulse Ox O2 Delivery O2 Flow Rate FiO2 07/11/24 05:00 98.2 88 18 158/70 (99) 98 98.2 07/10/24 20:00 Nasal Cannula* 2 28 Total Intake and Output 07/10/24 07/10/24 07/11/24 14:59 22:59 06:59 Intake Total 200 ml 0 ml 0 ml Output Total 750 ml 850 ml Balance 200 ml -750 ml -850 ml medications Current Medications Medications Dose Ordered Sig/Jere Route Start Time Stop Time Status Last Admin Dose Admin Labetalol HCl 10 mg Q4HPRN PRN IV 06/24/24 11:45 07/09/24 17:57 10 MG Pantoprazole Sodium 40 mg DAILY IV 06/26/24 10:00 07/11/24 09:10 40 MG Diagnostic Test (Pha) 1 strip Q6HR 06/26/24 18:00 07/11/24 05:51 1 STRIP Insulin Human Regular Q6HR SC 06/26/24 18:00 07/11/24 05:51 3 UNITS Dextrose 50 ml UD PRN IV 06/26/24 15:15 Sodium Chloride 10 ml QSHIFT@10,22 IV 06/28/24 10:00 07/11/24 09:10 10 ML Hydralazine HCl 10 mg Q6HP PRN IV 07/07/24 11:30 07/10/24 22:31 10 MG Amlodipine Besylate 2.5 mg DAILY PO 07/10/24 10:00 Atenolol 25 mg BID PO 07/10/24 10:00 Purified Water 200 ml Q6HR GT 07/10/24 12:00 Enteral Nutritional Formula 1,000 ml 40ML/HR GT 07/10/24 09:45 Dextrose 1,000 ml @ 100 mls/hr Q10H IV 07/10/24 12:30 07/11/24 09:10 100 MLS/HR Amino Acids 0 ml @ 0 mls/hr PER PHARMACY IV 07/10/24 15:00 Amino Acids/ Electrolytes/ Dextrose 1,000 ml @ 41 mls/hr DAILY@2200 IV 07/10/24 22:00 07/10/24 22:31 41 MLS/HR Examination: GENERAL:Normal, HEENT:Normal, NECK:Normal, LUNGS:Normal, LUNGS:Abnormal (ON OXYGEN), CVS:Normal, ABDOMEN:Normal, MSK:Normal, SKIN:Normal, NEURO:Normal, :Normal laboratory and microbiology Laboratory Tests 07/11/24 04:49 Test 07/11/24 04:49 Range/Units Serum Glucose 150 H 74-106 mg/dL Microbiology Date/Time Source Procedure Growth Status 06/28/24 04:00 Urine - Crain Port Urine Culture - Final Complete 06/23/24 16:43 Nose MRSA Screen - Final Complete 06/23/24 13:32 Sputum Endotracheal Wash Gram Stain - Final Complete 06/23/24 13:32 Sputum Endotracheal Wash Respiratory Culture - Final Complete 06/21/24 18:05 Blood Blood Culture - Final NO GROWTH AFTER 5 DAYS OF INCUBATION. Complete Problem List/Assessment/Plan Problem List/Assessment/Plan #1 acute resp failure: cont acv, extubated #2 septic shock with uti ?esbl: dc iv meropenem #3 acute renal failure/atn: free water #4 obesity #5 bph #6 h/o renal stones #7 transaminitis #8 acute diastolic heart failure:dc lasix #9 hyperkalemia: improved #10 hypernatremia: free water #11 tube feedings: poor oral intake, re insert ng long discussion with jose luis Dionicio- updated regards plan of care advance care planning- full code- time spent 19 mins Plan discussed with: Patient My Orders My Orders Orders - ALONA BEAN MD Procedure Category Date Status Time Clinimix Per Pharmacy PHA 07/10/24 In Process 15:00 Amino Acid Infusion PHA 07/10/24 In Process In D10w (Clinimix 4. 22:00 Clinimix Per Pharmacy DAJA 07/10/24 In Process 22:00 Potassium Phosphate PHA 07/11/24 In Process 11:00 Comprehensive LAB 07/12/24 Verified Metabolic Panel 04:00 Magnesium LAB 07/12/24 Verified 04:00 Phosphorus LAB 07/12/24 Verified 04:00 Clinimix Per Pharmacy DAJA 07/11/24 In Process 22:00 Dietary Evaluation Review Comments: Cautious and follow up with Pt 's kidney function, monitor nutrition support to meet at [place] 75% of his needs Expected Outcomes/Goals: Advance to PO diet when medically feasible: CCHO-60 g alone with renal [id number] if pt's uremic syndrome continues. Date of Service: Jul 11, 2024 Billing Provider: ALONA BEAN MD Common Visit Codes: [id number] INP/OBS CARE(HIGH) ALONA BEAN MD Jul 11, 2024 09:50
[2024-07-11] MEDS: POTASSIUM CHL 20MEQ/100ML 100 ML IV ONE (10:42)
[2024-07-11] MEDS: D5W 5% 1,000 ML IV SCH (10:43)
[2024-07-11] MEDS: Jevity 1.2 Cal/Fiber 1 Liter GT SCH (12:42)
--- NOTE | 2024-07-11 14:41 | DVH ---
EXAM: XY CHEST PORTABLE TECHNIQUE: Single frontal chest radiograph CLINICAL HISTORY: Verify NG tube placement COMPARISON: XY CHEST PORTABLE on DOS: 07/09/24, XY CHEST PORTABLE on DOS: 07/03/24, XY CHEST PORTABLE on DOS: 07/03/24 Findings/Impression: Frontal chest radiograph demonstrates no acute osseous or superficial soft tissue abnormalities. Right upper extremity PICC terminates near the proximal SVC. Enteric tube is overlying the plane of t he stomach. The trachea is midline. The cardiac silhouette and mediastinum are within normal limits. No pneumothorax, pleural effusions, or consolidations.
[2024-07-11] MEDS: POTASSIUM PHOSPHATE 26.4 MEQ in SODIUM CHL 0.9% 100 ML IV ONE (15:04)
--- NOTE | 2024-07-11 16:21 | DVHPN2 ---
Progress Note Date Seen: Jul 11, 2024 Has the PT tested + for MRSA If YES, has PT been informed?: No Medical Necessity Reason Pt with a Central, PICC or Fol: Yes The following are medically ne: Crain Catheter Reason for crain catheter: Strict I&O Subjective Patient reports: No new complaints Other Systems: Patient seen and examined by myself today in follow-up Objective vital signs Vital Sign Date Time Temp Pulse Resp B/P (MAP) Pulse Ox O2 Delivery O2 Flow Rate FiO2 07/11/24 12:46 98.7 83 17 151/73 (99) 97 98.7 07/11/24 10:06 Nasal Cannula* 2 28 Total Intake and Output 07/10/24 07/10/24 07/11/24 15:00 23:00 07:00 Intake Total 200 ml 0 ml 0 ml Output Total 750 ml 850 ml Balance 200 ml -750 ml -850 ml medications Current Medications Medications Dose Ordered Sig/Jere Route Start Time Stop Time Status Last Admin Dose Admin Labetalol HCl 10 mg Q4HPRN PRN IV 06/24/24 11:45 07/09/24 17:57 10 MG Pantoprazole Sodium 40 mg DAILY IV 06/26/24 10:00 07/11/24 09:10 40 MG Diagnostic Test (Pha) 1 strip Q6HR 06/26/24 18:00 07/11/24 12:21 1 STRIP Insulin Human Regular Q6HR SC 06/26/24 18:00 07/11/24 05:51 3 UNITS Dextrose 50 ml UD PRN IV 06/26/24 15:15 Sodium Chloride 10 ml QSHIFT@10,22 IV 06/28/24 10:00 07/11/24 09:10 10 ML Hydralazine HCl 10 mg Q6HP PRN IV 07/07/24 11:30 07/10/24 22:31 10 MG Amlodipine Besylate 2.5 mg DAILY PO 07/10/24 10:00 Atenolol 25 mg BID PO 07/10/24 10:00 Purified Water 200 ml Q6HR GT 07/10/24 12:00 07/11/24 12:51 200 ML Enteral Nutritional Formula 1,000 ml 40ML/HR GT 07/10/24 09:45 07/11/24 12:42 1,000 ML Amino Acids 0 ml @ 0 mls/hr PER PHARMACY IV 07/10/24 15:00 Amino Acids/ Electrolytes/ Dextrose 1,000 ml @ 41 mls/hr DAILY@2200 IV 07/10/24 22:00 07/10/24 22:31 41 MLS/HR Dextrose 1,000 ml @ 60 mls/hr [id number] IV 07/11/24 10:00 07/11/24 10:43 60 MLS/HR Examination: LUNGS:Normal, CVS:Normal, MSK:Normal laboratory and microbiology Laboratory Tests 07/11/24 04:49 Test 07/11/24 04:49 Range/Units Serum Glucose 150 H 74-106 mg/dL Microbiology Date/Time Source Procedure Growth Status 06/28/24 04:00 Urine - Crain Port Urine Culture - Final Complete 06/23/24 16:43 Nose MRSA Screen - Final Complete 06/23/24 13:32 Sputum Endotracheal Wash Gram Stain - Final Complete 06/23/24 13:32 Sputum Endotracheal Wash Respiratory Culture - Final Complete 06/21/24 18:05 Blood Blood Culture - Final NO GROWTH AFTER 5 DAYS OF INCUBATION. Complete Problem List/Assessment/Plan Problem List/Assessment/Plan Acute kidney injury likely acute tubular necrosis, FeNa >2% Encephalopathy Acute respiratory failure, extubated Urinary retention status post Crain Enlarged prostate Hypernatremia due to insensible water loss Recommendations renal function slightly improving today Increased urine output Strict I&Os Hyponatremia appropriately resolving with increased hypotonic IV fluid Encourage p.o. water intake We will continue to follow up Plan discussed with: Patient Dietary Evaluation Review Comments: Cautious and follow up with Pt 's kidney function, monitor nutrition support to meet at [place] 75% of his needs Expected Outcomes/Goals: Advance to PO diet when medically feasible: CCHO-60 g alone with renal [id number] if pt's uremic syndrome continues. ROMIE MITCHELL MD Jul 11, 2024 16:20
[2024-07-12] VITALS (9 sets, daily range): BP systolic 128–190; BP diastolic 76–99; PULSE 79–87; RESP 14–20; TEMP 98–98.4; O2SAT 95–97
[2024-07-12 07:35] LABS: Potassium 3.5 mmol/L (3.5-5.1); Sodium 144 mmol/L (136-145)
[2024-07-12 07:36] LABS: Anion Gap 7 (5-15); Carbon Dioxide 29 mmol/L (20-31); Chloride 108 mmol/L (98-107)
[2024-07-12 07:41] LABS: BUN/Creatinine Ratio 18.4 (10.0-20.0)
[2024-07-12 07:43] LABS: Blood Urea Nitrogen 33 mg/dL (9-23); Glucose 125 mg/dL (74-106)
--- NOTE | 2024-07-12 09:35 | DVHPN2 ---
Subjective DISCUSSED WITH NURSE/pt looks rested Reviewed: Care Plan, H&P, Labs, Medications, Previous Orders, Radiology Changes from previous H/P or p: No Changes Objective Vitals Vital Signs Date Time Temp Pulse Resp B/P (MAP) Pulse Ox O2 Delivery O2 Flow Rate FiO2 07/12/24 08:57 98.4 79 18 177/80 (112) 95 98.4 07/11/24 20:00 Room Air* 0 21 Intake/Output Intake and Output 07/12/24 07:00 Intake Total 1550 ml Output Total 1525 ml Balance 25 ml IV Total 1550 ml Output Urine Total 1525 ml # Voids 1 General Appearance: Alert, Other (alert/answers simple questions with yes/no/follows simple commands only-) HEENT: Atraumatic Neck: Supple Cardiovascular: Regular rate, Normal S1, Normal S2, No murmurs, Gallops, Rubs Abdomen: Normal bowel sounds, Soft, No tenderness Neuro: Cranial nerves 3-12 NL, Other (limited speech due to comprehenshion issue/moves all four extremities on command) Psych/Mental Status: Mental status NL Medications Current Medications Medications Dose Ordered Sig/Jere Route Start Time Stop Time Status Last Admin Dose Admin Labetalol HCl 10 mg Q4HPRN PRN IV 06/24/24 11:45 07/09/24 17:57 10 MG Pantoprazole Sodium 40 mg DAILY IV 06/26/24 10:00 07/11/24 09:10 40 MG Diagnostic Test (Pha) 1 strip Q6HR 06/26/24 18:00 07/12/24 06:26 1 STRIP Insulin Human Regular Q6HR SC 06/26/24 18:00 07/12/24 06:23 3 UNITS Dextrose 50 ml UD PRN IV 06/26/24 15:15 Sodium Chloride 10 ml QSHIFT@10,22 IV 06/28/24 10:00 07/11/24 22:10 10 ML Hydralazine HCl 10 mg Q6HP PRN IV 07/07/24 11:30 07/10/24 22:31 10 MG Amlodipine Besylate 2.5 mg DAILY PO 07/10/24 10:00 Atenolol 25 mg BID PO 07/10/24 10:00 07/11/24 22:10 25 MG Purified Water 200 ml Q6HR GT 07/10/24 12:00 07/12/24 06:26 200 ML Enteral Nutritional Formula 1,000 ml 40ML/HR GT 07/10/24 09:45 07/11/24 12:42 1,000 ML Dextrose 1,000 ml @ 60 mls/hr [id number] IV 07/11/24 10:00 07/11/24 22:35 60 MLS/HR Laboratory Results Laboratory Tests 07/11/24 04:49 07/12/24 06:53 Chemistry Test 07/12/24 06:53 Calcium Level 10.0 mg/dL (8.7-10.4) Urinalysis Test 06/22/24 17:12 06/23/24 18:27 Urine Color Dark-brown (Yellow) Urine Clarity Ex.turbid (Clear) Urine pH 6.0 (5.0-9.0) Urine Specific [place] 1.011 (1.001-1.035) Urine Protein 2+ (Negative) H Urine Ketones Negative (Negative) Urine Blood 3+ /uL (Negative) H Urine Nitrite Negative (Negative) Urine Bilirubin Negative (Negative) Urine Urobilinogen Normal mg/dL (Negative) Urine Leukocyte Esterase 3+ /uL (Negative) Urine RBC 561 /hpf (0 - 3) Urine WBC 2731 /hpf (0 - 3) Urine WBC Clumps Present /hpf (None Seen) Urine Squamous Epithelial Cells Few /hpf (<5) Urine Bacteria Mod /hpf (None Seen) H Urine Glucose 3+ mg/dL (Normal) H Urine Creatinine 21.25 mg/dL (30.0-125.0) L Urine Sodium 135 mmol/L (40-220) Urine Total Protein 71.4 mg/dL (1-14) H Microbiology Microbiology Date/Time Source Procedure Growth Status 06/28/24 04:00 Urine - Crain Port Urine Culture - Final Complete 06/23/24 16:43 Nose MRSA Screen - Final Complete 06/23/24 13:32 Sputum Endotracheal Wash Gram Stain - Final Complete 06/23/24 13:32 Sputum Endotracheal Wash Respiratory Culture - Final Complete 06/21/24 18:05 Blood Blood Culture - Final NO GROWTH AFTER 5 DAYS OF INCUBATION. Complete Labs and/or images reviewed: Labs reviewed by me Assessment/Plan Assessment/Plan sepsis with respiratory failure- improved/extubated/on room air-from gi infection vs uti on admission renal fn improved-at stage 3b encephalopathy- metabolic encephalopathy from sepsis /hypotension on admission dvt prophylaxis tolerating ng tubes/normal bm this am skin- integrity -normal no bed sores rt central line/ng /crain clean and draining Plan discussed with: Patient, Other Date of Service: Jul 12, 2024 Billing Provider: YANNI YAN MD Common Visit Codes: [id number] INP/OBS CARE(MOD) YANNI YAN MD Jul 12, 2024 09:35
[2024-07-12] MEDS ORDERED: amLODIPine BESYLATE 5 MG TAB PO SCH (10:00)
[2024-07-12] MEDS: ENOXAPARIN SOD 40 MG/0.4 ML SYRINGE SC SCH (10:50)
[2024-07-12] MEDS: ATENOLOL 25 MG TAB NG SCH (10:52)
[2024-07-12] MEDS: amLODIPine BESYLATE 5 MG TAB NG SCH (10:53)
--- NOTE | 2024-07-12 14:23 | DVHPN2 ---
Progress Note Date Seen: Jul 12, 2024 Has the PT tested + for MRSA If YES, has PT been informed?: No Medical Necessity Reason Pt with a Central, PICC or Fol: Yes The following are medically ne: Crain Catheter Reason for crain catheter: Strict I&O Subjective Patient reports: No new complaints Other Systems: Patient seen and examined by myself today in follow-up Objective vital signs Vital Sign Date Time Temp Pulse Resp B/P (MAP) Pulse Ox O2 Delivery O2 Flow Rate FiO2 07/12/24 12:56 98.0 87 14 128/79 (95) 96 98.0 07/12/24 10:00 Room Air 07/12/24 10:00 0 21 Total Intake and Output 07/11/24 07/11/24 07/12/24 15:00 23:00 07:00 Intake Total 1550 ml Output Total 750 ml 775 ml Balance 1550 ml -750 ml -775 ml medications Current Medications Medications Dose Ordered Sig/Jere Route Start Time Stop Time Status Last Admin Dose Admin Pantoprazole Sodium 40 mg DAILY IV 06/26/24 10:00 07/12/24 10:51 40 MG Sodium Chloride 10 ml QSHIFT@10,22 IV 06/28/24 10:00 07/12/24 10:53 10 ML Hydralazine HCl 10 mg Q6HP PRN IV 07/07/24 11:30 07/10/24 22:31 10 MG Purified Water 200 ml Q6HR GT 07/10/24 12:00 07/12/24 06:26 200 ML Enteral Nutritional Formula 1,000 ml 40ML/HR GT 07/10/24 09:45 07/11/24 12:42 1,000 ML Dextrose 1,000 ml @ 60 mls/hr [id number] IV 07/11/24 10:00 07/11/24 22:35 60 MLS/HR Enoxaparin Sodium 40 mg DAILY SC 07/12/24 10:00 07/12/24 10:50 40 MG Amlodipine Besylate 5 mg DAILY NG 07/12/24 10:15 07/12/24 10:53 5 MG Atenolol 25 mg BID NG 07/12/24 10:15 07/12/24 10:52 25 MG Examination: LUNGS:Normal, CVS:Normal, MSK:Normal laboratory and microbiology Laboratory Tests 07/12/24 06:53 12/19/24 04:49 Test 07/12/24 06:53 Range/Units Serum Glucose 125 H 74-106 mg/dL Microbiology Date/Time Source Procedure Growth Status 06/28/24 04:00 Urine - Crain Port Urine Culture - Final Complete 06/23/24 16:43 Nose MRSA Screen - Final Complete 06/23/24 13:32 Sputum Endotracheal Wash Gram Stain - Final Complete 06/23/24 13:32 Sputum Endotracheal Wash Respiratory Culture - Final Complete 06/21/24 18:05 Blood Blood Culture - Final NO GROWTH AFTER 5 DAYS OF INCUBATION. Complete Problem List/Assessment/Plan Problem List/Assessment/Plan Acute kidney injury likely acute tubular necrosis, FeNa >2% Encephalopathy Acute respiratory failure, extubated Urinary retention status post Crain Enlarged prostate Hypernatremia due to insensible water loss Recommendations renal function slightly improving today Increased urine output Strict I&Os Hypernatremia appropriately resolving with increased hypotonic IV fluid Encourage p.o. water intake We will continue to follow up Plan discussed with: Patient Dietary Evaluation Review Comments: Cautious and follow up with Pt 's kidney function, monitor nutrition support to meet at [place] 75% of his needs Expected Outcomes/Goals: Advance to PO diet when medically feasible: CCHO-60 g alone with renal [id number] if pt's uremic syndrome continues. ROMIE MITCHELL MD Jul 12, 2024 14:23
--- NOTE | 2024-07-12 15:50 | DVH ---
EXAM: XY CHEST PORTABLE TECHNIQUE: Single frontal chest radiograph CLINICAL HISTORY: Verify NG Tube Placement COMPARISON: XY CHEST PORTABLE on DOS: 07/11/24, XY CHEST PORTABLE on DOS: 07/09/24, XY CHEST PORTABLE on DOS: 07/03/24 Findings/Impression: Frontal chest radiograph demonstrates no acute osseous or superficial soft tissue abnormalities. Enteric tube is overlying the plane of the stomach. The trachea is midline. The cardiac silhouette and mediastinum are within normal limits. No pneumothorax, pleural effusions, or consolidations.
[2024-07-13] VITALS (9 sets, daily range): BP systolic 142–177; BP diastolic 80–99; PULSE 79–102; RESP 16–20; TEMP 97.8–100.2; O2SAT 93–98
--- NOTE | 2024-07-13 09:49 | DVHPN2 ---
Progress Note Date Seen: Jul 13, 2024 Has the PT tested + for MRSA If YES, has PT been informed?: No Medical Necessity Reason Pt with a Central, PICC or Fol: Yes The following are medically ne: Crain Catheter Reason for crain catheter: Strict I&O Subjective Patient reports: No new complaints Other Systems: Patient seen and examined by myself in follow-up today Objective vital signs Vital Sign Date Time Temp Pulse Resp B/P (MAP) Pulse Ox O2 Delivery O2 Flow Rate FiO2 07/13/24 08:52 97.8 95 20 159/99 (119) 95 97.8 07/12/24 20:00 Room Air* 0 21 Total Intake and Output 07/12/24 07/12/24 07/13/24 15:00 23:00 07:00 Intake Total 0 ml 0 ml Output Total 725 ml 1100 ml Balance -725 ml -1100 ml medications Current Medications Medications Dose Ordered Sig/Jere Route Start Time Stop Time Status Last Admin Dose Admin Pantoprazole Sodium 40 mg DAILY IV 06/26/24 10:00 07/13/24 09:24 40 MG Sodium Chloride 10 ml QSHIFT@, IV 06/28/24 10:00 07/13/24 09:35 10 ML Hydralazine HCl 10 mg Q6HP PRN IV 07/07/24 11:30 07/13/24 01:12 10 MG Purified Water 200 ml Q6HR GT 07/10/24 12:00 07/13/24 06:09 200 ML Enteral Nutritional Formula 1,000 ml 40ML/HR GT 07/10/24 09:45 07/12/24 19:37 1,000 ML Enoxaparin Sodium 40 mg DAILY SC 07/12/24 10:00 07/13/24 09:35 40 MG Amlodipine Besylate 5 mg DAILY NG 07/12/24 10:15 07/12/24 10:53 5 MG Atenolol 25 mg BID NG 07/12/24 10:15 07/12/24 21:46 25 MG Examination: LUNGS:Normal, CVS:Normal, MSK:Normal laboratory and microbiology Laboratory Tests 07/12/24 06:53 07/11/24 04:49 Test 07/12/24 06:53 Range/Units Serum Glucose 125 H 74-106 mg/dL Microbiology Date/Time Source Procedure Growth Status 06/28/24 04:00 Urine - Crain Port Urine Culture - Final Complete 06/23/24 16:43 Nose MRSA Screen - Final Complete 06/23/24 13:32 Sputum Endotracheal Wash Gram Stain - Final Complete 06/23/24 13:32 Sputum Endotracheal Wash Respiratory Culture - Final Complete 06/21/24 18:05 Blood Blood Culture - Final NO GROWTH AFTER 5 DAYS OF INCUBATION. Complete Problem List/Assessment/Plan Problem List/Assessment/Plan Acute kidney injury likely acute tubular necrosis, FeNa >2% Encephalopathy Acute respiratory failure, extubated Urinary retention status post Crain Enlarged prostate Hypernatremia due to insensible water loss Recommendations renal function slightly improving today Increased urine output Strict I&Os Hypernatremia appropriately resolving with increased hypotonic IV fluid Encourage p.o. water intake We will continue to follow up Plan discussed with: Patient Dietary Evaluation Review Comments: Cautious and follow up with Pt 's kidney function, monitor nutrition support to meet at [place] 75% of his needs Expected Outcomes/Goals: Advance to PO diet when medically feasible: CCHO-60 g alone with renal [id number] if pt's uremic syndrome continues. ROMIE MITCHELL MD Jul 13, 2024 09:49
--- NOTE | 2024-07-13 10:28 | DVHPN2 ---
Subjective DISCUSSED WITH NURSE/pt looks rested Reviewed: Care Plan, H&P, Labs, Medications, Previous Orders, Radiology Changes from previous H/P or p: No Changes Objective Vitals Vital Signs Date Time Temp Pulse Resp B/P (MAP) Pulse Ox O2 Delivery O2 Flow Rate FiO2 07/13/24 08:52 97.8 95 20 159/99 (119) 95 97.8 07/12/24 20:00 Room Air* 0 21 Intake/Output Intake and Output 07/13/24 07:00 Intake Total 0 ml Output Total 1825 ml Balance -1825 ml Intake Oral 0 ml Output Urine Total 1825 ml # Bowel Movements 1 General Appearance: Alert, Other (alert/answers simple questions with yes/no/follows simple commands only-) HEENT: Atraumatic Neck: Supple Cardiovascular: Regular rate, Normal S1, Normal S2, No murmurs, Gallops, Rubs Abdomen: Normal bowel sounds, Soft, No tenderness Neuro: Cranial nerves 3-12 NL, Other (limited speech due to comprehenshion issue/moves all four extremities on command) Psych/Mental Status: Mental status NL Medications Current Medications Medications Dose Ordered Sig/Jere Route Start Time Stop Time Status Last Admin Dose Admin Pantoprazole Sodium 40 mg DAILY IV 06/26/24 10:00 07/13/24 09:24 40 MG Sodium Chloride 10 ml QSHIFT@10,22 IV 06/28/24 10:00 07/13/24 09:35 10 ML Hydralazine HCl 10 mg Q6HP PRN IV 07/07/24 11:30 07/13/24 01:12 10 MG Purified Water 200 ml Q6HR GT 07/10/24 12:00 07/13/24 06:09 200 ML Enteral Nutritional Formula 1,000 ml 40ML/HR GT 07/10/24 09:45 07/12/24 19:37 1,000 ML Enoxaparin Sodium 40 mg DAILY SC 07/12/24 10:00 07/13/24 09:35 40 MG Amlodipine Besylate 5 mg DAILY NG 07/12/24 10:15 07/12/24 10:53 5 MG Atenolol 25 mg BID NG 07/12/24 10:15 07/12/24 21:46 25 MG Laboratory Results Laboratory Tests 07/11/24 04:49 07/12/24 06:53 Urinalysis Test 06/22/24 17:12 06/23/24 18:27 Urine Color Dark-brown (Yellow) Urine Clarity Ex.turbid (Clear) Urine pH 6.0 (5.0-9.0) Urine Specific [place] 1.011 (1.001-1.035) Urine Protein 2+ (Negative) H Urine Ketones Negative (Negative) Urine Blood 3+ /uL (Negative) H Urine Nitrite Negative (Negative) Urine Bilirubin Negative (Negative) Urine Urobilinogen Normal mg/dL (Negative) Urine Leukocyte Esterase 3+ /uL (Negative) Urine RBC 561 /hpf (0 - 3) Urine WBC 2731 /hpf (0 - 3) Urine WBC Clumps Present /hpf (None Seen) Urine Squamous Epithelial Cells Few /hpf (<5) Urine Bacteria Mod /hpf (None Seen) H Urine Glucose 3+ mg/dL (Normal) H Urine Creatinine 21.25 mg/dL (30.0-125.0) L Urine Sodium 135 mmol/L (40-220) Urine Total Protein 71.4 mg/dL (1-14) H Microbiology Microbiology Date/Time Source Procedure Growth Status 06/28/24 04:00 Urine - Crain Port Urine Culture - Final Complete 06/23/24 16:43 Nose MRSA Screen - Final Complete 06/23/24 13:32 Sputum Endotracheal Wash Gram Stain - Final Complete 06/23/24 13:32 Sputum Endotracheal Wash Respiratory Culture - Final Complete 06/21/24 18:05 Blood Blood Culture - Final NO GROWTH AFTER 5 DAYS OF INCUBATION. Complete Labs and/or images reviewed: Labs reviewed by me, Image(s) reviewed by me Assessment/Plan Assessment/Plan sepsis with respiratory failure- improved/extubated/on room air-from gi infection vs uti on admission renal fn improved-at stage 3b encephalopathy- metabolic encephalopathy from sepsis /hypotension on admission dvt prophylaxis tolerating ng tubes/normal bm this am skin- integrity -normal no bed sores rt central line/ng /crain clean and draining awaiting placement at [facility] Plan discussed with: Patient, Other My Orders Orders - YANNI YAN MD Procedure Category Date Status Time Chest Portable XY 07/12/24 Resulted 15:19 Date of Service: Jul 13, 2024 Billing Provider: YANNI YAN MD Common Visit Codes: [id number] INP/OBS CARE(MOD) YANNI YAN MD Jul 13, 2024 10:28
--- NOTE | 2024-07-13 10:41 | DVH ---
CHEST RADIOGRAPH Indication: NEW NG TUBE PLACEMENT CONFIRMATION Technique: Single frontal chest radiograph Comparison: XY CHEST PORTABLE on DOS: 07/12/24, XY CHEST PORTABLE on DOS: 07/11/24, XY CHEST PORTABLE on DOS: 07/09/24, XY CHEST PORTABLE on DOS: 07/03/24, XY CHEST PORTABLE on DOS: 07/03/24, XY CHEST P ORTABLE on DOS: 07/12/24 FINDINGS: Frontal chest radiograph demonstrates no acute osseous or superficial soft tissue abnormalities. Ente jacquelyn tube is overlying the plane of the stomach. The trachea is midline. The cardiac silhouette and me diastinum are within normal limits. No pneumothorax, pleural effusions, or consolidations. Right PICC tip in SVC IMPRESSION: 1. NG tube in stomach.
[2024-07-13] MEDS: ACETAMINOPHEN 325 MG TAB PO PRN (21:33)
[2024-07-14] VITALS (10 sets, daily range): BP systolic 139–165; BP diastolic 50–87; PULSE 73–80; RESP 14–18; TEMP 97.2–99.2; O2SAT 97–99
--- NOTE | 2024-07-14 12:07 | DVHPN2 ---
Progress Note Date Seen: Jul 14, 2024 Has the PT tested + for MRSA If YES, has PT been informed?: No Medical Necessity Reason Pt with a Central, PICC or Fol: Yes The following are medically ne: Crain Catheter Reason for crain catheter: Strict I&O Subjective Patient reports: No new complaints Other Systems: Patient seen and examined by myself on follow-up today Objective vital signs Vital Sign Date Time Temp Pulse Resp B/P (MAP) Pulse Ox O2 Delivery O2 Flow Rate FiO2 07/14/24 10:05 99 Nasal Cannula 2.0 07/14/24 10:05 28 07/14/24 09:51 75 159/83 07/14/24 08:46 98.1 18 98.1 Total Intake and Output 07/13/24 07/13/24 07/14/24 15:00 23:00 07:00 Intake Total 120 ml 0 ml Output Total 1200 ml 550 ml Balance -1080 ml -550 ml medications Current Medications Medications Dose Ordered Sig/Jere Route Start Time Stop Time Status Last Admin Dose Admin Pantoprazole Sodium 40 mg DAILY IV 06/26/24 10:00 07/14/24 09:50 40 MG Sodium Chloride 10 ml QSHIFT@ IV 06/28/24 10:00 07/14/24 09:50 10 ML Hydralazine HCl 10 mg Q6HP PRN IV 07/07/24 11:30 07/13/24 12:44 10 MG Purified Water 200 ml Q6HR GT 07/10/24 12:00 07/14/24 05:48 200 ML Enteral Nutritional Formula 1,000 ml 40ML/HR GT 07/10/24 09:45 07/13/24 20:32 1,000 ML Enoxaparin Sodium 40 mg DAILY SC 07/12/24 10:00 07/14/24 09:50 40 MG Amlodipine Besylate 5 mg DAILY NG 07/12/24 10:15 07/14/24 09:51 5 MG Atenolol 25 mg BID NG 07/12/24 10:15 07/14/24 09:51 25 MG Acetaminophen 650 mg Q6HP PRN PO 07/13/24 21:00 07/13/24 21:33 650 MG Examination: LUNGS:Normal, CVS:Normal, MSK:Normal laboratory and microbiology Laboratory Tests 07/12/24 06:53 07/11/24 04:49 Test 07/12/24 06:53 Range/Units Serum Glucose 125 H 74-106 mg/dL Microbiology Date/Time Source Procedure Growth Status 06/28/24 04:00 Urine - Crain Port Urine Culture - Final Complete 06/23/24 16:43 Nose MRSA Screen - Final Complete 06/23/24 13:32 Sputum Endotracheal Wash Gram Stain - Final Complete 06/23/24 13:32 Sputum Endotracheal Wash Respiratory Culture - Final Complete 06/21/24 18:05 Blood Blood Culture - Final NO GROWTH AFTER 5 DAYS OF INCUBATION. Complete Problem List/Assessment/Plan Problem List/Assessment/Plan Acute kidney injury likely acute tubular necrosis, FeNa >2% Encephalopathy Acute respiratory failure, extubated Urinary retention status post Crain Enlarged prostate Hypernatremia due to insensible water loss Recommendations renal function slightly improving today Increased urine output Strict I&Os Hypernatremia appropriately resolving with increased hypotonic IV fluid Encourage p.o. water intake We will continue to follow up Plan discussed with: Patient Dietary Evaluation Review Comments: Cautious and follow up with Pt 's kidney function, monitor nutrition support to meet at [place] 75% of his needs Expected Outcomes/Goals: Advance to PO diet when medically feasible: CCHO-60 g alone with renal [id number] if pt's uremic syndrome continues. ROMIE MITCHELL MD Jul 14, 2024 12:07
--- NOTE | 2024-07-14 18:12 | DVHPN2 ---
Subjective DISCUSSED WITH NURSE/pt looks rested Reviewed: Care Plan, H&P, Labs, Medications, Previous Orders, Radiology Changes from previous H/P or p: No Changes Objective Vitals Vital Signs Date Time Temp Pulse Resp B/P (MAP) Pulse Ox O2 Delivery O2 Flow Rate FiO2 07/14/24 16:39 98.0 77 17 152/79 (103) 97 98.0 07/14/24 10:05 Nasal Cannula 2.0 07/14/24 10:05 28 Intake/Output Intake and Output 07/14/24 07:00 Intake Total 120 ml Output Total 1750 ml Balance -1630 ml Intake Oral 0 ml IV Total 120 ml Output Urine Total 1750 ml General Appearance: Alert, Other (alert/answers simple questions with yes/no/follows simple commands only-) HEENT: Atraumatic Neck: Supple Cardiovascular: Regular rate, Normal S1, Normal S2, No murmurs, Gallops, Rubs Abdomen: Normal bowel sounds, Soft, No tenderness Neuro: Normal speech, Strength at 5/5 X4 ext, Sensation intact, Cranial nerves 3-12 NL, Other (limited speech due to comprehenshion issue/moves all four extremities on command) Psych/Mental Status: Mental status NL Medications Current Medications Medications Dose Ordered Sig/Jere Route Start Time Stop Time Status Last Admin Dose Admin Pantoprazole Sodium 40 mg DAILY IV 06/26/24 10:00 07/14/24 09:50 40 MG Sodium Chloride 10 ml QSHIFT@10,22 IV 06/28/24 10:00 07/14/24 09:50 10 ML Hydralazine HCl 10 mg Q6HP PRN IV 07/07/24 11:30 07/13/24 12:44 10 MG Purified Water 200 ml Q6HR GT 07/10/24 12:00 07/14/24 12:12 200 ML Enteral Nutritional Formula 1,000 ml 40ML/HR GT 07/10/24 09:45 07/13/24 20:32 1,000 ML Enoxaparin Sodium 40 mg DAILY SC 07/12/24 10:00 07/14/24 09:50 40 MG Amlodipine Besylate 5 mg DAILY NG 07/12/24 10:15 07/14/24 09:51 5 MG Atenolol 25 mg BID NG 07/12/24 10:15 07/14/24 09:51 25 MG Acetaminophen 650 mg Q6HP PRN PO 07/13/24 21:00 07/13/24 21:33 650 MG Laboratory Results Laboratory Tests 07/11/24 04:49 07/12/24 06:53 Urinalysis Test 06/22/24 17:12 06/23/24 18:27 Urine Color Dark-brown (Yellow) Urine Clarity Ex.turbid (Clear) Urine pH 6.0 (5.0-9.0) Urine Specific [place] 1.011 (1.001-1.035) Urine Protein 2+ (Negative) H Urine Ketones Negative (Negative) Urine Blood 3+ /uL (Negative) H Urine Nitrite Negative (Negative) Urine Bilirubin Negative (Negative) Urine Urobilinogen Normal mg/dL (Negative) Urine Leukocyte Esterase 3+ /uL (Negative) Urine RBC 561 /hpf (0 - 3) Urine WBC 2731 /hpf (0 - 3) Urine WBC Clumps Present /hpf (None Seen) Urine Squamous Epithelial Cells Few /hpf (<5) Urine Bacteria Mod /hpf (None Seen) H Urine Glucose 3+ mg/dL (Normal) H Urine Creatinine 21.25 mg/dL (30.0-125.0) L Urine Sodium 135 mmol/L (40-220) Urine Total Protein 71.4 mg/dL (1-14) H Microbiology Microbiology Date/Time Source Procedure Growth Status 06/28/24 04:00 Urine - Crain Port Urine Culture - Final Complete 06/23/24 16:43 Nose MRSA Screen - Final Complete 06/23/24 13:32 Sputum Endotracheal Wash Gram Stain - Final Complete 06/23/24 13:32 Sputum Endotracheal Wash Respiratory Culture - Final Complete 06/21/24 18:05 Blood Blood Culture - Final NO GROWTH AFTER 5 DAYS OF INCUBATION. Complete Labs and/or images reviewed: Labs reviewed by me, Image(s) reviewed by me Assessment/Plan Assessment/Plan sepsis with respiratory failure- improved/extubated/on room air-from gi infection vs uti on admission renal fn improved-at stage 3b encephalopathy- metabolic encephalopathy from sepsis /hypotension on admission dvt prophylaxis tolerating ng tubes/normal bm this am/Son to make decision on peg/awaiting placement skin- integrity -normal no bed sores rt central line/ng /crain clean and draining awaiting placement at tx Plan discussed with: Patient, Other Date of Service: Jul 14, 2024 Billing Provider: YANNI YAN MD Common Visit Codes: [id number] INP/OBS CARE(LOW) YANNI YAN MD Jul 14, 2024 18:12
[2024-07-15] VITALS (10 sets, daily range): BP systolic 145–171; BP diastolic 74–87; PULSE 73–94; RESP 15–17; TEMP 97.7–98; O2SAT 98–100
--- NOTE | 2024-07-15 10:10 | DVHPN2 ---
Progress Note Date Seen: Jul 15, 2024 Has the PT tested + for MRSA If YES, has PT been informed?: No Medical Necessity Reason Pt with a Central, PICC or Fol: Yes The following are medically ne: Crain Catheter Reason for crain catheter: Strict I&O Subjective Patient reports: No new complaints Review of Systems: HEENT:Normal, CVS:Normal, RESPIRATORY:Normal, GI:Normal, :Normal, MSK:Normal, NEURO:Normal Objective vital signs Vital Sign Date Time Temp Pulse Resp B/P (MAP) Pulse Ox O2 Delivery O2 Flow Rate FiO2 07/15/24 09:53 77 158/74 07/15/24 09:00 98.0 17 99 98.0 07/15/24 08:17 Room Air* 0 21 Total Intake and Output 07/14/24 07/14/24 07/15/24 15:00 23:00 07:00 Intake Total 0 ml 0 ml Output Total 550 ml 550 ml Balance -550 ml -550 ml medications Current Medications Medications Dose Ordered Sig/Jere Route Start Time Stop Time Status Last Admin Dose Admin Pantoprazole Sodium 40 mg DAILY IV 06/26/24 10:00 07/15/24 09:52 40 MG Sodium Chloride 10 ml QSHIFT@10,22 IV 06/28/24 10:00 07/15/24 09:53 10 ML Hydralazine HCl 10 mg Q6HP PRN IV 07/07/24 11:30 07/13/24 12:44 10 MG Purified Water 200 ml Q6HR GT 07/10/24 12:00 07/15/24 05:57 200 ML Enteral Nutritional Formula 1,000 ml 40ML/HR GT 07/10/24 09:45 07/14/24 21:30 1,000 ML Enoxaparin Sodium 40 mg DAILY SC 07/12/24 10:00 07/15/24 09:52 40 MG Amlodipine Besylate 5 mg DAILY NG 07/12/24 10:15 07/15/24 09:52 5 MG Atenolol 25 mg BID NG 07/12/24 10:15 07/15/24 09:53 25 MG Acetaminophen 650 mg Q6HP PRN PO 07/13/24 21:00 07/13/24 21:33 650 MG Examination: GENERAL:Normal, HEENT:Normal, NECK:Normal, LUNGS:Normal, CVS:Normal, ABDOMEN:Normal, ABDOMEN:Abnormal (ng tube), MSK:Normal, SKIN:Normal, NEURO:Normal, :Normal laboratory and microbiology Laboratory Tests 07/12/24 06:53 07/11/24 04:49 Test 07/12/24 06:53 Range/Units Serum Glucose 125 H 74-106 mg/dL Microbiology Date/Time Source Procedure Growth Status 06/28/24 04:00 Urine - Crain Port Urine Culture - Final Complete 06/23/24 16:43 Nose MRSA Screen - Final Complete 06/23/24 13:32 Sputum Endotracheal Wash Gram Stain - Final Complete 06/23/24 13:32 Sputum Endotracheal Wash Respiratory Culture - Final Complete 06/21/24 18:05 Blood Blood Culture - Final NO GROWTH AFTER 5 DAYS OF INCUBATION. Complete Problem List/Assessment/Plan Problem List/Assessment/Plan #1 acute resp failure: cont acv, extubated #2 septic shock with uti ?esbl: dc iv meropenem #3 acute renal failure/atn: free water #4 obesity #5 bph #6 h/o renal stones #7 transaminitis #8 acute diastolic heart failure:dc lasix #9 hyperkalemia: improved #10 hypernatremia: free water #11 tube feedings: poor oral intake, re insert ng, trial of oral feedings long discussion with son Ryan- updated regards plan of care advance care planning- full code- time spent 19 mins Plan discussed with: Patient, Son Dietary Evaluation Review Comments: Cautious and follow up with Pt 's kidney function, monitor nutrition support to meet at [place] 75% of his needs Expected Outcomes/Goals: Advance to PO diet when medically feasible: CCHO-60 g alone with renal [id number] if pt's uremic syndrome continues. Date of Service: Jul 15, 2024 Billing Provider: ALONA BEAN MD Common Visit Codes: [id number] INP/OBS CARE(HIGH) ALONA BEAN MD Jul 15, 2024 10:10
--- NOTE | 2024-07-15 10:56 | DVHPN2 ---
Progress Note Date Seen: Jul 15, 2024 Has the PT tested + for MRSA If YES, has PT been informed?: No Medical Necessity Reason Pt with a Central, PICC or Fol: Yes The following are medically ne: Crain Catheter Reason for crain catheter: Strict I&O Subjective Patient reports: Other Review of Systems: HEENT:Normal Objective vital signs Vital Sign Date Time Temp Pulse Resp B/P (MAP) Pulse Ox O2 Delivery O2 Flow Rate FiO2 07/15/24 10:22 99 Nasal Cannula* 2 28 07/15/24 09:53 77 158/74 07/15/24 09:00 98.0 17 98.0 Total Intake and Output 07/14/24 07/14/24 07/15/24 15:00 23:00 07:00 Intake Total 0 ml 0 ml Output Total 550 ml 550 ml Balance -550 ml -550 ml medications Current Medications Medications Dose Ordered Sig/Jere Route Start Time Stop Time Status Last Admin Dose Admin Pantoprazole Sodium 40 mg DAILY IV 06/26/24 10:00 07/15/24 09:52 40 MG Sodium Chloride 10 ml QSHIFT@ IV 06/28/24 10:00 07/15/24 09:53 10 ML Hydralazine HCl 10 mg Q6HP PRN IV 07/07/24 11:30 07/13/24 12:44 10 MG Purified Water 200 ml Q6HR GT 07/10/24 12:00 07/15/24 05:57 200 ML Enteral Nutritional Formula 1,000 ml 40ML/HR GT 07/10/24 09:45 07/14/24 21:30 1,000 ML Enoxaparin Sodium 40 mg DAILY SC 07/12/24 10:00 07/15/24 09:52 40 MG Amlodipine Besylate 5 mg DAILY NG 07/12/24 10:15 07/15/24 09:52 5 MG Atenolol 25 mg BID NG 07/12/24 10:15 07/15/24 09:53 25 MG Acetaminophen 650 mg Q6HP PRN PO 07/13/24 21:00 07/13/24 21:33 650 MG Examination: GENERAL:Normal, HEENT:Normal, CVS:Normal laboratory and microbiology Laboratory Tests 07/12/24 06:53 07/11/24 04:49 Test 07/12/24 06:53 Range/Units Serum Glucose 125 H 74-106 mg/dL Microbiology Date/Time Source Procedure Growth Status 06/28/24 04:00 Urine - Crain Port Urine Culture - Final Complete 06/23/24 16:43 Nose MRSA Screen - Final Complete 06/23/24 13:32 Sputum Endotracheal Wash Gram Stain - Final Complete 06/23/24 13:32 Sputum Endotracheal Wash Respiratory Culture - Final Complete 06/21/24 18:05 Blood Blood Culture - Final NO GROWTH AFTER 5 DAYS OF INCUBATION. Complete Problem List/Assessment/Plan Problem List/Assessment/Plan Acute kidney injury likely acute tubular necrosis + obstruction Encephalopathy Ventilator-dependent hypoxic respiratory failure resolved Distended bladder distended hydroureter on CT scan s/p new crain placed by Urology Enlarged prostate potassium imbalances renal function continues to improve has not retuned to baseline but is more stable continue free water avoid hypotension replace electrolytes check labs today and check phos level Plan discussed with: Patient Dietary Evaluation Review Comments: Cautious and follow up with Pt 's kidney function, monitor nutrition support to meet at [place] 75% of his needs Expected Outcomes/Goals: Advance to PO diet when medically feasible: CCHO-60 g alone with renal [id number] if pt's uremic syndrome continues. KAREN MARTINEZ MD Jul 15, 2024 10:56
[2024-07-15 12:36] LABS: Potassium 4.1 mmol/L (3.5-5.1)
[2024-07-15 12:37] LABS: Anion Gap 8 (5-15); Carbon Dioxide 29 mmol/L (20-31)
[2024-07-15 12:38] LABS: Calcium 10.3 mg/dL (8.7-10.4)
[2024-07-15 12:42] LABS: BUN/Creatinine Ratio 19.4 (10.0-20.0)
[2024-07-15 12:44] LABS: Blood Urea Nitrogen 30 mg/dL (9-23); Chloride 111 mmol/L (98-107); Glucose 119 mg/dL (74-106); Sodium 148 mmol/L (136-145)
[2024-07-16] VITALS (9 sets, daily range): BP systolic 147–170; BP diastolic 67–82; PULSE 68–95; RESP 15–17; TEMP 97.4–98.2; O2SAT 97–100
[2024-07-16 06:22] LABS: Albumin 3.8 g/dL (3.2-4.8); Anion Gap 8 (5-15); BUN/Creatinine Ratio 19.1 (10.0-20.0); Calcium 10.1 mg/dL (8.7-10.4); Carbon Dioxide 30 mmol/L (20-31); Potassium 3.8 mmol/L (3.5-5.1)
[2024-07-16 06:23] LABS: Total Protein 7.9 g/dL (5.7-8.2)
[2024-07-16 06:28] LABS: Alanine Aminotransferase 87 U/L (7-40); Alkaline Phosphatase 121 U/L (46-116); Aspartate Aminotransferase 133 U/L (13-40); Bilirubin, Total 0.3 mg/dL (0.2-1.0); Blood Urea Nitrogen 30 mg/dL (9-23); Chloride 108 mmol/L (98-107); Glucose 126 mg/dL (74-106); Sodium 146 mmol/L (136-145)
[2024-07-16 07:21] LABS: Basophils # (auto) 0.1 10 ^3/uL (0-0.2); Basophils % (auto) 0.8 % (0.0-2.0); Eosinophils # (auto) 0.5 10 ^3/uL (0-0.8); Eosinophils % (auto) 5.2 % (0.0-7.0); Hematocrit 33.5 % (41.0-53.0); Hemoglobin 10.7 g/dL (13.5-17.5); Lymphocytes # (auto) 1.6 10 ^3/uL (0.4-5.4); Lymphocytes % (auto) 17.4 % (10.0-50.0); Mean Corpuscular Hemoglobin 28.8 pg (28.0-32.0); Mean Corpuscular Hgb Conc. 32.1 g/dL (32.0-36.0); Mean Corpuscular Volume 89.7 fL (80.0-100.0); Monocytes # (auto) 0.6 10 ^3/uL (0-1.3); Monocytes % (auto) 6.2 % (0.0-12.0); Neutrophils # (auto) 6.4 10 ^3/uL (1.6-8.6); Neutrophils % (auto) 70.4 % (37.0-80.0); Nucleated Red Blood Cells % 0.1 %; Platelet Count (auto) 421 10^3/uL (140-450); Red Blood Cells 3.73 10^6/uL (4.5-5.90); Red Cell Distribution Width 15.9 % (11.8-14.3); White Blood Cell 9.1 10^3/uL (4.4-10.8)
--- NOTE | 2024-07-16 09:37 | DVHPN2 ---
Progress Note Date Seen: Jul 16, 2024 Has the PT tested + for MRSA If YES, has PT been informed?: No Medical Necessity Reason Pt with a Central, PICC or Fol: Yes The following are medically ne: Crain Catheter Reason for crain catheter: Strict I&O Subjective Patient reports: No new complaints Review of Systems: HEENT:Normal, CVS:Normal, RESPIRATORY:Normal, GI:Normal, :Normal, MSK:Normal, NEURO:Normal Objective vital signs Vital Sign Date Time Temp Pulse Resp B/P (MAP) Pulse Ox O2 Delivery O2 Flow Rate FiO2 07/16/24 08:35 97.8 73 16 164/80 (108) 100 97.8 07/15/24 20:00 Room Air* 0 21 Total Intake and Output 07/15/24 07/15/24 07/16/24 15:00 23:00 07:00 Intake Total 400 ml 980 ml Output Total 500 ml 600 ml Balance -100 ml 380 ml medications Current Medications Medications Dose Ordered Sig/Jere Route Start Time Stop Time Status Last Admin Dose Admin Pantoprazole Sodium 40 mg DAILY IV 06/26/24 10:00 07/15/24 09:52 40 MG Sodium Chloride 10 ml QSHIFT@10,22 IV 06/28/24 10:00 07/15/24 22:21 10 ML Hydralazine HCl 10 mg Q6HP PRN IV 07/07/24 11:30 07/16/24 08:16 10 MG Purified Water 200 ml Q6HR GT 07/10/24 12:00 07/16/24 08:17 200 ML Enteral Nutritional Formula 1,000 ml 40ML/HR GT 07/10/24 09:45 07/14/24 21:30 1,000 ML Enoxaparin Sodium 40 mg DAILY SC 07/12/24 10:00 07/15/24 09:52 40 MG Amlodipine Besylate 5 mg DAILY NG 07/12/24 10:15 07/15/24 09:52 5 MG Atenolol 25 mg BID NG 07/12/24 10:15 07/15/24 22:13 25 MG Acetaminophen 650 mg Q6HP PRN PO 07/13/24 21:00 07/13/24 21:33 650 MG Examination: GENERAL:Normal, HEENT:Normal, NECK:Normal, LUNGS:Normal, CVS:Normal, ABDOMEN:Normal, ABDOMEN:Abnormal (NG TUBE), MSK:Normal, SKIN:Normal, NEURO:Normal, :Normal laboratory and microbiology Laboratory Tests 07/16/24 04:28 Test 07/16/24 04:28 Range/Units Serum Glucose 126 H 74-106 mg/dL Microbiology Date/Time Source Procedure Growth Status 06/28/24 04:00 Urine - Crain Port Urine Culture - Final Complete 06/23/24 16:43 Nose MRSA Screen - Final Complete 06/23/24 13:32 Sputum Endotracheal Wash Gram Stain - Final Complete 06/23/24 13:32 Sputum Endotracheal Wash Respiratory Culture - Final Complete 06/21/24 18:05 Blood Blood Culture - Final NO GROWTH AFTER 5 DAYS OF INCUBATION. Complete Problem List/Assessment/Plan Problem List/Assessment/Plan #1 acute resp failure: cont acv, extubated #2 septic shock with uti ?esbl: dc iv meropenem #3 acute renal failure/atn: free water #4 obesity #5 bph #6 h/o renal stones #7 transaminitis #8 acute diastolic heart failure:dc lasix #9 hyperkalemia: improved #10 hypernatremia: free water #11 tube feedings: poor oral intake, re insert ng, trial of oral feedings long discussion with son Ryan- updated regards plan of care advance care planning- full code- time spent 19 mins Plan discussed with: Patient, Son My Orders My Orders Orders - ALONA BEAN MD Procedure Category Date Status Time * Pipeliner CONS 07/15/24 Transmitted Consult Dietary Evaluation Review Comments: Cautious and follow up with Pt 's kidney function, monitor nutrition support to meet at [place] 75% of his needs Expected Outcomes/Goals: Advance to PO diet when medically feasible: CCHO-60 g alone with renal [id number] if pt's uremic syndrome continues. Date of Service: Jul 16, 2024 Billing Provider: ALONA BEAN MD Common Visit Codes: [id number] INP/OBS CARE(HIGH) ALONA BEAN MD Jul 16, 2024 09:37
[2024-07-16] MEDS: amLODIPine BESYLATE 5 MG TAB NG SCH (10:20)
--- NOTE | 2024-07-16 11:06 | DVHPN2 ---
Progress Note Date Seen: Jul 16, 2024 Has the PT tested + for MRSA If YES, has PT been informed?: No Medical Necessity Reason Pt with a Central, PICC or Fol: Yes The following are medically ne: Crain Catheter Reason for crain catheter: Strict I&O Subjective Patient reports: Feels better Review of Systems: GI:Abnormal Objective vital signs Vital Sign Date Time Temp Pulse Resp B/P (MAP) Pulse Ox O2 Delivery O2 Flow Rate FiO2 07/16/24 10:20 138/79 07/16/24 10:20 81 07/16/24 08:35 97.8 16 100 97.8 07/15/24 20:00 Room Air* 0 21 Total Intake and Output 07/15/24 07/15/24 07/16/24 15:00 23:00 07:00 Intake Total 400 ml 980 ml Output Total 500 ml 600 ml Balance -100 ml 380 ml medications Current Medications Medications Dose Ordered Sig/Jere Route Start Time Stop Time Status Last Admin Dose Admin Pantoprazole Sodium 40 mg DAILY IV 06/26/24 10:00 07/16/24 10:20 40 MG Sodium Chloride 10 ml QSHIFT@ IV 06/28/24 10:00 07/16/24 10:20 10 ML Hydralazine HCl 10 mg Q6HP PRN IV 07/07/24 11:30 07/16/24 08:16 10 MG Purified Water 200 ml Q6HR GT 07/10/24 12:00 07/16/24 08:17 200 ML Enteral Nutritional Formula 1,000 ml 40ML/HR GT 07/10/24 09:45 07/14/24 21:30 1,000 ML Enoxaparin Sodium 40 mg DAILY SC 07/12/24 10:00 07/16/24 10:21 40 MG Atenolol 25 mg BID NG 07/12/24 10:15 07/16/24 10:20 25 MG Acetaminophen 650 mg Q6HP PRN PO 07/13/24 21:00 07/13/24 21:33 650 MG Amlodipine Besylate 10 mg DAILY NG 07/16/24 10:00 07/16/24 10:20 10 MG Examination: GENERAL:Abnormal, LUNGS:Normal, CVS:Normal, ABDOMEN:Abnormal, :Abnormal laboratory and microbiology Laboratory Tests 07/16/24 04:28 Test 07/16/24 04:28 Range/Units Serum Glucose 126 H 74-106 mg/dL Microbiology Date/Time Source Procedure Growth Status 06/28/24 04:00 Urine - Crain Port Urine Culture - Final Complete 06/23/24 16:43 Nose MRSA Screen - Final Complete 06/23/24 13:32 Sputum Endotracheal Wash Gram Stain - Final Complete 06/23/24 13:32 Sputum Endotracheal Wash Respiratory Culture - Final Complete 06/21/24 18:05 Blood Blood Culture - Final NO GROWTH AFTER 5 DAYS OF INCUBATION. Complete Problem List/Assessment/Plan Problem List/Assessment/Plan Acute kidney injury likely acute tubular necrosis + obstruction Encephalopathy Ventilator-dependent hypoxic respiratory failure resolved Distended bladder distended hydroureter on CT scan s/p new crain placed by Urology Enlarged prostate potassium imbalances renal function continues to improve has not retuned to baseline but is more stable continue free water avoid hypotension replace electrolytes check phos level today From renal standpoint patient is stable no further recommendations Defer nutrition to primary medical team. We will sign off the case. Reconsult if patient's clinical condition declines Plan discussed with: Patient Dietary Evaluation Review Comments: Cautious and follow up with Pt 's kidney function, monitor nutrition support to meet at [place] 75% of his needs Expected Outcomes/Goals: Advance to PO diet when medically feasible: CCHO-60 g alone with renal [id number] if pt's uremic syndrome continues. KAREN MARTINEZ MD Jul 16, 2024 11:06
[2024-07-17] VITALS (9 sets, daily range): BP systolic 139–168; BP diastolic 70–84; PULSE 83–98; RESP 15–19; TEMP 97.4–100.1; O2SAT 95–98
[2024-07-17] MEDS ORDERED: CLINIMIX PER PHARMACY 0 ML IV SCH (11:45)
--- NOTE | 2024-07-17 11:53 | DVHPN2 ---
Subjective The patient is seen and examined at bedside. More alert awake today. Reviewed: Care Plan, H&P, Labs, Medications, Previous Orders, Radiology Changes from previous H/P or p: No Changes Objective Vitals Vital Signs Date Time Temp Pulse Resp B/P (MAP) Pulse Ox O2 Delivery O2 Flow Rate FiO2 07/17/24 10:30 98 Room Air 0.0 07/17/24 10:30 21 07/17/24 09:31 168/94 07/17/24 09:29 100.1 85 16 100.1 Intake/Output Intake and Output 07/17/24 07:00 Intake Total 1450 ml Output Total 1650 ml Balance -200 ml Intake Oral 1450 ml Output Urine Total 1650 ml General Appearance: Alert, Cooperative, No acute distress HEENT: Atraumatic Neck: Supple Cardiovascular: Regular rate, Normal S1, Normal S2, No murmurs, Gallops, Rubs Abdomen: Normal bowel sounds, Soft, No tenderness Neuro: Normal speech, Cranial nerves 3-12 NL Psych/Mental Status: Mental status NL Medications Current Medications Medications Dose Ordered Sig/Jere Route Start Time Stop Time Status Last Admin Dose Admin Pantoprazole Sodium 40 mg DAILY IV 06/26/24 10:00 07/17/24 09:30 40 MG Sodium Chloride 10 ml QSHIFT@10,22 IV 06/28/24 10:00 07/17/24 09:31 10 ML Hydralazine HCl 10 mg Q6HP PRN IV 07/07/24 11:30 07/17/24 09:31 10 MG Purified Water 200 ml Q6HR GT 07/10/24 12:00 07/16/24 08:17 200 ML Enteral Nutritional Formula 1,000 ml 40ML/HR GT 07/10/24 09:45 07/14/24 21:30 1,000 ML Enoxaparin Sodium 40 mg DAILY SC 07/12/24 10:00 07/17/24 09:30 40 MG Atenolol 25 mg BID NG 07/12/24 10:15 07/16/24 10:20 25 MG Acetaminophen 650 mg Q6HP PRN PO 07/13/24 21:00 07/13/24 21:33 650 MG Amlodipine Besylate 10 mg DAILY NG 07/16/24 10:00 07/16/24 10:20 10 MG Amino Acids 0 ml @ 0 mls/hr PER PHARMACY IV 07/17/24 11:45 UNV Laboratory Results Laboratory Tests 07/16/24 04:28 Urinalysis Test 06/22/24 17:12 06/23/24 18:27 Urine Color Dark-brown (Yellow) Urine Clarity Ex.turbid (Clear) Urine pH 6.0 (5.0-9.0) Urine Specific Lawn 1.011 (1.001-1.035) Urine Protein 2+ (Negative) H Urine Ketones Negative (Negative) Urine Blood 3+ /uL (Negative) H Urine Nitrite Negative (Negative) Urine Bilirubin Negative (Negative) Urine Urobilinogen Normal mg/dL (Negative) Urine Leukocyte Esterase 3+ /uL (Negative) Urine RBC 561 /hpf (0 - 3) Urine WBC 2731 /hpf (0 - 3) Urine WBC Clumps Present /hpf (None Seen) Urine Squamous Epithelial Cells Few /hpf (<5) Urine Bacteria Mod /hpf (None Seen) H Urine Glucose 3+ mg/dL (Normal) H Urine Creatinine 21.25 mg/dL (30.0-125.0) L Urine Sodium 135 mmol/L (40-220) Urine Total Protein 71.4 mg/dL (1-14) H Microbiology Microbiology Date/Time Source Procedure Growth Status 06/28/24 04:00 Urine - Bowman Port Urine Culture - Final Complete 06/23/24 16:43 Nose MRSA Screen - Final Complete 06/23/24 13:32 Sputum Endotracheal Wash Gram Stain - Final Complete 06/23/24 13:32 Sputum Endotracheal Wash Respiratory Culture - Final Complete 06/21/24 18:05 Blood Blood Culture - Final NO GROWTH AFTER 5 DAYS OF INCUBATION. Complete Labs and/or images reviewed: Labs reviewed by me Assessment/Plan Assessment/Plan #1 acute resp failure: Status post extubated #2 septic shock with uti ?esbl: Continuing IV antibiotic meropenem #3 acute renal failure/atn: free water #4 obesity #5 bph continuing #6 h/o renal stones #7 transaminitis #8 acute diastolic heart failure:dc lasix #9 hyperkalemia: improved #10 hypernatremia: Continuing free water #11 Continuing tube feedings #12 Hypertension: Continue HTN meds Continuing current management. Waiting for long-term home facility placement when bed available. The patient had no appetite and not eat anything, he only eats one or two bites each meals. We will add Clinimix for now for nutrition support. This medical document was created using an electronic medical record system with [employer] direct computerized dictation system. Although this document has been carefully reviewed, there may still be some phonetic and typographical errors. These areas are purely typographical due to imperfections of the software programs, and do not reflect any compromise in the patient's medical care. Plan discussed with: Patient, Other (RN) My Orders Orders - ARIES NAVARRO MD Procedure Category Date Status Time Clinimix Per Pharmacy [facility] 07/17/24 Logged 11:45 Date of Service: Jul 17, 2024 Billing Provider: ARIES NAVARRO MD Common Visit Codes: [id number] INP/OBS CARE(HIGH) ARIES NAVARRO MD Jul 17, 2024 11:53
[2024-07-17] MEDS ORDERED: DEXTROSE (50%) 50ML SYRG IV SCH ×2 (12:15→13:15)
[2024-07-17] MEDS ORDERED: ACCU-CHEK COMFORT CURVE STRIP VI SCH (18:00)
[2024-07-17] MEDS ORDERED: InsuLIN REG 1unit/0.01ml Soln (100units/ml) SC SCH (18:00)
[2024-07-17] MEDS: InsuLIN REG 1unit/0.01ml Soln (100units/ml) SC SCH (18:00)
[2024-07-17] MEDS: ACCU-CHEK COMFORT CURVE STRIP VI SCH (18:00)
[2024-07-17] MEDS: ATENOLOL 25 MG TAB PO SCH (21:35)
[2024-07-17] MEDS: AMINO ACID INFUSION IN D5W 1,000 ML IV SCH (21:41)
[2024-07-18] VITALS (12 sets, daily range): BP systolic 138–176; BP diastolic 61–90; PULSE 79–97; RESP 16–18; TEMP 97.4–98.6; O2SAT 95–98
[2024-07-18 07:59] LABS: Albumin 3.7 g/dL (3.2-4.8); Anion Gap 9 (5-15); BUN/Creatinine Ratio 13.5 (10.0-20.0); Blood Urea Nitrogen 20 mg/dL (9-23); Calcium 9.8 mg/dL (8.7-10.4); Carbon Dioxide 28 mmol/L (20-31); Chloride 104 mmol/L (98-107); Magnesium 1.8 mg/dL (1.6-2.6); Sodium 141 mmol/L (136-145); Triglycerides 128 mg/dL (< 150)
[2024-07-18 08:00] LABS: Bilirubin, Total 0.4 mg/dL (0.2-1.0); Total Protein 7.5 g/dL (5.7-8.2)
[2024-07-18 08:05] LABS: Basophils # (auto) 0.1 10 ^3/uL (0-0.2); Basophils % (auto) 1.3 % (0.0-2.0); Eosinophils # (auto) 0.3 10 ^3/uL (0-0.8); Eosinophils % (auto) 3.8 % (0.0-7.0); Hematocrit 31.2 % (41.0-53.0); Hemoglobin 10.2 g/dL (13.5-17.5); Lymphocytes # (auto) 1.7 10 ^3/uL (0.4-5.4); Lymphocytes % (auto) 22.7 % (10.0-50.0); Mean Corpuscular Hemoglobin 28.8 pg (28.0-32.0); Mean Corpuscular Hgb Conc. 32.7 g/dL (32.0-36.0); Monocytes # (auto) 0.6 10 ^3/uL (0-1.3); Monocytes % (auto) 7.8 % (0.0-12.0); Neutrophils % (auto) 64.4 % (37.0-80.0); Nucleated Red Blood Cells % 0.1 %; Platelet Count (auto) 413 10^3/uL (140-450); Red Blood Cells 3.54 10^6/uL (4.5-5.90); Red Cell Distribution Width 15.3 % (11.8-14.3); White Blood Cell 7.7 10^3/uL (4.4-10.8)
[2024-07-18 08:07] LABS: Alanine Aminotransferase 84 U/L (7-40); Alkaline Phosphatase 119 U/L (46-116); Aspartate Aminotransferase 124 U/L (13-40); Glucose 113 mg/dL (74-106); Potassium 3.4 mmol/L (3.5-5.1)
--- NOTE | 2024-07-18 10:09 | DVHPN2 ---
Progress Note Date Seen: Jul 18, 2024 Has the PT tested + for MRSA If YES, has PT been informed?: No Medical Necessity Reason Pt with a Central, PICC or Fol: Yes The following are medically ne: Crain Catheter Reason for crain catheter: Strict I&O Subjective Patient reports: No new complaints Review of Systems: HEENT:Normal, CVS:Normal, RESPIRATORY:Normal, GI:Normal, :Normal, MSK:Normal, NEURO:Normal Objective vital signs Vital Sign Date Time Temp Pulse Resp B/P (MAP) Pulse Ox O2 Delivery O2 Flow Rate FiO2 07/18/24 09:00 98.1 82 18 156/79 (104) 97 98.1 07/17/24 20:00 Room Air* 0 21 Total Intake and Output 07/17/24 07/17/24 07/18/24 15:00 23:00 07:00 Intake Total 220 ml 480 ml 500 ml Output Total 1100 ml 1000 ml Balance 220 ml -620 ml -500 ml medications Current Medications Medications Dose Ordered Sig/Jere Route Start Time Stop Time Status Last Admin Dose Admin Pantoprazole Sodium 40 mg DAILY IV 06/26/24 10:00 07/17/24 09:30 40 MG Sodium Chloride 10 ml QSHIFT@10,22 IV 06/28/24 10:00 07/17/24 21:36 10 ML Hydralazine HCl 10 mg Q6HP PRN IV 07/07/24 11:30 07/18/24 05:33 10 MG Enoxaparin Sodium 40 mg DAILY SC 07/12/24 10:00 07/17/24 09:30 40 MG Acetaminophen 650 mg Q6HP PRN PO 07/13/24 21:00 07/13/24 21:33 650 MG Amlodipine Besylate 10 mg DAILY PO 07/18/24 10:00 Atenolol 25 mg BID PO 07/17/24 22:00 07/17/24 21:35 25 MG Diagnostic Test (Pha) 1 strip Q6HR 07/17/24 18:00 07/18/24 06:17 1 STRIP Insulin Human Regular FOLLOW SLIDING SCALE Q6HR SC 07/17/24 18:00 Dextrose 50 ml UD IV 07/17/24 12:15 Diagnostic Test (Pha) 1 strip Q6HR 07/17/24 18:00 Cancel Insulin Human Regular FOLLOW SLIDING SCALE Q6HR SC 07/17/24 18:00 Cancel Dextrose 50 ml UD IV 07/17/24 13:15 Cancel Examination: GENERAL:Normal, HEENT:Normal, NECK:Normal, LUNGS:Normal, CVS:Normal, ABDOMEN:Normal, MSK:Normal, SKIN:Normal, NEURO:Normal, :Normal laboratory and microbiology Laboratory Tests 07/18/24 05:05 Test 07/18/24 05:05 Range/Units Serum Glucose 113 H 74-106 mg/dL Microbiology Date/Time Source Procedure Growth Status 06/28/24 04:00 Urine - Crain Port Urine Culture - Final Complete 06/23/24 16:43 Nose MRSA Screen - Final Complete 06/23/24 13:32 Sputum Endotracheal Wash Gram Stain - Final Complete 06/23/24 13:32 Sputum Endotracheal Wash Respiratory Culture - Final Complete 06/21/24 18:05 Blood Blood Culture - Final NO GROWTH AFTER 5 DAYS OF INCUBATION. Complete Problem List/Assessment/Plan Problem List/Assessment/Plan #1 acute resp failure: cont acv, extubated #2 septic shock with uti ?esbl: dc iv meropenem #3 acute renal failure/atn: free water #4 obesity #5 bph #6 h/o renal stones #7 transaminitis #8 acute diastolic heart failure:dc lasix #9 hyperkalemia: improved #10 hypernatremia: free water DC planning to snf long discussion with jose luis Davis- updated regards plan of care advance care planning- full code- time spent 19 mins Plan discussed with: Patient My Orders My Orders Orders - ALONA BEAN MD Procedure Category Date Status Time Potassium Effervesent PHA 07/18/24 Logged Tab (Klor-Con/Ef) 10:15 Discharge DISCHARGE 07/18/24 Transmitted 10:05 * Training Consultant CONS 07/18/24 Transmitted Consult Dietary Evaluation Review Comments: Cautious and follow up with Pt 's kidney function, monitor nutrition support to meet at le[place] 75% of his needs Expected Outcomes/Goals: Advance to PO diet when medically feasible: CCHO-60 g alone with renal [id number] if pt's uremic syndrome continues. Date of Service: Jul 18, 2024 Billing Provider: ALONA BEAN MD Common Visit Codes: [id number] INP/OBS CARE(HIGH) ALONA BEAN MD Jul 18, 2024 10:09
[2024-07-18] MEDS ORDERED: DEXTROSE (50%) 50ML SYRG IV PRN (10:15)
[2024-07-18] MEDS: amLODIPine BESYLATE 5 MG TAB PO SCH (10:37)
[2024-07-18] MEDS: POTASSIUM EFFERVESENT TAB 25 MEQ PO ONE (10:39)
[2024-07-18] MEDS: ACCU-CHEK COMFORT CURVE STRIP VI SCH (11:30)
[2024-07-18] MEDS: InsuLIN REG 1unit/0.01ml Soln (100units/ml) SC SCH (11:30)
[2024-07-18] MEDS: Ensure HIGH Protein Chocolate 8oz Bottle PO SCH (12:00)
[2024-07-19 01:02] VITALS: BP 153/71; PULSE 86; RESP 16; TEMP 98.2; O2SAT 96
[2024-07-19 05:00] VITALS: BP 149/73; PULSE 91; RESP 16; TEMP 98.3; O2SAT 95
[2024-07-19 06:26] LABS: Anion Gap 6 (5-15); Carbon Dioxide 29 mmol/L (20-31); Chloride 105 mmol/L (98-107); Potassium 3.5 mmol/L (3.5-5.1); Sodium 140 mmol/L (136-145)
[2024-07-19 06:27] LABS: Calcium 9.9 mg/dL (8.7-10.4)
[2024-07-19 06:32] LABS: BUN/Creatinine Ratio 13.7 (10.0-20.0); Blood Urea Nitrogen 19 mg/dL (9-23); Glucose 104 mg/dL (74-106)
[2024-07-19 08:30] VITALS: PULSE 81; PULSE 84; RESP 20; O2SAT 98
[2024-07-19 09:00] VITALS: BP 173/75; PULSE 81; RESP 20; TEMP 97.7; O2SAT 98
--- NOTE | 2024-07-19 09:07 | DVHPN2 ---
Progress Note Date Seen: Jul 19, 2024 Has the PT tested + for MRSA If YES, has PT been informed?: No Medical Necessity Reason Pt with a Central, PICC or Fol: Yes The following are medically ne: Crain Catheter Reason for crain catheter: Strict I&O Subjective Patient reports: No new complaints Review of Systems: HEENT:Normal, CVS:Normal, RESPIRATORY:Normal, GI:Normal, :Normal, MSK:Normal, NEURO:Normal Objective vital signs Vital Sign Date Time Temp Pulse Resp B/P (MAP) Pulse Ox O2 Delivery O2 Flow Rate FiO2 07/19/24 05:00 98.3 91 16 149/73 (98) 95 98.3 07/18/24 19:41 Room Air* 0 21 Total Intake and Output 07/18/24 07/18/24 07/19/24 15:00 23:00 07:00 Intake Total 240 ml 230 ml Output Total 875 ml 800 ml Balance -635 ml -570 ml medications Current Medications Medications Dose Ordered Sig/Jere Route Start Time Stop Time Status Last Admin Dose Admin Pantoprazole Sodium 40 mg DAILY IV 06/26/24 10:00 07/18/24 10:39 40 MG Sodium Chloride 10 ml QSHIFT@10,22 IV 06/28/24 10:00 07/18/24 21:05 10 ML Hydralazine HCl 10 mg Q6HP PRN IV 07/07/24 11:30 07/18/24 21:04 10 MG Enoxaparin Sodium 40 mg DAILY SC 07/12/24 10:00 07/18/24 10:38 40 MG Acetaminophen 650 mg Q6HP PRN PO 07/13/24 21:00 07/13/24 21:33 650 MG Amlodipine Besylate 10 mg DAILY PO 07/18/24 10:00 07/18/24 10:37 10 MG Atenolol 25 mg BID PO 07/17/24 22:00 07/18/24 21:52 25 MG Diagnostic Test (Pha) 1 strip Q6HR 07/17/24 18:00 Cancel Insulin Human Regular FOLLOW SLIDING SCALE Q6HR SC 07/17/24 18:00 Cancel Dextrose 50 ml UD IV 07/17/24 13:15 Cancel Diagnostic Test (Pha) 1 strip ACHS 07/18/24 11:30 07/19/24 06:38 1 STRIP Insulin Human Regular ACHS SC 07/18/24 11:30 07/18/24 21:45 2 UNITS Dextrose 50 ml UD PRN IV 07/18/24 10:15 Enteral Nutritional Formula 240 ml TIDWM PO 07/18/24 12:00 07/18/24 18:22 240 ML Examination: GENERAL:Normal, HEENT:Normal, NECK:Normal, LUNGS:Normal, CVS:Normal, ABDOMEN:Normal, MSK:Normal, SKIN:Normal, NEURO:Normal, :Normal laboratory and microbiology Laboratory Tests 07/19/24 05:58 07/18/24 05:05 Test 07/19/24 05:58 Range/Units Serum Glucose 104 74-106 mg/dL Microbiology Date/Time Source Procedure Growth Status 06/28/24 04:00 Urine - Crain Port Urine Culture - Final Complete 06/23/24 16:43 Nose MRSA Screen - Final Complete 06/23/24 13:32 Sputum Endotracheal Wash Gram Stain - Final Complete 06/23/24 13:32 Sputum Endotracheal Wash Respiratory Culture - Final Complete 06/21/24 18:05 Blood Blood Culture - Final NO GROWTH AFTER 5 DAYS OF INCUBATION. Complete Problem List/Assessment/Plan Problem List/Assessment/Plan #1 acute resp failure: cont acv, extubated #2 septic shock with uti ?esbl: dc iv meropenem #3 acute renal failure/atn: free water #4 obesity #5 bph #6 h/o renal stones #7 transaminitis #8 acute diastolic heart failure:dc lasix #9 hyperkalemia: improved #10 hypernatremia: free water DC planning to snf long discussion with jose luis Davis- updated regards plan of care advance care planning- full code- time spent 19 mins Plan discussed with: Patient My Orders My Orders Orders - ALONA BEAN MD Procedure Category Date Status Time Glucose Blood PHA 07/18/24 In Process (Accu-Chek Comfort 11:30 Insulin R (Human) PHA 07/18/24 In Process (Insulin R) 11:30 Dextrose 50% Syringe PHA 07/18/24 In Process 10:15 Nutritional PHA 07/18/24 In Process Supplements (Ensure 12:00 Mrsa Screen DANISHA 07/18/24 In Process 15:49 * Conventions Assistant CONS 07/18/24 Transmitted Consult 10:51 Discharge DISCHARGE 07/19/24 Verified 09:05 Pantoprazole Tablet PHA 07/20/24 Verified (Protonix Tablet) 06:00 Dietary Evaluation Review Comments: Cautious and follow up with Pt 's kidney function, monitor nutrition support to meet at [place] 75% of his needs Expected Outcomes/Goals: Advance to PO diet when medically feasible: CCHO-60 g alone with renal [id number] if pt's uremic syndrome continues. Date of Service: Jul 19, 2024 Billing Provider: ALONA BEAN MD Common Visit Codes: [id number] INP/OBS CARE(HIGH) ALONA BEAN MD Jul 19, 2024 09:07
[2024-07-19 10:30] VITALS: O2SAT 98
[2024-07-19 13:00] VITALS: BP 158/58; PULSE 90; RESP 20; TEMP 98.1; O2SAT 97
[2024-07-20] MEDS ORDERED: PANTOPRAZOLE 40 MG TAB PO SCH (06:00)
== END 2024-07-19 16:08 | DRG 870 ==
LOC: ER 13:45 → EDUNIT# 13:45 → EDBD 13:45 → TELE 18:27 → TELE-WESTW 18:39 → CATH ICU 06-23 14:31 → ICU WEST 06-25 03:40 → TELE-CENTR 06-29 20:54
PROVIDERS: ADMIT Student in an Organized Health Care Education/Training Program; ATTEND Internal Medicine
PROC: 5A1955Z Respiratory Ventilation, Greater than 96 Consecutive Hours (ICD-10-PCS; principal; 2024-06-21)
PROC: 06HY33Z Insertion of Infusion Device into Lower Vein, Percutaneous Approach (ICD-10-PCS; 2024-06-21)
PROC: 0BH17EZ Insertion of Endotracheal Airway into Trachea, Via Natural or Artificial Opening (ICD-10-PCS; 2024-06-21)
PROC: 5A09357 Assistance with Respiratory Ventilation, Less than 24 Consecutive Hours, Continuous Positive Airway Pressure (ICD-10-PCS; 2024-06-21)
PROC: 0T9B70Z Drainage of Bladder with Drainage Device, Via Natural or Artificial Opening (ICD-10-PCS; 2024-06-22)
PROC: 5A09357 Assistance with Respiratory Ventilation, Less than 24 Consecutive Hours, Continuous Positive Airway Pressure (ICD-10-PCS; 2024-06-22)
PROC: 5A09357 Assistance with Respiratory Ventilation, Less than 24 Consecutive Hours, Continuous Positive Airway Pressure (ICD-10-PCS; 2024-06-23)
PROC: 02HV33Z Insertion of Infusion Device into Superior Vena Cava, Percutaneous Approach (ICD-10-PCS; 2024-06-28)
PROC: B548ZZA Ultrasonography of Superior Vena Cava, Guidance (ICD-10-PCS; 2024-06-28)
DX: A41.9 Sepsis, unspecified organism (principal); G93.41 Metabolic encephalopathy; I21.A1 Myocardial infarction type 2; J96.01 Acute respiratory failure with hypoxia; N17.0 Acute kidney failure with tubular necrosis; R65.21 Severe sepsis with septic shock; I50.31 Acute diastolic (congestive) heart failure; E87.0 Hyperosmolality and hypernatremia; N13.6 Pyonephrosis; E87.1 Hypo-osmolality and hyponatremia; E87.4 Mixed disorder of acid-base balance; Z99.11 Dependence on respirator [ventilator] status; E11.9 Type 2 diabetes mellitus without complications; E66.01 Morbid (severe) obesity due to excess calories; E78.5 Hyperlipidemia, unspecified; E87.5 Hyperkalemia; I16.0 Hypertensive urgency; I44.0 Atrioventricular block, first degree; T83.021A Displacement of indwelling urethral catheter, initial encounter; N40.1 Benign prostatic hyperplasia with lower urinary tract symptoms; I11.0 Hypertensive heart disease with heart failure; R74.01 Elevation of levels of liver transaminase levels; N32.89 Other specified disorders of bladder; E87.6 Hypokalemia; Z87.442 Personal history of urinary calculi; Z79.84 Long term (current) use of oral hypoglycemic drugs; Z79.899 Other long term (current) drug therapy; Z90.79 Acquired absence of other genital organ(s); Z68.34 Body mass index [BMI] 34.0-34.9, adult; Y84.8 Other medical procedures as the cause of abnormal reaction of the patient, or of later complication, without mention of misadventure at the time of the procedure; Y92.89 Other specified places as the place of occurrence of the external cause
CPT/HCPCS: 36415; 36569; 36600; 70450; 71045; 72192; 76700; 76937; 80048; 80053; 80202; 81001; 82140; 82565; 82570; 82805; 82962; 83605; 83735; 83880; 84100; 84132; 84154; 84156; 84300; 84478; 84484; 85007; 85025; 85027; 85610; 85730; 86850; 86900; 86901; 87040; 87070; 87081; 87086; 87205; 87340; 87426; 92610; 93005; 93306; 94002; 94003; 94640; 94660; 96365; 97110; 97116; 97163; 97530; 99291; G0378; J0330; J0692; J1815; J2185; J2470; J2704; J3480; J7042

== ENCOUNTER 2025-05-14 11:45 | Emergency (ER) | payer OTHER ==
[~2025-05-14] VITALS: Ht 170.2 cm; Wt 91.0 kg
[~2025-05-14 11:45] MED LIST changes: +ASPI1TAB20 PO; +ATOR80TA PO; +CHOL1TAB30 PO; +EMPA1TAB3 PO; +GABA400C PO; +LOSA-535 PO; +MELA3TAB27 PO; +MIRT-94 PO; +SERT-160 PO
[2025-05-14 11:47] VITALS: BP 173/95; PULSE 88; RESP 18; TEMP 97.2; O2SAT 97
--- NOTE | 2025-05-14 12:33 | ED.PDOC ---
History of Present Illness HPI Comments 79M presents to the ER w/ a walker and w/ prior MHx of BPH, HTN, DM, Liver problems;SHx of cataract Sx and the c/c of urinary problems. Pt reports on having his fully catheter replaced yesterday by a home nurse at his apartment. Pt started to notice bleeding/low urine output. Pt notes on being reffered to a specialist but has not seen yet. Denies any other symptoms at this time. Denies chills, fever, N/V/D, SOB, CP. Denies any other associated symptom's, modifiers, or recent injuries or sick contact at this time. Chief Complaint: Urinary Time Seen by MD: 12:30 Primary Care Provider: UNKNOWN Reviewed Notes: Nurses Notes, Medications, Allergies Allergies: Coded Allergies: NO KNOWN ALLERGIES (Unverified , 01/12/23) Home Meds Reported Medications Mirtazapine (REMERON) 30 Mg Tab, 1 TAB PO QPM, #30 TAB 1 Refill 04/19/25 Aspirin (Aspir-81) 81 Mg Tab, 1 TAB PO DAILY, #30 TAB 5 Refills 04/19/25 Atorvastatin Calcium (Lipitor) 80 Mg Tab, 80 MG PO DAILY, #1 TAB 04/18/25 Cholecalciferol (Gnp Vitamin D) 1,000 Unit Tab, 1000 UNIT PO DAILY, #3 TAB 04/18/25 Empagliflozin (Jardiance) 25 Mg Tab, 25 MG PO DAILY for DM, TAB 04/18/25 Gabapentin (Neurontin) 400 Mg Cap, 400 MG PO, CAP 04/18/25 Losartan Potassium (Losartan Potassium) 100 Mg Tab, 1 TAB PO DAILY for HTN, #30 TAB 5 Refills 04/18/25 Melatonin (KP MELATONIN) 3 Mg Tab, 3 MG PO, TAB 04/18/25 Sertraline Hcl (Sertraline Hcl) 100 Mg Tab, 100 MG PO DAILY for antidepression , #2 TAB 04/18/25 Atorvastatin Calcium (Lipitor) 10 Mg Tab, PO QPM, #90 TAB 1 Refill 01/14/23 Metformin Hydrochloride (Metformin Hcl) 500 Mg Tab, PO IBID for 30 Days, MG 01/14/23 Tamsulosin Hcl (Flomax) 0.4 Mg Cap, 1 CAP PO DAILY, #30 CAP 11 Refills 01/14/23 Atenolol (Atenolol) 25 Mg Tab, PO BID for 30 Days, MG 01/14/23 Information Source: Patient Mode of Arrival: Ambulatory Severity: Moderate Timing: Hours Duration: Since onset, Hours Prehospital treatment: None Past Medical History PAST MEDICAL HISTORY: DM, HTN, Liver Past Medical History (Other): BPH Surgical History: Denies all surgeries Surgical History (Other): Cataract Sx Family History Family History: Reviewed,noncontributory to illness, Unknown Social History Smoker: Non-Smoker Alcohol: Denies ETOH Use Drugs: Denies Drug Use Lives In: Home Constitutional: denies: chills, diaphoresis, fatigue, fever, malaise, sweats, weakness, others EENTM: denies: blurred vision, double vision, ear bleeding, ear discharge, ear drainage, ear pain, ear ringing, eye pain, eye redness, hearing loss, mouth pain, mouth swelling, nasal discharge, nose bleeding, nose congestion, nose pain, photophobia, tearing, throat pain, throat swelling, voice changes, others Respiratory: denies: cough, hemoptysis, orthopnea, SOB at rest, shortness of breath, SOB with excertion, stridor, wheezing, others Cardiovascular: denies: chest pain, dizzy spells, diaphoresis, Dyspnea on exertion, edema, irregular heart beat, left arm pain, lightheadedness, palpitations, PND, syncope, others Gastrointestinal: denies: abdomen distended, abdominal pain, blood streaked bowels, constipated, diarrhea, dysphagia, difficulty swallowing, hematemesis, melena, nausea, poor appetite, poor fluid intake, rectal bleeding, rectal pain, vomiting, others Genitourinary: reports: hematuria; denies: burning, dysuria, flank pain, frequency, incontinence, penile discharge, penile sore, pain, testicle pain, testicle swelling, urgency, others Neurological: denies: dizziness, fainting, headache, left sided numbness, left sided weakness, numbness, paresthesia, pre-existing deficit, right sided numbness, right sided weakness, seizure, speech problems, tingling, tremors, weakness, others Musculoskeletal: denies: back pain, gout, joint pain, joint swelling, muscle pain, muscle stiffness, neck pain, others Integumetry: denies: bruises, change in color, change in hair/nails, dryness, laceration, lesions, lumps, rash, wounds, others Allergic/Immunocompromised: denies: Difficulty Healing, Frequent Infections, Hives, Itching, others Hematologic/Lymphatic: denies: anemia, blood clots, easy bleeding, easy bruising, swollen glands, others Endocrine: denies: excessive hunger, excessive sweating, excessive thirst, excessive urination, flushing, intolerance to cold, intolerance to heat, unexplained weight gain, unexplained weight loss, others Psychiatric: denies: anxiety, bipolar disorder, depression, hopeless, panic disorder, schizophrenia, sleepless, suicidal, others All Other Systems: Reviewed and Negative Physical Exam General Appearance: No Apparent Distress HEENT: Normal ENT Inspection, Pharynx Normal, TMs Normal Neck: Full Range of Motion, Non-Tender, Normal, Normal Inspection Respiratory: Chest Non-Tender, Lungs Clear, No Accessory Muscle Use, No Respiratory Distress, Normal Breath Sounds Cardiovascular: No Edema, No JVD, No Murmur, No Gallop, Normal Peripheral Pulses, Regular Rate/Rhythm Breast Exam: Deferred Gastrointestinal: No Organomegaly, Non Tender, No Pulsatile Mass, Normal Bowel Sounds, Soft Genitalia: Deferred Pelvic: Deferred Rectal: Deferred Extremities: No calf tenderness, Normal capillary refill, Normal inspection, Normal range of motion, Non-tender, No pedal edema Musculoskeletal : Apperance: Normal 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 Was a procedure done?: No Differential Dx Considerations may include: Bowman catheter in place, hematuria, UTI X-Ray, Labs, Meds, VS Vital Signs Date Time Temp Pulse Resp B/P (MAP) Pulse Ox O2 Delivery O2 Flow Rate FiO2 05/14/25 11:47 97.2 88 18 173/95 97 97.2 The Bowman catheter is in place We went to re-evaluate the patient but the patient has eloped from the department's Time of 1ST Reevaluation: 13:00 Reevaluation 1ST: Unchanged Patient Education/Counseling: Diagnosis, Treatment, Prognosis Family Education/Counseling: No Family Present SEPSIS Sepsis Screen Date sepsis recognized/suspect: May 14, 2025 Time Sepsis recognized/suspect: 1149 Recent Procedure: No On Antibiotic Therapy: No Respiratory Rate >20: No Heart Rate >90: No Temp<36 C (96.8 F) or >38.3 C: No SBP <90 or MAP <65 mmHG: No New Acute Mental Status Change: No Is the patient on CPAP, BIPAP,: No Physician Orders Urinalysis (05/14/25 12:12) Ok To Change Bowman (05/14/25 12:12) Vital Signs Date Time Temp Pulse Resp B/P (MAP) Pulse Ox O2 Delivery O2 Flow Rate FiO2 05/14/25 11:47 97.2 88 18 173/95 97 97.2 Departure 1 Departure Time of Disposition: 19:47 Impression: Primary Impression: Hematuria Qualified Codes: R31.9 - Hematuria, unspecified Additional Impression: Bowman catheter in place Disposition: 07 LEFT AWOL/ELOPED Condition: Fair Critical Care Note Critical Care Time?: No Stability Stability form required: No Heart Score Heart Score: Heart Score Response (Comments) Value History N/A 0 EKG N/A 0 Age N/A 0 Risk Factors N/A 0 Troponin N/A 0 Total 0 I personally scribed for HSELBIE GASPAR MD ([email or web address]) on 05/14/25 at 12:33. Electronically submitted by Bob Correia ([email or web address]). SHELBIE GASPAR MD May 14, 2025 12:33
== END 2025-05-14 19:54 | disposition left against medical advice (07) ==
LOC: ER 11:45
DX: R31.9 Hematuria, unspecified (principal); E11.9 Type 2 diabetes mellitus without complications; I10 Essential (primary) hypertension; Z79.82 Long term (current) use of aspirin; Z79.84 Long term (current) use of oral hypoglycemic drugs; Z79.899 Other long term (current) drug therapy

== ENCOUNTER 2025-06-12 19:49 | Emergency (ER) | payer OTHER ==
[~2025-06-12] VITALS: Ht 170.2 cm; Wt 93.5 kg
--- NOTE | 2025-06-12 20:22 | ED.PDOC ---
General HPI Comments HPI: 79 y/o M, presents to the ED for CC of hematuria. Patient states, he has been experiencing symptoms of hematuria sudden onset, yesterday (06/11/25). Patient reports, to currently take Aspirin 80mg daily. Upon arrival to the ED, patient is hypertensive, relays not taking his prescribed blood pressure medications this morning (06/12/25). Patient denies abdominal pain, urinary retention, dysuria, penile discharge, or penile pain. No other symptoms or modifying factors are present at this time. Patient did not take his blood pressure medications today Initial Vitals BP: 179/102 HR: 63 RR: 17 O2 Sat: 97% Temp: 97.4 Past Medical history: HTN, HLD, Urinary Retention, Indwelling Crain Past Surgical history: Denies Any Medications: Aspirin Social History: Denies smoking, ETOH, and drug use. Allergies: NKDA TACOS: HPI: Poor Historian. Indwelling Crain catheter, painless hematuria REVIEW OF SYSTEMS: CONSTITUTIONAL: Denies acute: fever, diaphoresis, chills, generalized weakness. HEAD: Denies acute: headache, photophobia Eyes: Denies acute: Double vision, vision loss, eye pain, eye discharge. EARS: Denies acute: tinnitus, hearing loss, ear discharge, ear pain, THROAT: Denies acute: sore throat, swelling, difficulty swallowing , pain with swallowing, change in voice. NECK: Denies acute: neck pain, neck swelling, stiff neck. HEART: Denies acute : chest pain, palpitations, LUNGS: Denies acute: SOB, wheezing, cough, hemoptysis ABDOMEN: Denies acute: abdominal pain, Nausea, Vomiting, diarrhea, melena , hematemesis, hematochezia SKIN: Denies acute: rash, redness, lesions, itchiness. EXTREMITIES: Denies acute: calf pain, numbness, tingling, weakness, denies pain in extremity. Denies acute: Low back pain. Neuro: Denies acute: focal neurological deficit, motor or sensory focal neurological deficit, tremors, seizure like activity, confusion, dizziness, change in mental status, loss of bowel or bladder function, cauda equina like symptoms. : Denies acute: dysuria, , flank pain, increase in urinary frequency. PSYCH: Denies acute: hallucination, suicidal ideation, homicidal ideation. PHYSICAL EXAM: General: ----no----acute distress, awake and alert. Head: normocephalic, atraumatic. No raccoon's eyes, no oconnell sign. Neck: supple, trachea is midline, no swelling. Throat: Normal phonation. Eyes:, no erythema, no purulent discharge, no proptosis, no icterus. Heart: regular rate, regular rhythm, no significant murmur appreciated. Lungs: no apparent respiratory distress, Able to speak in full sentences. No wheezing, no rhonchi, no crackles. No stridors Clear to auscultation bilaterally. Abdomen: non tender to palpation, non distended, soft, no guarding, no rebound, + bowel sounds. Noted Crain leg bag present with some minimal blood in it Neuro: Awake, Alert, oriented to name, self, situation, follows commands GCS=15. Speech is normal. Skin: no petechia, no purpura, no cyanosis, non-pale, not jaundice. Lower extremities: --no - Pitting edema no deformity, no focal swelling, no calf TTP. Makes eye contact. moves all four extremities. Face: no apparent facial droop. Ambulating in the ED with a walker. ED COURSE: DISCLAIMER: This medical document was created using an electronic medical record system with voice recognition software and computerized dictation system. Although this document has been carefully reviewed, there might still be some phonetic and typographical errors. Occasional wrong-word or "sound-alike" substitutions may have occurred due to the inherent limitations of voice recognition software. These areas are purely typographical due to imperfections of the software programs and do not reflect any compromise in the patient's medical care. Please read the chart carefully and recognize, using context, where these substitutions have occurred. Chief Complaint: Urinary Time Seen by MD: 20:00 Primary Care Provider: UNKNOWN Reviewed notes: Nurses Notes, Medications, Allergies Allergies: Coded Allergies: NO KNOWN ALLERGIES (Unverified , 01/12/23) Home Meds Active Scripts Sulfamethoxazole W/Trimethopri (Bactrim Ds Tablet) 1 Tab Tb, 1 TAB PO BID for 7 Days, #14 TAB Prov:BAKARI STUART DO 06/13/25 Reported Medications Mirtazapine (REMERON) 30 Mg Tab, 1 TAB PO QPM, #30 TAB 1 Refill 04/19/25 Aspirin (Aspir-81) 81 Mg Tab, 1 TAB PO DAILY, #30 TAB 5 Refills 04/19/25 Atorvastatin Calcium (Lipitor) 80 Mg Tab, 80 MG PO DAILY, #1 TAB 04/18/25 Cholecalciferol (Gnp Vitamin D) 1,000 Unit Tab, 1000 UNIT PO DAILY, #3 TAB 04/18/25 Empagliflozin (Jardiance) 25 Mg Tab, 25 MG PO DAILY for DM, TAB 04/18/25 Gabapentin (Neurontin) 400 Mg Cap, 400 MG PO, CAP 04/18/25 Losartan Potassium (Losartan Potassium) 100 Mg Tab, 1 TAB PO DAILY for HTN, #30 TAB 5 Refills 04/18/25 Melatonin (KP MELATONIN) 3 Mg Tab, 3 MG PO, TAB 04/18/25 Sertraline Hcl (Sertraline Hcl) 100 Mg Tab, 100 MG PO DAILY for antidepression , #2 TAB 04/18/25 Atorvastatin Calcium (Lipitor) 10 Mg Tab, PO QPM, #90 TAB 1 Refill 01/14/23 Metformin Hydrochloride (Metformin Hcl) 500 Mg Tab, PO IBID for 30 Days, MG 01/14/23 Tamsulosin Hcl (Flomax) 0.4 Mg Cap, 1 CAP PO DAILY, #30 CAP 11 Refills 01/14/23 Atenolol (Atenolol) 25 Mg Tab, PO BID for 30 Days, MG 01/14/23 Information Source: Patient Mode of Arrival: Ambulatory Severity: Moderate Timing: Days Duration: Since onset Prehospital treatment: None Onset: Spontaneous Symptoms: Hematuria History of: Chronic indwelling crain Penile discharge: None Modifying factors: None associated signs and symptoms: Hematuria Was a procedure done? Was a procedure done?: No Differential Diagnosis Kidney stone (Female): N/A Urinary Problem (Male): Bladder Outlet, Bladder Obstruction, Epididymitis, Prostatitis, Plelonephritis, Post op Complications, Renal Failure, Urethritis, Urinary Retention, Urolithiasis, UTI, Other (Hematuria:Ddx includes but not limited to: stones, coagulopathy, bladder/kidney cancer, SLE, infection, pylonephritis, prostatitis, cystitis, urethritis, renal infarct, Goodpasture syndrome, Wegners granulomatosis, Henoch-schnolin purpura, Hemolytic Uremic Syndrome HUS. Rhabdomyolysis. ) X-Ray, Labs, Meds, VS Vital Signs Date Time Temp Pulse Resp B/P (MAP) Pulse Ox O2 Delivery O2 Flow Rate FiO2 06/12/25 23:41 65 16 138/69 (92) 97 06/12/25 23:23 98.9 66 18 180/104 (129) 99 98.9 06/12/25 22:09 139/81 06/12/25 21:58 139/81 (100) 06/12/25 19:52 97.4 63 17 179/102 97 97.4 Lab Test 06/12/25 20:20 Range/Units White Blood Count 6.2 4.4-10.8 10^3/uL Red Blood Count 5.16 4.5-5.90 10^6/uL Hemoglobin 14.5 13.5-17.5 g/dL Hematocrit 43.9 41.0-53.0 % Mean Corpuscular Volume 85.2 80.0-100.0 fL Mean Corpuscular Hemoglobin 28.1 28.0-32.0 pg Mean Corpuscular Hemoglobin Concent 33.0 32.0-36.0 g/dL Red Cell Distribution Width 16.4 H 11.8-14.3 % Platelet Count 284 140-450 10^3/uL Mean Platelet Volume 7.2 6.9-10.8 fL Neutrophils (%) (Auto) 56.7 37.0-80.0 % Lymphocytes (%) (Auto) 31.6 10.0-50.0 % Monocytes (%) (Auto) 4.7 0.0-12.0 % Eosinophils (%) (Auto) 5.9 0.0-7.0 % Basophils (%) (Auto) 1.1 0.0-2.0 % Neutrophils # (Auto) 3.5 1.6-8.6 10 ^3/uL Lymphocytes # (Auto) 2.0 0.4-5.4 10 ^3/uL Monocytes # (Auto) 0.3 0-1.3 10 ^3/uL Eosinophils # (Auto) 0.4 0-0.8 10 ^3/uL Basophils # (Auto) 0.1 0-0.2 10 ^3/uL Nucleated Red Blood Cells 0.2 % Sodium Level 144 136-145 mmol/L Potassium Level 3.9 3.5-5.1 mmol/L Chloride Level 106 98-107 mmol/L Carbon Dioxide Level 27 20-31 mmol/L Anion Gap 11 5-15 Blood Urea Nitrogen 14 9-23 mg/dL Creatinine 1.28 0.700-1.30 mg/dL Glomerular Filtration Rate Calc 57 >90 mL/min BUN/Creatinine Ratio 10.9 10.0-20.0 Serum Glucose 87 74-106 mg/dL Calcium Level 10.2 8.7-10.4 mg/dL Total Bilirubin 0.5 0.2-1.0 mg/dL Aspartate Amino Transferase (AST) 55 H 13-40 U/L Alanine Aminotransferase (ALT) 23 7-40 U/L Alkaline Phosphatase 112 46-116 U/L Total Protein 7.8 5.7-8.2 g/dL Albumin 4.3 3.2-4.8 g/dL Current Medications Medications (Trade) Dose Ordered Sig/Jere Route Start Time Stop Time Status Last Admin Losartan Potassium (Cozaar Tablet) 100 mg ONCE ONCE PO 06/12/25 20:30 06/12/25 20:31 DC 06/12/25 22:09 Sodium Chloride 1,000 ml @ 1,000 mls/hr Q1H ONCE IV 06/12/25 22:00 06/12/25 22:59 DC 06/12/25 23:22 [place] [address] Ph: [phone] DIAGNOSTIC IMAGING Diagnostic Imaging Report : [id number] Signed PATIENT: COURTNEY BALDERRAMA ACCT: [id number] UNIT: [id number] : 1945 LOC: ER ROOM / BED: / AGE / SEX: 79 / M ADM STATUS: REG ER SERVICE 11 ORDERING PHYSICIAN: BAKARI STUART DO PROCEDURE(s): ABPL - CT AB PEL WO CON-NO ORAL OR IV REASON: hematuria ORDER NUMBER(s): [id number], ACCESSION NUMBER(s): [id number] Exam: CT CT AB PEL WO CON-NO ORAL OR IV History: hematuria Comparison Study: CT CT AB PEL WO CON-NO ORAL OR IV on DOS: 01/13/23 Technique: CT acquisition of the abdomen and pelvis without contrast. Axial, coronal and sagittal multiplanar reformats were obtained from the axial data set by the technologist. Radiation Dose : 1. Abdomen/Pelvis: CTDIvol 13.83 mGy, DLP 909.9 mGy*cm. Findings: Evaluation of solid organs is limited due to lack of intravenous contrast use. Lower Chest: No acute findings. Multivessel coronary atherosclerosis. Liver: Unremarkable. Gallbladder and Biliary Tree: Unremarkable Pancreas: Mild atrophy. Spleen: Unremarkable. Adrenal Glands: Unremarkable. Kidneys/Ureters: No urinary stone or obstruction. Simple density left renal cysts. Mild bilateral renal atrophy. Bladder: Contracted with circumferential wall thickening and a 3 cm intraluminal soft tissue density lesion. Pelvic Organs: Prostate appears enlarged and indistinct from the bladder. Crain catheter balloon appears within the center of the prostate. Bowel: Normal caliber without wall thickening. Normal appendix. Vasculature: Moderate atherosclerosis. Lymphadenopathy: No obvious adenopathy. Peritoneum: No ascites, free air, or fluid collection. Abdominal Wall: No significant hernia. Musculoskeletal: No acute findings. Degenerative change of the spine and pelvis. 9 cm intramuscular fat density lesion within the distal right iliacus muscle. IMPRESSION: 1. The urinary bladder is nondistended with circumferential wall thickening, a intraluminal 3 cm lesion, and Indistinct from an enlarged appearing prostate. Prostatitis or prostatic malignancy are suspected. The intraluminal lesion may represent a mass or blood products. 2. The Crain catheter balloon appears in low position within the prosthetic urethra, consider repositioning. 3. No other acute abdominopelvic abnormality. Chronic and incidental findings above. Radiation optimization: All CT scans at this facility use at least one of these dose optimization techniques: automated exposure control mA and/or kV adjustment per patient size (includes targeted exams where dose is matched to clinical indication) or iterative reconstruction. ATED BY: KENNETH BOYER MD DICTATED DATE/TIME: 06/12/252120 SIGNED BY: KENNETH BOYER MD SIGNED DATE/TIME: 06/12/252120 CC: Time of 1ST Reevaluation: 20:30 Reevaluation 1ST: Unchanged Time of 2ND Reevaluation: 00:07 (UA is still pending) Patient Education/Counseling: Diagnosis, Treatment Family Education/Counseling: No Family Present Assigned to Dr. DR. HAWK. Still waiting for UA. I anticipate that the patient will be discharged home. I discussed the care and transferred to Dr. Hawk. If patient is able to produce any urine a bladder scan will be necessary and possibly reassessment of the Crain catheter. Patient will be discharged home with some outpatient antibiotics for possible prostatitis although he denies any pain in that area. In the presence of prosthetic in the urethra that are more prone for infection I think antibiotic might be an appropriate course. Patient will need reassessment prior to final disposition. Comments MDM: patient presented with the above HPI.--painless hematuria----workup was i nitiated. patient was found with the above mentioned diagnosis. the following medications were ordered: please refer to order lists of meds and tests obtained by myself Dr. Stuart. Patient ED course and VS have been stabilized. Patient has been reassessed in the ED and remained in a stable condition. Pertinent incidental findings were discussed with the patient and/or family. Patient/family voices understanding and is agreeable with plan. Patient has been observed in the ED adequate length of time to insure improvement/stability. Escalation of care considered: Consideration of escalation to observation or admission Patient required some IV medication for blood pressure control here in the ED. He did not take any of his blood pressure medications today. The care of this patient was transitioned to my colleague Dr. Hawk. All the reports of any imaging studies that were ordered by myself were reviewed by myself. 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 ) Urinalysis (06/12/25 20:12) Ct Ab Pel Wo Con-No Oral Or Iv (06/12/25 20:12) Chlamydia/Gc Amplification (06/13/25 00:03) Sodium Chloride 0.9% (06/13/25 00:30) Vital Signs Date Time Temp Pulse Resp B/P (MAP) Pulse Ox O2 Delivery O2 Flow Rate FiO2 06/12/25 23:41 65 16 138/69 (92) 97 06/12/25 23:23 98.9 66 18 180/104 (129) 99 98.9 06/12/25 22:09 139/81 06/12/25 21:58 139/81 (100) 06/12/25 19:52 97.4 63 17 179/102 97 97.4 Laboratory Tests Test 06/12/25 20:20 White Blood Count 6.2 10^3/uL (4.4-10.8) Medications Medications Dose Ordered Sig/Jere Route Start Time Stop Time Status Last Admin Dose Admin Losartan Potassium 100 mg ONCE ONCE PO 06/12/25 20:30 06/12/25 20:31 DC 06/12/25 22:09 Sodium Chloride 1,000 ml @ 1,000 mls/hr Q1H ONCE IV 06/12/25 22:00 06/12/25 22:59 DC 06/12/25 23:22 Departure 1 Departure Time of Disposition: 20:24 Impression: Primary Impression: Painless hematuria Additional Impression: Hypertension Disposition: HOME / SELF CARE / HOMELESS Condition: Stable Additional Instructions: Additional instructions: Please read all instructions provided in this packet carefully. You MUST follow-up with your primary care/family doctor in 1 to 2 days. If you are unable to see your primary care/family doctor, please return to our emergency room for re-assessment and re-evaluation in 1 to 2 days. Return to the emergency room here in our facility or to the nearest ER [facility] if your symptoms change or worsen. CONSULTATIONS: you MUST Follow-up for consultation as soon as possible with: -urology in 1-2 days. Please call for appointment. You MUST call the consultants office yourself to make an appointment. You may need to arrange that through your insurance and/or your primary/family doctor. If you are unable to see the sourcing consultant in 1 to 2 days, you must return to our emergency room (or any other ER of your choice) for re-assessment and re- evaluation. Adequate fluid hydration. Although you have been discharged from the Emergency Department, this does not mean that you have a "clean bill of health". No definitive diagnosis for your symptoms has been made today. It is possible that you are in the process of dev eloping a serious illness. This is why you must return to the ED without fail if any new or worsening symptoms develop. Monitoring blood pressure at home at least 3 times a day. Below is a copy of your radiological report for follow up: [address] [address] Ph: [phone] DIAGNOSTIC IMAGING Diagnostic Imaging Report : [id number] Signed PATIENT: COURTNEY BALDERARMA ACCT: [id number] UNIT: [id number] : 1945 LOC: ER ROOM / BED: / AGE / SEX: 79 / M ADM STATUS: REG ER SERVICE 11 ORDERING PHYSICIAN: BAKARI STUART DO PROCEDURE(s): ABPL - CT AB PEL WO CON-NO ORAL OR IV REASON: hematuria ORDER NUMBER(s): [id number], ACCESSION NUMBER(s): [id number] Exam: CT CT AB PEL WO CON-NO ORAL OR IV History: hematuria Comparison Study: CT CT AB PEL WO CON-NO ORAL OR IV on DOS: 01/13/23 Technique: CT acquisition of the abdomen and pelvis without contrast. Axial, coronal and sagittal multiplanar reformats were obtained from the axial data set by the technologist. Radiation Dose : 1. Abdomen/Pelvis: CTDIvol 13.83 mGy, DLP 909.9 mGy*cm. Findings: Evaluation of solid organs is limited due to lack of intravenous contrast use. Lower Chest: No acute findings. Multivessel coronary atherosclerosis. Liver: Unremarkable. Gallbladder and Biliary Tree: Unremarkable Pancreas: Mild atrophy. Spleen: Unremarkable. Adrenal Glands: Unremarkable. Kidneys/Ureters: No urinary stone or obstruction. Simple density left renal cysts. Mild bilateral renal atrophy. Bladder: Contracted with circumferential wall thickening and a 3 cm intraluminal soft tissue density lesion. Pelvic Organs: Prostate appears enlarged and indistinct from the bladder. Crain catheter balloon appears within the center of the prostate. Bowel: Normal caliber without wall thickening. Normal appendix. Vasculature: Moderate atherosclerosis. Lymphadenopathy: No obvious adenopathy. Peritoneum: No ascites, free air, or fluid collection. Abdominal Wall: No significant hernia. Musculoskeletal: No acute findings. Degenerative change of the spine and pelvis. 9 cm intramuscular fat density lesion within the distal right iliacus muscle. IMPRESSION: 1. The urinary bladder is nondistended with circumferential wall thickening, a intraluminal 3 cm lesion, and Indistinct from an enlarged appearing prostate. Prostatitis or prostatic malignancy are suspected. The intraluminal lesion may represent a mass or blood products. 2. The Crain catheter balloon appears in low position within the prosthetic urethra, consider repositioning. 3. No other acute abdominopelvic abnormality. Chronic and incidental findings above. Radiation optimization: All CT scans at this facility use at least one of these dose optimization techniques: automated exposure control mA and/or kV adjustment per patient size (includes targeted exams where dose is matched to clinical indication) or iterative reconstruction. ATED BY: KENNETH BOYER MD DICTATED DATE/TIME: 06/12/252120 SIGNED BY: KENNETH BOYER MD SIGNED DATE/TIME: 06/12/252120 CC: e-Prescriptions Sulfamethoxazole W/Trimethopri (Bactrim Ds Tablet) 1 Tab Tb 1 TAB PO BID for 7 Days, #14 TAB Prov: BAKARI STUART DO 06/13/25 Discharged With: Self Critical Care Note Critical Care Time?: Yes (45 min-critical care time only) I personally scribed for BAKARI STUART DO ([email or web address]) on 06/12/25 at 20:22. Electronically submitted by Ileana Felipe ([email or web address]). I personally scribed for BAKARI STUART DO ([email or web address]) on 06/12/25 at 21:36. Electronically submitted by Ileana Felipe ([email or web address]). BAKARI STUART DO Jun 12, 2025 20:22
[2025-06-12] MEDS ORDERED: hydrALAZINE HCL 20 MG/ML VL IV ONE (20:30)
[2025-06-12 20:32] LABS: Hematocrit 43.9 % (41.0-53.0); Hemoglobin 14.5 g/dL (13.5-17.5); Mean Corpuscular Hemoglobin 28.1 pg (28.0-32.0); Mean Corpuscular Volume 85.2 fL (80.0-100.0); Nucleated Red Blood Cells % 0.2 %
[2025-06-12 20:48] LABS: Alanine Aminotransferase 23 U/L (7-40); Albumin 4.3 g/dL (3.2-4.8); Alkaline Phosphatase 112 U/L (46-116); Anion Gap 11 (5-15); BUN/Creatinine Ratio 10.9 (10.0-20.0); Blood Urea Nitrogen 14 mg/dL (9-23); Calcium 10.2 mg/dL (8.7-10.4); Carbon Dioxide 27 mmol/L (20-31); Chloride 106 mmol/L (98-107); Glucose 87 mg/dL (74-106); Potassium 3.9 mmol/L (3.5-5.1); Sodium 144 mmol/L (136-145); Total Protein 7.8 g/dL (5.7-8.2)
[2025-06-12 20:49] LABS: Bilirubin, Total 0.5 mg/dL (0.2-1.0)
--- NOTE | 2025-06-12 21:23 | DVH ---
Exam: CT CT AB PEL WO CON-NO ORAL OR IV History: hematuria Comparison Study: CT CT AB PEL WO CON-NO ORAL OR IV on DOS: 01/13/23 Technique: CT acquisition of the abdomen and pelvis without contrast. Axial, coronal and sagittal multiplanar reformats were obtained from the axial data set by the technologist. Radiation Dose : 1. Abdomen/Pelvis: CTDIvol 13.83 mGy, DLP 909.9 mGy*cm. Findings: Evaluation of solid organs is limited due to lack of intravenous contrast use. Lower Chest: No acute findings. Multivessel coronary atherosclerosis. Liver: Unremarkable. Gallbladder and Biliary Tree: Unremarkable Pancreas: Mild atrophy. Spleen: Unremarkable. Adrenal Glands: Unremarkable. Kidneys/Ureters: No urinary stone or obstruction. Simple density left renal cysts. Mild bilateral renal atrophy. Bladder: Contracted with circumferential wall thickening and a 3 cm intraluminal soft tissue density lesion. Pelvic Organs: Prostate appears enlarged and indistinct from the bladder. Bowman catheter balloon appears within the center of the prostate. Bowel: Normal caliber without wall thickening. Normal appendix. Vasculature: Moderate atherosclerosis. Lymphadenopathy: No obvious adenopathy. Peritoneum: No ascites, free air, or fluid collection. Abdominal Wall: No significant hernia. Musculoskeletal: No acute findings. Degenerative change of the spine and pelvis. 9 cm intramuscular fat density lesion within the distal right iliacus muscle. IMPRESSION: 1. The urinary bladder is nondistended with circumferential wall thickening, a intraluminal 3 cm lesion, and Indistinct from an enlarged appearing prostate. Prostatitis or prostatic malignancy are suspected. The intraluminal lesion may represent a mass or blood products. 2. The Bowman catheter balloon appears in low position within the prosthetic urethra, consider repositioning. 3. No other acute abdominopelvic abnormality. Chronic and incidental findings above. Radiation optimization: All CT scans at this facility use at least one of these dose optimization techniques: automated exposure control mA and/or kV adjustment per patient size (includes targeted exams where dose is matched to clinical indication) or iterative reconstruction.
[2025-06-12] MEDS: LOSARTAN POTASSIUM 50 MG TAB PO ONE (22:09)
[2025-06-12] MEDS ORDERED: LABETALOL HCL 20 MG/4 ML VL IV ONE (23:05)
[2025-06-12] MEDS: SODIUM CHLORIDE 0.9% 1,000 ML IV ONE (23:22)
[2025-06-13] MEDS ORDERED: BACDST PO (00:06)
[2025-06-13] MEDS: SODIUM CHLORIDE 0.9% 1,000 ML IV ONE (02:00)
[2025-06-13 03:17] VITALS: BP 151/69; PULSE 56; RESP 18; TEMP 98.9; O2SAT 98
[2025-06-13 04:26] LABS: Urine Protein, UAD 2+ (Negative)
[2025-06-14 16:07] LABS: Chlamydia Trachomatis, NAA Negative (Negative); Neisseria gonorrhoeae, NAA Negative (Negative)
== END 2025-06-13 06:40 | disposition home or self-care (01) ==
LOC: ER 19:49
DX: R31.9 Hematuria, unspecified (principal); I10 Essential (primary) hypertension; Z79.899 Other long term (current) drug therapy; E78.5 Hyperlipidemia, unspecified; Z79.84 Long term (current) use of oral hypoglycemic drugs; Z79.82 Long term (current) use of aspirin
CPT/HCPCS: 36415; 74176; 80053; 81001; 82947; 82962; 85025; 87491; 87591; 96361; 96365; 99285; J0696; J7030

== ENCOUNTER 2025-06-14 16:20 | Inpatient (IN) | payer OTHER, MEDICARE ==
[~2025-06-14] VITALS: Ht 167.6 cm; Wt 98.1 kg
[~2025-06-14 16:20] MED LIST changes: +BACDST PO
--- NOTE | 2025-06-14 17:18 | ED.PDOC ---
General HPI Comments This is a 79-year-old male who presents to the ED with a chief complaint of urinary retention with associated hematuria and lower abdominal pain as of today. Per care provider, patient has a Bowman in place, which was originally placed for urinary retention. Per care provider, patient's urine is clear. Patient has no further complaints at this time and otherwise denies further associated symptoms of fatigue, fever, chills, emesis, hematemesis, diarrhea. Chief Complaint: Urinary Time Seen by MD: 17:12 Primary Care Provider: UNKNOWN Reviewed notes: Medications, Allergies Allergies: Coded Allergies: NO KNOWN ALLERGIES (Unverified , 01/12/23) Home Meds Active Scripts Sulfamethoxazole W/Trimethopri (Bactrim Ds Tablet) 1 Tab Tb, 1 TAB PO BID for 7 Days, #14 TAB Prov:BAKARI STUART DO 06/13/25 Reported Medications Mirtazapine (REMERON) 30 Mg Tab, 1 TAB PO QPM, #30 TAB 1 Refill 04/19/25 Aspirin (Aspir-81) 81 Mg Tab, 1 TAB PO DAILY, #30 TAB 5 Refills 04/19/25 Atorvastatin Calcium (Lipitor) 80 Mg Tab, 80 MG PO DAILY, #1 TAB 04/18/25 Cholecalciferol (Gnp Vitamin D) 1,000 Unit Tab, 1000 UNIT PO DAILY, #3 TAB 04/18/25 Empagliflozin (Jardiance) 25 Mg Tab, 25 MG PO DAILY for DM, TAB 04/18/25 Gabapentin (Neurontin) 400 Mg Cap, 400 MG PO, CAP 04/18/25 Losartan Potassium (Losartan Potassium) 100 Mg Tab, 1 TAB PO DAILY for HTN, #30 TAB 5 Refills 04/18/25 Melatonin (KP MELATONIN) 3 Mg Tab, 3 MG PO, TAB 04/18/25 Sertraline Hcl (Sertraline Hcl) 100 Mg Tab, 100 MG PO DAILY for antidepression , #2 TAB 04/18/25 Atorvastatin Calcium (Lipitor) 10 Mg Tab, PO QPM, #90 TAB 1 Refill 01/14/23 Metformin Hydrochloride (Metformin Hcl) 500 Mg Tab, PO IBID for 30 Days, MG 01/14/23 Tamsulosin Hcl (Flomax) 0.4 Mg Cap, 1 CAP PO DAILY, #30 CAP 11 Refills 01/14/23 Atenolol (Atenolol) 25 Mg Tab, PO BID for 30 Days, MG 01/14/23 Information Source: Patient Mode of Arrival: Ambulatory Severity: Moderate Timing: Hours Duration: Since onset Onset: Spontaneous associated signs and symptoms: Hematuria, Other (Urinary retention) Past Medical History PAST MEDICAL HISTORY: DM, HTN, Liver Surgical History: Denies all surgeries Family History Family History: Reviewed,noncontributory to illness, Unknown Social History Smoker: Non-Smoker Alcohol: Denies ETOH Use Drugs: Denies Drug Use Lives In: Home Constitutional: denies: chills, diaphoresis, fatigue, fever, malaise, sweats, weakness, others EENTM: denies: blurred vision, double vision, ear bleeding, ear discharge, ear drainage, ear pain, ear ringing, eye pain, eye redness, hearing loss, mouth pain, mouth swelling, nasal discharge, nose bleeding, nose congestion, nose pain, photophobia, tearing, throat pain, throat swelling, voice changes, others Respiratory: denies: cough, hemoptysis, orthopnea, SOB at rest, shortness of breath, SOB with excertion, stridor, wheezing, others Cardiovascular: denies: chest pain, dizzy spells, diaphoresis, Dyspnea on exertion, edema, irregular heart beat, left arm pain, lightheadedness, palpitations, PND, syncope, others Gastrointestinal: denies: abdomen distended, abdominal pain, blood streaked bowels, constipated, diarrhea, dysphagia, difficulty swallowing, hematemesis, melena, nausea, poor appetite, poor fluid intake, rectal bleeding, rectal pain, vomiting, others Genitourinary: reports: hematuria, others (Urinary retention); denies: burning, dysuria, flank pain, frequency, incontinence, penile discharge, penile sore, pain, testicle pain, testicle swelling, urgency Neurological: denies: dizziness, fainting, headache, left sided numbness, left sided weakness, numbness, paresthesia, pre-existing deficit, right sided numbness, right sided weakness, seizure, speech problems, tingling, tremors, weakness, others Musculoskeletal: denies: back pain, gout, joint pain, joint swelling, muscle pain, muscle stiffness, neck pain, others Integumetry: denies: bruises, change in color, change in hair/nails, dryness, laceration, lesions, lumps, rash, wounds, others Allergic/Immunocompromised: denies: Difficulty Healing, Frequent Infections, Hives, Itching, others Hematologic/Lymphatic: denies: anemia, blood clots, easy bleeding, easy bruising, swollen glands, others Endocrine: denies: excessive hunger, excessive sweating, excessive thirst, excessive urination, flushing, intolerance to cold, intolerance to heat, unexplained weight gain, unexplained weight loss, others Psychiatric: denies: anxiety, bipolar disorder, depression, hopeless, panic disorder, schizophrenia, sleepless, suicidal, others All Other Systems: Reviewed and Negative Physical Exam General Appearance: Mild Distress, Normal HEENT: Normal ENT Inspection, Pharynx Normal, TMs Normal Neck: Normal, Normal Inspection Respiratory: No Respiratory Distress, Normal Breath Sounds Cardiovascular: No Edema, No JVD, No Murmur Breast Exam: Deferred Gastrointestinal: Soft, Tenderness Genitalia: Deferred Pelvic: Deferred Rectal: Deferred Extremities: No calf tenderness, Normal capillary refill, Normal inspection, Normal range of motion, Non-tender, No pedal edema Musculoskeletal : Apperance: Normal Neurologic: Alert, No Motor Deficits, Normal Affect, Normal Mood, No Sensory Deficits Cerebellar Function: Normal Reflexes: Normal Skin: Dry, Normal Color, Warm Lymphatic: No Adenopathy Was a procedure done? Was a procedure done?: No Differential Diagnosis Kidney stone (Female): N/A Penile/Scrotal: UTI, Urolithiasis X-Ray, Labs, Meds, VS Vital Signs Date Time Temp Pulse Resp B/P (MAP) Pulse Ox O2 Delivery O2 Flow Rate FiO2 06/14/25 16:35 98 06/14/25 16:24 98.2 109 16 195/112 96 98.2 Lab Test 06/14/25 17:37 Range/Units White Blood Count 10.2 # 4.4-10.8 10^3/uL Red Blood Count 5.02 4.5-5.90 10^6/uL Hemoglobin 14.0 13.5-17.5 g/dL Hematocrit 42.6 41.0-53.0 % Mean Corpuscular Volume 84.8 80.0-100.0 fL Mean Corpuscular Hemoglobin 27.9 L 28.0-32.0 pg Mean Corpuscular Hemoglobin Concent 32.9 32.0-36.0 g/dL Red Cell Distribution Width 16.4 H 11.8-14.3 % Platelet Count 303 140-450 10^3/uL Mean Platelet Volume 7.2 6.9-10.8 fL Neutrophils (%) (Auto) 87.6 H 37.0-80.0 % Lymphocytes (%) (Auto) 7.3 L 10.0-50.0 % Monocytes (%) (Auto) 4.2 0.0-12.0 % Eosinophils (%) (Auto) 0.3 0.0-7.0 % Basophils (%) (Auto) 0.6 0.0-2.0 % Neutrophils # (Auto) 8.9 H 1.6-8.6 10 ^3/uL Lymphocytes # (Auto) 0.7 0.4-5.4 10 ^3/uL Monocytes # (Auto) 0.4 0-1.3 10 ^3/uL Eosinophils # (Auto) 0 0-0.8 10 ^3/uL Basophils # (Auto) 0.1 0-0.2 10 ^3/uL Nucleated Red Blood Cells 0.1 % Sodium Level 139 # 136-145 mmol/L Potassium Level 3.2 L 3.5-5.1 mmol/L Chloride Level 102 98-107 mmol/L Carbon Dioxide Level 25 20-31 mmol/L Anion Gap 12 5-15 Blood Urea Nitrogen 14 9-23 mg/dL Creatinine 1.44 H 0.700-1.30 mg/dL Glomerular Filtration Rate Calc 49 >90 mL/min BUN/Creatinine Ratio 9.7 L 10.0-20.0 Serum Glucose 155 H 74-106 mg/dL Calcium Level 9.7 8.7-10.4 mg/dL Time of 1ST Reevaluation: 17:34 Reevaluation 1ST: Unchanged Patient Education/Counseling: Diagnosis, Treatment Family Education/Counseling: No Family Present SEPSIS Sepsis Screen Date sepsis recognized/suspect: Jun 14, 2025 Time Sepsis recognized/suspect: 1623 Recent Procedure: No On Antibiotic Therapy: No Respiratory Rate >20: No Heart Rate >90: No Temp<36 C (96.8 F) or >38.3 C: No SBP <90 or MAP <65 mmHG: No New Acute Mental Status Change: No Is the patient on CPAP, BIPAP,: No Physician Orders Electrocardigram (06/14/25 16:45) Insert Bowman Catheter QSHIFT (06/14/25 17:14) Vital Signs Date Time Temp Pulse Resp B/P (MAP) Pulse Ox O2 Delivery O2 Flow Rate FiO2 06/14/25 16:35 98 06/14/25 16:24 98.2 109 16 195/112 96 98.2 Laboratory Tests Test 06/14/25 17:37 White Blood Count 10.2 10^3/uL (4.4-10.8) # Departure 1 Departure Time of Disposition: 18:41 (Patient likely with a acute urinary retention secondary to hematuria and clots. Despite a normal Bowman previous placement was not draining. We will place a three-way and performed CBI and admit patient for further workup and expert consultation) Impression: Primary Impression: Acute urinary retention Additional Impressions: Hematuria Suprapubic pain Generalized weakness Disposition: ADMITTED INPATIENT Admit to: Med Surg Condition: Guarded Critical Care Note Critical Care Time?: No Stability Stability form required: No Heart Score Heart Score: Heart Score Response (Comments) Value History N/A 0 EKG N/A 0 Age N/A 0 Risk Factors N/A 0 Troponin N/A 0 Total 0 I personally scribed for LEIGHANN MA MD ([email or web address]) on 06/14/25 at 17:18. Electronically submitted by Margo Parada ([employer]). I personally scribed for LEIGHANN MA MD ([email or web address]) on 06/14/25 at 17:22. Electronically submitted by Margo Parada ([employer]). I personally scribed for LEIGHANN MA MD ([email or web address]) on 06/14/25 at 17:22. Electronically submitted by Margo Parada ([employer]). LEIGHANN MA MD Jun 14, 2025 17:18
[2025-06-14 17:59] LABS: Nucleated Red Blood Cells % 0.1 %
[2025-06-14 18:00] LABS: Hematocrit 42.6 % (41.0-53.0); Hemoglobin 14.0 g/dL (13.5-17.5); Mean Corpuscular Hemoglobin 27.9 pg (28.0-32.0); Mean Corpuscular Volume 84.8 fL (80.0-100.0)
[2025-06-14 18:05] LABS: Chloride 102 mmol/L (98-107); Sodium 139 mmol/L (136-145)
[2025-06-14 18:06] LABS: Anion Gap 12 (5-15); Carbon Dioxide 25 mmol/L (20-31)
[2025-06-14 18:07] LABS: Calcium 9.7 mg/dL (8.7-10.4)
[2025-06-14 18:11] LABS: BUN/Creatinine Ratio 9.7 (10.0-20.0); Blood Urea Nitrogen 14 mg/dL (9-23)
[2025-06-14 18:18] LABS: Glucose 155 mg/dL (74-106); Potassium 3.2 mmol/L (3.5-5.1)
[2025-06-14] MEDS: LABETALOL HCL 20 MG/4 ML VL IV ONE (22:45)
[2025-06-14] MEDS ORDERED: HYDROcodone-ACET 5/325MG TAB PO PRN (22:45)
[2025-06-14] MEDS ORDERED: MORPHINE SULFATE INJ 2 MG/ml SYRG IV PRN (22:45)
--- NOTE | 2025-06-14 22:47 | DVHHPRES ---
History of Present Illness Resident Creating Document: XENIA SELLERS RESIDENT History of Present Illness 79-year-old male presented to the ER with a chief complaint of gross hematuria for the past week. Patient has a chronic indwelling Bowman which he got replaced around 3 days back, but he has been having gross hematuria for the past week. Also reports pain which is suprapubic but no dysuria. Denies fever or chills. Reports that he saw his urologist, who visited at his house and that he went to urgent care but nothing happened. Patient was recently seen in this facility for similar reasons and underwent cystoscopy. Patient is hypertensive during this visit. Past medical history: Diabetes mellitus type 2, hypertension, aspirin Home medications: Atenolol Social history: Quit smoking 20 years back, smoked for 20 years, 1 pack a year, denies drinking or drug use. Lives with son in his. PCP Dr. Meza Patient seen and examined. NPO. Urology consulted. Review of Systems Genitourinary: Hematuria, Other (Bladder pain) Allergies: Coded Allergies: NO KNOWN ALLERGIES (Unverified , 01/12/23) Exam Vital Signs Vital Signs Date Time Temp Pulse Resp B/P (MAP) Pulse Ox O2 Delivery O2 Flow Rate FiO2 06/14/25 19:07 78 16 184/130 (148) 95 06/14/25 16:24 98.2 98.2 General Appearance: Alert, Oriented X3, Cooperative, No acute distress HEENT: Other (Dry mucous membranes) Respiratory: Clear to auscultation, Normal air movement Cardiovascular: Regular rate, Normal S1 Abdominal: Normal bowel sounds, Soft, No tenderness Extremities: No edema Skin: No significant lesion Labs/Xrays Labs Test 06/14/25 17:37 Range/Units White Blood Count 10.2 # 4.4-10.8 10^3/uL Red Blood Count 5.02 4.5-5.90 10^6/uL Hemoglobin 14.0 13.5-17.5 g/dL Hematocrit 42.6 41.0-53.0 % Mean Corpuscular Volume 84.8 80.0-100.0 fL Mean Corpuscular Hemoglobin 27.9 L 28.0-32.0 pg Mean Corpuscular Hemoglobin Concent 32.9 32.0-36.0 g/dL Red Cell Distribution Width 16.4 H 11.8-14.3 % Platelet Count 303 140-450 10^3/uL Mean Platelet Volume 7.2 6.9-10.8 fL Neutrophils (%) (Auto) 87.6 H 37.0-80.0 % Lymphocytes (%) (Auto) 7.3 L 10.0-50.0 % Monocytes (%) (Auto) 4.2 0.0-12.0 % Eosinophils (%) (Auto) 0.3 0.0-7.0 % Basophils (%) (Auto) 0.6 0.0-2.0 % Neutrophils # (Auto) 8.9 H 1.6-8.6 10 ^3/uL Lymphocytes # (Auto) 0.7 0.4-5.4 10 ^3/uL Monocytes # (Auto) 0.4 0-1.3 10 ^3/uL Eosinophils # (Auto) 0 0-0.8 10 ^3/uL Basophils # (Auto) 0.1 0-0.2 10 ^3/uL Nucleated Red Blood Cells 0.1 % Sodium Level 139 # 136-145 mmol/L Potassium Level 3.2 L 3.5-5.1 mmol/L Chloride Level 102 98-107 mmol/L Carbon Dioxide Level 25 20-31 mmol/L Anion Gap 12 5-15 Blood Urea Nitrogen 14 9-23 mg/dL Creatinine 1.44 H 0.700-1.30 mg/dL Glomerular Filtration Rate Calc 49 >90 mL/min BUN/Creatinine Ratio 9.7 L 10.0-20.0 Serum Glucose 155 H 74-106 mg/dL Calcium Level 9.7 8.7-10.4 mg/dL SEPSIS Sepsis Screen Date sepsis recognized/suspect: Jun 14, 2025 Time Sepsis recognized/suspect: 4 Recent Procedure: No On Antibiotic Therapy: No Respiratory Rate >20: No Heart Rate >90: No Temp<36 C (96.8 F) or >38.3 C: No SBP <90 or MAP <65 mmHG: No New Acute Mental Status Change: No Is the patient on CPAP, BIPAP,: No Physician Orders Electrocardigram (06/14/25 16:45) Insert Bowman Catheter QSHIFT (06/14/25 17:14) * Urology Consult (06/14/25 18:40) Continous Bladder Irrigation (06/14/25 18:40) Vital Signs Date Time Temp Pulse Resp B/P (MAP) Pulse Ox O2 Delivery O2 Flow Rate FiO2 06/14/25 19:07 78 16 184/130 (148) 95 06/14/25 16:35 98 06/14/25 16:24 98.2 109 16 195/112 96 98.2 Laboratory Tests Test 06/14/25 17:37 White Blood Count 10.2 10^3/uL (4.4-10.8) # Assessment/Plan Assessment/Plan Gross hematuria Ruled out cystitis Acute kidney injury likely vasomotor mediated Bowman change recently Urology consultation Urine sodium, creatinine pending NS 75 cc/hour total of 1 L Avoid NSAIDs/aspirin/blood thinners Strict I&Os PT/PTT pending Diabetes mellitus type 2 Mild ISS Uncontrolled hypertension Home medication atenolol Labetalol 10 mg IV push given Chest x-ray, BNP pending Hold Lovenox SCDs NPO Plan discussed with the patient in which all questions have been answered Case discussed with Dr. Amaro Plan discussed with: Patient Date of Service: Jun 14, 2025 Billing Provider: JOSAFAT AMARO MD Common Visit Codes: [id number] INP/OBS CARE (HIGH) XENIA SELLERS RESIDENT Jun 14, 2025 22:47
[2025-06-15] VITALS (10 sets, daily range): BP systolic 93–178; BP diastolic 49–85; PULSE 56–68; RESP 14–94; TEMP 98–98.7; O2SAT 94–97
[2025-06-15] MEDS: ACETAMINOPHEN 500 MG TAB or CAP PO PRN (01:46)
[2025-06-15] MEDS: ATENOLOL 25 MG TAB PO ONE (05:44)
[2025-06-15] MEDS ORDERED: DEXTROSE (50%) 50ML SYRG IV PRN (06:45)
--- NOTE | 2025-06-15 07:34 | DVH ---
XY CHEST XRAY 1 VIEW, HISTORY: Hypertension COMPARISON: XY CHEST XRAY 1 VIEW on DOS: 04/17/25, XY CHEST XRAY 1 VIEW on DOS: 07/13/24, XY CHEST PORTABLE on DOS: 07/12/24 XY CHEST XRAY 1 VIEW on DOS: 04/17/25, XY CHEST XRAY 1 VIEW on DOS: 07/13/24, XY CHEST PORTABLE on DOS: 07/12/24 TECHNICAL DATA: 1 view of the chest was obtained. FINDINGS: Lines and tubes: None Cardiomediastinal silhouette: normal Pulmonary vasculature: normal Lung expansion: low Lung airspace: mild bibasilar atelectsis. Lung interstitium: normal Pleura: normal Pneumothorax: no Bones: Unremarkable Other: no IMPRESSION: Mild bibasilar atelectsis.
[2025-06-15 08:12] LABS: Hematocrit 39.0 % (41.0-53.0); Hemoglobin 12.7 g/dL (13.5-17.5); Mean Corpuscular Hemoglobin 28.3 pg (28.0-32.0); Mean Corpuscular Volume 86.9 fL (80.0-100.0); Nucleated Red Blood Cells % 0.1 %
[2025-06-15 08:30] LABS: INR 1.01 (0.9-1.15); Partial Thromboplastin Time 24.1 SEC (24.5-34.5); Prothrombin Time 10.7 sec (9.3-11.8)
[2025-06-15 08:36] LABS: Alanine Aminotransferase 25 U/L (7-40); Albumin 3.7 g/dL (3.2-4.8); Alkaline Phosphatase 93 U/L (46-116); Anion Gap 11 (5-15); BUN/Creatinine Ratio 8.9 (10.0-20.0); Bilirubin, Total 0.6 mg/dL (0.2-1.0); Blood Urea Nitrogen 15 mg/dL (9-23); Calcium 9.3 mg/dL (8.7-10.4); Carbon Dioxide 24 mmol/L (20-31); Chloride 104 mmol/L (98-107); Glucose 101 mg/dL (74-106); Magnesium 2.3 mg/dL (1.6-2.6); Potassium 3.7 mmol/L (3.5-5.1); Sodium 139 mmol/L (136-145); Total Protein 6.8 g/dL (5.7-8.2)
--- NOTE | 2025-06-15 09:04 | DVHINCON2 ---
Date of service: Jun 15, 2025 Referring Physician Hospitalist Reason for Consultation hematuria History of Present Illness History Source: Patient, RN Notes, MD Notes, Old Records Exam Limitations: No limitations HPI 79 [facility] male [facility] and usually has his crain exchanged over guidewire every three weeks, has a chronic indwelling Crain which he got replace d around 3 days back, but he has been having gross hematuria for the past week. Also reports pain which is suprapubic but no dysuria. Denies fever or chills.Hx of Thulium laser cystolitholopaxy Transurethral resection of the prostate gland 12/2022 (DV) .Cystoscopy with Direct Visual Internal Urethrotomy and Crain catheter insertion 03/2025 (DV). urine is now clear. Home Meds Active Scripts Sulfamethoxazole W/Trimethopri (Bactrim Ds Tablet) 1 Tab Tb, 1 TAB PO BID for 7 Days, #14 TAB Prov:SADEBAKARI DO 06/13/25 Reported Medications Mirtazapine (REMERON) 30 Mg Tab, 1 TAB PO QPM, #30 TAB 1 Refill 04/19/25 Aspirin (Aspir-81) 81 Mg Tab, 1 TAB PO DAILY, #30 TAB 5 Refills 04/19/25 Atorvastatin Calcium (Lipitor) 80 Mg Tab, 80 MG PO DAILY, #1 TAB 04/18/25 Cholecalciferol (Gnp Vitamin D) 1,000 Unit Tab, 1000 UNIT PO DAILY, #3 TAB 04/18/25 Empagliflozin (Jardiance) 25 Mg Tab, 25 MG PO DAILY for DM, TAB 04/18/25 Gabapentin (Neurontin) 400 Mg Cap, 400 MG PO, CAP 04/18/25 Losartan Potassium (Losartan Potassium) 100 Mg Tab, 1 TAB PO DAILY for HTN, #30 TAB 5 Refills 04/18/25 Melatonin (KP MELATONIN) 3 Mg Tab, 3 MG PO, TAB 04/18/25 Sertraline Hcl (Sertraline Hcl) 100 Mg Tab, 100 MG PO DAILY for antidepression , #2 TAB 04/18/25 Atorvastatin Calcium (Lipitor) 10 Mg Tab, PO QPM, #90 TAB 1 Refill 01/14/23 Metformin Hydrochloride (Metformin Hcl) 500 Mg Tab, PO IBID for 30 Days, MG 01/14/23 Tamsulosin Hcl (Flomax) 0.4 Mg Cap, 1 CAP PO DAILY, #30 CAP 11 Refills 01/14/23 Atenolol (Atenolol) 25 Mg Tab, PO BID for 30 Days, MG 01/14/23 Past Medical History Patient Family History: Patient reports no known family medical history. H&P Exam Vital Signs Vital Signs Date Time Temp Pulse Resp B/P (MAP) Pulse Ox O2 Delivery O2 Flow Rate FiO2 06/15/25 05:44 60 93/49 06/15/25 05:21 98.0 15 96 98.0 Labs/Xrays Labs Test 06/15/25 07:32 06/14/25 17:37 Range/Units White Blood Count 9.5 4.4-10.8 10^3/uL Red Blood Count 4.49 L 4.5-5.90 10^6/uL Hemoglobin 12.7 L 13.5-17.5 g/dL Hematocrit 39.0 L 41.0-53.0 % Mean Corpuscular Volume 86.9 80.0-100.0 fL Mean Corpuscular Hemoglobin 28.3 28.0-32.0 pg Mean Corpuscular Hemoglobin Concent 32.5 32.0-36.0 g/dL Red Cell Distribution Width 16.0 H 11.8-14.3 % Platelet Count 247 140-450 10^3/uL Mean Platelet Volume 7.3 6.9-10.8 fL Neutrophils (%) (Auto) 80.8 H 37.0-80.0 % Lymphocytes (%) (Auto) 14.1 10.0-50.0 % Monocytes (%) (Auto) 4.6 0.0-12.0 % Eosinophils (%) (Auto) 0.1 0.0-7.0 % Basophils (%) (Auto) 0.4 0.0-2.0 % Neutrophils # (Auto) 7.7 1.6-8.6 10 ^3/uL Lymphocytes # (Auto) 1.3 0.4-5.4 10 ^3/uL Monocytes # (Auto) 0.4 0-1.3 10 ^3/uL Eosinophils # (Auto) 0 0-0.8 10 ^3/uL Basophils # (Auto) 0 0-0.2 10 ^3/uL Nucleated Red Blood Cells 0.1 % Prothrombin Time 10.7 9.3-11.8 sec Prothrombin Time INR 1.01 0.9-1.15 Activated Partial Thromboplast Time 24.1 L 24.5-34.5 SEC Sodium Level 139 136-145 mmol/L Potassium Level 3.7 3.5-5.1 mmol/L Chloride Level 104 98-107 mmol/L Carbon Dioxide Level 24 20-31 mmol/L Anion Gap 11 5-15 Blood Urea Nitrogen 15 9-23 mg/dL Creatinine 1.69 H 0.700-1.30 mg/dL Glomerular Filtration Rate Calc 41 >90 mL/min BUN/Creatinine Ratio 8.9 L 10.0-20.0 Serum Glucose 101 74-106 mg/dL Calcium Level 9.3 8.7-10.4 mg/dL Magnesium Level 2.3 1.6-2.6 mg/dL Total Bilirubin 0.6 0.2-1.0 mg/dL Aspartate Amino Transferase (AST) 57 H 13-40 U/L Alanine Aminotransferase (ALT) 25 7-40 U/L Alkaline Phosphatase 93 46-116 U/L Total Protein 6.8 5.7-8.2 g/dL Albumin 3.7 3.2-4.8 g/dL Thyroid Stimulating Hormone (TSH) 0.33 L 0.55-4.78 uIU/mL Assessment/Plan Problem List: (1) Hematuria (2) Crain catheter in place Plan monthly crain exchange. consider Optilume for recurrent urethral stricture. [facility] Plan discussed with: HAMZAH Loo NP Jun 15, 2025 09:03
[2025-06-15] MEDS: SODIUM CHLORIDE 0.9% 1,000 ML IV ONE (09:37)
[2025-06-15] MEDS: InsuLIN REG 1unit/0.01ml Soln (100units/ml) SC SCH (12:00)
[2025-06-15] MEDS: ACCU-CHEK COMFORT CURVE STRIP VI SCH (12:25)
[2025-06-15] MEDS: EMPAGLIFLOZIN 10 MG TAB PO SCH (12:25)
--- NOTE | 2025-06-15 14:37 | DVHPNRES ---
Progress Note Date Seen: Jun 15, 2025 Resident Creating Document: MANGO CAMPBELL RESDIENT Medical Necessity Reason Pt with a Central, PICC or Fol: No Subjective Review of Systems 79-year-old male presented to the ER with a chief complaint of gross hematuria for the past week. Patient has a chronic indwelling Bowman which he got replaced around 3 days back, but he has been having gross hematuria for the past week. Also reports pain which is suprapubic but no dysuria. Denies fever or chills. Reports that he saw his urologist, who visited at his house and that he went to urgent care but nothing happened. Patient was recently seen in this facility for similar reasons and underwent cystoscopy. Patient is hypertensive during this visit. Past medical history: Diabetes mellitus type 2, hypertension, aspirin Home medications: Atenolol Social history: Quit smoking 20 years back, smoked for 20 years, 1 pack a year, denies drinking or drug use. Lives with son in his. PCP Dr. Meza 06/15, the patient seen and examined at the bedside. Patient is altered and can not provide proper history. Collateral history taken from the son through the phone. Objective vital signs Vital Sign Date Time Temp Pulse Resp B/P (MAP) Pulse Ox O2 Delivery O2 Flow Rate FiO2 06/15/25 09:00 98.3 56 14 110/62 (78) 95 98.3 Total Intake and Output 06/14/25 06/14/25 06/15/25 15:00 23:00 07:00 Output Total 300 ml Balance -300 ml medications Current Medications Medications Dose Ordered Sig/Jere Route Start Time Stop Time Status Last Admin Dose Admin Acetaminophen 500 mg Q4HPRN PRN PO 06/14/25 22:45 06/15/25 01:46 500 MG Acetaminophen/ Hydrocodone Bitart 1 tab Q4HPRN PRN PO 06/14/25 22:45 Morphine Sulfate 1 mg Q4HPRN PRN IV 06/14/25 22:45 Diagnostic Test (Pha) 1 strip Q6HR 06/15/25 12:00 06/15/25 12:25 1 STRIP Insulin Human Regular Q6HR SC 06/15/25 12:00 Dextrose 50 ml UD PRN IV 06/15/25 06:45 Atorvastatin Calcium 10 mg HS PO 06/15/25 22:00 UNV Empaglifozin 10 mg DAILY PO 06/15/25 10:00 06/15/25 12:25 10 MG Examination General Appearance: Alert, Oriented X3, Cooperative, No acute distress HEENT: Atraumatic, PERRLA, EOMI, Mucous membrane moist/pink Respiratory: Clear to auscultation, Normal air movement Cardiovascular: Regular rate, Normal S1, Normal S2, No murmurs, no chest wall tenderness Abdominal: Normal bowel sounds, Soft, No tenderness, No hepatospenomegaly, No masses Extremities: No clubbing, No cyanosis, No edema, Normal pulses, No tenderness/swelling Skin: No rashes, No breakdown, No significant lesion Neuro: Normal gait, Normal speech, Strength at 5/5 X4 ext, Normal tone, Sensation intact, Cranial nerves 3-12 NL, Reflexes 2+ Psych/Mental Status: Mental status NL, Mood NL laboratory and microbiology Laboratory Tests 06/15/25 07:32 Test 06/15/25 07:32 Range/Units Serum Glucose 101 74-106 mg/dL Labs and/or images reviewed: Labs reviewed by me, Image(s) reviewed by me Problem List/Assessment/Plan Problem List/Assessment/Plan Pneumonia, likely due to Gram-positive/Gram-negative bacteria/viral Acute metabolic encephalopathy, likely due to above Gross hematuria History of urethral stricture, indwelling catheter Hypertensive emergency ORTEGA, due to above/VMN Diabetes type 2 Obesity * Chest x-ray shows right lower lobe infiltration Plan/recommendation: * Empiric antibiotic Rocephin and doxycycline * IV fluid * Check urinalysis, urine culture, blood culture, sputum * Pain management DIET: Cardiac diet DVT PROPHYLAXIS: SCD, due to hematuria GI PROPHYLAXIS:: Protonix CODE STATUS: Goal of care discussed for more than 18 minutes, full code DISPOSITION: Med/surge Patient's status and plan discussed with the patient son through the phone. Case discussed with Dr. Deal. Plan discussed with: Patient, Other (RN) My Orders My Orders Orders - MANGO CAMPBELL RESALPESH Procedure Category Date Status Time Consistent DIET 06/15/25 Transmitted Carb(Ccho)Diabetes Breakfast Atorvastatin (Lipitor) PHA 06/15/25 Pending 09:30 Atorvastatin (Lipitor) PHA 06/15/25 Pending 22:00 Empagliflozin PHA 06/15/25 In Process (Jardiance) 10:00 Date of Service: Jun 15, 2025 Billing Provider: DORIAN BATES MD Common Visit Codes: [id number] INP/OBS CARE(HIGH) MANGO CAMPBELL Jun 15, 2025 14:37
[2025-06-15] MEDS: ATORVASTATIN 20 MG TAB ONE (15:21)
[2025-06-15] MEDS: ATORVASTATIN 20 MG TAB PO ONE (16:07)
[2025-06-15] MEDS: DOXYCYCLINE 100MG/100ML 100 ML IV SCH (16:07)
[2025-06-15 16:53] LABS: COVID19 ANTIGEN SOFIA FIA NEGATIVE (NEGATIVE)
[2025-06-15] MEDS: LABETALOL HCL 20 MG/4 ML VL IV ONE (17:38)
[2025-06-15] MEDS: ACETAMINOPHEN 500 MG TAB or CAP PO ONE (17:39)
[2025-06-15] MEDS: ACETAMINOPHEN 500 MG TAB or CAP PO SCH (17:41)
[2025-06-15] MEDS: DOXYCYCLINE 100MG/100ML 100 ML IV ONE (17:44)
[2025-06-15] MEDS: InsuLIN REG 1unit/0.01ml Soln (100units/ml) ONE (17:44)
[2025-06-15 18:50] LABS: Urine Budding Yeast OCCASIONAL /hpf (None Seen); Urine Protein, UAD Negative (Negative)
[2025-06-15 18:56] LABS: Amphetamine Screen, Urine Neg (NEGATIVE); Barbiturate Scree,Urine Neg (NEGATIVE); Benzodiazephine Screen, Urine Neg (NEGATIVE); Cannabinoid Screen, Urine Neg (NEGATIVE); Cocaine Screen, Urine Neg (NEGATIVE); Opiate Scree,Urine Neg (NEGATIVE); Phencyclidine Screen, Urine Neg (NEGATIVE)
[2025-06-15] MEDS ORDERED: ATENOLOL 25 MG TAB PO SCH (22:00)
[2025-06-15] MEDS ORDERED: ATORVASTATIN 20 MG TAB PO SCH (22:00)
[2025-06-15] MEDS: ATORVASTATIN 20 MG TAB PO SCH (22:00)
[2025-06-16] VITALS (7 sets, daily range): BP systolic 112–162; BP diastolic 72–90; PULSE 33–94; RESP 8–18; TEMP 97–98; O2SAT 6–98
[2025-06-16 05:55] LABS: Hematocrit 42.4 % (41.0-53.0); Hemoglobin 14.0 g/dL (13.5-17.5); Mean Corpuscular Hemoglobin 28.2 pg (28.0-32.0); Mean Corpuscular Volume 85.4 fL (80.0-100.0); Nucleated Red Blood Cells % 0.0 %
[2025-06-16 06:14] LABS: Alanine Aminotransferase 25 U/L (7-40); Albumin 4.1 g/dL (3.2-4.8); Alkaline Phosphatase 97 U/L (46-116); Anion Gap 12 (5-15); BUN/Creatinine Ratio 10.5 (10.0-20.0); Bilirubin, Total 0.5 mg/dL (0.2-1.0); Blood Urea Nitrogen 16 mg/dL (9-23); Calcium 10.1 mg/dL (8.7-10.4); Carbon Dioxide 26 mmol/L (20-31); Glucose 88 mg/dL (74-106); Total Protein 7.4 g/dL (5.7-8.2)
[2025-06-16 06:15] LABS: Chloride 113 mmol/L (98-107); Potassium 3.4 mmol/L (3.5-5.1); Sodium 151 mmol/L (136-145)
--- NOTE | 2025-06-16 08:27 | ECG ---
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
[2025-06-16] MEDS: POTASSIUM EFFERVESENT TAB 25 MEQ PO ONE (09:50)
[2025-06-16] MEDS: SODIUM CHLORIDE 0.9% 1,000 ML IV ONE (11:30)
[2025-06-16] MEDS ORDERED: FREE WATER PO SCH (12:00)
[2025-06-16] MEDS: FREE WATER PO SCH (14:30)
--- NOTE | 2025-06-16 14:40 | DVHPNRES ---
Progress Note Date Seen: Jun 16, 2025 Resident Creating Document: MANGO CAMPBELL RESDIENT Medical Necessity Reason Pt with a Central, PICC or Fol: No Subjective Review of Systems 79-year-old male presented to the ER with a chief complaint of gross hematuria for the past week. Patient has a chronic indwelling Bowman which he got replaced around 3 days back, but he has been having gross hematuria for the past week. Also reports pain which is suprapubic but no dysuria. Denies fever or chills. Reports that he saw his urologist, who visited at his house and that he went to urgent care but nothing happened. Patient was recently seen in this facility for similar reasons and underwent cystoscopy. Patient is hypertensive during this visit. Past medical history: Diabetes mellitus type 2, hypertension, aspirin Home medications: Atenolol Social history: Quit smoking 20 years back, smoked for 20 years, 1 pack a year, denies drinking or drug use. Lives with son in his. PCP Dr. Meza 06/15, the patient seen and examined at the bedside. Patient is altered and can not provide proper history. Collateral history taken from the son through the phone. 06/16, the patient seen and examined at the bedside. Patient is feeling better since admission, being more oriented, but still complaining of suprapubic tenderness. Objective vital signs Vital Sign Date Time Temp Pulse Resp B/P (MAP) Pulse Ox O2 Delivery O2 Flow Rate FiO2 06/16/25 12:50 97.4 64 16 147/88 (107) 98 97.4 06/16/25 08:00 Room Air* 0 21 Total Intake and Output 06/15/25 06/15/25 06/16/25 15:00 23:00 07:00 Intake Total 1150 ml 300 ml Output Total 2175 ml 1400 ml Balance -1025 ml -1100 ml medications Current Medications Medications Dose Ordered Sig/Jere Route Start Time Stop Time Status Last Admin Dose Admin Acetaminophen/ Hydrocodone Bitart 1 tab Q4HPRN PRN PO 06/14/25 22:45 Morphine Sulfate 1 mg Q4HPRN PRN IV 06/14/25 22:45 Diagnostic Test (Pha) 1 strip Q6HR 06/15/25 12:00 06/16/25 12:05 1 STRIP Insulin Human Regular Q6HR SC 06/15/25 12:00 Dextrose 50 ml UD PRN IV 06/15/25 06:45 Doxycycline Hyclate 100 ml @ 50 mls/hr Q12H IV 06/15/25 14:30 06/16/25 03:10 50 MLS/HR Ceftriaxone Sodium 50 ml @ 100 mls/hr DAILY@09 IV 06/16/25 09:00 06/16/25 09:50 100 MLS/HR Acetaminophen 500 mg Q6HR PO 06/15/25 18:00 Atorvastatin Calcium 80 mg HS PO 06/15/25 22:00 Nifedipine 30 mg DAILY PO 06/16/25 10:00 06/16/25 09:51 30 MG Purified Water Q6HR PO 06/16/25 12:00 Examination General Appearance: Alert, Oriented X3, Cooperative, No acute distress HEENT: Atraumatic, PERRLA, EOMI, Mucous membrane moist/pink Respiratory: Clear to auscultation, Normal air movement Cardiovascular: Regular rate, Normal S1, Normal S2, No murmurs, no chest wall tenderness Abdominal: Normal bowel sounds, Soft, No tenderness, No hepatospenomegaly, No masses Extremities: No clubbing, No cyanosis, No edema, Normal pulses, No tenderness/swelling Skin: No rashes, No breakdown, No significant lesion Neuro: Normal gait, Normal speech, Strength at 5/5 X4 ext, Normal tone, Sensation intact, Cranial nerves 3-12 NL, Reflexes 2+ Psych/Mental Status: Mental status NL, Mood NL laboratory and microbiology Laboratory Tests 06/16/25 05:15 Test 06/16/25 05:15 Range/Units Serum Glucose 88 74-106 mg/dL Labs and/or images reviewed: Labs reviewed by me, Image(s) reviewed by me Problem List/Assessment/Plan Problem List/Assessment/Plan Pneumonia, likely due to Gram-positive/Gram-negative bacteria/viral Acute metabolic encephalopathy, likely due to above Gross hematuria History of urethral stricture, indwelling catheter Hypertensive emergency ORTEGA, due to above/VMN Diabetes type 2 Obesity Hypernatremia Hypokalemia * Chest x-ray shows right lower lobe infiltration Plan/recommendation: * Empiric antibiotic Rocephin and doxycycline * IV fluid * Monitor BMP * Nifedipine 60 mg daily, atorvastatin * Free water for hypernatremia * Repleted potassium * Pain management DIET: Cardiac diet DVT PROPHYLAXIS: SCD, due to hematuria GI PROPHYLAXIS:: Protonix CODE STATUS: Goal of care discussed for more than 18 minutes, full code DISPOSITION: Med/surge Patient's status and plan discussed with the patient son through the phone. Case discussed with Dr. Deal. Plan discussed with: Patient, Other (RN) My Orders My Orders Orders - MANGO CAMPBELL RESDIENT Procedure Category Date Status Time Doxycycline PHA 06/15/25 In Process 100mg/100ml 14:30 Blood Culture DANISHA 06/15/25 In Process 14:26 Respiratory Culture DANISHA 06/15/25 Logged W/ Gs 14:26 Urine Bacterial DANISHA 06/15/25 In Process Culture 14:26 Ceftriaxone 1gm/50ml PHA 06/16/25 In Process (Rocephin) 09:00 Acetaminophen Tab Or PHA 06/15/25 In Process Cap (Tylenol Tablet 18:00 Atorvastatin (Lipitor) PHA 06/15/25 In Process 22:00 Nifedipine Er PHA 06/16/25 In Process (Procardia Xl 10:00 Free Water PHA 06/16/25 In Process 12:00 Sodium Chloride 0.9% PHA 06/16/25 In Process 11:30 Basic Metabolic Panel LAB 06/16/25 Logged 16:00 Date of Service: Jun 16, 2025 Billing Provider: DORIAN BATES MD Common Visit Codes: [id number] INP/OBS CARE(HIGH) MANGO CAMPBELL RESDIENT Jun 16, 2025 14:40 DORIAN BATES MD Jun 16, 2025 16:34
[2025-06-16 16:27] LABS: Potassium 4.0 mmol/L (3.5-5.1)
[2025-06-16 16:28] LABS: Anion Gap 11 (5-15); Calcium 10.2 mg/dL (8.7-10.4); Carbon Dioxide 28 mmol/L (20-31)
[2025-06-16 16:33] LABS: BUN/Creatinine Ratio 13.0 (10.0-20.0); Blood Urea Nitrogen 20 mg/dL (9-23); Glucose 86 mg/dL (74-106)
[2025-06-16 16:36] LABS: Chloride 111 mmol/L (98-107); Sodium 150 mmol/L (136-145)
--- NOTE | 2025-06-17 17:05 | DVHDSRES ---
Discharge Summary Date of Admission Resident Creating Document: MANGO CAMPBELL Jun 14, 2025 at 22:43 Date of Discharge: Jun 16, 2025 Labs/Diagnostic Data: Laboratory Results Test 06/16/25 18:09 06/16/25 16:05 06/16/25 05:15 06/15/25 16:45 POC Glucose 94 mg/dl (70-106) Sodium Level 150 mmol/L (136-145) Potassium Level 4.0 mmol/L (3.5-5.1) Chloride Level 111 mmol/L (98-107) Carbon Dioxide Level 28 mmol/L (20-31) Anion Gap 11 (5-15) Blood Urea Nitrogen 20 mg/dL (9-23) Creatinine 1.54 mg/dL (0.700-1.30) Glomerular Filtration Rate Calc 45 mL/min (>90) BUN/Creatinine Ratio 13.0 (10.0-20.0) Serum Glucose 86 mg/dL (74-106) Calcium Level 10.2 mg/dL (8.7-10.4) White Blood Count 7.8 10^3/uL (4.4-10.8) Red Blood Count 4.96 10^6/uL (4.5-5.90) Hemoglobin 14.0 g/dL (13.5-17.5) Hematocrit 42.4 % (41.0-53.0) Mean Corpuscular Volume 85.4 fL (80.0-100.0) Mean Corpuscular Hemoglobin 28.2 pg (28.0-32.0) Mean Corpuscular Hemoglobin Concent 33.0 g/dL (32.0-36.0) Red Cell Distribution Width 16.7 % (11.8-14.3) Platelet Count 254 10^3/uL (140-450) Mean Platelet Volume 7.5 fL (6.9-10.8) Neutrophils (%) (Auto) 71.5 % (37.0-80.0) Lymphocytes (%) (Auto) 16.2 % (10.0-50.0) Monocytes (%) (Auto) 5.4 % (0.0-12.0) Eosinophils (%) (Auto) 5.9 % (0.0-7.0) Basophils (%) (Auto) 1.0 % (0.0-2.0) Neutrophils # (Auto) 5.6 10 ^3/uL (1.6-8.6) Lymphocytes # (Auto) 1.3 10 ^3/uL (0.4-5.4) Monocytes # (Auto) 0.4 10 ^3/uL (0-1.3) Eosinophils # (Auto) 0.5 10 ^3/uL (0-0.8) Basophils # (Auto) 0.1 10 ^3/uL (0-0.2) Nucleated Red Blood Cells 0.0 % Total Bilirubin 0.5 mg/dL (0.2-1.0) Aspartate Amino Transferase (AST) 67 U/L (13-40) Alanine Aminotransferase (ALT) 25 U/L (7-40) Alkaline Phosphatase 97 U/L (46-116) Total Protein 7.4 g/dL (5.7-8.2) Albumin 4.1 g/dL (3.2-4.8) Urine Color Colorless (Yellow) Urine Clarity Clear (Clear) Urine pH 6.0 (5.0-9.0) Urine Specific Victor 1.003 (1.001-1.035) Urine Protein Negative (Negative) Urine Ketones Negative (Negative) Urine Blood 3+ /uL (Negative) Urine Nitrite Negative (Negative) Urine Bilirubin Negative (Negative) Urine Urobilinogen Normal mg/dL (Negative) Urine Leukocyte Esterase 1+ /uL (Negative) Urine RBC 3 /hpf (0 - 3) Urine Microscopic WBC 3 /HPF (0-3) Urine Squamous Epithelial Cells Few /hpf (<5) Urine Bacteria Few /hpf (None Seen) Urine Yeast (Budding) Occasional /hpf (None Urine Creatinine 26.08 mg/dL (30.0-125.0) Urine Sodium 16 mmol/L (40-220) Urine Glucose 3+ mg/dL (Normal) Urine Opiates Screen Neg (NEGATIVE) Urine Fentanyl Screen Neg (NEGATIVE) Urine Barbiturates Screen Neg (NEGATIVE) Urine Phencyclidine Screen Neg (NEGATIVE) Urine Amphetamines Screen Neg (NEGATIVE) Urine Benzodiazepines Screen Neg (NEGATIVE) Urine Cocaine Screen Neg (NEGATIVE) Urine Cannabinoids Screen Neg (NEGATIVE) Test 06/15/25 16:24 06/15/25 07:32 06/14/25 17:37 Influenza Type A Antigen Negative (Negative) Influenza Type B Antigen Negative (Negative) SARS-CoV-2 Antigen (Rapid) Negative (NEGATIVE) Prothrombin Time 10.7 sec (9.3-11.8) Prothrombin Time INR 1.01 (0.9-1.15) Activated Partial Thromboplast Time 24.1 SEC (24.5-34.5) Hemoglobin A1c 5.5 % A1C (<5.7) Magnesium Level 2.3 mg/dL (1.6-2.6) B-Type Natriuretic Peptide 188.94 pg/mL (0-100) Vitamin B12 Level 654 pg/mL (211-911) Thyroid Stimulating Hormone (TSH) 0.33 uIU/mL (0.55-4.78) Vitamin D 25-Hydroxy 48.8 ng/mL (30.0-100) Other Laboratory Tests 06/16/25 16:05 06/16/25 05:15 Brief Hx & Hospital Course: HISTORY OF PRESENT ILLNESS: 79-year-old male presented to the ER with a chief complaint of gross hematuria for the past week. Patient has a chronic indwelling Bowman which he got replaced around 3 days back, but he has been having gross hematuria for the past week. Also reports pain which is suprapubic but no dysuria. Denies fever or chills. Reports that he saw his urologist, who visited at his house and that he went to urgent care but nothing happened. Patient was recently seen in this facility for similar reasons and underwent cystoscopy. Patient is hypertensive during this visit. Past medical history: Diabetes mellitus type 2, hypertension, aspirin Home medications: Atenolol Social history: Quit smoking 20 years back, smoked for 20 years, 1 pack a year, denies drinking or drug use. Lives with son in his. PCP Dr. Meza [facility] COURSE: Patient was admitted due to gross hematuria and acute metabolic encephalopathy, likely due to pneumonia. The patient was started on empiric antibiotic of Rocephin, doxycycline. Due to hematuria, Urology consulted, recommended medical management on outpatient basis follow up. Chest x-ray showed right lower lobe infiltration. Due to high blood pressure, the patient was given IV labetalol and subsequently the patient was started on nifedipine and atorvastatin. Due to hyponatremia, the patient was given free water 200 mg q.4 hours. During hospital course, electrolyte imbalance including hypokalemia was repleted. Blood culture performed, showed no growth after 48 hours. On 06/16, the patient left AMA. FINAL DIAGNOSIS: Pneumonia, likely due to Gram-positive/Gram-negative bacteria/viral Acute metabolic encephalopathy, likely due to above Gross hematuria History of urethral stricture, indwelling catheter Hypertensive emergency ORTEGA, due to above/VMN Diabetes type 2 Obesity Hypernatremia Hypokalemia Acute urinary retention Condition at Discharge: Undetermined Final Diagnosis/Problems List Pneumonia, likely due to Gram-positive/Gram-negative bacteria/viral Acute metabolic encephalopathy, likely due to above Gross hematuria History of urethral stricture, indwelling catheter Hypertensive emergency ORTEGA, due to above/VMN Diabetes type 2 Obesity Hypernatremia Hypokalemia Acute urinary retention Discharge Disposition: AMA Discharge Instruct/Medications Scheduled Aspirin (Aspir-81), 1 TAB PO DAILY, (Reported) Atenolol (Atenolol), Unknown Dose PO BID, (Reported) Atorvastatin Calcium (Lipitor), Unknown Dose PO QPM, (Reported) Atorvastatin Calcium (Lipitor), 80 MG PO DAILY, (Reported) Cholecalciferol (Gnp Vitamin D), 1,000 UNIT PO DAILY, (Reported) Empagliflozin (Jardiance), 25 MG PO DAILY, (Reported) Losartan Potassium (Losartan Potassium), 1 TAB PO DAILY, (Reported) Metformin Hydrochloride (Metformin Hcl), Unknown Dose PO IBID, (Reported) Mirtazapine (Remeron), 1 TAB PO QPM, (Reported) Sertraline Hcl (Sertraline Hcl), 100 MG PO DAILY, (Reported) Sulfamethoxazole W/Trimethopri (Bactrim Ds Tablet), 1 TAB PO BID Tamsulosin Hcl (Flomax), 1 CAP PO DAILY, (Reported) Miscellaneous Medications Gabapentin (Neurontin), 400 MG PO, (Reported) Melatonin ( Melatonin), 3 MG PO, (Reported) Discharge Statement: "Patient was advised to return to the ER or call 911 if any headaches, dizziness, shortness of breath, chest pain, abdominal pain, bleeding, fevers, or worsening of medical condition. Patient was counseled about treatment plan, medications, possible side effects, patientverbalized understanding. All questions were answered to the best of my ability. This discharge took greater then 30 minutes in planning, reviewing documentation, counseling the patient, and discussing with other team members." ASSESSMENT ASSESSMENT Assessment Date of Service: Jun 16, 2025 Billing Provider: DORIAN BATES MD Common Visit Codes: [id number] DISCH DAY >30min MANGO CAMPBELL RESALPESH Jun 17, 2025 17:05
== END 2025-06-16 20:40 | disposition left against medical advice (07) | DRG 698 ==
LOC: ER 16:20 → OVERFLOW 22:43 → TELE-WESTW 06-15 21:27
PROVIDERS: ADMIT Student in an Organized Health Care Education/Training Program; ATTEND Student in an Organized Health Care Education/Training Program
DX: T83.83XA Hemorrhage due to genitourinary prosthetic devices, implants and grafts, initial encounter (principal); G93.41 Metabolic encephalopathy; J12.9 Viral pneumonia, unspecified; J15.69 Pneumonia due to other Gram-negative bacteria; N17.0 Acute kidney failure with tubular necrosis; J15.9 Unspecified bacterial pneumonia; I16.1 Hypertensive emergency; Z79.02 Long term (current) use of antithrombotics/antiplatelets; E11.9 Type 2 diabetes mellitus without complications; E66.9 Obesity, unspecified; E87.0 Hyperosmolality and hypernatremia; I10 Essential (primary) hypertension; R31.0 Gross hematuria; R33.9 Retention of urine, unspecified; Z20.822 Contact with and (suspected) exposure to COVID-19; Z53.29 Procedure and treatment not carried out because of patient's decision for other reasons; E87.6 Hypokalemia; Z79.899 Other long term (current) drug therapy; Z79.82 Long term (current) use of aspirin; Z79.84 Long term (current) use of oral hypoglycemic drugs; Z87.891 Personal history of nicotine dependence; Y84.6 Urinary catheterization as the cause of abnormal reaction of the patient, or of later complication, without mention of misadventure at the time of the procedure
CPT/HCPCS: 36415; 71045; 80048; 80053; 80307; 81001; 82306; 82570; 82607; 82962; 83036; 83735; 83880; 84300; 84443; 85025; 85610; 85730; 87040; 87086; 87088; 87426; 87804; 93005; 96374; G0378; J1815